=== PATIENT | female | born 1935 | race African-American/Black ===

== ENCOUNTER 2018-03-25 14:07 | Inpatient (IN) | payer MEDICARE, MEDICAID ==
[~2018-03-25] VITALS: Ht 175.3 cm; Wt 94.8 kg
--- NOTE | 2018-03-25 14:28 | Emergency Room Report ---
History of Present Illness General Chief Complaint: General Complaint Source: Patient, Medical Record Present Illness HPI Patient 82-year-old female sent in by nursing facility with EMS after increased facial swelling. Patient reportedly had been sent in for the facial swelling to the left side. This reportedly had began this morning. Patient has no known allergies. Patient was noted to have swelling to the left side of her face. She reported had no recent trauma. She had not been having any fever. History limited by patient being a poor historian. Allergies: Coded Allergies: No Known Allergies (Unverified , 03/25/18) Patient History Past Medical History: see triage record Reviewed Nursing Documentation: PMH: Agreed; PSxH: Agreed Nursing Documentation-PMH Past Medical History: No History, Except For Hx Hypertension: Yes Hx Diabetes: Yes Hx Gastrointestinal Problems: Yes - GERD History Of Psychiatric Problem: Yes - Schizophrenia, bipolar Hx Neurological Problems: Yes - muscle weakness Review of Systems All Other Systems: limited - by poor historian Physical Exam Vital Signs Date Time Temp Pulse Resp B/P (MAP) Pulse Ox O2 Delivery O2 Flow Rate FiO2 03/25/18 14:16 98.0 89 20 116/70 99 Nasal Cannula 3.0 98.1 Sp02 EP Interpretation: reviewed, normal General Appearance: normal inspection, alert, obese, Chronically Ill ENT: other - left preauricular facial swelling and induration Neck: normal inspection, supple, no bony tend, limited range of motion Respiratory: normal inspection, no respiratory distress, no retraction, no wheezing Cardiovascular #1: regular rate, rhythm, no edema Gastrointestinal: normal inspection, normal bowel sounds, non tender, soft, no guarding, no hernia Genitourinary: no CVA tenderness Musculoskeletal: normal inspection, back normal, normal range of motion Neurologic: normal inspection, alert, responsive, speech normal Psychiatric: normal inspection, judgement/insight normal, mood/affect normal Skin: normal inspection, normal color, no rash Medical Decision Making Diagnostic Impression: Primary Impression: Facial cellulitis ER Course Patient presented for facial swelling. Differential diagnosis included was not limited to abscess, contusion, parotitis, among others.Because of complexity of patient's case laboratory testing and imaging studies were ordered.The patient noted to have elevated white blood count consistent with the infection. The patient was given IV fluids as well as IV antibiotics. CT of the face read by radiology with IV contrast showed soft tissue swelling without evident abscess. Patient was discussed with Dr. Antony Connolly for inpatient management due to covering physician Labs Test 03/25/18 14:50 White Blood Count 22.3 K/UL (4.8-10.8) Red Blood Count 4.34 M/UL (4.20-5.40) Hemoglobin 13.3 G/DL (12.0-16.0) Hematocrit 40.8 % (37.0-47.0) Mean Corpuscular Volume 94 FL (80-99) Mean Corpuscular Hemoglobin 30.7 PG (27.0-31.0) Mean Corpuscular Hemoglobin Concent 32.6 G/DL (32.0-36.0) Red Cell Distribution Width 13.4 % (11.6-14.8) Platelet Count 210 K/UL (150-450) Mean Platelet Volume 6.4 FL (6.5-10.1) Neutrophils (%) (Auto) % (45.0-75.0) Lymphocytes (%) (Auto) % (20.0-45.0) Monocytes (%) (Auto) % (1.0-10.0) Eosinophils (%) (Auto) % (0.0-3.0) Basophils (%) (Auto) % (0.0-2.0) Prothrombin Time 11.2 SEC (9.30-11.50) Prothromb Time International Ratio 1.1 (0.9-1.1) Activated Partial Thromboplast Time 33 SEC (23-33) Sodium Level 133 MMOL/L (136-145) Potassium Level 5.1 MMOL/L (3.5-5.1) Chloride Level 100 MMOL/L (98-107) Carbon Dioxide Level 24 MMOL/L (21-32) Anion Gap 9 mmol/L (5-15) Blood Urea Nitrogen 16 mg/dL (7-18) Creatinine 0.9 MG/DL (0.55-1.30) Estimat Glomerular Filtration Rate mL/min (>60) Glucose Level 130 MG/DL (74-106) Lactic Acid Level 2.40 mmol/L (0.4-2.0) Total Bilirubin 0.5 MG/DL (0.2-1.0) Aspartate Amino Transf (AST/SGOT) 37 U/L (15-37) Alanine Aminotransferase (ALT/SGPT) 16 U/L (12-78) Alkaline Phosphatase 92 U/L (46-116) Total Creatine Kinase 152 U/L (26-140) Creatine Kinase MB < 0.5 NG/ML (0.0-3.6) Creatine Kinase MB Relative Index Troponin I 0.000 ng/mL (0.000-0.056) Pro-B-Type Natriuretic Peptide 725 pg/mL (0-125) Total Protein 7.6 G/DL (6.4-8.2) Albumin 2.1 G/DL (3.4-5.0) Globulin 5.5 g/dL Albumin/Globulin Ratio 0.4 (1.0-2.7) EKG Diagnostic Results Rate: normal Rhythm: NSR - 96 ST Segments: other - low voltage Last Vital Signs Date Time Temp Pulse Resp B/P (MAP) Pulse Ox O2 Delivery O2 Flow Rate FiO2 03/25/18 14:16 98.0 89 20 116/70 99 Nasal Cannula 3.0 98.1 Status: unchanged Disposition: ADMITTED INPATIENT Condition: Serious Siddharth Church MD Mar 25, 2018 14:28
[2018-03-25] MEDS ORDERED: Isovue-300 100ml vial INJ PRN (14:45)
[2018-03-25 15:07] VITALS: BP 148/70
[2018-03-25 15:20] LABS: HEMATOCRIT 40.8 % (37.0-47.0); HEMOGLOBIN 13.3 G/DL (12.0-16.0); INR 1.1 (0.9-1.1); MEAN CORPUSCULAR VOLUME 94 FL (80-99); PLATELET COUNT 210 K/UL (150-450); RED BLOOD COUNT 4.34 M/UL (4.20-5.40); RED CELL DISTRIBUTION WIDTH 13.4 % (11.6-14.8)
[2018-03-25 15:25] LABS: WHITE BLOOD COUNT 22.3 K/UL (4.8-10.8)
[2018-03-25 15:29] LABS: ALANINE AMINOTRANSFERASE 16 U/L (12-78); ANION GAP 9 mmol/L (5-15); ASPARTATE AMINO TRANSFERASE 37 U/L (15-37); BILIRUBIN,TOTAL 0.5 MG/DL (0.2-1.0); BLOOD UREA NITROGEN 16 mg/dL (7-18); CARBON DIOXIDE 24 MMOL/L (21-32); CHLORIDE 100 MMOL/L (98-107); CREATINE KINASE 152 U/L (26-140); CREATININE 0.9 MG/DL (0.55-1.30); POTASSIUM 5.1 MMOL/L (3.5-5.1); SODIUM 133 MMOL/L (136-145)
[2018-03-25 15:30] LABS: ALBUMIN 2.1 G/DL (3.4-5.0); ALBUMIN/GLOBULIN RATIO 0.4 (1.0-2.7); ALKALINE PHOSPHATASE 92 U/L (46-116)
[2018-03-25 15:32] LABS: CKMB < 0.5 NG/ML (0.0-3.6)
--- NOTE | 2018-03-25 15:33 | Diagnostic Imaging Report ---
Indication: Shortness of breath Technique: One view of the chest Comparison: none Findings: Calcified granulomata are seen in both lungs. Lungs and pleural spaces otherwise clear. Heart size is normal. Aorta is tortuous and calcified. Upper mediastinum is unremarkable. There are degenerative changes of both shoulders Impression: Evidence old granulomatous disease No acute process Other findings as noted
[2018-03-25] MEDS ORDERED: Ampicillin/Sulbactam Sod 3 GM in NS 110 ML IVPB ONE (15:45)
[2018-03-25 15:55] LABS: CALCIUM 9.1 MG/DL (8.5-10.1)
--- NOTE | 2018-03-25 16:07 | Diagnostic Imaging Report ---
Indication: Pain, swelling Technique: IV administration nonionic contrast. Spiral acquisitions obtained through the face. Multiplanar reconstructions were generated. Total dose length product 591.53 mGycm. CTDIvol(s) 28.19 mGy. Dose reduction achieved using automated exposure control Comparison: 03/24/2018, also bushel girl image from CT scan December 22, 2017 Findings: Interim transit of contrast into the colon. Small amount of residual contrast and small bowel feces are seen in the previously described right lower quadrant small bowel loop, which is less distended and contains less feces and previously. Right upper quadrant small bowel loops are slightly prominent, gas-filled. Nasogastric tube is again demonstrated, coiled in the gastric fundus. Impression: There are mildly dilated right mid abdominal gas-filled small bowel loops. However, since 03/24/2018, interim transit of nearly all of the ingested contrast into the colon. There is also decreased contrast and stool within the previously distended right right pelvic small bowel loop, indicating that the degree of obstruction, if any, is minimal Other findings as noted Dr. Arroyo notified by phone of the findings at the time of interpretation The CT scanner at [facility] [place] is accredited by the [employer] and the scans are performed using protocols designed to limit radiation exposure to as low as reasonably achievable to attain images of sufficient resolution adequate for diagnostic evaluation.
[2018-03-25] MEDS ORDERED: BACTRIM DS TAB1 EAC1 ORAL ×2 (16:31→18:09)
[2018-03-25] MEDS ORDERED: TYLENOL325 MG ORAL (16:31)
[2018-03-25] MEDS ORDERED: MILK OF MA2400 MG/10 ORAL (16:31)
[2018-03-25] MEDS ORDERED: MULTIVITAMINS1 EAC2 ORAL (16:31)
[2018-03-25] MEDS ORDERED: COLACE100 MG ORAL (16:31)
[2018-03-25] MEDS ORDERED: NOVOLIN R100 UNIT/1 SUBQ (16:31)
[2018-03-25] MEDS ORDERED: PHOS-NAK PACKE1 EAC1 PO (16:33)
[2018-03-25] MEDS ORDERED: ZANTAC150 MG ORAL (17:01)
[2018-03-25] MEDS ORDERED: NUTRISOURCE FI1 EACH PO (17:01)
[2018-03-25] MEDS ORDERED: BENZTROPINE ME0.5 MG PO (17:01)
[2018-03-25] MEDS ORDERED: DEPAKOTE250 MG PO (17:01)
[2018-03-25] MEDS ORDERED: DEPAKOTE500 MG PO (18:09)
[2018-03-25] MEDS ORDERED: MILK OF MA400 MG/51 ORAL (18:12)
[2018-03-25 18:15] VITALS: BP 154/73
[2018-03-25] MEDS ORDERED: DULCOLAX10 MG RC (18:18)
[2018-03-25] MEDS ORDERED: NITROFURANTOIN100 M2 ORAL (18:24)
[2018-03-25] MEDS ORDERED: PRO-STAT LIQUID30 ML ORAL (18:24)
[2018-03-25] MEDS ORDERED: CALCIUM CARBON500 M1 PO (18:26)
[2018-03-25 18:30] VITALS: BP 121/88
[2018-03-25] MEDS ORDERED: ACETAMINOPHEN325 M1 ORAL (18:50)
--- NOTE | 2018-03-25 18:51 | Infectious Diseases Prog Note ---
Assessment/Plan Assessment/Plan left facial cellulitis left parotitis sepsis, leukocytosis allergies - negative pmh noted vancomycin, cefepime and flagyl monitor labs check cultures thank you Subjective Allergies: Coded Allergies: No Known Allergies (Unverified , 03/25/18) Objective Vital Signs Last 24 Hour Vital Signs Date Time Temp Pulse Resp B/P (MAP) Pulse Ox O2 Delivery O2 Flow Rate FiO2 03/25/18 18:35 98.1 88 17 154/73 96 Room Air 3.0 03/25/18 18:15 88 17 154/73 96 Room Air 03/25/18 15:07 91 17 148/70 94 Room Air 03/25/18 14:16 98.0 89 20 116/70 99 Nasal Cannula 3.0 98.1 Height (Feet): 5 Height (Inches): 9.00 Weight (Pounds): 190 Laboratory Tests Test 03/25/18 14:50 03/25/18 18:06 White Blood Count 22.3 K/UL (4.8-10.8) *H Red Blood Count 4.34 M/UL (4.20-5.40) Hemoglobin 13.3 G/DL (12.0-16.0) Hematocrit 40.8 % (37.0-47.0) Mean Corpuscular Volume 94 FL (80-99) Mean Corpuscular Hemoglobin 30.7 PG (27.0-31.0) Mean Corpuscular Hemoglobin Concent 32.6 G/DL (32.0-36.0) Red Cell Distribution Width 13.4 % (11.6-14.8) Platelet Count 210 K/UL (150-450) Mean Platelet Volume 6.4 FL (6.5-10.1) L Neutrophils (%) (Auto) % (45.0-75.0) Lymphocytes (%) (Auto) % (20.0-45.0) Monocytes (%) (Auto) % (1.0-10.0) Eosinophils (%) (Auto) % (0.0-3.0) Basophils (%) (Auto) % (0.0-2.0) Differential Total Cells Counted 100 Neutrophils % (Manual) 77 % (45-75) H Lymphocytes % (Manual) 13 % (20-45) L Monocytes % (Manual) 4 % (1-10) Eosinophils % (Manual) 0 % (0-3) Basophils % (Manual) 0 % (0-2) Band Neutrophils 6 % (0-8) Platelet Estimate Adequate Platelet Morphology Normal Red Blood Cell Morphology Normal Prothrombin Time 11.2 SEC (9.30-11.50) Prothromb Time International Ratio 1.1 (0.9-1.1) Activated Partial Thromboplast Time 33 SEC (23-33) Sodium Level 133 MMOL/L (136-145) L Potassium Level 5.1 MMOL/L (3.5-5.1) Chloride Level 100 MMOL/L (98-107) Carbon Dioxide Level 24 MMOL/L (21-32) Anion Gap 9 mmol/L (5-15) Blood Urea Nitrogen 16 mg/dL (7-18) Creatinine 0.9 MG/DL (0.55-1.30) Estimat Glomerular Filtration Rate mL/min (>60) Glucose Level 130 MG/DL (74-106) H Lactic Acid Level 2.40 mmol/L (0.4-2.0) H Pending Calcium Level 9.1 MG/DL (8.5-10.1) Total Bilirubin 0.5 MG/DL (0.2-1.0) Aspartate Amino Transf (AST/SGOT) 37 U/L (15-37) Alanine Aminotransferase (ALT/SGPT) 16 U/L (12-78) Alkaline Phosphatase 92 U/L (46-116) Total Creatine Kinase 152 U/L (26-140) H Creatine Kinase MB < 0.5 NG/ML (0.0-3.6) Creatine Kinase MB Relative Index Troponin I 0.000 ng/mL (0.000-0.056) Pro-B-Type Natriuretic Peptide 725 pg/mL (0-125) H Total Protein 7.6 G/DL (6.4-8.2) Albumin 2.1 G/DL (3.4-5.0) L Globulin 5.5 g/dL Albumin/Globulin Ratio 0.4 (1.0-2.7) L Current Medications Medications (Trade) Dose Ordered Sig/Ariane Route PRN Reason Start Time Stop Time Status Last Admin Dose Admin Iopamidol (Isovue-300 100ml) 100 ml NOW PRN INJ Radiology Procedure 03/25/18 14:45 03/27/18 14:41 Alfie Palacio MD Mar 25, 2018 18:51
[2018-03-25] MEDS ORDERED: LOTENSIN20 MG ORAL (18:54)
[2018-03-25 20:00] VITALS: BP 140/89
[2018-03-25] MEDS ORDERED: Vancomycin 1.5 GM/D5W 250ML IVPB ONE (20:00)
--- NOTE | 2018-03-25 22:45 | Consultation ---
DATE OF CONSULTATION: 03/25/2018 INFECTIOUS DISEASE CONSULTATION CONSULTING PHYSICIAN: Alfie Palacio M.D. REFERRING PHYSICIAN: Antony Connolly M.D. REASON FOR CONSULTATION: Left-sided facial cellulitis and parotitis, sepsis, and elevated white count. CHIEF COMPLAINT: Facial swelling. HISTORY OF PRESENT ILLNESS: This is an 82-year-old female, who is not a very good historian, who presents to [facility] with left facial swelling. A CT scan of the facial bones showed the following. It showed findings consistent with parotid enlargement and in addition edema enhanced with the subcutaneous fat. Findings were consistent with cellulitis and associated parotitis. Infectious Disease consultation is requested for antibiotic management in the patient with left facial cellulitis and parotitis. The patient was placed on vancomycin, cefepime, and Flagyl. The patient is septic with elevated white count. Blood cultures are pending. MAR was noted. Orders were noted. Notes and records were reviewed. The patient is not a very good historian. She is nonverbal. PAST MEDICAL HISTORY: The patient's past medical history includes the following. The patient has a past medical history of hypertension, diabetes, and history of gastroesophageal reflux disease. She has history of schizophrenia and bipolar disease. She has history of muscle weakness. MEDICATIONS: Upon reviewing the MAR, she is on the following medications. She was given ampicillin and sulbactam in the ER. Outside medications were noted and reconciliated. She was on acetaminophen, benazepril, bisacodyl, calcium carbonate, divalproex, docusate, magnesium hydroxide, multivitamins, and ranitidine. ALLERGIES: No known drug allergies. No antibiotic allergies. SOCIAL HISTORY: Negative for smoking, alcohol, or drug abuse. FAMILY HISTORY: Noncontributory. Negative for exposure to tuberculosis or cancer. PHYSICAL EXAMINATION: VITAL SIGNS: Temperature is 98.1, pulse rate 80, respiratory rate 17, blood pressure 154/73, and saturation 96%. Pulse rate was as high as 91. GENERAL: The patient is alert, responsive, and in no acute distress. HEAD AND NECK: Oral exam, no thrush. Eyes exam, no icterus. Neck is supple. No JVD. Normocephalic. She has left facial swelling and parotid enhancement in addition to left facial swelling and warmth. LUNGS: Clear bilaterally. No rhonchi or rales. HEART: Regular. No gallop or murmur. No friction rub. ABDOMEN: Soft. Positive bowel sounds. Nontender. SKIN: No rash. MUSCULOSKELETAL: No effusions. Legs are without cellulitis. PERIPHERAL VASCULAR: No cyanosis or gangrene. GENITOURINARY: She has no Ru[place]. LINES: Line sites without phlebitis. NEUROLOGIC: Generalized weakness and responsive. Opens eyes. Nonverbal. LABORATORY AND DIAGNOSTIC DATA: Laboratory data is as follows. Creatinine is 0.9. White count 22.3 and hemoglobin 13.3. Blood cultures and UA are pending. IMAGING STUDIES: Chest x-ray showed no acute disease. No pneumonia, only old granulomatous disease. A CT scan of the facial bones was consistent with left-sided facial cellulitis and parotitis. ASSESSMENT AND PLAN: 1. The patient has left facial cellulitis and parotitis with sepsis and elevated white count. Because of the sepsis, I believe more aggressive antibiotics. Most common cause of the parotitis should be Staph aureus including methicillin-resistant Staphylococcus aureus. However, anaerobic bacteria are potential pathogens and the patient because of her immunocompromised status with history of diabetes, is at high risk for Gram-negative organisms also. We will place the patient on vancomycin for methicillin-resistant Staphylococcus aureus and Staph aureus coverage and cefepime and Flagyl for gram-negative anaerobic coverage. Continue antibiotics. Check other cultures. Check followup labs. Chest x-ray is negative. UA and blood cultures are pending. Continue vancomycin, cefepime, and Flagyl for left facial cellulitis, parotitis, sepsis, and elevated white count. 2. The patient has sepsis, leukocytosis 3. Diabetes. 4. Hypertension. 5. Blood sugar and blood pressure control per primary. 6. Gastroesophageal reflux disease. 7. Schizophrenia 8. Bipolar disease. 9. Weakness. 10. Past medical history is noted. 11. No known allergies. 12. Social history is negative. 13. Family history is noncontributory. 14. MAR was noted. 15. Case was discussed with RN. 16. Continue treatment per primary consultants. Alfie Palacio M.D. DR: YVES JOB#: [id number] CC: ZECHARIAH
[2018-03-26] VITALS: BP 129/74
[2018-03-26] MEDS: Depakote 500mg tab ORAL SCH ×3 (00:27→08:47)
[2018-03-26 04:00] VITALS: BP 121/68
[2018-03-26 06:48] LABS: HEMATOCRIT 40.8 % (37.0-47.0); HEMOGLOBIN 13.4 G/DL (12.0-16.0); MEAN CORPUSCULAR VOLUME 94 FL (80-99); PLATELET COUNT 207 K/UL (150-450); RED BLOOD COUNT 4.32 M/UL (4.20-5.40); RED CELL DISTRIBUTION WIDTH 13.1 % (11.6-14.8); WHITE BLOOD COUNT 21.8 K/UL (4.8-10.8)
[2018-03-26 07:05] LABS: ALANINE AMINOTRANSFERASE 9 U/L (12-78); ALBUMIN 2.1 G/DL (3.4-5.0); ALBUMIN/GLOBULIN RATIO 0.4 (1.0-2.7); ALKALINE PHOSPHATASE 88 U/L (46-116); ANION GAP 8 mmol/L (5-15); ASPARTATE AMINO TRANSFERASE 29 U/L (15-37); BILIRUBIN,TOTAL 0.5 MG/DL (0.2-1.0); BLOOD UREA NITROGEN 11 mg/dL (7-18); CALCIUM 8.6 MG/DL (8.5-10.1); CARBON DIOXIDE 26 MMOL/L (21-32); CHLORIDE 99 MMOL/L (98-107); CREATININE 0.8 MG/DL (0.55-1.30); POTASSIUM 3.8 MMOL/L (3.5-5.1); SODIUM 133 MMOL/L (136-145)
[2018-03-26 08:00] VITALS: BP 138/77
[2018-03-26] MEDS: Tums 500mg ORAL SCH ×3 (08:19→17:12)
[2018-03-26] MEDS ORDERED: Docusate 100mg cap ORAL SCH (09:00)
[2018-03-26] MEDS: Vancomycin 1250mg/D5W 250ml IVPB SCH (10:03)
[2018-03-26] MEDS ORDERED: NS 275ml ONE (10:52)
[2018-03-26] MEDS ORDERED: Tubing IV Secondary IV ONE (10:52)
[2018-03-26] MEDS: Valproic Acid 500mg/10ml liquid ORAL SCH ×2 (11:14→21:08)
[2018-03-26 12:00] VITALS: BP 116/65
[2018-03-26 15:39] VITALS: BP 101/52
[2018-03-26] MEDS: Docusate 100mg/10ml Liq ORAL SCH (17:12)
[2018-03-26 20:00] VITALS: BP 117/78
--- NOTE | 2018-03-26 23:45 | History and Physical Report ---
DATE OF ADMISSION: 03/25/2018 REASON FOR ADMISSION: Cellulitis, parotitis of left face with leukocytosis and sepsis. HISTORY OF PRESENT ILLNESS: This is an 82-year-old female, who resides at a [facility] facility. She is at baseline a poor historian with dementia, however, has been increasingly withdrawn and lethargic for the past day. She was noted to have progressive swelling of her face today according to senior living staff. She was also noted to have associated warmth, redness, and apparent tenderness to palpation prompting her to be sent to the emergency room for assessment. Based on diagnostic studies, hospitalization was initiated under my care. PAST MEDICAL HISTORY: Cerebrovascular disease with dementia, bipolar disorder, schizophrenia, abnormal gait, degenerative disk disease, osteoarthritis, hypertension with hypertensive heart disease, non-insulin requiring diabetes mellitus, and gastroesophageal reflux disease. ALLERGIES: None. MEDICATIONS: Prior to admission, reviewed and reconciled. SOCIAL HISTORY: Prior history of moderate alcohol use. No record of smoking or substance abuse. FAMILY HISTORY: Noncontributory. REVIEW OF SYSTEMS: Otherwise not obtainable from the patient and pertinent data from review of records is outlined above. PHYSICAL EXAMINATION: VITAL SIGNS: Afebrile, blood pressure 154/73, pulse 80, respirations 17. GENERAL: Alert, awake, but unresponsive, but lethargic. HEENT: Normocephalic, atraumatic. Conjunctivae pink. Oropharynx clear. No thrush. No oral lesion. There is swelling of the left facies and tenderness and warmth over the parotid region. There is no adenopathy. LUNGS: Clear. CARDIAC: Regular rhythm and rate. Normal S1, S2 with a 1/6 systolic murmur at base. ABDOMEN: Soft, nontender. No guarding or rebound. EXTREMITIES: Good pulses. No edema. NEUROLOGIC: Nonfocal, but mild cognitive impairment is seen. There is no skin rash. LABORATORY DATA: Labs notable for white count 22.3, hemoglobin 13.3. Lactic acid 2.4. Troponin negative. Sodium is 133, potassium 5.1, bicarbonate 24, BUN 16, creatinine 0.9, and glucose . Albumin 2.1. Pro-natriuretic peptide 725. IMPRESSION: 1. Left-sided facial cellulitis. 2. Parotitis. 3. Sepsis. 4. Leukocytosis. 5. Type 2 diabetes mellitus with mild hyperglycemia. 6. Hypertensive heart disease with controlled blood pressure. 7. History of gastroesophageal reflux disease. 8. History of bipolar disorder and schizophrenia with stable at this time. 9. Hyponatremia with hypovolemia. 10. Lactic acidosis. 11. Severe protein-calorie malnutrition. 12. Chronic diastolic congestive heart failure. PLAN: 1. Panculture. 2. Broad-spectrum antibiotics. 3. Imaging studies of the left facies. 4. Infectious Disease consultation. 5. Cautious hydration with saline. 6. Insulin titration by sliding scale. 7. DVT and stress ulcer prophylaxes. 8. Further recommendations and care plan will follow based on clinical course. Antony Connolly M.D. DR: KATHY JOB#: [id number] CC: ZECHARIAH
[2018-03-27] VITALS: BP 146/83
--- NOTE | 2018-03-27 00:15 | Progress Note ---
DATE: 03/26/2018 INTERNAL MEDICINE PROGRESS NOTE SUBJECTIVE: The patient is appearing more awake, alert, and interactive today. Her appetite is better, it showed 80% of breakfast, but 20% of lunch. OBJECTIVE: VITAL SIGNS: T-max 99.1, blood pressure 101/52, heart rate 84, respiratory rate 20. HEENT: There is still tenderness over the left face with warmth and redness, no change from admission. There is no adenopathy. Oropharynx clear. No thrush. LUNGS: Clear. CARDIAC: Regular rhythm rate. Normal S1, S2 with a fourth heart sound and a 1/6 systolic murmur at apex. ABDOMEN: Soft, nontender. EXTREMITIES: No edema. NEUROLOGIC: No new neurologic deficits. LABORATORY DATA: Lactic acid is now normal. Albumin 2.1. BUN 11, creatinine 0.8. Potassium 3.8, sodium 133, bicarb 26, magnesium 1.8. White count 21.8, hemoglobin 13.4. IMPRESSION: 1. Left facial cellulitis. 2. Parotiditis. 3. Sepsis. 4. Leukocytosis, slightly better. 5. Severe protein-calorie malnutrition. 6. Chronic diastolic congestive heart failure. 7. Hypertensive heart disease. 8. Lactic acidosis, resolved. 9. Hyponatremia. 10. Hypovolemia, improving. PLAN: 1. Continue saline hydration. 2. Antimicrobials. 3. Consider further imaging of the faces. 4. Infectious Disease followup. 5. Broad-spectrum antibiotics. 6. Protein supplement. 7. DVT and stress ulcer prophylaxis. 8. Aspiration precautions. Antony Connolly M.D. DR: KURT JOB#: [id number] CC:
[2018-03-27 04:00] VITALS: BP 111/60
[2018-03-27 07:11] LABS: BASOPHILS % (AUTO) 0.6 % (0.0-2.0); EOSINOPHILS % (AUTO) 1.1 % (0.0-3.0); HEMATOCRIT 36.9 % (37.0-47.0); HEMOGLOBIN 11.9 G/DL (12.0-16.0); LYMPHOCYTES % (AUTO) 18.3 % (20.0-45.0); MEAN CORPUSCULAR VOLUME 93 FL (80-99); MONOCYTES % (AUTO) 5.1 % (1.0-10.0); NEUTROPHILS % (AUTO) 74.9 % (45.0-75.0); PLATELET COUNT 244 K/UL (150-450); RED BLOOD COUNT 3.99 M/UL (4.20-5.40); RED CELL DISTRIBUTION WIDTH 12.9 % (11.6-14.8); WHITE BLOOD COUNT 17.4 K/UL (4.8-10.8)
[2018-03-27 07:19] LABS: ALANINE AMINOTRANSFERASE 28 U/L (12-78); ALBUMIN 1.8 G/DL (3.4-5.0); ALBUMIN/GLOBULIN RATIO 0.4 (1.0-2.7); ALKALINE PHOSPHATASE 87 U/L (46-116); ANION GAP 7 mmol/L (5-15); ASPARTATE AMINO TRANSFERASE 33 U/L (15-37); BILIRUBIN,TOTAL 0.4 MG/DL (0.2-1.0); BLOOD UREA NITROGEN 12 mg/dL (7-18); CALCIUM 8.5 MG/DL (8.5-10.1); CARBON DIOXIDE 26 MMOL/L (21-32); CHLORIDE 103 MMOL/L (98-107); POTASSIUM 3.5 MMOL/L (3.5-5.1); SODIUM 136 MMOL/L (136-145)
[2018-03-27 08:00] VITALS: BP 158/72
[2018-03-27] MEDS: Docusate 100mg/10ml Liq ORAL SCH ×2 (08:46→17:38)
[2018-03-27] MEDS: Valproic Acid 500mg/10ml liquid ORAL SCH ×2 (08:46→21:03)
[2018-03-27] MEDS: Tums 500mg ORAL SCH ×3 (08:46→17:38)
[2018-03-27] MEDS: Vancomycin 1250mg/D5W 250ml IVPB SCH (10:19)
[2018-03-27 12:00] VITALS: BP 130/60
--- NOTE | 2018-03-27 14:23 | Cardiology Report ---
APPROVED REPORT EKG Measurement Heart [id number] Normal sinus rhythm Possible Left atrial enlargement Low voltage QRS Borderline ECG poor quliaty tracing consider repating the ekg
--- NOTE | 2018-03-27 15:31 | Infectious Diseases Prog Note ---
Assessment/Plan Assessment/Plan ASSESSMENT AND PLAN: 1. left facial cellulitis, left parotitis, facial ct noted, sepsis, leukocytosis - vancomycin, cefepime and flagy - da/y # 3 abx - monitor labs - watch cr/wbc 2. The patient has sepsis, leukocytosis 3. Diabetes. 4. Hypertension. 5. Blood sugar and blood pressure control per primary. 6. Gastroesophageal reflux disease. 7. Schizophrenia 8. Bipolar disease. 9. Weakness. 10. Past medical history is noted. 11. No known allergies. 12. Social history is negative. 13. Family history is noncontributory. 14. MAR was noted. 15. Case was discussed with RN. 16. Continue treatment per primary consultants. Subjective Constitutional: Denies: fever HEENT: Denies: congestion Respiratory: Denies: shortness of breath Cardiovascular: Denies: chest pain Gastrointestinal/Abdominal: Denies: nausea, vomiting, diarrhea, constipation, bloating Genitourinary: Reports: other - no hicks Neurologic: Denies: headache Psychiatric: Denies: depression Skin: Denies: rash Hematologic: Denies: bleeding Musculoskeletal: Denies: pain Allergies: Coded Allergies: No Known Allergies (Unverified , 03/25/18) Objective Vital Signs Last 24 Hour Vital Signs Date Time Temp Pulse Resp B/P (MAP) Pulse Ox O2 Delivery O2 Flow Rate FiO2 03/27/18 12:00 97.5 69 20 130/60 (83) 93 97.5 03/27/18 12:00 48 03/27/18 09:00 Room Air 03/27/18 08:00 59 03/27/18 08:00 98.0 62 18 158/72 (100) 99 98.0 03/27/18 04:00 75 03/27/18 04:00 97.2 69 16 111/60 (77) 97 97.2 03/27/18 00:00 98.1 95 18 146/83 (104) 97 98.1 03/27/18 00:00 73 03/26/18 21:00 Room Air 03/26/18 20:00 70 03/26/18 20:00 97.7 75 16 117/78 (91) 98 97.7 03/26/18 16:00 88 03/26/18 15:39 99.1 84 20 101/52 (68) 99 99.1 Height (Feet): 5 Height (Inches): 9.00 Weight (Pounds): 190 General Appearance: WD/WN HEENT: normocephalic, atraumatic, anicteric, mucous membranes moist, EOMI, no JVD, other - left facial pain and swelling less Respiratory/Chest: lungs clear, normal breath sounds, no respiratory distress, no accessory muscle use Cardiovascular: normal rate, regular rhythm, no gallop/murmur, no JVD Abdomen: normal bowel sounds, soft, non tender, no organomegaly, non distended Genitourinary: other - no hicks Extremities: no cyanosis Skin: no rash 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 Adjacent edema and enhancement of the subcutaneous fat as well as skin thickening. Findings are consistent with cellulitis with associated parotitis. Negative for evidence of abscess or sialolithiasis Prominent surrounding and intraparenchymal nodes, likely reactive Slight asymmetric prominence to the tonsillar pillars on the left, probably just physiologic asymmetry although tonsillar inflammation is not completely excludable. Findings discussed by phone with Dr. Church in the emergency room at the time of interpretation Microbiology Date/Time Source Procedure Growth Status 03/25/18 14:50 Blood Blood Culture - Preliminary NO GROWTH AFTER 24 HOURS Resulted 03/25/18 14:40 Blood Blood Culture - Preliminary NO GROWTH AFTER 24 HOURS Resulted Laboratory Tests Test 03/27/18 05:40 White Blood Count 17.4 K/UL (4.8-10.8) H Red Blood Count 3.99 M/UL (4.20-5.40) L Hemoglobin 11.9 G/DL (12.0-16.0) L Hematocrit 36.9 % (37.0-47.0) L Mean Corpuscular Volume 93 FL (80-99) Mean Corpuscular Hemoglobin 29.9 PG (27.0-31.0) Mean Corpuscular Hemoglobin Concent 32.3 G/DL (32.0-36.0) Red Cell Distribution Width 12.9 % (11.6-14.8) Platelet Count 244 K/UL (150-450) Mean Platelet Volume 5.9 FL (6.5-10.1) L Neutrophils (%) (Auto) 74.9 % (45.0-75.0) Lymphocytes (%) (Auto) 18.3 % (20.0-45.0) L Monocytes (%) (Auto) 5.1 % (1.0-10.0) Eosinophils (%) (Auto) 1.1 % (0.0-3.0) Basophils (%) (Auto) 0.6 % (0.0-2.0) Sodium Level 136 MMOL/L (136-145) Potassium Level 3.5 MMOL/L (3.5-5.1) Chloride Level 103 MMOL/L (98-107) Carbon Dioxide Level 26 MMOL/L (21-32) Anion Gap 7 mmol/L (5-15) Blood Urea Nitrogen 12 mg/dL (7-18) Creatinine 1.0 MG/DL (0.55-1.30) Estimat Glomerular Filtration Rate mL/min (>60) Glucose Level 81 MG/DL (74-106) Calcium Level 8.5 MG/DL (8.5-10.1) Magnesium Level 1.8 MG/DL (1.8-2.4) Total Bilirubin 0.4 MG/DL (0.2-1.0) Aspartate Amino Transf (AST/SGOT) 33 U/L (15-37) Alanine Aminotransferase (ALT/SGPT) 28 U/L (12-78) Alkaline Phosphatase 87 U/L (46-116) Pro-B-Type Natriuretic Peptide 270 pg/mL (0-125) H Total Protein 6.5 G/DL (6.4-8.2) Albumin 1.8 G/DL (3.4-5.0) L Globulin 4.7 g/dL Albumin/Globulin Ratio 0.4 (1.0-2.7) L Current Medications Medications (Trade) Dose Ordered Sig/Ariane Route PRN Reason Start Time Stop Time Status Last Admin Dose Admin Calcium Carbonate (Tums) 750 mg THREE TIMES A DAY ORAL 03/26/18 09:00 04/25/18 08:59 03/27/18 13:19 Cefepime HCl 2 gm/ Dextrose 100 ml @ 200 mls/hr Q12HR IVPB 03/25/18 21:00 04/01/18 20:59 03/27/18 08:45 Docusate Sodium (Colace) 100 mg TWICE A DAY ORAL 03/26/18 18:00 04/25/18 17:59 03/27/18 08:46 Famotidine (Pepcid) 20 mg DAILY ORAL 03/26/18 09:00 04/25/18 08:59 03/27/18 08:46 Metronidazole 100 ml @ 100 mls/hr Q8HR IVPB 03/25/18 22:00 04/01/18 21:59 03/27/18 13:19 Multivitamins (Multivitamins) 1 tab DAILY ORAL 03/26/18 09:00 04/25/18 08:59 03/27/18 08:46 Sodium Chloride 1,000 ml @ 100 mls/hr Q10H IV 03/26/18 02:15 04/25/18 02:14 03/27/18 08:51 Valproic Acid (Depakene) 500 mg EVERY 12 HOURS ORAL 03/26/18 12:00 04/25/18 11:59 03/27/18 08:46 Vancomycin HCl (Vanco rx to dose) 1 ea DAILY PRN MISC Per rx protocol 03/25/18 19:00 04/24/18 18:59 Vancomycin HCl/ Dextrose 250 ml @ 166.667 mls/hr Q24H IVPB 03/26/18 11:00 03/31/18 10:59 03/27/18 10:19 Alfei Palacio MD Mar 27, 2018 15:31
[2018-03-27 16:00] VITALS: BP 105/75
[2018-03-27 20:00] VITALS: BP 135/80
[2018-03-28] VITALS: BP 141/95
--- NOTE | 2018-03-28 00:45 | Progress Note ---
DATE: 03/27/2018 INTERNAL MEDICINE PROGRESS NOTE SUBJECTIVE: The patient has no new complaints. She continues on IV antibiotics. OBJECTIVE: VITAL SIGNS: Blood pressure 130/60, pulse 69, and respiratory rate 20. HEENT: Facial swelling on the left has slightly decreased. There is no tenderness to palpation. NECK: Supple. LUNGS: Clear. CARDIAC: Regular. Normal S1 and S2 with no new murmur. ABDOMEN: Soft. EXTREMITIES: Without edema. LABORATORY AND DIAGNOSTIC DATA: Sodium 136, potassium 3.5, bicarbonate 26, BUN 12, and creatinine 1.0. Magnesium 1.8. Pro-natriuretic peptide 270 and albumin 1.8. White count is down to 17.4 and hemoglobin 11.9. IMPRESSION: 1. Left facial cellulitis. 2. Parotiditis. 3. Sepsis. 4. Leukocytosis. 5. Anemia of chronic disease. 6. Hypertensive heart disease. 7. Severe protein-calorie malnutrition. 8. Chronic diastolic congestive heart failure. 9. Cerebrovascular disease with dementia. 10. History of schizophrenia. PLAN: 1. Continue IV antibiotics. 2. Protein supplement. 3. Potassium replacement as needed. 4. Local measures for pain. 5. DVT prophylaxis. 6. IV antibiotics per Infectious Disease building energy consultant. Antony Connolly M.D. DR: AXEL JOB#: [id number] CC:
[2018-03-28 04:00] VITALS: BP 132/70
[2018-03-28 07:29] LABS: BASOPHILS % (AUTO) 0.7 % (0.0-2.0); HEMATOCRIT 37.3 % (37.0-47.0); HEMOGLOBIN 12.1 G/DL (12.0-16.0); LYMPHOCYTES % (AUTO) 22.9 % (20.0-45.0); MEAN CORPUSCULAR VOLUME 94 FL (80-99); MONOCYTES % (AUTO) 6.6 % (1.0-10.0); NEUTROPHILS % (AUTO) 67.7 % (45.0-75.0); PLATELET COUNT 240 K/UL (150-450); RED BLOOD COUNT 3.96 M/UL (4.20-5.40); RED CELL DISTRIBUTION WIDTH 13.3 % (11.6-14.8); WHITE BLOOD COUNT 13.7 K/UL (4.8-10.8)
[2018-03-28 07:46] LABS: ANION GAP 7 mmol/L (5-15); BLOOD UREA NITROGEN 9 mg/dL (7-18); CARBON DIOXIDE 24 MMOL/L (21-32); CHLORIDE 106 MMOL/L (98-107); CREATININE 0.8 MG/DL (0.55-1.30); POTASSIUM 3.7 MMOL/L (3.5-5.1); SODIUM 137 MMOL/L (136-145)
[2018-03-28 08:21] VITALS: BP 131/92
[2018-03-28] MEDS: Docusate 100mg/10ml Liq ORAL SCH ×3 (08:39→17:36)
[2018-03-28] MEDS: Tums 500mg ORAL SCH ×3 (08:40→17:36)
[2018-03-28] MEDS: Valproic Acid 500mg/10ml liquid ORAL SCH ×3 (08:40→21:23)
--- NOTE | 2018-03-28 11:03 | General Progress Note ---
Assessment/Plan Problem List: (1) Encephalopathy allergic ICD Codes: G93.49 - Other encephalopathy SNOMED: 35828303 (2) Hypertensive heart and chronic kidney disease ICD Codes: I13.10 - Hypertensive heart and chronic kidney disease without heart failure, with stage 1 through stage 4 chronic kidney disease, or unspecified chronic kidney disease SNOMED: 0341166529866 (3) Diastolic CHF, chronic ICD Codes: I50.32 - Chronic diastolic (congestive) heart failure SNOMED: 99316846, 491957794 (4) Schizoaffective disorder ICD Codes: F25.9 - Schizoaffective disorder, unspecified SNOMED: 33709799 (5) Facial abscess ICD Codes: L02.01 - Cutaneous abscess of face SNOMED: 122848002 Status: stable, progressing Assessment/Plan cont iv abx per id cardiac rx pain rx skin care psych rx Subjective ROS Limited/Unobtainable: Yes Constitutional: Reports: weakness HEENT: Reports: no symptoms Cardiovascular: Reports: no symptoms Respiratory: Reports: no symptoms Gastrointestinal/Abdominal: Reports: no symptoms Genitourinary: Reports: no symptoms Neurologic/Psychiatric: Reports: anxiety, pre-existing deficit Endocrine: Reports: no symptoms Hematologic/Lymphatic: Reports: no symptoms Allergies: Coded Allergies: No Known Allergies (Unverified , 03/25/18) All Systems: reviewed and negative except above Subjective no complaints. confused. decreased facial swelling. denies pain. wbc trending down. remains on iv abx rx Objective Last 24 Hour Vital Signs Date Time Temp Pulse Resp B/P (MAP) Pulse Ox O2 Delivery O2 Flow Rate FiO2 03/28/18 09:00 Room Air 03/28/18 08:21 97.3 58 18 131/92 (105) 99 97.3 03/28/18 08:00 59 03/28/18 04:00 97.7 87 20 132/70 (90) 100 97.7 03/28/18 04:00 61 03/28/18 00:00 98.2 92 20 141/95 (110) 98 98.2 03/28/18 00:00 81 03/27/18 21:00 Room Air 03/27/18 20:00 97.7 81 20 135/80 (98) 91 97.7 03/27/18 20:00 61 03/27/18 16:00 72 03/27/18 16:00 97.7 81 19 105/75 (85) 91 97.7 03/27/18 12:00 97.5 69 20 130/60 (83) 93 97.5 03/27/18 12:00 48 Intake and Output 03/27/18 03/28/18 19:00 07:00 Intake Total 1550.000 ml 700 ml Output Total 500 ml 850 ml Balance 1050.000 ml -150 ml Intake Oral 100 ml IV Total 1450.000 ml 700 ml Output Urine Total 500 ml 850 ml Laboratory Tests 03/28/18 07:00: White Blood Count 13.7H, Red Blood Count 3.96L, Hemoglobin 12.1, Hematocrit 37.3 , Mean Corpuscular Volume 94, Mean Corpuscular Hemoglobin 30.6, Mean Corpuscular Hemoglobin Concent 32.5, Red Cell Distribution Width 13.3, Platelet Count 240, Mean Platelet Volume 5.2L, Neutrophils (%) (Auto) 67.7, Lymphocytes ( %) (Auto) 22.9, Monocytes (%) (Auto) 6.6, Eosinophils (%) (Auto) 2.0, Basophils (%) (Auto) 0.7, Sodium Level 137, Potassium Level 3.7, Chloride Level 106, Carbon Dioxide Level 24, Anion Gap 7, Blood Urea Nitrogen 9, Creatinine 0.8, Estimat Glomerular Filtration Rate , Glucose Level 87, Calcium Level 9.0 03/28/18 10:00: Vancomycin Level Trough 11.5 Height (Feet): 5 Height (Inches): 9.00 Weight (Pounds): 190 General Appearance: WD/WN, alert, confused Neck: supple Cardiovascular: regular rhythm Respiratory/Chest: lungs clear, normal breath sounds, no respiratory distress Abdomen: normal bowel sounds, non tender, soft, no organomegaly Edema: no edema noted Arm (L), no edema noted Arm (R), no edema noted Leg (L), no edema noted Leg (R), no edema noted Pedal (L), no edema noted Pedal (R), no edema noted Generalized Neurologic: alert, responsive Tobi Garcia MD Mar 28, 2018 11:03
[2018-03-28] MEDS: Vancomycin 1250mg/D5W 250ml IVPB SCH (11:21)
[2018-03-28 12:00] VITALS: BP 130/60
[2018-03-28 15:18] VITALS: BP 117/93
[2018-03-28 20:00] VITALS: BP 154/90
[2018-03-29] VITALS: BP 117/66
[2018-03-29 04:00] VITALS: BP 124/74
--- NOTE | 2018-03-29 04:15 | Progress Note ---
DATE: 03/28/2018 PROGRESS NOTE SUBJECTIVE: The patient with less facial swelling. No apparent distress. No chest pain or shortness of breath. No nausea or vomiting. Tolerating diet. OBJECTIVE: VITAL SIGNS: Blood pressure 131/92, pulse 58, and respirations 18. HEENT: Facial swelling diminished. LUNGS: Clear. CARDIAC: Regular. Normal S1, S2. ABDOMEN: Soft. EXTREMITIES: No edema. LABORATORY DATA: White count down to 13.7 and hemoglobin 12.1. Potassium 3.7. Pro-natriuretic peptide yesterday was 270. IMPRESSION: 1. Left facial cellulitis. 2. Parotiditis. 3. Severe protein-calorie malnutrition. 4. Chronic diastolic congestive heart failure. 5. Sinus bradycardia. 6. Hypertensive heart disease. PLAN: 1. Antimicrobials. 2. Skin care. 3. Protein supplement. 4. Titrate antihypertensives based on clinical parameters. Antony Connolly M.D. DR: SHYANNE JOB#: [id number] CC:
[2018-03-29 08:00] VITALS: BP 102/80
[2018-03-29] MEDS: Docusate 100mg/10ml Liq ORAL SCH ×2 (09:07→17:14)
[2018-03-29] MEDS: Tums 500mg ORAL SCH ×3 (09:07→17:14)
[2018-03-29] MEDS: Valproic Acid 500mg/10ml liquid ORAL SCH ×2 (09:07→21:06)
[2018-03-29] MEDS: Vancomycin 1250mg/D5W 250ml IVPB SCH (11:06)
[2018-03-29 12:00] VITALS: BP 128/56
--- NOTE | 2018-03-29 15:46 | General Progress Note ---
Assessment/Plan Problem List: (1) Encephalopathy allergic ICD Codes: G93.49 - Other encephalopathy SNOMED: 60347538 (2) Hypertensive heart and chronic kidney disease ICD Codes: I13.10 - Hypertensive heart and chronic kidney disease without heart failure, with stage 1 through stage 4 chronic kidney disease, or unspecified chronic kidney disease SNOMED: 5421131363942 (3) Diastolic CHF, chronic ICD Codes: I50.32 - Chronic diastolic (congestive) heart failure SNOMED: 28096473, 552345380 (4) Schizoaffective disorder ICD Codes: F25.9 - Schizoaffective disorder, unspecified SNOMED: 07920456 (5) Facial abscess ICD Codes: L02.01 - Cutaneous abscess of face SNOMED: 788096016 Status: stable, progressing Assessment/Plan cont iv abx per id cardiac rx pain rx skin care psych rx dc planning tomorrow Subjective ROS Limited/Unobtainable: No Constitutional: Reports: malaise, weakness HEENT: Reports: no symptoms Cardiovascular: Reports: no symptoms Respiratory: Reports: no symptoms Gastrointestinal/Abdominal: Reports: no symptoms Genitourinary: Reports: no symptoms Neurologic/Psychiatric: Reports: no symptoms Endocrine: Reports: no symptoms Hematologic/Lymphatic: Reports: no symptoms Allergies: Coded Allergies: No Known Allergies (Unverified , 03/25/18) All Systems: reviewed and negative except above Subjective no complaints. confused. decreased facial swelling. denies pain. wbc trending down. remains on iv abx rx no fevers noted. labs reviewed Objective Last 24 Hour Vital Signs Date Time Temp Pulse Resp B/P (MAP) Pulse Ox O2 Delivery O2 Flow Rate FiO2 03/29/18 12:00 97.3 64 18 128/56 (80) 96 97.3 03/29/18 12:00 59 03/29/18 09:00 Room Air 03/29/18 08:00 59 03/29/18 08:00 97.2 54 18 102/80 (87) 95 97.2 03/29/18 04:00 57 03/29/18 04:00 98.1 80 19 124/74 (91) 97 98.1 03/29/18 00:00 98.3 83 18 117/66 (83) 97 98.3 03/29/18 00:00 76 03/28/18 21:00 Room Air 03/28/18 20:00 86 03/28/18 20:00 98.4 98 19 154/90 (111) 97 98.4 03/28/18 16:00 64 Intake and Output 03/28/18 03/29/18 19:00 07:00 Intake Total 933.334 ml 730 ml Output Total 900 ml 650 ml Balance 33.334 ml 80 ml Intake Oral 360 ml 150 ml IV Total 573.334 ml 580 ml Output Urine Total 900 ml 650 ml # Bowel Movements 1 Height (Feet): 5 Height (Inches): 9.00 Weight (Pounds): 190 Objective General Appearance: WD/WN, alert, confused Neck: supple Cardiovascular: regular rhythm Respiratory/Chest: lungs clear, normal breath sounds, no respiratory distress Abdomen: normal bowel sounds, non tender, soft, no organomegaly Edema: no edema noted Arm (L), no edema noted Arm (R), no edema noted Leg (L), no edema noted Leg (R), no edema noted Pedal (L), no edema noted Pedal (R), no edema noted Generalized Neurologic: alert, responsive Tobi Garcia MD Mar 29, 2018 15:46
[2018-03-29 16:00] VITALS: BP 131/91
--- NOTE | 2018-03-29 17:03 | Infectious Diseases Prog Note ---
Assessment/Plan Assessment/Plan ASSESSMENT AND PLAN: 1. left facial cellulitis, left parotitis, facial ct noted, sepsis, leukocytosis - vancomycin, cefepime and flagyl - day # 5 abx - leukocytosis improved, clinically less facial swelling - monitor labs - watch cr/wbc - po abx soon if continues to improve 2. The patient has sepsis, leukocytosis 3. Diabetes. 4. Hypertension. 5. Blood sugar and blood pressure control per primary. 6. Gastroesophageal reflux disease. 7. Schizophrenia 8. Bipolar disease. 9. Weakness. 10. Past medical history is noted. 11. No known allergies. 12. Social history is negative. 13. Family history is noncontributory. 14. MAR was noted. 15. Case was discussed with RN. 16. Continue treatment per primary consultants. Subjective Constitutional: Denies: fever HEENT: Denies: congestion Respiratory: Denies: shortness of breath Cardiovascular: Denies: chest pain Gastrointestinal/Abdominal: Denies: nausea, vomiting, diarrhea Genitourinary: Reports: other - no hicks Neurologic: Denies: headache Psychiatric: Denies: depression Skin: Denies: rash Hematologic: Denies: bleeding Musculoskeletal: Denies: pain Allergies: Coded Allergies: No Known Allergies (Unverified , 03/25/18) Objective Vital Signs Last 24 Hour Vital Signs Date Time Temp Pulse Resp B/P (MAP) Pulse Ox O2 Delivery O2 Flow Rate FiO2 03/29/18 16:00 60 03/29/18 16:00 97.3 60 20 131/91 (104) 100 97.3 03/29/18 12:00 97.3 64 18 128/56 (80) 96 97.3 03/29/18 12:00 59 03/29/18 09:00 Room Air 03/29/18 08:00 59 03/29/18 08:00 97.2 54 18 102/80 (87) 95 97.2 03/29/18 04:00 57 03/29/18 04:00 98.1 80 19 124/74 (91) 97 98.1 03/29/18 00:00 98.3 83 18 117/66 (83) 97 98.3 03/29/18 00:00 76 03/28/18 21:00 Room Air 03/28/18 20:00 86 03/28/18 20:00 98.4 98 19 154/90 (111) 97 98.4 Height (Feet): 5 Height (Inches): 9.00 Weight (Pounds): 190 General Appearance: no acute distress HEENT: normocephalic, atraumatic, anicteric, mucous membranes moist Respiratory/Chest: lungs clear, normal breath sounds, no respiratory distress Cardiovascular: normal rate, regular rhythm, no gallop/murmur, no JVD Abdomen: normal bowel sounds, soft, non tender, no organomegaly, non distended Genitourinary: other - no hicks Extremities: no cyanosis Skin: no rash, no ulcers Neurologic/Psychiatric: alert, responsive Lymphatic: no neck adenopathy Musculoskeletal: no effusion Objective Chest - x-ray - nad, report noted Facial CT - Impression: Enlarged edematous hypervascular left parotid gland superficial lobe. Adjacent edema and enhancement of the subcutaneous fat as well as skin thickening. Findings are consistent with cellulitis with associated parotitis. Negative for evidence of abscess or sialolithiasis Prominent surrounding and intraparenchymal nodes, likely reactive Slight asymmetric prominence to the tonsillar pillars on the left, probably just physiologic asymmetry although tonsillar inflammation is not completely excludable. Findings discussed by phone with Dr. Church in the emergency room at the time of interpretation Microbiology Date/Time Source Procedure Growth Status 03/25/18 14:50 Blood Blood Culture - Preliminary NO GROWTH AFTER 72 HOURS Resulted 03/25/18 17:45 Nasal Nares MRSA Culture - Final NO METHICILLIN RESISTANT STAPH AUREUS... Complete 03/25/18 17:45 Rectum VRE Culture - Final Enterococcus Faecalis - Vre Complete 03/25/18 17:45 Rectum - Final NO CARBAPENEM-RESISTANT ENTEROBACTERI... Complete Labs Test 03/27/18 05:40 03/28/18 07:00 03/28/18 10:00 White Blood Count 17.4 K/UL (4.8-10.8) 13.7 K/UL (4.8-10.8) Red Blood Count 3.99 M/UL (4.20-5.40) 3.96 M/UL (4.20-5.40) Hemoglobin 11.9 G/DL (12.0-16.0) 12.1 G/DL (12.0-16.0) Hematocrit 36.9 % (37.0-47.0) 37.3 % (37.0-47.0) Mean Corpuscular Volume 93 FL (80-99) 94 FL (80-99) Mean Corpuscular Hemoglobin 29.9 PG (27.0-31.0) 30.6 PG (27.0-31.0) Mean Corpuscular Hemoglobin Concent 32.3 G/DL (32.0-36.0) 32.5 G/DL (32.0-36.0) Red Cell Distribution Width 12.9 % (11.6-14.8) 13.3 % (11.6-14.8) Platelet Count 244 K/UL (150-450) 240 K/UL (150-450) Mean Platelet Volume 5.9 FL (6.5-10.1) 5.2 FL (6.5-10.1) Neutrophils (%) (Auto) 74.9 % (45.0-75.0) 67.7 % (45.0-75.0) Lymphocytes (%) (Auto) 18.3 % (20.0-45.0) 22.9 % (20.0-45.0) Monocytes (%) (Auto) 5.1 % (1.0-10.0) 6.6 % (1.0-10.0) Eosinophils (%) (Auto) 1.1 % (0.0-3.0) 2.0 % (0.0-3.0) Basophils (%) (Auto) 0.6 % (0.0-2.0) 0.7 % (0.0-2.0) Sodium Level 136 MMOL/L (136-145) 137 MMOL/L (136-145) Potassium Level 3.5 MMOL/L (3.5-5.1) 3.7 MMOL/L (3.5-5.1) Chloride Level 103 MMOL/L (98-107) 106 MMOL/L (98-107) Carbon Dioxide Level 26 MMOL/L (21-32) 24 MMOL/L (21-32) Anion Gap 7 mmol/L (5-15) 7 mmol/L (5-15) Blood Urea Nitrogen 12 mg/dL (7-18) 9 mg/dL (7-18) Creatinine 1.0 MG/DL (0.55-1.30) 0.8 MG/DL (0.55-1.30) Estimat Glomerular Filtration Rate mL/min (>60) mL/min (>60) Glucose Level 81 MG/DL (74-106) 87 MG/DL (74-106) Calcium Level 8.5 MG/DL (8.5-10.1) 9.0 MG/DL (8.5-10.1) Magnesium Level 1.8 MG/DL (1.8-2.4) Total Bilirubin 0.4 MG/DL (0.2-1.0) Aspartate Amino Transf (AST/SGOT) 33 U/L (15-37) Alanine Aminotransferase (ALT/SGPT) 28 U/L (12-78) Alkaline Phosphatase 87 U/L (46-116) Pro-B-Type Natriuretic Peptide 270 pg/mL (0-125) Total Protein 6.5 G/DL (6.4-8.2) Albumin 1.8 G/DL (3.4-5.0) Globulin 4.7 g/dL Albumin/Globulin Ratio 0.4 (1.0-2.7) Vancomycin Level Trough 11.5 ug/mL (5.0-12.0) Current Medications Medications (Trade) Dose Ordered Sig/Ariane Route PRN Reason Start Time Stop Time Status Last Admin Dose Admin Calcium Carbonate (Tums) 750 mg THREE TIMES A DAY ORAL 03/26/18 09:00 04/25/18 08:59 03/29/18 13:18 Cefepime HCl 2 gm/ Dextrose 100 ml @ 200 mls/hr Q12HR IVPB 03/25/18 21:00 04/01/18 20:59 03/29/18 09:06 Docusate Sodium (Colace) 100 mg TWICE A DAY ORAL 03/26/18 18:00 04/25/18 17:59 03/29/18 09:07 Famotidine (Pepcid) 20 mg DAILY ORAL 03/26/18 09:00 04/25/18 08:59 03/29/18 09:07 Metronidazole 100 ml @ 100 mls/hr Q8HR IVPB 03/25/18 22:00 04/01/18 21:59 03/29/18 13:18 Multivitamins (Multivitamins) 1 tab DAILY ORAL 03/26/18 09:00 9/3/18 08:59 03/29/18 09:07 Sodium Chloride 1,000 ml @ 40 mls/hr Q24H IV 03/28/18 02:15 04/27/18 02:14 03/28/18 21:44 Valproic Acid (Depakene) 500 mg EVERY 12 HOURS ORAL 03/26/18 12:00 04/25/18 11:59 03/29/18 09:07 Vancomycin HCl (Vanco rx to dose) 1 ea DAILY PRN MISC Per rx protocol 03/25/18 19:00 04/24/18 18:59 Vancomycin HCl/ Dextrose 250 ml @ 166.667 mls/hr Q24H IVPB 03/26/18 11:00 03/31/18 10:59 03/29/18 11:06 Alfie Palacio MD Mar 29, 2018 17:03
[2018-03-29 20:00] VITALS: BP 93/56
[2018-03-30 00:09] VITALS: BP 102/65
--- NOTE | 2018-03-30 03:00 | Progress Note ---
DATE: 03/29/2018 CARDIOLOGY PROGRESS NOTE SUBJECTIVE: No new distress. Swelling on the face is decreasing. No shortness of breath or chest pain. OBJECTIVE: VITAL SIGNS: Blood pressure 128/56, pulse 64, and respirations 18. HEENT: Minimal facial swelling. No warmth. LUNGS: Clear. CARDIAC: Regular rhythm and rate. Normal S1, S2 with a fourth heart sound. ABDOMEN: Soft. EXTREMITIES: No edema. IMPRESSION: 1. Recovering cellulitis. 2. Compensated chronic diastolic congestive heart failure. 3. Sinus bradycardia, asymptomatic. 4. Hypertensive heart disease, controlled. PLAN: 1. No change in cardiovascular regimen. 2. Hold parameters for antihypertensives should blood pressure parameters decrease. 3. Complete antimicrobials. 4. Maintain adequate hydration. Antony Connolly M.D. DR: SHYANNE JOB#: [id number] CC:
[2018-03-30 04:00] VITALS: BP 148/69
[2018-03-30 06:41] LABS: BASOPHILS % (AUTO) 0.7 % (0.0-2.0); EOSINOPHILS % (AUTO) 3.3 % (0.0-3.0); HEMATOCRIT 38.2 % (37.0-47.0); HEMOGLOBIN 11.9 G/DL (12.0-16.0); LYMPHOCYTES % (AUTO) 31.6 % (20.0-45.0); MEAN CORPUSCULAR VOLUME 94 FL (80-99); MONOCYTES % (AUTO) 6.7 % (1.0-10.0); NEUTROPHILS % (AUTO) 57.7 % (45.0-75.0); PLATELET COUNT 292 K/UL (150-450); RED BLOOD COUNT 4.08 M/UL (4.20-5.40); RED CELL DISTRIBUTION WIDTH 13.4 % (11.6-14.8); WHITE BLOOD COUNT 7.4 K/UL (4.8-10.8)
[2018-03-30 06:57] LABS: ANION GAP 7 mmol/L (5-15); BLOOD UREA NITROGEN 8 mg/dL (7-18); CALCIUM 8.2 MG/DL (8.5-10.1); CARBON DIOXIDE 26 MMOL/L (21-32); CHLORIDE 107 MMOL/L (98-107); CREATININE 0.9 MG/DL (0.55-1.30); POTASSIUM 3.2 MMOL/L (3.5-5.1); SODIUM 140 MMOL/L (136-145)
[2018-03-30 08:00] VITALS: BP 122/60
[2018-03-30] MEDS: Valproic Acid 500mg/10ml liquid ORAL SCH ×2 (08:55→20:16)
[2018-03-30] MEDS: Docusate 100mg/10ml Liq ORAL SCH ×2 (08:55→17:47)
[2018-03-30] MEDS: Tums 500mg ORAL SCH ×3 (08:56→17:46)
[2018-03-30] MEDS ORDERED: Vancomycin 1250mg/D5W 250ml 250 ML IVPB SCH ×2 (11:00)
[2018-03-30 12:00] VITALS: BP 130/60
[2018-03-30 16:00] VITALS: BP 126/60
[2018-03-30] MEDS: Bactrim-DS 1 tab ORAL SCH (17:47)
--- NOTE | 2018-03-30 18:27 | General Progress Note ---
Assessment/Plan Problem List: (1) Encephalopathy allergic ICD Codes: G93.49 - Other encephalopathy SNOMED: 87676053 (2) Hypertensive heart and chronic kidney disease ICD Codes: I13.10 - Hypertensive heart and chronic kidney disease without heart failure, with stage 1 through stage 4 chronic kidney disease, or unspecified chronic kidney disease SNOMED: 8414149753464 (3) Diastolic CHF, chronic ICD Codes: I50.32 - Chronic diastolic (congestive) heart failure SNOMED: 36100128, 762114527 (4) Schizoaffective disorder ICD Codes: F25.9 - Schizoaffective disorder, unspecified SNOMED: 18271261 (5) Facial abscess ICD Codes: L02.01 - Cutaneous abscess of face SNOMED: 638357526 Status: stable Assessment/Plan cont po abx at [facility] cardiac rx pain rx skin care psych rx Subjective ROS Limited/Unobtainable: Yes Constitutional: Reports: malaise, weakness HEENT: Reports: no symptoms Cardiovascular: Reports: no symptoms Respiratory: Reports: no symptoms Gastrointestinal/Abdominal: Reports: no symptoms Genitourinary: Reports: no symptoms Neurologic/Psychiatric: Reports: anxiety Endocrine: Reports: no symptoms Hematologic/Lymphatic: Reports: no symptoms Allergies: Coded Allergies: No Known Allergies (Unverified , 03/25/18) All Systems: reviewed and negative except above Subjective no complaints. confused. decreased facial swelling. denies pain. wbc trending down. on po abx no fevers noted. labs reviewed Objective Last 24 Hour Vital Signs Date Time Temp Pulse Resp B/P (MAP) Pulse Ox O2 Delivery O2 Flow Rate FiO2 03/30/18 16:00 97.3 75 18 126/60 (82) 96 97.3 03/30/18 12:00 98.4 68 18 130/60 (83) 96 98.4 03/30/18 09:00 Room Air 03/30/18 08:00 98.2 65 18 122/60 (80) 96 98.2 03/30/18 04:00 96.6 74 18 148/69 (95) 96 96.6 03/30/18 00:09 97.9 66 16 102/65 (77) 97 97.9 03/29/18 21:00 Room Air 03/29/18 20:00 97.7 119 16 93/56 (68) 96 97.7 Intake and Output 03/29/18 03/30/18 19:00 07:00 Intake Total 360 ml 620 ml Balance 360 ml 620 ml Intake Oral 360 ml IV Total 620 ml # Voids 3 1 # Bowel Movements 1 1 Laboratory Tests 03/30/18 05:40: White Blood Count 7.4, Red Blood Count 4.08L, Hemoglobin 11.9L, Hematocrit 38.2 , Mean Corpuscular Volume 94, Mean Corpuscular Hemoglobin 29.0, Mean Corpuscular Hemoglobin Concent 31.0L, Red Cell Distribution Width 13.4, Platelet Count 292, Mean Platelet Volume 5.2L, Neutrophils (%) (Auto) 57.7, Lymphocytes (%) (Auto) 31.6, Monocytes (%) (Auto) 6.7, Eosinophils (%) (Auto) 3.3H, Basophils (%) (Auto) 0.7, Sodium Level 140, Potassium Level 3.2L, Chloride Level 107, Carbon Dioxide Level 26, Anion Gap 7, Blood Urea Nitrogen 8 , Creatinine 0.9, Estimat Glomerular Filtration Rate , Glucose Level 92, Calcium Level 8.2L Height (Feet): 5 Height (Inches): 9.00 Weight (Pounds): 209 Objective General Appearance: WD/WN, alert, confused Neck: supple Cardiovascular: regular rhythm Respiratory/Chest: lungs clear, normal breath sounds, no respiratory distress Abdomen: normal bowel sounds, non tender, soft, no organomegaly Edema: no edema noted Arm (L), no edema noted Arm (R), no edema noted Leg (L), no edema noted Leg (R), no edema noted Pedal (L), no edema noted Pedal (R), no edema noted Generalized Neurologic: alert, responsive Tobi Garcia MD Mar 30, 2018 18:27
[2018-03-30] MEDS ORDERED: AMOX TR-K CLV1 EAC2 ORAL (18:28)
[2018-03-30] MEDS ORDERED: BACTRIM-DS1 EA ORAL (18:28)
[2018-03-30 20:00] VITALS: BP 141/67
[2018-03-30] MEDS: Augmentin 875mg Tab ORAL SCH (20:15)
[2018-03-31] VITALS: BP 135/62
[2018-03-31 04:00] VITALS: BP 130/65
[2018-03-31 08:00] VITALS: BP 117/60
[2018-03-31] MEDS: Bactrim-DS 1 tab ORAL SCH (09:18)
[2018-03-31] MEDS: Augmentin 875mg Tab ORAL SCH (09:18)
[2018-03-31] MEDS: Valproic Acid 500mg/10ml liquid ORAL SCH (09:18)
[2018-03-31] MEDS: Tums 500mg ORAL SCH (09:18)
[2018-03-31] MEDS: Docusate 100mg/10ml Liq ORAL SCH (09:18)
[2018-03-31 12:00] VITALS: BP 127/72
--- NOTE | 2018-04-01 01:00 | Progress Note ---
DATE: 03/30/2018 CARDIOLOGY PROGRESS NOTE Late entry for March 30, 2018 SUBJECTIVE: The patient was seen and evaluated. She does not seem to have any distress or pain. She is tolerating a diet. PHYSICAL EXAMINATION: VITAL SIGNS: Blood pressure 126/60, pulse 75, respiratory rate 18, afebrile. HEENT: Minimal left facial swelling, oropharynx clear. NECK: Supple. Jugular venous pressure normal. LUNGS: Clear. CARDIAC: Regular rhythm and rate. Normal S1 and S2 with no murmur. There is a fourth heart sound. ABDOMEN: Soft. No edema. IMPRESSION: 1. Hypertensive heart disease with well controlled blood pressure. 2. Chronic kidney disease, stable. 3. Metabolic and toxic encephalopathy, improved. 4. Chronic diastolic congestive heart failure. 5. Facial abscess, parotiditis recovering. PLAN: 1. No change in cardiovascular regimen. 2. Maintain adequate oral intake. 3. Off intravenous fluids at this time. 4. Complete antimicrobials. Antony Connolly M.D. DR: Purnima JOB#: [id number] CC:
--- NOTE | 2018-04-01 03:00 | Progress Note ---
DATE: 03/31/2018 CARDIOLOGY PROGRESS NOTE SUBJECTIVE: The patient without distress. No difficulty swallowing. No pain in facies. OBJECTIVE: VITAL SIGNS: Notable for blood pressure 117/60, pulse 89, respirations 20, and afebrile. LUNGS: Clear. CARDIAC: Regular. ABDOMEN: Soft. EXTREMITIES: Trace facial swelling. No edema. IMPRESSION: 1. Hypertensive heart disease with controlled blood pressure. 2. Chronic diastolic congestive heart failure, no signs of acute volume overload, resolved. 3. Facial cellulitis and parotiditis, stable. 4. Psychiatric parameters with history of schizoaffective disorder. 5. Encephalopathy resolved with baseline mentation at this time. Antony Connolly M.D. DR: KATHY JOB#: [id number] CC:
--- NOTE | 2018-04-01 12:02 | Discharge Summary ---
Discharge Summary Discharge Summary _ DATE OF ADMISSION: 03/25/2018 DATE OF DISCHARGE: 03/31/2018 CONSULTANTS: Dr. Alfie Garcia BRIEF HOSPITAL COURSE: Patient is an 82-year-old -[place] female, who resides at snf facility. She is at baseline poor historian with dementia, however, has been increasingly withdrawn and lethargic for the past day. She was noted to have progressive swelling of her face and according to longterm staff, it was associated with warmth, redness and tenderness to palpation. Patient was then sent to emergency room for assessment. She has past medical history significant for cerebrovascular disease with dementia, bipolar disorder, schizophrenia, abnormal gait, degenerative disc disease, osteoarthritis, hypertension with hypertensive heart disease, not insulin-requiring diabetes mellitus and GERD. On evaluation at ED, blood work showed leukocytosis WBC was elevated to 22. She was given IV fluids and was started on IV antibiotics. CT of the face read by radiology showed soft tissue swelling without any evidence of abscess. Patient was then admitted for evaluation of facial cellulitis. She was seen by infectious disease specialist. Patient was placed on vancomycin , cefepime and Flagyl. She was given IV hydration. She was given potassium supplements. WBC down trended. Blood work did not isolate any growth. Antibiotic was transitioned to po Bactrim and Augmentin. She was eventually discharged back to longterm. FINAL DIAGNOSES: Facial cellulitis and parotiditis Hypertensive heart disease with controlled blood pressure Chronic diastolic congestive heart failure with no signs of acute volume overload Schizoaffective disorder Acute on chronic toxic and metabolic Encephalopathy, improved back to baseline Chronic kidney disease stable Severe protein calorie malnutrition Sinus bradycardia Anemia of chronic disease Hyponatremia Hypoproteinemia DISPOSITION: Patient was discharged to [facility]. DISCHARGE MEDICATIONS: Refer to Discharge Medication List. I have been assigned to dictate discharge summary on this account, and I was not involved in the patient's management. Марина Medrano NP Apr 01, 2018 12:02
--- NOTE | 2018-04-01 15:33 | Cardiology Report ---
APPROVED REPORT EXAM: Two-dimensional and M-mode echocardiogram with Doppler and color Doppler. INDICATION Hypertension/HCVD M-Mode DIMENSIONS IVSd1.2 (0.7-1.1cm)Left Atrium (MM)2.4 (1.6-4.0cm) LVDd3.9 (3.5-5.6cm)Aortic Root3.1 (2.0-3.7cm) PWd1.4 (0.7-1.1cm)Aortic Cusp Exc.1.3 (1.5-2.0cm) IVSs1.5 cm LVDs2.8 (2.5-4.0cm) PWs1.3 cm Technically difficult study due to poor acoustical windows . Normal left ventricular chamber size, systolic function and wall motion to extent visualized. Left ventricular ejection fraction estimated to be 55-60 %. No evidence of left ventricular hypertrophy . No evidence of pericardial effusion. All other cardiac chamber sizes are within normal limits. Focal aortic valve sclerosis with reduced cusp excursion. Thickened mitral valve leaflets with normal excursion. Mitral annulus and aortic root calcification. Pulmonic valve not well visualized. Normal tricuspid valve structure. IVC at size 1.7m size with physiologic collapse. A color flow and spectral Doppler study was performed and revealed: Mild aortic regurgitation. Peak aortic valve gradient of 18 mm Hg and a mean of 9 mmHg. Trace mitral regurgitation. Mitral diastolic velocities suggest reduced left ventricular relaxation c/w mild LV diastolic dysfunction (Grade I ). Mild tricuspid regurgitation. Tricuspid systolic velocities suggests peak right ventricular systolic pressure of 14 mmHg Pulmonic regurgitation present.
== END 2018-03-31 13:45 | DRG 383 ==
LOC: EDBD 14:07 → EMR 14:45 → 2E 16:02 → EDBEDREQ 16:22 → 2E 17:57 → 4E 03-29 18:24
DX: L03.211 Cellulitis of face (principal); E43 Unspecified severe protein-calorie malnutrition; G92 Toxic encephalopathy; I13.0 Hypertensive heart and chronic kidney disease with heart failure and stage 1 through stage 4 chronic kidney disease, or unspecified chronic kidney disease; I50.32 Chronic diastolic (congestive) heart failure; F25.9 Schizoaffective disorder, unspecified; K11.20 Sialoadenitis, unspecified; N18.9 Chronic kidney disease, unspecified; I49.8 Other specified cardiac arrhythmias; E87.1 Hypo-osmolality and hyponatremia; F01.50 Vascular dementia, unspecified severity, without behavioral disturbance, psychotic disturbance, mood disturbance, and anxiety; F31.9 Bipolar disorder, unspecified; F20.9 Schizophrenia, unspecified; E11.22 Type 2 diabetes mellitus with diabetic chronic kidney disease; K21.9 Gastro-esophageal reflux disease without esophagitis; E77.8 Other disorders of glycoprotein metabolism
CPT/HCPCS: 36415; 70488; 71045; 80048; 80053; 80202; 82550; 82553; 83605; 83735; 83880; 84484; 85007; 85025; 85610; 85730; 86850; 86900; 86901; 87040; 87081; 93005; 93306; J8499

== ENCOUNTER 2018-10-17 13:54 | Inpatient (IN) | payer MEDICARE, MEDICAID ==
[~2018-10-17] VITALS: Ht 160 cm; Wt 69.0 kg
[~2018-10-17 13:54] MED LIST: ACETAMINOPHEN325 M1 ORAL; AMOX TR-K CLV1 EAC2 ORAL; BACTRIM DS TAB1 EAC1 ORAL; BACTRIM-DS1 EA ORAL; BENZTROPINE ME0.5 MG PO; CALCIUM CARBON500 M1 PO; COLACE100 MG ORAL; DEPAKOTE250 MG PO; DEPAKOTE500 MG PO; DULCOLAX10 MG RC; LOTENSIN20 MG ORAL; MILK OF MA2400 MG/10 ORAL; MILK OF MA400 MG/51 ORAL; MULTIVITAMINS1 EAC2 ORAL; NITROFURANTOIN100 M2 ORAL; NOVOLIN R100 UNIT/1 SUBQ; NUTRISOURCE FI1 EACH PO; PHOS-NAK PACKE1 EAC1 PO; PRO-STAT LIQUID30 ML ORAL; TYLENOL325 MG ORAL; ZANTAC150 MG ORAL
[2018-10-17 14:15] VITALS: BP 146/91
--- NOTE | 2018-10-17 14:18 | Emergency Room Report ---
History of Present Illness General Chief Complaint: Generalized Weakness Source: Medical Record, EMS Present Illness HPI This is an 83-year-old female with no ability for meaningful history, who [facility] weakness for several months. This is according to paramedics. The patient does have history of Parkinson syndrome. No further history was obtained from the patient. Apparently, the patient has been losing about 20 pounds the last several months. There is no mention of fever or vomiting or pain. The patient denies any pain. According to the [facility] note, the patient has a history of diabetes, hypertension, reflux, schizophrenia, hyperlipidemia, bipolar disorder, Parkinson 's disease, history of falling. Allergies: Coded Allergies: No Known Allergies (Unverified , 03/25/18) Patient History Past Surgical History: unable to obtain Pertinent Family History: unable to obtain Reviewed Nursing Documentation: PMH: Agreed Nursing Documentation-PMH Past Medical History: No History, Except For Hx Cardiac Problems: No Hx Hypertension: Yes Hx Diabetes: Yes Hx Cancer: No Hx Gastrointestinal Problems: Yes - GERD Hx Neurological Problems: Yes - muscle weakness Hx Speech Problem: Yes Hx Aphasia: Yes Review of Systems Constitutional: Reports: weakness All Other Systems: limited Physical Exam Vital Signs Date Time Temp Pulse Resp B/P (MAP) Pulse Ox O2 Delivery O2 Flow Rate FiO2 10/17/18 13:57 98.2 80 18 109/64 96 Room Air Sp02 EP Interpretation: reviewed General Appearance: normal inspection Neck: full range of motion, supple Respiratory: lungs clear, normal breath sounds Cardiovascular #1: normal inspection Gastrointestinal: normal bowel sounds, soft, no mass, no bruit, non-distended Skin: other - Poor skin turgor Medical Decision Making Diagnostic Impression: Primary Impression: Episode of generalized weakness ER Course Patient presents complexes or risk requiring multiple bedside evaluations. The patient was started on IV fluids. I was very concerned about possible infectious etiology. I also considered metabolic abnormalities well. The patient offers no significant history. Discusses with the patient's primary care physician and would like the patient admitted to hospital. The patient will be admitted to MedSurg unit. I discussed this with the admitting and covering doctor. Laboratory Tests Test 10/17/18 15:30 White Blood Count 8.2 K/UL (4.8-10.8) Red Blood Count 4.27 M/UL (4.20-5.40) Hemoglobin 12.6 G/DL (12.0-16.0) Hematocrit 40.6 % (37.0-47.0) Mean Corpuscular Volume 95 FL (80-99) Mean Corpuscular Hemoglobin 29.4 PG (27.0-31.0) Mean Corpuscular Hemoglobin Concent 31.0 G/DL (32.0-36.0) L Red Cell Distribution Width 13.8 % (11.6-14.8) Platelet Count 258 K/UL (150-450) Mean Platelet Volume 5.5 FL (6.5-10.1) L Neutrophils (%) (Auto) 49.8 % (45.0-75.0) Lymphocytes (%) (Auto) 42.0 % (20.0-45.0) Monocytes (%) (Auto) 5.2 % (1.0-10.0) Eosinophils (%) (Auto) 1.7 % (0.0-3.0) Basophils (%) (Auto) 1.2 % (0.0-2.0) Urine Color Pale yellow Urine Appearance Clear Urine pH 7 (4.5-8.0) Urine Specific [place] 1.005 (1.005-1.035) Urine Protein Negative (NEGATIVE) Urine Glucose (UA) Negative (NEGATIVE) Urine Ketones Negative (NEGATIVE) Urine Blood Negative (NEGATIVE) Urine Nitrite Negative (NEGATIVE) Urine Bilirubin Negative (NEGATIVE) Urine Urobilinogen Normal MG/DL (0.0-1.0) Urine Leukocyte Esterase 1+ (NEGATIVE) H Urine RBC 0-2 /HPF (0 - 2) Urine WBC 2-4 /HPF (0 - 2) Urine Squamous Epithelial Cells Few /LPF (NONE/OCC) Urine Bacteria Few /HPF (NONE) Sodium Level 139 MMOL/L (136-145) Potassium Level 4.9 MMOL/L (3.5-5.1) Chloride Level 104 MMOL/L (98-107) Carbon Dioxide Level 29 MMOL/L (21-32) Anion Gap 6 mmol/L (5-15) Blood Urea Nitrogen 21 mg/dL (7-18) H Creatinine 0.9 MG/DL (0.55-1.30) Estimate Glomerular Filtration Rate mL/min (>60) Glucose Level 97 MG/DL (74-106) Calcium Level 9.1 MG/DL (8.5-10.1) Total Bilirubin 0.1 MG/DL (0.2-1.0) L Aspartate Amino Transferase (AST) 14 U/L (15-37) L Alanine Aminotransferase (ALT) 13 U/L (12-78) Alkaline Phosphatase 82 U/L (46-116) Total Protein 7.3 G/DL (6.4-8.2) Albumin 2.8 G/DL (3.4-5.0) L Globulin 4.5 g/dL Albumin/Globulin Ratio 0.6 (1.0-2.7) L EKG Diagnostic Results EKG Time: 14:18 Rate: normal Rhythm: NSR ST Segments: no acute changes Last Vital Signs Date Time Temp Pulse Resp B/P (MAP) Pulse Ox O2 Delivery O2 Flow Rate FiO2 10/17/18 13:57 98.2 80 18 109/64 96 Room Air Disposition: ADMITTED INPATIENT Condition: Serious TIGRE KERR Oct 17, 2018 14:18
--- NOTE | 2018-10-17 14:20 | NUR ---
ED Nurse Note: brought in by KHURRAM from [facility] due to weight loss of 21lb within 6 months. Pt is shaking bilateral arms. A/Ox1.
--- NOTE | 2018-10-17 14:59 | NUR ---
ED Nurse Note: unable to draw blood and insert IV due to shaking. notified Dr. Aquino. Per Dr. Aquino, he will order ativan. Hands off to JORDIN Briggs.
--- NOTE | 2018-10-17 15:00 | NUR ---
HAND-OFF: Report given to JORDIN Briggs.
[2018-10-17] MEDS ORDERED: LORazepam Inj 2mg/ml 1ml IV ONE (15:15)
--- NOTE | 2018-10-17 15:30 | NUR ---
ED Nurse Note: Administered ativan due to patient shaking, uncooperative with blood draws
[2018-10-17 15:56] LABS: APPEARANCE,URINE CLEAR; BILIRUBIN, URINE NEGATIVE (NEGATIVE); COLOR,URINE PALE YELLOW; GLUCOSE, URINE (UA) NEGATIVE (NEGATIVE); KETONES,URINE NEGATIVE (NEGATIVE); LEUKOCYTE ESTERASE ,URINE 1+ (NEGATIVE); NITRITE,URINE NEGATIVE (NEGATIVE); PH,URINE 7 (4.5-8.0); PROTEIN,URINE NEGATIVE (NEGATIVE); UROBILINOGEN,URINE NORMAL MG/DL (0.0-1.0)
[2018-10-17 16:02] LABS: BASOPHILS % (AUTO) 1.2 % (0.0-2.0); EOSINOPHILS % (AUTO) 1.7 % (0.0-3.0); HEMATOCRIT 40.6 % (37.0-47.0); HEMOGLOBIN 12.6 G/DL (12.0-16.0); MEAN CORPUSCULAR VOLUME 95 FL (80-99); MONOCYTES % (AUTO) 5.2 % (1.0-10.0); NEUTROPHILS % (AUTO) 49.8 % (45.0-75.0); PLATELET COUNT 258 K/UL (150-450); RED BLOOD COUNT 4.27 M/UL (4.20-5.40); RED CELL DISTRIBUTION WIDTH 13.8 % (11.6-14.8); WHITE BLOOD COUNT 8.2 K/UL (4.8-10.8)
--- NOTE | 2018-10-17 16:03 | Diagnostic Imaging Report ---
Indication: Dyspnea Comparison: 03/25/2018 A single view chest radiograph was obtained. Findings: Calcific foci demonstrated within the lung consistent with old granulomas disease. Bones are osteopenic. Heart size is normal. Aorta is ectatic. Osteophytes noted throughout the thoracic spine. IMPRESSION: No acute disease. Old granulomatous disease
[2018-10-17 16:07] LABS: ANION GAP 6 mmol/L (5-15); BLOOD UREA NITROGEN 21 mg/dL (7-18); CALCIUM 9.1 MG/DL (8.5-10.1); CARBON DIOXIDE 29 MMOL/L (21-32); CHLORIDE 104 MMOL/L (98-107); CREATININE 0.9 MG/DL (0.55-1.30); POTASSIUM 4.9 MMOL/L (3.5-5.1); SODIUM 139 MMOL/L (136-145)
[2018-10-17 16:15] LABS: ALANINE AMINOTRANSFERASE 13 U/L (12-78); ALBUMIN 2.8 G/DL (3.4-5.0); ALBUMIN/GLOBULIN RATIO 0.6 (1.0-2.7); ALKALINE PHOSPHATASE 82 U/L (46-116); ASPARTATE AMINO TRANSFERASE 14 U/L (15-37); BILIRUBIN,TOTAL 0.1 MG/DL (0.2-1.0)
[2018-10-17 17:52] VITALS: BP 135/87
--- NOTE | 2018-10-17 18:15 | NUR ---
ED Nurse Note: Started a new line on patient on the left forearm 20 gauge, also cleaned patient up, patient had a bowel movement, 1 healing wound noted on the patient sacral area
[2018-10-17 19:22] VITALS: BP_SYST 116; BP_SYST 131; BP_DIAS 62; BP_DIAS 65
[2018-10-17] MEDS ORDERED: LORazepam 1mg tab ORAL PRN (20:00)
--- NOTE | 2018-10-17 20:24 | NUR ---
ED Nurse Note: attempted to give telephone report, per MAYCO Maynard call back in 5 minutes. Unable to give report at this time
--- NOTE | 2018-10-17 20:35 | NUR ---
ED Nurse Note: telephone report given to JORDIN Simmons
--- NOTE | 2018-10-17 20:48 | NUR ---
ED Nurse Note: PT TRANSFERRED WITH FROYLAN GAINES, PT IS AOX1, VITAL SIGNS STABLE AT THE MOMENT, ALL BELONGINGS BROUGHT WITH PT. PT SHOWS NO ACTUE DISTRESS, PT IS ON ROOM AIR.
[2018-10-17 21:00] VITALS: BP 131/63
--- NOTE | 2018-10-17 21:00 | NUR ---
NURSE NOTES: RECEIVED PATIENT FROM ER, GOT REPORT FROM JORDIN DELGADO. RECEIVED PATIENT WET AND WITH BOWEL MOVEMENT, PATIENT CLEANED. PATIENT IN BED, AWAKE, OPENS EYES TO NAME/TOUCH. IV IN PLACE. NO S/S RESPIRATORY DISTRESS OR PAIN NOTED. BED IN LOWEST POSITION, CALL LIGHT WITHIN REACH, BED ALARM ON. SKIN ASSESSMENT DONE - NOTED TO HAVE HEALED SACRAL SCAR AND SCRATCHES ALL OVER BODY, NO OPEN WOUNDS OR PRESSURE ULCERS NOTED. REVIEWED PATIENT BELONGINGS, NOTED TO ONLY HAVE SHIRT, SHOES, AND 1 RING. WILL CONTINUE TO MONITOR.
[2018-10-18 00:25] VITALS: BP 109/60
[2018-10-18 04:56] VITALS: BP 144/64
--- NOTE | 2018-10-18 05:00 | NUR ---
NURSE NOTES: PATIENT ASLEEP, V/S STABLE.
--- NOTE | 2018-10-18 07:29 | NUR ---
HAND-OFF: Report given to TAWANA ALMONTE RN.
[2018-10-18 07:56] VITALS: BP 126/68
[2018-10-18] MEDS: Docusate 100mg cap ORAL SCH ×2 (08:50→17:17)
[2018-10-18] MEDS: Tums 500mg ORAL SCH ×3 (08:50→17:17)
[2018-10-18] MEDS: Benztropine 1mg tab ORAL SCH ×3 (08:50→17:17)
[2018-10-18] MEDS: Milk of Magnesia 30ml Ud ORAL SCH (08:50)
[2018-10-18] MEDS: Depakote 500mg tab ORAL SCH ×2 (08:50→17:17)
[2018-10-18] MEDS: Lisinopril 20mg tab ORAL SCH ×2 (08:50→17:17)
--- NOTE | 2018-10-18 09:08 | Diagnostic Imaging Report ---
CLINICAL INDICATION:Shortness of breath, abdominal pain TECHNIQUE: No oral contrast, per emergency room physician request. Spiral acquisitions obtained through the chest, abdomen, and pelvis. Multiplanar reconstructions were generated. Total dose length product 1190.17 mGycm. CTDIvol(s) 17.89 mGy. Radiation dose was minimized using automated exposure control COMPARISON: none FINDINGS Chest: There is considerable image degradation due to patient motion artifact. Nodular, reticular, and hazy airspace opacities are seen at the left lung base. Atelectatic changes are seen at the right lung base. Multiple subpleural opacities measuring up to 5 mm in diameter are seen in the periphery of the left lower lobe. One of these is calcified. No definite effusions. No other masses or nodules demonstrated. The heart size is normal. No pericardial effusion. No mediastinal or hilar mass or adenopathy. The thyroid is unremarkable. No axillary or chest wall mass or adenopathy. There are degenerative spondylosis changes of the thoracic spine. There are degenerative changes of the right shoulder. There is a small sliding-type hiatal hernia Abdomen pelvis: The rectum is distended by stool. There is colonic diverticulosis. No evidence of diverticulitis. The appendix is normal. No gross free or loculated intraperitoneal gas or fluid is evident. Lack of IV contrast limits assessment of solid organs. The gallbladder contains gallstones. Multiple punctate calcifications are seen scattered throughout the liver. The bile ducts, pancreas, adrenals are unremarkable. The spleen demonstrates punctate calcifications. The the kidneys are unremarkable. No renal or ureteral calculi, hydronephrosis, or hydroureter. No pelvic mass or adenopathy. The bones demonstrate extensive degenerative changes and deformity of the right hip, less extensive degenerative changes of the left hip. There is a mild vertebra plana compression fracture deformity of the L1 vertebral body. Extensive degenerative proliferative changes and disc space narrowing of the lumbar spine are noted. IMPRESSION: Very limited exam due to patient motion Nodular, reticular, and hazy airspace opacities in the left lung base, likely reflect infiltrate Atelectatic changes at the right lung base Left lower lobe subpleural opacities are probably postinflammatory. One of these demonstrates granulomatous calcifications No other acute thoracic pathology Rectal distention by feces No other acute abdominal process Colonic diverticulosis. No evidence of diverticulitis Cholelithiasis Age-indeterminate L1 compression fracture. Consider MRI for further evaluation if this is clinically relevant Splenic and hepatic calcifications, consistent with old granulomatous disease Extensive right hip degenerative changes Degenerative spondylosis This agrees with the preliminary interpretation provided overnight by [facility] teleradiology service. The CT scanner at [facility] is accredited by the [employer] and the scans are performed using protocols designed to limit radiation exposure to as low as reasonably achievable to attain images of sufficient resolution adequate for diagnostic evaluation.
--- NOTE | 2018-10-18 09:39 | NUR ---
NURSE NOTES: pt asleep arousable, no distress. no sob. call light within reach. will monitor. bed in lowest position, locked.
--- NOTE | 2018-10-18 10:29 | NUR ---
*-* INSURANCE *-* ALL CLINICALS HAVE BEEN FAXED TO: [employer] [employer] F:[phone]
[2018-10-18 12:00] VITALS: BP 130/50
--- NOTE | 2018-10-18 12:20 | NUR ---
RD ASSESSMENT & RECOMMENDATIONS SEE CARE ACTIVITY FOR COMPLETE ASSESSMENT DAILY ESTIMATED NEEDS: Needs based on Weight loss, wasting 60kg adj 25-35 kcals/kg 1273-4563 total kcals 1-1.5 g protein/kg 60-90 g total protein 25-30 mL/kg 9882-9146 total fluid mLs NUTRITION DIAGNOSIS: 1) Swallowing and chewing difficulty R/T dysphagia, edentulous status as evidenced by pt on pureed moist texture COAT JOINER, w/ NTL. 2) Increased kcal and protein needs r/t weight loss and wasting as evidenced by pt presents w/ overall 9# wt loss x almost 4 mo, w/ a 5.5% significant wt change, pt shows signs of clavicular, ocular, temporal and BL LE wasting. CURRENT DIET: Regular ground PO DIET RECOMMENDATIONS: Rec: Liberalized REGULAR DIET (texture per GOVERNMENT MINISTER) ADDITIONAL RECOMMENDATIONS: * GOVERNMENT MINISTER evaluation for appropriate texture * Add ENSURE ENLIVE BID + snacks BID in b/w meals * Calibrated bedscale wt for accurate CBW * A1C for eval of glycemic control- h/o DM * Monitor BGs, need for hypoglycemic agent- h/o DM * WEEKLY WEIGHTS: pt adm w/ progressive wt loss
--- NOTE | 2018-10-18 14:45 | History and Physical Report ---
DATE OF ADMISSION: 10/17/2018 CHIEF COMPLAINT: Failure to thrive, toxic metabolic encephalopathy. HISTORY OF PRESENT ILLNESS: This is a pleasant 83-year-old female. She has a history of schizoaffective disorder, hypertension, diabetes. She has a prior history of ankle fracture. She was transferred from a residential facility with quite worsening altered mentation, failure to thrive, and weight loss. The patient is a poor historian. She is unable to provide any history. At the residential facility, the patient had been increasingly confused, weak. She has had more than a 20-pound weight loss. The patient on evaluation in the emergency room was poorly responsive and lethargic. Laboratory tests initially were unremarkable. Chest x-ray was also clear. In light of the patient's progressive altered mentation and failure to thrive and weight loss, she is now admitted for further evaluation and care. PAST MEDICAL HISTORY: As above. PAST SURGICAL HISTORY: Includes ankle surgery. CURRENT MEDICATIONS: Reconciled and reviewed. ALLERGIES: None. FAMILY HISTORY: None. SOCIAL HISTORY: There is no known history of tobacco, ethanol, or drugs. REVIEW OF SYSTEMS: GENERAL: No fevers or chills. HEENT: No headaches or visual changes. CARDIOPULMONARY: No chest pain or shortness of breath. GASTROINTESTINAL: No nausea or vomiting. GENITOURINARY: No urgency or frequency. MUSCULOSKELETAL: No joint pain or swelling. NEUROLOGIC: Positive history of seizures. PHYSICAL EXAMINATION: VITAL SIGNS: Temperature 98, pulse 76, respirations 18, blood pressure 144/64. GENERAL: The patient is a chronically ill-appearing female, in no apparent distress. There is temporal wasting noted. NECK: Supple. There is no adenopathy. HEART: Regular rate and rhythm. LUNGS: Clear. ABDOMEN: Soft, nontender, nondistended. EXTREMITIES: No clubbing, cyanosis, or edema. LABORATORY DATA: UA was clear. White count 8, hemoglobin is 12, platelets are 258. Sodium 139, creatinine was 0.9. LFTs are unremarkable. ASSESSMENT: This is an 83-year-old female with complaints of failure to thrive, weight loss, and encephalopathy unclear etiology. PLAN: IV hydration. CT scan of the chest, abdomen, pelvis. Check tumor markers. Check thyroid function tests. Check hemoglobin A1c. Check a swallow eval. Plan of care will be determined after review of pending tests. Tobi Garcia M.D. DR: DIXIE JOB#: [id number] CC:
[2018-10-18 16:00] VITALS: BP 151/56
--- NOTE | 2018-10-18 17:07 | NUR ---
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 98.3 HR 80 RR 18 B/P 109/64 BUN 21 CXR= NO ACUTE PROCESS CT ABD/PEL/ CHEST=STOOL IN RECTUM IS: IV BOLUS NS X 1 LITER ATIVAN IV ADMITTED TO MED/SURG @ 2047 MED/SURG STATUS DCP RETURN TO [facility]
--- NOTE | 2018-10-18 17:24 | Cardiology Report ---
APPROVED REPORT EKG Measurement Heart [id number] Normal sinus rhythm Normal ECG
--- NOTE | 2018-10-18 19:03 | NUR ---
HAND-OFF: Report given to SARAN BRENNER.
[2018-10-18 21:00] VITALS: BP 90/57
[2018-10-19] VITALS (7 sets, daily range): BP systolic 90–127; BP diastolic 56–88
--- NOTE | 2018-10-19 07:50 | NUR ---
HAND OFF:REPORT GIVEN TO ,RN
--- NOTE | 2018-10-19 07:51 | NUR ---
NURSE NOTES: Pt sleeping. Will require to be repositioned for comfort and preventive measures. Current plan of care will be followed.
[2018-10-19] MEDS: Lisinopril 20mg tab ORAL SCH ×2 (09:00→18:05)
[2018-10-19] MEDS: Docusate 100mg cap ORAL SCH ×3 (09:00→18:04)
--- NOTE | 2018-10-19 09:31 | NUR ---
ST NOTE: BEDSIDE SWALLOW EVAL RECEIVED BEDSIDE SWALLOW EVAL ORDER CHART REVIEWED PRIOR THE EVALUATION PT IS A 83-YEAR-OLD FEMALE WHO WAS ADMITTED DUE TO FAILURE TO THRIVE, GENERALIZED WEAKNESS. DYSPHAGIA RISK FACTORS: TOXIC METABOLIC ENCEPHALOPATHY, PARKINSON'S DZ, H/O DYSPHAGIA, PSYCH(SCHIZOPHRENIA AND BIPOLAR), H/O FALL, GERD, HTN, DMII, MUSCLE WEAKNESS. PER CHEST CT: NODULAR, RETICULAR, AND HAZY AIRSPACE OPACITIES IN THE L LUNG BASE, LIKELY REFLECT INFILTRATE. PT IS CURRENTLY ON DEPAKOTE, COGENTIN AND ATIVAN. PT RESIDES AT [facility]. PER CHART, PT WAS ON FORTIFIED PUREE W/NECTAR THICK LIQUIDS, PER PT'S POLST: FULL CODE, FULL TREATMENT, OKAY TRIAL PERIOD OF ARTIFICIAL NUTRITION, INCLUDING FEEDING TUBES. CURRENT STATUS: PT SEEN AT BEDSIDE IN AM DURING BREAKFAST WITH RN PRESENTED. ALERT, COOPERATIVE, ABLE TO FOLLOW SIMPLE DIRECTIONS INCONSISTENTLY, VERBAL WITH CUES. SOFT VOICE AND REDUCED VOLUME WAS NOTED. CURRENTLY, PT IS ON [facility] SOFT(GROUND) WITH THIN LIQUIDS DIET. PT IS A FEEDER. GIVEN PO TRIALS: THIN(STRAW), NECTAR THICK(TSP), PUREE(TSP), GROUND MASTICATED SOLID(TSP) INITIAL IMPRESSION: MODERATE ORAL PHASE AND MILD TO MODERATE OR WOSENED PHARYNGEAL PHASE DYSPHAGIA PT EDENTULOUS, SLOW MASTICATION TIME, AND MILD ORAL RESIDUE WAS NOTED. INCREASED ORAL TRANSIT TIME AND OROPHARYNGEAL TRANSIT TIME DUE TO REDUCED LINGUAL MOVEMENT AND STRENGTH FAIR LARYNGEAL ELEVATION, NO OVERT S/S OF ASPIRATION DURING THE MEAL. PT COMPLETED 75% OF THE MEAL. HAS RISK FOR (SILENT) ASPIRATION. RECOMMENDATIONS: 1. FOR QUALITY OF LIFE, CONTINUE ORAL DIET CHANGED DIET TO MOIST PUREE WITH NECTAR THICK LIQUIDS 2. STRICT ASPIRATION/REFLUX PRECAUTIONS WITH 1TO1 FEEDING 3. VIDEOSWALLOW STUDY IP OR OP. 4. HIGH CALORIE SUPPLEMENT D/W RN, JULIANA AND RD. POSTED ASPIRATION/REFLUX PRECAUTIONS SIGN.
--- NOTE | 2018-10-19 09:57 | General Progress Note ---
Assessment/Plan Problem List: (1) Aspiration pneumonia ICD Codes: J69.0 - Pneumonitis due to inhalation of food and vomit SNOMED: 536534788 (2) Failure to thrive in adult ICD Codes: R62.7 - Adult failure to thrive SNOMED: 609078687 (3) Schizoaffective disorder ICD Codes: F25.9 - Schizoaffective disorder, unspecified SNOMED: 87341278 (4) Hypertensive heart and chronic kidney disease ICD Codes: I13.10 - Hypertensive heart and chronic kidney disease without heart failure, with stage 1 through stage 4 chronic kidney disease, or unspecified chronic kidney disease SNOMED: 8048521807767 (5) Diastolic CHF, chronic ICD Codes: I50.32 - Chronic diastolic (congestive) heart failure SNOMED: 36561303, 743649609 (6) General weakness ICD Codes: R53.1 - Weakness SNOMED: 98396789 (7) Episode of generalized weakness ICD Codes: R53.1 - Weakness SNOMED: 91334144 Status: stable, progressing Assessment/Plan await tumor markers start iv abx video swallow monitor po intake Subjective ROS Limited/Unobtainable: Yes Constitutional: Reports: no symptoms HEENT: Reports: no symptoms Cardiovascular: Reports: no symptoms Respiratory: Reports: no symptoms Gastrointestinal/Abdominal: Reports: no symptoms Genitourinary: Reports: no symptoms Neurologic/Psychiatric: Reports: emotional problems, pre-existing deficit Endocrine: Reports: no symptoms Hematologic/Lymphatic: Reports: no symptoms Allergies: Coded Allergies: No Known Allergies (Unverified , 03/25/18) Subjective speech noted. CT reviewed. ?infiltrate. Objective Last 24 Hour Vital Signs Date Time Temp Pulse Resp B/P (MAP) Pulse Ox O2 Delivery O2 Flow Rate FiO2 10/19/18 04:00 97.0 66 18 112/88 (96) 92 10/19/18 02:22 97.3 73 17 90/57 (68) 92 10/19/18 00:00 97.5 110/62 (78) 10/18/18 21:00 97.3 19 90/57 (68) 92 10/18/18 21:00 Room Air 10/18/18 17:17 126/68 10/18/18 16:00 97.6 67 18 151/56 (87) 94 10/18/18 12:00 98.0 70 18 130/50 (76) 94 Intake and Output 10/18/18 10/19/18 19:00 07:00 Intake Total 650 ml Output Total 1400 ml 725 ml Balance -750 ml -725 ml Intake Oral 650 ml Output Urine Total 1400 ml 725 ml # Voids 2 # Bowel Movements 1 2 Height (Feet): 5 Height (Inches): 3.00 Weight (Pounds): 152 General Appearance: WD/WN, alert, confused Neck: supple Cardiovascular: normal rate Respiratory/Chest: chest wall non-tender, lungs clear, normal breath sounds Abdomen: normal bowel sounds, non tender, soft, no organomegaly Edema: no edema noted Arm (L), no edema noted Arm (R), no edema noted Leg (L), no edema noted Leg (R), no edema noted Pedal (L), no edema noted Pedal (R), no edema noted Generalized Tobi Garcia MD Oct 19, 2018 09:57
[2018-10-19] MEDS: Depakote 500mg tab ORAL SCH ×2 (10:04→17:31)
[2018-10-19] MEDS: Tums 500mg ORAL SCH ×3 (10:05→18:05)
[2018-10-19] MEDS: Benztropine 1mg tab ORAL SCH ×3 (10:05→18:04)
[2018-10-19] MEDS: Milk of Magnesia 30ml Ud ORAL SCH (10:06)
--- NOTE | 2018-10-19 10:22 | NUR ---
NURSE NOTES: Pt is on pureed like diet spat out medication. Will follow up with pharmacy
--- NOTE | 2018-10-19 11:48 | NUR ---
*-* INSURANCE *-* ALL CLINICALS & rEVIEWS HAVE BEEN FAXED TO: [employer] F:[phone]
[2018-10-19] MEDS: cefTRIAXone 1 GM in D5W 55 ML IVPB SCH (12:52)
--- NOTE | 2018-10-19 17:31 | NUR ---
NURSE NOTES: Unable to offer Depakote pt down graded from puree diet to soup like texture, unable to crush. Pharmacy contacted. Dr Espinal called for change in form
--- NOTE | 2018-10-19 18:40 | NUR ---
CASE MANAGEMENT: REVIEW 10/19/2018 SI: GENERALIZED WEAKNESS T 98.2 HR 70 RR 16 B/P 112/56 SATS 92% ON RA NO LABS TODAY IS: DEPAKOTE PO BID PEPCID PO BID LISINOPRIL PO BID CEFTRIAXONE IV Q24H MED/SURG STATUS DCP RETURN TO [facility]
--- NOTE | 2018-10-19 20:00 | NUR ---
NURSE NOTES: Patient received in bed, awake, disoriented. Bilateral hand tremors noted d/t parkinsons.No acute distress. L hand IV intact, wrapped in kerlix for safety. Safe environment provided. bed locked in low position. Will continue to monitor.
--- NOTE | 2018-10-19 20:10 | NUR ---
NURSE NOTES: Left message to Dr. Garcia regarding patient not having DVT prophylaxis order. Awaiting for response.
--- NOTE | 2018-10-19 20:10 | NUR ---
NURSE NOTES: Dr Espinal phoned to inform him that selling underwriter was not able to give Depakote tablet. Did not return phone call . Endorsed to oncoming nurse
--- NOTE | 2018-10-19 20:11 | NUR ---
HAND-OFF: Report given to kanchan horvath.
[2018-10-20] VITALS: BP 135/95
[2018-10-20 04:00] VITALS: BP 140/98
--- NOTE | 2018-10-20 07:20 | NUR ---
HAND-OFF: Report given to Helen BRENNER.
--- NOTE | 2018-10-20 07:46 | NUR ---
NURSE NOTES: Pt total care. All anticipated needs requires to be met. Pt one to one feeder. Dr. Espinal here, made aware that speech writer was not able to administer Depakote due to inability to crush tablet. informed that pharmacy was called for a replacement, but an order is required. A pillow placed under pt arm to control some of her spontaneous movement 2 to Parkinson. Current plan of care will be followed
[2018-10-20 08:00] VITALS: BP 133/70
[2018-10-20] MEDS: Depakote 500mg tab ORAL SCH ×2 (09:00→18:00)
--- NOTE | 2018-10-20 09:09 | General Progress Note ---
Assessment/Plan Problem List: (1) Aspiration pneumonia ICD Codes: J69.0 - Pneumonitis due to inhalation of food and vomit SNOMED: 118958530 (2) Failure to thrive in adult ICD Codes: R62.7 - Adult failure to thrive SNOMED: 918189438 (3) Schizoaffective disorder ICD Codes: F25.9 - Schizoaffective disorder, unspecified SNOMED: 56415417 (4) Hypertensive heart and chronic kidney disease ICD Codes: I13.10 - Hypertensive heart and chronic kidney disease without heart failure, with stage 1 through stage 4 chronic kidney disease, or unspecified chronic kidney disease SNOMED: 2234989288530 (5) Diastolic CHF, chronic ICD Codes: I50.32 - Chronic diastolic (congestive) heart failure SNOMED: 35588554, 074641276 (6) General weakness ICD Codes: R53.1 - Weakness SNOMED: 83629286 (7) Episode of generalized weakness ICD Codes: R53.1 - Weakness SNOMED: 85938760 Status: stable, progressing Assessment/Plan await tumor markers start iv abx ct head monitor po intake Subjective ROS Limited/Unobtainable: No Constitutional: Reports: malaise, weakness HEENT: Reports: no symptoms Cardiovascular: Reports: no symptoms Respiratory: Reports: no symptoms Gastrointestinal/Abdominal: Reports: no symptoms Genitourinary: Reports: no symptoms Neurologic/Psychiatric: Reports: anxiety, emotional problems, pre-existing deficit Endocrine: Reports: no symptoms Hematologic/Lymphatic: Reports: no symptoms Allergies: Coded Allergies: No Known Allergies (Unverified , 03/25/18) All Systems: reviewed and negative except above Subjective speech noted. CT reviewed. ?infiltrate. diet downgraded. eats well though. on abx Objective Last 24 Hour Vital Signs Date Time Temp Pulse Resp B/P (MAP) Pulse Ox O2 Delivery O2 Flow Rate FiO2 10/20/18 04:00 98.0 93 20 140/98 (112) 93 10/20/18 00:00 98.8 91 18 135/95 (108) 93 10/19/18 21:00 Room Air 10/19/18 20:00 96.9 87 16 127/77 (94) 93 10/19/18 18:05 122/73 10/19/18 16:00 98.2 70 16 112/56 (74) 10/19/18 12:00 97.8 71 19 126/71 (89) Intake and Output 10/19/18 10/20/18 19:00 07:00 Output Total 800 ml Balance -800 ml Output Urine Total 800 ml # Voids 3 Laboratory Tests 10/20/18 06:05: Hemoglobin A1c 5.5, Carcinoembryonic Antigen [Pending], CA 19-9 Antigen [Pending ], CA 125 Antigen [Pending], Thyroid Stimulating Hormone (TSH) 2.753 Height (Feet): 5 Height (Inches): 3.00 Weight (Pounds): 152 General Appearance: WD/WN, alert Neck: supple Cardiovascular: normal peripheral pulses, normal rate, regular rhythm Respiratory/Chest: chest wall non-tender, lungs clear Abdomen: normal bowel sounds, non tender, soft, no organomegaly Edema: no edema noted Arm (L), no edema noted Arm (R), no edema noted Leg (L), no edema noted Leg (R), no edema noted Pedal (L), no edema noted Pedal (R), no edema noted Generalized Tobi Garcia MD Oct 20, 2018 09:08
[2018-10-20] MEDS: Benztropine 1mg tab ORAL SCH ×3 (11:15→19:55)
[2018-10-20] MEDS: Lisinopril 20mg tab ORAL SCH ×2 (11:16→18:06)
[2018-10-20] MEDS: Tums 500mg ORAL SCH ×3 (11:16→19:54)
[2018-10-20] MEDS: Docusate 100mg cap ORAL SCH ×2 (11:17→18:07)
[2018-10-20] MEDS: Milk of Magnesia 30ml Ud ORAL SCH (11:17)
[2018-10-20] MEDS: cefTRIAXone 1 GM in D5W 55 ML IVPB SCH (11:19)
[2018-10-20 12:00] VITALS: BP 128/66
--- NOTE | 2018-10-20 15:06 | NUR ---
PRINTED CIRCUIT BOARD DESIGNERVP PURCHASING SI: GENERALIZED WEAKNESS T. 97.8 HR 70 RR 16 B/P 145/73 RA 98% IS: CEFTRIAXONE IV DEPAKOTE PO MED/SURG STATUS
[2018-10-20 16:00] VITALS: BP 111/60
--- NOTE | 2018-10-20 16:37 | Diagnostic Imaging Report ---
Indications: Generalized weakness, altered mental status, history of schizoaffective disorder Technique: Spiral acquisitions obtained through the brain. Angled axial and coronal 5 x 5 mm slices were reconstructed. Total dose length product 1369.05 mGycm. CTDI vol(s) 70.38 mGy. Dose reduction achieved using automated exposure control Comparison: 05/19/2004 Findings: There is age-related enlargement of the ventricles and extra-axial CSF spaces, progressive since prior exam. There is periventricular deep white matter low-attenuation, consistent with chronic ischemic change, likewise progressive since prior exam. There is focal calcification of the posterolateral left tentorium, increased from previously. No acute intracranial hemorrhage nor edema, mass effect, nor midline shift. Otherwise normal mena-white differentiation. Intact calvarium. The mastoids are clear. Visualized orbits and sinuses are unremarkable. There is calvarial hyperostosis Impression: Chronic and age-related changes as described, progressive since prior study of 2003. Negative for acute intracranial bleed or mass effect The CT scanner at [facility] is accredited by the [employer] and the scans are performed using protocols designed to limit radiation exposure to as low as reasonably achievable to attain images of sufficient resolution adequate for diagnostic evaluation.
--- NOTE | 2018-10-20 19:30 | NUR ---
NURSE NOTES: Pt received sitting upright in bed, head of bed up. Bed locked, in lowest position, siderails up x3, seizure precautions with padded side rails. Pt is alert and responsive. left hand IV 22 g, NS lock in place. No complaints at this time. Will continue to monitor.
[2018-10-20 20:00] VITALS: BP 143/71
--- NOTE | 2018-10-20 20:12 | NUR ---
NURSE NOTES: Pt is fully dependant all anticipated needs require to be met. Follow up call made to Dr. Espinal to inform him that Depakote was not given due to pt inability to swallow tablet. Pt is on Puree diet. Ate 100% for lunch and 100% for dinner. Pt requires an extensive amount of time for feeding . lyric writer feed pt requiring > 30 minutes at lunch. Pt requires to be coached during meal time to remind her to swallow. Pt also needs to be given fluids in small quantities due to episodes of coughing . While providing her fluids with a straw pt needs to be informed to stop and swallow. Follows commands well. Is able to answer simple questions . [employer] Librarian fed pt for dinner at that time she also had a thickened ensure which she drank 100 percent of. Meal time completion exceeded over [address] Espinal informed earlier in shift pace of pt intake. All anticipated needs require to be met. IV remains in place with no presence of infiltration . Repositioned through out shift. Oncoming nurse made aware of follow up call made to Dr. Espinal in regards to Depakote. No episodes of sz , Bed rails padded
--- NOTE | 2018-10-20 20:24 | NUR ---
HAND-OFF: Report given to Roxane BRENNER.
[2018-10-20] MEDS: Valproic Acid 250mg/5ml Liquid NG SCH (20:58)
[2018-10-21] VITALS: BP 132/90
[2018-10-21 04:00] VITALS: BP 115/78
--- NOTE | 2018-10-21 07:30 | NUR ---
HAND-OFF: Report given to Luiza BRENNER.
--- NOTE | 2018-10-21 07:33 | NUR ---
NURSE NOTES: Patient received in stable condition, resting in bed at this time. No s/s of respiratory distress or pain observed at this time. Purewick is draining well. IV site on left hand patent and intact. Head of bed elevated to 90 degrees for aspiration precaution, rails are padded for seizure precautions. Call light placed within reach, will continue to monitor.
[2018-10-21 08:00] VITALS: BP 139/72
[2018-10-21] MEDS: Docusate 100mg cap ORAL SCH (08:52)
[2018-10-21] MEDS: Tums 500mg ORAL SCH ×2 (08:52→12:04)
[2018-10-21 08:53] VITALS: BP 115/78
[2018-10-21] MEDS: Milk of Magnesia 30ml Ud ORAL SCH (08:53)
[2018-10-21] MEDS: Lisinopril 20mg tab ORAL SCH (08:53)
[2018-10-21] MEDS: Benztropine 1mg tab ORAL SCH ×2 (08:53→12:04)
[2018-10-21] MEDS: Valproic Acid 250mg/5ml Liquid NG SCH (08:53)
[2018-10-21] MEDS: cefTRIAXone 1 GM in D5W 55 ML IVPB SCH (11:19)
--- NOTE | 2018-10-21 11:26 | General Progress Note ---
Assessment/Plan Problem List: (1) Aspiration pneumonia ICD Codes: J69.0 - Pneumonitis due to inhalation of food and vomit SNOMED: 401027540 (2) Failure to thrive in adult ICD Codes: R62.7 - Adult failure to thrive SNOMED: 442170270 (3) Schizoaffective disorder ICD Codes: F25.9 - Schizoaffective disorder, unspecified SNOMED: 14998402 (4) Hypertensive heart and chronic kidney disease ICD Codes: I13.10 - Hypertensive heart and chronic kidney disease without heart failure, with stage 1 through stage 4 chronic kidney disease, or unspecified chronic kidney disease SNOMED: 0241358552157 (5) Diastolic CHF, chronic ICD Codes: I50.32 - Chronic diastolic (congestive) heart failure SNOMED: 15993528, 291500273 (6) General weakness ICD Codes: R53.1 - Weakness SNOMED: 41125704 (7) Episode of generalized weakness ICD Codes: R53.1 - Weakness SNOMED: 96223737 Status: stable, progressing Assessment/Plan cont abx for pna puree/liquid diet st at snf Subjective ROS Limited/Unobtainable: No Constitutional: Reports: malaise, weakness HEENT: Reports: no symptoms Cardiovascular: Reports: no symptoms Respiratory: Reports: no symptoms Gastrointestinal/Abdominal: Reports: no symptoms Genitourinary: Reports: no symptoms Neurologic/Psychiatric: Reports: pre-existing deficit Endocrine: Reports: no symptoms Hematologic/Lymphatic: Reports: no symptoms Allergies: Coded Allergies: No Known Allergies (Unverified , 03/25/18) All Systems: reviewed and negative except above Subjective head ct noted. d/w staff and dtr. tumor markers negative. eating 100% Objective Last 24 Hour Vital Signs Date Time Temp Pulse Resp B/P (MAP) Pulse Ox O2 Delivery O2 Flow Rate FiO2 10/21/18 09:00 Room Air 10/21/18 08:53 115/78 10/21/18 08:00 98.8 63 18 139/72 (94) 95 10/21/18 04:00 97.0 65 18 115/78 (90) 97 10/21/18 00:00 98.1 87 18 132/90 (104) 97 10/20/18 21:00 Room Air 10/20/18 20:00 97.2 58 19 143/71 (95) 91 10/20/18 18:06 133/73 10/20/18 16:00 97.3 79 20 111/60 (77) 97 10/20/18 12:00 97.8 70 16 128/66 (86) 97 Intake and Output 10/20/18 10/21/18 19:00 07:00 Intake Total 535 ml Balance 535 ml Intake Oral 480 ml IV Total 55 ml # Voids 4 # Bowel Movements 1 Height (Feet): 5 Height (Inches): 3.00 Weight (Pounds): 152 General Appearance: WD/WN, alert Neck: supple Cardiovascular: normal rate Respiratory/Chest: chest wall non-tender, lungs clear, normal breath sounds Abdomen: normal bowel sounds, non tender, soft, no organomegaly Edema: no edema noted Arm (L), no edema noted Arm (R), no edema noted Leg (L), no edema noted Leg (R), no edema noted Pedal (L), no edema noted Pedal (R), no edema noted Generalized Tobi Garcia MD Oct 21, 2018 11:26
[2018-10-21] MEDS ORDERED: CEFTRIAXON1 GM/50 ML IV (11:28)
--- NOTE | 2018-10-21 11:41 | NUR ---
*-* DISCHARGE PLANNED *-* PATIENT IS DISCHARGED BACK TO: [facility] ROOM# 112-C SKILLED T:[phone] FOR NURSE TO NURSE REPORT [facility] HAS BEEN ARRANGE FOR KENNEL SUPERVISOR AT [id number] *-* FAMILY WAS REACHED NO ANSWER LVM ADVISING OF OT DC *-*
--- NOTE | 2018-10-21 13:54 | NUR ---
ST NOTE: SWALLOW STATUS/D/C SUMMARY: FOLLOWED UP PT'S CONDITIONS. DUE TO SCHEDULING CONFLICT, UNABLE TO COMPLETE VIDEOSWALLOW STUDY AT THIS TIME. PT SEEN AT BEDSIDE IN PM. ALERT, COOPERATIVE. PER RNLETHA, PT ATE WELL FOR LUNCH(90%) GIVEN PO TRIALS: NECTAR THICK(TSP), DISORGANIZED TONGUE MOVEMENT, MILD TO MODERATE INCREASED ORAL TRANSIT TIME AND OROPHARYNGEAL TRANSIT TIME, FAIR LARYNGEAL ELEVATION, NO OVERT S/S OF ASPIRATION. TRAINED PT TO USE DOUBLE SWALLOW(SECOND DRY SWALLOW) TECHNIQUES, PT WAS ABLE TO DEMONSTRATE IT WHEN ALLOW TIME FOR PT. PER RN, PT WILL BE D/C TODAY BACK TO SNF. FOR QUALITY OF LIFE, CONTINUE MOIST PUREE WITH NECTAR THICK LIQUIDS DIET WITH STRICT ASPIRATION PRECAUTIONS WITH 1TO1 FEEDING. RECOMMENDED VIDEOSWALLOW STUDY OP REFER PT TO [facility] TO FOLLOW UP. D/C SUMMARY: PT MET PO INTAKE GOALS. NURSING STAFF MET ASPIRATION PRECAUTIONS GOALS. D/C FROM SKILLED ST SERVICE.
--- NOTE | 2018-10-21 14:26 | NUR ---
NURSE NOTES: Patient discharged to [facility] accompanied by ambulance personnel. Patient observed to be in stable condition, breathing unlabored on room air. IV site inserted on right medial upper arm for continuation of IV abx. Patent and intact. [facility] JORDIN Dong informed. Daughter Susie Yañez informed of patient's discharge. Purewick removed.
--- NOTE | 2018-10-24 13:53 | Discharge Summary ---
Discharge Summary Discharge Summary _ DATE OF ADMISSION: 10/17/2018 DATE OF DISCHARGE: 10/21/2018 DISCHARGED BY: Dr. Garcia REASON FOR ADMISSION: 83 years old female with a past medical history of schizoaffective disorder, hypertension, diabetes mellitus, prior history of ankle fracture, transferred from the halfway facility with worsening altered mentation, failure to thrive and weight loss. Patient by herself was a poor historian and unable to provide detailed history. Per report from the nursing facility, patient was becoming increasingly confused and weak. She had more than 20 pounds of weight loss. Upon evaluation in emergency room she was poorly responsive and lethargic. Laboratory workup was unremarkable. Chest x-ray was negative and showed no evidence of acute cardiopulmonary pathology. In lieu of the patient's progressive altered mentation, failure to thrive and weight loss, she was admitted for further evaluation and care. HOSPITAL COURSE: Patient started on IV hydration. CT of the head revealed no evidence of acute intracranial bleeding or mass- effect, but demonstrated chronic and age-related changes. CT of the chest, abdomen and pelvis demonstrated nodular, reticular, and hazy airspace opacities in the left lung base, likely reflecting infiltrates. Left lower lobe subpleural opacities were probably postinflammatory. One of these demonstrated granulomatous calcification. No other acute thoracic pathology. Rectal distention by feces. No other acute abdominal process. Chronic diverticulosis without evidence of diverticulitis. Cholelithiasis. Patient started on empiric antibiotics for aspiration pneumonia. Supplemental oxygen titrated as needed to keep pulse oximetry above 92%. Pulmonary toilet provided as needed. Tumor markers were all within normal limits, namely CEA, CA-19-9 and CEA 125. TSH was within normal limits. Bedside swallow evaluation revealed risk for silent aspiration and moderate dysphagia. For quality of life recommended oral diet with moist pured texture and nectar thick liquids. Diet was provided as per speech therapist recommendation with strict aspiration /reflux precautions and one-to-one feeding. Oral fluids were pushed and encouraged. Video swallow study was recommended to be done as inpatient or outpatient. Nutritional recommendation regarding protein supplements implemented in plan of care. Blood sugar remained stable. Hemoglobin A1c at goal- 5.5. Renal parameters and electrolytes were closely monitored, electrolytes corrected as needed, and okay to nephrotoxins were avoided. Bowel regimen instituted. Blood pressure was managed with KATHY inhibitor and remained stable. Supportive care provided. Mental status was slowly improving to baseline. Depakote was continued. Patient clinically stabilized and was ready for transfer back to halfway facility for continuation of care . Depakote was continued FINAL DIAGNOSES: Failure to thrive in adult with significant weight loss due to severe protein calorie malnutrition. Dysphagia Hypertensive heart disease Schizoaffective disorder Diastolic CHF chronic ( no evidence of fluid overload) DISCHARGE MEDICATIONS: See Medication Reconciliation list. DISCHARGE INSTRUCTIONS: Patient was discharged to the halfway facility. Follow up with medical doctor at the facility. I have been assigned to dictate discharge summary for this account. I was not involved in the patient's management. Yanet Rizzo NP Oct 24, 2018 13:53
== END 2018-10-21 14:15 | DRG 137 ==
LOC: EDUNIT# 13:54 → EDBD 13:54 → EMR 14:31 → 4E 18:20 → OBSVTOIN 18:22 → EDBEDREQ 20:24
DX: J69.0 Pneumonitis due to inhalation of food and vomit (principal); E43 Unspecified severe protein-calorie malnutrition; I11.0 Hypertensive heart disease with heart failure; I50.32 Chronic diastolic (congestive) heart failure; R62.7 Adult failure to thrive; R13.10 Dysphagia, unspecified; F25.9 Schizoaffective disorder, unspecified; K57.90 Diverticulosis of intestine, part unspecified, without perforation or abscess without bleeding; I13.0 Hypertensive heart and chronic kidney disease with heart failure and stage 1 through stage 4 chronic kidney disease, or unspecified chronic kidney disease; N18.9 Chronic kidney disease, unspecified; R53.1 Weakness
CPT/HCPCS: 36415; 70450; 71045; 71250; 74176; 80053; 81003; 82378; 83036; 84443; 85025; 86304; 87081; 93005; 96361; 96374; 99285

== ENCOUNTER 2018-11-14 23:48 | Inpatient (IN) | payer MEDICARE, MEDICAID ==
[~2018-11-14] VITALS: Ht 165.1 cm; Wt 71.9 kg
[~2018-11-14 23:48] MED LIST changes: +CEFTRIAXON1 GM/50 ML IV
[2018-11-14 23:55] VITALS: BP 178/82
--- NOTE | 2018-11-14 23:55 | NUR ---
ED Nurse Note: Pt was BIBA from [facility], c/o multiple fall today. Pt is awake, confused and is very combative. Vital signs is stable at this time, waiting for orders.
[2018-11-15] MEDS ORDERED: LORazepam Inj 2mg/ml 1ml IM ONE (00:15)
[2018-11-15] MEDS ORDERED: Haloperidol 5mg/ml Inj IM ONE (00:15)
--- NOTE | 2018-11-15 00:22 | NUR ---
ED Nurse Note: Meds given as ordered.
--- NOTE | 2018-11-15 00:50 | NUR ---
ED Nurse Note: Pt was sent down for CT of head.
[2018-11-15 01:01] LABS: BASOPHILS % (AUTO) 1.1 % (0.0-2.0); EOSINOPHILS % (AUTO) 0.6 % (0.0-3.0); HEMATOCRIT 39.8 % (37.0-47.0); HEMOGLOBIN 12.4 G/DL (12.0-16.0); LYMPHOCYTES % (AUTO) 26.8 % (20.0-45.0); MEAN CORPUSCULAR VOLUME 92 FL (80-99); NEUTROPHILS % (AUTO) 64.6 % (45.0-75.0); PLATELET COUNT 343 K/UL (150-450); RED BLOOD COUNT 4.34 M/UL (4.20-5.40); RED CELL DISTRIBUTION WIDTH 14.1 % (11.6-14.8)
[2018-11-15 01:06] LABS: ANION GAP 7 mmol/L (5-15); BLOOD UREA NITROGEN 22 mg/dL (7-18); CARBON DIOXIDE 29 MMOL/L (21-32); CHLORIDE 104 MMOL/L (98-107); CREATININE 0.9 MG/DL (0.55-1.30); POTASSIUM 4.7 MMOL/L (3.5-5.1); SODIUM 139 MMOL/L (136-145)
[2018-11-15 01:19] LABS: ALANINE AMINOTRANSFERASE 10 U/L (12-78); ALBUMIN 2.7 G/DL (3.4-5.0); ALBUMIN/GLOBULIN RATIO 0.6 (1.0-2.7); ALKALINE PHOSPHATASE 79 U/L (46-116); ASPARTATE AMINO TRANSFERASE 14 U/L (15-37); BILIRUBIN,TOTAL 0.3 MG/DL (0.2-1.0); CKMB 3.7 NG/ML (0.0-3.6); CREATINE KINASE 101 U/L (26-308)
--- NOTE | 2018-11-15 01:35 | NUR ---
ED Nurse Note: Pt returned from CT, but it was not done due to Pt was none compline.
--- NOTE | 2018-11-15 02:10 | Emergency Room Report ---
History of Present Illness General Chief Complaint: Multiple Trauma/Fall Source: EMS Present Illness HPI Patient presents from nursing facility with reports of trauma Patient herself has significant Parkinson's and dementia History of present illness is limited nursing facility has very limited information regarding trauma and right-sided facial injury unclear exactly how this injury occurred There was no reports of vomiting no reports of any diarrhea patient has had recent hospitalization Allergies: Coded Allergies: No Known Allergies (Unverified , 03/25/18) Patient History Limited by: medical condition Past Medical History: see triage record Pertinent Family History: none Last Menstrual Period: na Now: No Reviewed Nursing Documentation: PMH: Agreed; PSxH: Agreed Nursing Documentation-PMH Past Medical History: No Stated History Hx Cardiac Problems: Yes Hx Hypertension: Yes Hx Diabetes: Yes Hx Cancer: No Hx Gastrointestinal Problems: Yes Hx Neurological Problems: Yes - Parkinson's, Seizures Hx Speech Problem: Yes Hx Aphasia: Yes Review of Systems All Other Systems: limited - Other than the ones mentioned in the history of present illness all others are reviewed however they do stay limited due to the patient's mental status Physical Exam Vital Signs Date Time Temp Pulse Resp B/P (MAP) Pulse Ox O2 Delivery O2 Flow Rate FiO2 11/14/18 23:51 98.2 100 18 146/85 97 Room Air Sp02 EP Interpretation: reviewed, normal General Appearance: mild distress - Patient appears tremulous oral mucosa is dry Head: normocephalic, other - Ecchymosis involving the right fore head orbital region Eyes: bilateral eye PERRL ENT: dry mucus membranes Neck: supple Respiratory: lungs clear, no respiratory distress, no retraction Cardiovascular #1: tachycardia Gastrointestinal: non tender, soft Musculoskeletal: other - Rolling tremors, patient also has upper body and head tremor significant Neurologic: responsive - To physical stimuli Skin: no rash Lymphatic: no adenopathy Medical Decision Making Diagnostic Impression: Primary Impression: Multiple injuries due to trauma Additional Impression: General weakness ER Course Patient required extensive sedation to obtain imaging There is no obvious acute pathology seen on the CT head Patient's blood work remains baseline 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0) Eosinophils (%) (Auto) 0.6 % (0.0-3.0) Basophils (%) (Auto) 1.1 % (0.0-2.0) Sodium Level 139 MMOL/L (136-145) Potassium Level 4.7 MMOL/L (3.5-5.1) Chloride Level 104 MMOL/L (98-107) Carbon Dioxide Level 29 MMOL/L (21-32) Anion Gap 7 mmol/L (5-15) Blood Urea Nitrogen 22 mg/dL (7-18) Creatinine 0.9 MG/DL (0.55-1.30) Estimat Glomerular Filtration Rate mL/min (>60) Glucose Level 86 MG/DL (74-106) Calcium Level 9.0 MG/DL (8.5-10.1) Total Bilirubin 0.3 MG/DL (0.2-1.0) Aspartate Amino Transf (AST/SGOT) 14 U/L (15-37) Alanine Aminotransferase (ALT/SGPT) 10 U/L (12-78) Alkaline Phosphatase 79 U/L (46-116) Total Creatine Kinase 101 U/L (26-308) Creatine Kinase MB 3.7 NG/ML (0.0-3.6) Creatine Kinase MB Relative Index 3.6 Troponin I 0.002 ng/mL (0.000-0.056) Total Protein 7.3 G/DL (6.4-8.2) Albumin 2.7 G/DL (3.4-5.0) Globulin 4.6 g/dL Albumin/Globulin Ratio 0.6 (1.0-2.7) Lipase 84 U/L (73-393) Rhythm Strip Diag. Results EP Interpretation: yes Rate: 77 Rhythm: NSR, no PVC's, no ectopy Chest X-Ray Diagnostic Results Chest X-Ray Diagnostic Results : Chest X-Ray Ordered: Yes # of Views/Limited/Complete: 1 View Indication: Chest Pain EP Interpretation: Yes Interpretation: no consolidation, no effusion, no pneumothorax Impression: No acute disease Electronically Signed by: Miles Will DO CT/MRI/US Diagnostic Results CT/MRI/US Diagnostic Results : Impression CT head no acute disease Last Vital Signs Date Time Temp Pulse Resp B/P (MAP) Pulse Ox O2 Delivery O2 Flow Rate FiO2 11/14/18 23:51 98.2 100 18 146/85 97 Room Air Status: improved Disposition: PLACE IN OBSERVATION Condition: Serious Referrals: Antony Connolly MD (PCP) Miles Will DO Nov 15, 2018 02:10
[2018-11-15 04:00] VITALS: BP 139/79
--- NOTE | 2018-11-15 04:05 | NUR ---
TRANSFER TO FLOOR: Patient transferred to /S, 401 as ordered. Report given to Paola/JORDIN. Belongings sent with Pt and rechecked with RN. PT has Hx of MRSA and VRE positive, so the Swabe were not requested at this time according to the policy which was informed by Charge Nurse /Marley.
[2018-11-15 04:06] LABS: BILIRUBIN, URINE NEGATIVE (NEGATIVE); COLOR,URINE PALE YELLOW; GLUCOSE, URINE (UA) NEGATIVE (NEGATIVE); KETONES,URINE NEGATIVE (NEGATIVE); LEUKOCYTE ESTERASE ,URINE NEGATIVE (NEGATIVE); NITRITE,URINE POSITIVE (NEGATIVE); PH,URINE 7 (4.5-8.0); PROTEIN,URINE NEGATIVE (NEGATIVE); UROBILINOGEN,URINE NORMAL MG/DL (0.0-1.0)
[2018-11-15 04:13] LABS: APPEARANCE,URINE CLOUDY
[2018-11-15] MEDS ORDERED: FAMOTIDINE20 MG ORAL (05:02)
[2018-11-15] MEDS ORDERED: LOTENSIN20 MG ORAL (05:02)
--- NOTE | 2018-11-15 06:49 | NUR ---
NURSE NOTES: Admitted a 83 year old female, asleep from ER. Skin assessment done, photos taken and uploaded. Charge nurse made aware. Spoke to Dr. Garcia, orders obtained and carried out. Padded side rails. Call light and needs in reach. Bed in lowest position, lock engaged and alarm on.
--- NOTE | 2018-11-15 07:43 | NUR ---
HAND-OFF: Report given to JORDIN Ramirez.
--- NOTE | 2018-11-15 07:49 | NUR ---
NURSE NOTES: Patient asleep; on room air, no sign of shortness of breath, no sign of distress; side rails up x2, bed at lowest position, breaks engaged; bed alarm on; call light within reach; will keep monitoring.
[2018-11-15 08:00] VITALS: BP 131/72
[2018-11-15] MEDS: Depakote 500mg tab ORAL SCH ×2 (10:07→19:05)
[2018-11-15] MEDS: Benztropine 1mg tab ORAL SCH ×3 (10:08→19:05)
[2018-11-15] MEDS: Phospha 250 Neutral tab ORAL SCH (10:08)
[2018-11-15] MEDS: Docusate 100mg cap ORAL SCH ×2 (10:09→19:05)
[2018-11-15] MEDS: Milk of Magnesia 30ml Ud ORAL SCH (10:09)
[2018-11-15] MEDS: Heparin 5000 units/ml inj SUBQ SCH ×2 (10:10→21:43)
--- NOTE | 2018-11-15 10:11 | NUR ---
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 GENERAL WEAKNESS VS: BP 178/82, P 100, T 98.1, RR 18, SpO2 97 WBC 13.0, BUN 22, Urine Nitrate: POSITIVE IS:NS 500 ml IV ATIVAN 2mg IM HALDOL 5mg IM MIDAZOLAM HCI 4mg IVP ADMITTED TO MED/SURG DC PLAN: RETURN TO [facility]
[2018-11-15] MEDS: Metamucil Pkt ORAL SCH (10:27)
--- NOTE | 2018-11-15 11:52 | NUR ---
NURSE NOTES: Patient's Albumin is 2.7, I communicated Dr Garcia, waiting for order.
[2018-11-15 12:00] VITALS: BP 129/63
[2018-11-15 16:00] VITALS: BP 126/83
--- NOTE | 2018-11-15 16:00 | History and Physical Report ---
DATE OF ADMISSION: 11/15/2018 CHIEF COMPLAINT: Altered mental status, possible syncope, and fall. HISTORY OF PRESENT ILLNESS: The patient is an 83-year-old female. She has a history of dementia, psychosis, seizure disorder, chronic kidney disease, and diastolic congestive heart failure, who is admitted with complaints of a possible syncopal episode or fall. I was contacted late in the evening by nursing staff that the patient was found face down on the floor. It was unclear how long the patient had been on the floor. It was unclear whether or not she had fallen. She was noted to have erythema and ecchymosis on the right side of her face and forehead as well as the left eye. According to the patient's roommate, there was no witnessed fall, she did not hear her fall. The patient was sent to the emergency room. On evaluation there, CT scan of the head per report was unremarkable, but the patient remained confused, altered, more lethargic than baseline. She is now admitted for further observation and care. PAST MEDICAL HISTORY: As above. PAST SURGICAL HISTORY: None. CURRENT MEDICATIONS: Reconciled and reviewed. ALLERGIES: None. FAMILY HISTORY: None. SOCIAL HISTORY: There is no known history of tobacco, ethanol, or drugs. REVIEW OF SYSTEMS: GENERAL: No fevers or chills. HEENT: No headaches or visual changes. CARDIOPULMONARY: No chest pain or shortness of breath. GASTROINTESTINAL: No nausea or vomiting. GENITOURINARY: No urgency or frequency. MUSCULOSKELETAL: No joint pain or swelling. NEUROLOGIC: No evidence of seizures. PHYSICAL EXAMINATION: VITAL SIGNS: Temperature 96.1, pulse 64, respirations 20, and blood pressure 132/72. GENERAL: The patient is well developed, in no apparent distress. HEART: Regular rate and rhythm. LUNGS: Clear. ABDOMEN: Soft. EXTREMITIES: Without clubbing or cyanosis. SKIN: There is ecchymosis and erythema over the right side of the face, forehead, and cheek area. There is also ecchymosis noted over the left eye. LABORATORY DATA: UA was clear. White count was 13,000, hemoglobin 12. Sodium 139. Troponin was negative. ASSESSMENT: This is a pleasant elderly female admitted with a fall versus syncopal episode versus seizure. PLAN: Observe. We will follow up head CT results. Cardiology consultation. Tobi Garcia M.D. DR: MANJULA JOB#: [id number] CC:
--- NOTE | 2018-11-15 19:15 | Diagnostic Imaging Report ---
Indication: Headache Technique: Contiguous 5 mm thick transaxial imaging of the head obtained in a Siemens Sensation [address] scanner. Soft tissue and bone windows generated. Automatic Exposure Control was utilized. Total Dose length Product (DLP): [address] Dose Index Volume (CTDIvol): 70.38 mGy Comparison: none Findings: There is moderate prominence of the ventricles, basal cisterns, and cerebral sulci consistent with atrophy. Moderate, nonspecific, white matter hypoattenuation is noted throughout the brain consistent with chronic small vessel disease. There is no midline shift, edema, acute hemorrhage, mass effect, or abnormal extra-axial fluid collections. Bones and extra osseous soft tissues are unremarkable. Impression: No acute intracranial bleed, mass effect or edema. Moderate atrophy of the brain. Evidence of chronic small vessel disease involving white matter tracts. [facility] has communicated the preliminary results to the Emergency Department. Their findings are largely concordant with this report. The CT scanner at [facility] is accredited by the [employer] and the scans are performed using dose optimization techniques as appropriate to a performed exam including Automatic Exposure control.
--- NOTE | 2018-11-15 19:15 | Diagnostic Imaging Report ---
Indication: Chest pain Comparison: 10/17/2018 A single view chest radiograph was obtained. Findings: Bones are osteopenic. Heart size is normal. Aorta is ectatic. Lungs are clear. Calcifications in the left lung may be due to old granulomatous disease. IMPRESSION: No acute disease
--- NOTE | 2018-11-15 19:17 | Cardiology Report ---
APPROVED REPORT EKG Measurement Heart [id number] [place] [id number] [id number] Normal sinus rhythm Normal ECG
--- NOTE | 2018-11-15 19:59 | NUR ---
HAND-OFF: Report given to JORDIN Matute.
[2018-11-15 20:00] VITALS: BP 128/76
--- NOTE | 2018-11-15 20:00 | NUR ---
NURSE NOTES: Pt is in bed, awake. No acute distress noted. Pt is on seizure precautions and fall precautions. Bed low in position,side rails up and call light within reach. Pt will be monitored.
[2018-11-16] VITALS: BP 133/68
[2018-11-16 04:00] VITALS: BP 101/78
--- NOTE | 2018-11-16 06:00 | Consultation ---
DATE OF CONSULTATION: 11/15/2018 CARDIOLOGY CONSULTATION CONSULTING PHYSICIAN: Antony Connolly M.D. REQUESTING PHYSICIAN: Tobi Garcia M.D. REASON FOR CONSULTATION: Evaluation for syncope. HISTORY OF PRESENT ILLNESS: This is an 83-year-old female with dementia and associated psychosis as well as seizure disorder, who resides at a [facility] facility. She was found down having slid off her bed and transiently unresponsive. She did not suffer any apparent injury and did not complain of any specific pain. It is unclear how long the patient had been on the floor before she was found by nursing staff. The patient may have fallen or slid down, the latter less likely since injuries were subsequently noted, specifically the patient had erythema and ecchymosis on the right side of her face and forehead as well as her left eye. The patient was seen in the emergency room where a CAT scan of the brain was obtained revealing no acute process. The patient remains confused and withdrawn, less interactive than baseline, and is being evaluated for cardiogenic syncope. This is a primary cerebrovascular event. PAST MEDICAL HISTORY: Hypertension, diastolic dysfunction with congestive heart failure, cerebrovascular disease with dementia, psychosis, seizure disorder, chronic kidney disease, glucose intolerance, and degenerative disk disease. ALLERGIES: None. MEDICATIONS: Reviewed and reconciled. FAMILY HISTORY: Not known. SOCIAL HISTORY: Prior history of alcohol use. Nonsmoker and no substance abuse. REVIEW OF SYSTEMS: Not obtainable from the patient. prison chart is reviewed and pertinent data as outlined above. Fifteen minutes' time is spent on review of records. PHYSICAL EXAMINATION: VITAL SIGNS: Afebrile, blood pressure 132/72, pulse 64, and respirations 20. HEENT: Ecchymosis and erythema of right-sided face, forehead, cheek, left eyelid and brow. The patient is able to open and close eyelids. Oropharynx clear. NECK: Supple. LUNGS: With diminished breath sounds. No wheezing. CARDIAC: Regular rhythm and rate. Normal S1, S2 with a fourth heart sound. No appreciable murmur. ABDOMEN: Obese and soft. EXTREMITIES: With no edema, clubbing, or cyanosis. LABORATORY AND DIAGNOSTIC DATA: White count 13, hemoglobin 12. Troponin negative. EKG, sinus rhythm at 93 beats per minute and no abnormalities. Chemistry panel notable for BUN 22, creatinine 0.9. Albumin 2.7. Chest x-ray, no acute process. IMPRESSION: This is an elderly female, who was found down in a [facility] facility. She has underlying cerebrovascular disease and possibility of a seizure event must be considered as well as a primary neurologic insult. Further, a mechanical fall is possible and less likely cardiogenic syncope based on the available data . PLAN: 1. Consider EEG. 2. Neuro-checks. 3. Hydration. 4. Monitor electrolytes and cardiorenal function. 5. Further recommendations will follow. Antony Connolly M.D. DR: KATHY JOB#: [id number] CC:
--- NOTE | 2018-11-16 07:05 | NUR ---
HAND-OFF: Report given to Alexa Braswell RN.
--- NOTE | 2018-11-16 07:30 | NUR ---
NURSE NOTES: RECEIVED PATIENT IN BED, RESTING AND ALERT TO NAME. FLACC SCORE 0. PATIENT NONVERBAL. NO SIGNS OF RESPIRATORY DISTRESS. IV INTACT. BED IN LOWEST POSITION, CALL LIGHT WITHIN REACH. BED ALARM ON AND FALL PRECAUTIONS IN PLACE. WILL CONTINUE TO MONITOR.
[2018-11-16 08:00] VITALS: BP 118/70
[2018-11-16] MEDS: Benztropine 1mg tab ORAL SCH ×3 (08:48→17:09)
[2018-11-16] MEDS: Phospha 250 Neutral tab ORAL SCH (08:48)
[2018-11-16] MEDS: Depakote 500mg tab ORAL SCH ×2 (08:49→17:09)
[2018-11-16] MEDS: Metamucil Pkt ORAL SCH (08:50)
[2018-11-16] MEDS: Docusate 100mg cap ORAL SCH ×2 (08:50→17:09)
[2018-11-16] MEDS: Milk of Magnesia 30ml Ud ORAL SCH (08:50)
[2018-11-16] MEDS: Heparin 5000 units/ml inj SUBQ SCH ×2 (08:54→20:05)
--- NOTE | 2018-11-16 10:29 | NUR ---
*-* INSURANCE *-* ALL CLINICALS AND REVIEWS HAVE BEEN FAXED TO: [facility] F:[phone] F#[phone] REF# [id number]
[2018-11-16 12:00] VITALS: BP 104/60
--- NOTE | 2018-11-16 15:03 | NUR ---
P.T Note: Attempted to see pt for P.T session however pt unable to participate due to c/o nausea. Pt requested to be seen tomorrow. P.T will follow up. Addendum: 11/16/18 at 1505 by ES AUGUSTIN PT P.T Note: PLEASE DISREGARD ABOVE P.T NOTE. WRONG ENTRY!
--- NOTE | 2018-11-16 15:42 | NUR ---
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 GENERAL WEAKNESS VS: BP 104/60. P 86, T 97.5, RR 20, SpO2 [address] Impression: No acute intracranial bleed, mass effect or edema. CXR Findings: Bones are osteopenic. Heart size is normal. Aorta is ectatic. Lungs are clear. Calcifications in the left lung may be due to old granulomatous disease. IS:HEPARIN SUBQ OS-ANABELLA 500mg DEPAKOTE 500mg PEPCID 20mg MOM 30ml COGENTIN 0.5mg PHOSPHORUS 250mg LOTENSIN 20mg MED/SURG STATUS
[2018-11-16 16:00] VITALS: BP 110/78
--- NOTE | 2018-11-16 19:25 | NUR ---
HAND-OFF: Report given to JORDIN Robins.
[2018-11-16 20:00] VITALS: BP 154/90
--- NOTE | 2018-11-16 20:00 | NUR ---
NURSE NOTES: Patient received in bed, awake, nonverbal. NAD at this time. Bed locked in low position. Siderails padded. Call light in reach, will monitor.
[2018-11-17] VITALS: BP 102/66
--- NOTE | 2018-11-17 01:30 | Progress Note ---
DATE: 11/16/2018 CARDIOLOGY PROGRESS NOTE SUBJECTIVE: The patient has not had any witnessed episodes of loss of consciousness. At times, she is non-interactive. This is her baseline. OBJECTIVE: VITAL SIGNS: Blood pressure 110/78, pulse 91, and respirations 20. Afebrile. LUNGS: Clear. CARDIAC: Regular. Normal S1, S2. There is a 1/6 systolic murmur at the base. ABDOMEN: Soft. EXTREMITIES: No edema. LABORATORY DATA: Urinalysis with greater than 100,000 gram-negative rods. Echocardiogram pending. IMPRESSION: 1. Low clinical suspicion for cardiogenic syncope. 2. Probable mechanical fall. 3. Urinary tract infection. 4. Cerebrovascular disease with dementia. 5. Prerenal azotemia. 6. Moderate protein-calorie malnutrition. PLAN: 1. Protein supplement. 2. Cautious hydration. 3. Empiric antimicrobials. 4. Avoid tight blood pressure control. 5. Recheck laboratory studies. 6. Discharge planning. Antony Connolly M.D. DR: SHYANNE JOB#: [id number] CC:
[2018-11-17] MEDS: Piperacillin/Tazobactam 2.25 GM in D5W 55 ML IVPB SCH ×2 (02:25→08:34)
[2018-11-17 04:00] VITALS: BP 133/76
[2018-11-17 06:31] LABS: BASOPHILS % (AUTO) 1.1 % (0.0-2.0); EOSINOPHILS % (AUTO) 2.3 % (0.0-3.0); HEMATOCRIT 39.2 % (37.0-47.0); HEMOGLOBIN 12.4 G/DL (12.0-16.0); LYMPHOCYTES % (AUTO) 47.9 % (20.0-45.0); MEAN CORPUSCULAR VOLUME 93 FL (80-99); MONOCYTES % (AUTO) 5.6 % (1.0-10.0); NEUTROPHILS % (AUTO) 43.1 % (45.0-75.0); PLATELET COUNT 284 K/UL (150-450); RED BLOOD COUNT 4.24 M/UL (4.20-5.40); RED CELL DISTRIBUTION WIDTH 14.1 % (11.6-14.8); WHITE BLOOD COUNT 8.4 K/UL (4.8-10.8)
[2018-11-17 06:55] LABS: ALANINE AMINOTRANSFERASE 8 U/L (12-78); ALBUMIN 2.3 G/DL (3.4-5.0); ALBUMIN/GLOBULIN RATIO 0.5 (1.0-2.7); ALKALINE PHOSPHATASE 73 U/L (46-116); ANION GAP 8 mmol/L (5-15); ASPARTATE AMINO TRANSFERASE 12 U/L (15-37); BILIRUBIN,TOTAL 0.2 MG/DL (0.2-1.0); BLOOD UREA NITROGEN 21 mg/dL (7-18); CALCIUM 8.8 MG/DL (8.5-10.1); CARBON DIOXIDE 28 MMOL/L (21-32); CHLORIDE 105 MMOL/L (98-107); CREATININE 0.9 MG/DL (0.55-1.30); PHOSPHORUS 3.6 MG/DL (2.5-4.9); POTASSIUM 4.1 MMOL/L (3.5-5.1); SODIUM 141 MMOL/L (136-145)
--- NOTE | 2018-11-17 07:18 | NUR ---
HAND-OFF: Report given to Victorina BRENNER.
--- NOTE | 2018-11-17 07:35 | NUR ---
NURSE NOTES: Received report from JORDIN Robins. Pt in bed, asleep, arousable to voice, no apparent distress noted, respirations unlabored, bed in lowest position, call light within reach.
[2018-11-17 08:00] VITALS: BP 147/77
[2018-11-17] MEDS: Milk of Magnesia 30ml Ud ORAL SCH (08:24)
[2018-11-17] MEDS: Benztropine 1mg tab ORAL SCH ×3 (08:25→17:28)
[2018-11-17] MEDS: Metamucil Pkt ORAL SCH (08:25)
[2018-11-17] MEDS: Docusate 100mg cap ORAL SCH (08:26)
[2018-11-17] MEDS: Depakote 500mg tab ORAL SCH (08:26)
[2018-11-17] MEDS: Heparin 5000 units/ml inj SUBQ SCH ×2 (08:28→20:20)
[2018-11-17] MEDS: Phospha 250 Neutral tab ORAL SCH (09:24)
[2018-11-17] MEDS ORDERED: Levofloxacin 750mg tab ORAL SCH (11:00)
[2018-11-17 12:00] VITALS: BP 107/65
--- NOTE | 2018-11-17 13:03 | NUR ---
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 97.2 HR 74 RR 18 B/P 107/65 BUN 21 IS: LEVAQUIN PO DEPAKOTE PO HEPARIN SUBC MED/SURG STATUS
--- NOTE | 2018-11-17 14:17 | NUR ---
*-* INSURANCE *-* ALL CLINICALS AND REVIEWS HAVE BEEN FAXED TO: [facility] F:[phone] F#[phone] REF# [id number]
[2018-11-17 16:00] VITALS: BP 113/76
--- NOTE | 2018-11-17 17:59 | NUR ---
NURSE NOTES: Received call from Dr. Connolly, stated to send pt back to [facility] and that pt has bed hold. 1754: Called [facility] to give report, they stated they have not received any inquire and need to contact their Admissions department and will call back to 4E
[2018-11-17] MEDS ORDERED: Docusate 100mg/10ml Liq ORAL SCH (18:00)
--- NOTE | 2018-11-17 18:43 | NUR ---
NURSE NOTES: Called [facility] to check in about accepting pt back and to give report. Line busy, tired 4 times, busy every time
--- NOTE | 2018-11-17 18:45 | NUR ---
NURSE NOTES: Called [facility], spoke with Marge. She stated [facility] and that they are dealing with a "911 situation, waiting for paramedics to come." Marge took my name and number and stated she will let the RN Tube Builder know and have RN Tube Builder call 4E back. I notified her I will be here until 1930 and if she calls after to ask for the tilt wall supervisor.
--- NOTE | 2018-11-17 19:17 | NUR ---
NURSE NOTES: Notified Dr. Connolly regarding Discharge status of pt.
--- NOTE | 2018-11-17 19:30 | NUR ---
NURSE NOTES: Patient received in bed, awake, nonverbal. Appears in no acute distress at this time. siderails padded. Bed locked in low position. Will continue to monitor.
--- NOTE | 2018-11-17 19:45 | NUR ---
NURSE NOTES: Spoke with Chantell [phone] regarding faxing clinicals/inquiry to admissions. Faxed clinicals to [phone]. Awaiting for bed/response from [facility].
[2018-11-17 20:00] VITALS: BP 146/92
[2018-11-17] MEDS ORDERED: Depakote 125mg Sprinkles ORAL SCH (21:00)
--- NOTE | 2018-11-17 22:00 | NUR ---
NURSE NOTES: 2099 Spoke with MADELAINE Abdul admissions, confirmed receipt of inquiry. Per Chantell, will review. RN to call back in 15 minutes. 2124 Called back Chantell KNOWLES, no answer. No VM set up. Will reattempt 2134 Called back Chantell KNOWLES, rings 1x then sent to VM, reattempted x4. Still no VM set up. 2149 Chantell called back with acceptance. Instructed to call for report. Called [facility], report given to Chidi. Patient will go to [facility] called ETA 30 minutes. Chidi of [facility] made aware. Called [facility] (dtr) made aware of discharge. Patient stable, awaiting for transportation.
--- NOTE | 2018-11-17 23:25 | NUR ---
NURSE NOTES: Patient discharged to [facility] via ambulance accompanied by 2 shop mechanic. Patient in stable condition, no belongings. IV on RH 24 for IV abx in SNF. Remained free from injury.
--- NOTE | 2018-11-17 23:30 | Progress Note ---
DATE: 11/17/2018 CARDIOLOGY PROGRESS NOTE SUBJECTIVE: No loss of consciousness. Mentation at baseline. Oral intake is fair. OBJECTIVE: VITAL SIGNS: Blood pressure 107/65, pulse 74, and respirations 18. Afebrile. LUNGS: Clear. CARDIAC: Regular. Normal S1, S2. ABDOMEN: Soft. EXTREMITIES: No edema. LABORATORY DATA: Urine culture positive for E. coli. IMPRESSION: 1. Mechanical fall. 2. Cerebrovascular disease with dementia. 3. Urinary tract infection with E. coli. 4. No clinical signs to suggest cardiogenic syncope. PLAN: 1. The patient is stable for [facility]entiary facility and long-term care. 2. Discharge medication regimen reviewed. 3. Avoiding tight blood pressure control. 4. Echocardiogram reviewed as well. Antony Connolly M.D. DR: SHYANNE JOB#: [id number] CC:
--- NOTE | 2018-11-18 17:45 | Discharge Summary ---
DATE OF ADMISSION: 11/15/2018 DATE OF DISCHARGE: 11/17/2018 ADMITTING DIAGNOSES: Mechanical fall versus syncopal episode, right forehead contusion and abrasion, history of seizure disorder, encephalopathy, history of bipolar disorder, and schizoaffective disorder. DISCHARGE DIAGNOSES: Mechanical fall versus syncopal episode, right forehead contusion and abrasion, history of seizure disorder, encephalopathy, history of bipolar disorder, and schizoaffective disorder. HOSPITAL COURSE: The patient was admitted after sustaining a fall. She had a CAT scan of the head that showed no evidence of any fracture or bleed. She was observed. She had no evidence of any seizures. Laboratory tests were unremarkable. She was otherwise awake and alert. Eating well. She will be discharged back to the [facility] facility. She follow up in one to two days. Please see discharge list for discharge medications. DIET: Puree diet. Tobi Garcia M.D. DR: BESSIE JOB#: [id number] CC:
--- NOTE | 2018-11-20 11:40 | Cardiology Report ---
APPROVED REPORT EXAM: Two-dimensional and M-mode echocardiogram with Doppler and color Doppler. INDICATION Altered LOC M-Mode DIMENSIONS IVSd0.9 (0.7-1.1cm)Left Atrium (MM)1.7 (1.6-4.0cm) LVDd4.3 (3.5-5.6cm)Aortic Root3.1 (2.0-3.7cm) PWd0.9 (0.7-1.1cm)Aortic Cusp Exc.0.9 (1.5-2.0cm) IVSs1.3 cm LVDs2.9 (2.5-4.0cm) PWs1.2 cm Other Information Technically limited study due to poor acoustical windows . Normal left ventricular chamber size, systolic function and wall motion. Left ventricular ejection fraction estimated to be 55%. No evidence of left ventricular hypertrophy. No evidence of pericardial effusion. All other cardiac chamber sizes are within normal limits. Aortic valve calcification with decreased cusp excursion c/w aortic stenosis. Mildly thickened mitral valve leaflets with normal excursion. Mild mitral annulus and aortic root calcification. Pulmonic valve not well visualized. IVC at normal size with physiologic collapse . A color flow and spectral Doppler study was performed and revealed: Mild aortic insufficiency . Peak aortic valve gradient of 24 mm Hg and a mean of 13 mmHg. Aortic valve area 1.0 cm2 calculated by continuity equation. Mitral diastolic velocities suggest reduced left ventricular relaxation c/w mild LV diastolic dysfunction (Grade I ) Trace mitral regurgitation. Mild tricuspid regurgitation. Tricuspid systolic velocities suggests peak right ventricular systolic pressure of 37 mmHg,consistent with mild pulmonary hypertension .
== END 2018-11-17 23:25 | DRG 384 ==
LOC: EDBD 23:48 → EDUNIT# 23:48 → EMR 23:59 → EDBEDREQ 11-15 00:18 → 4E 11-15 01:38 → OBSVTOIN 11-15 01:38 → EDBEDREQ 11-15 02:46
DX: S00.83XA Contusion of other part of head, initial encounter (principal); G93.40 Encephalopathy, unspecified; E44.0 Moderate protein-calorie malnutrition; I13.0 Hypertensive heart and chronic kidney disease with heart failure and stage 1 through stage 4 chronic kidney disease, or unspecified chronic kidney disease; I50.32 Chronic diastolic (congestive) heart failure; F25.9 Schizoaffective disorder, unspecified; F01.50 Vascular dementia, unspecified severity, without behavioral disturbance, psychotic disturbance, mood disturbance, and anxiety; G40.909 Epilepsy, unspecified, not intractable, without status epilepticus; S00.81XA Abrasion of other part of head, initial encounter; W19.XXXA Unspecified fall, initial encounter; Y92.129 Unspecified place in nursing home as the place of occurrence of the external cause; R55 Syncope and collapse; F31.9 Bipolar disorder, unspecified; N18.9 Chronic kidney disease, unspecified; N39.0 Urinary tract infection, site not specified; B96.20 Unspecified Escherichia coli [E. coli] as the cause of diseases classified elsewhere
CPT/HCPCS: 36415; 70450; 71045; 80053; 81003; 82550; 82553; 83690; 83735; 84100; 84484; 85025; 87086; 87181; 93005; 93306; 96372; 96374; 99284; C9399

== ENCOUNTER 2019-02-13 14:55 | Inpatient (IN) | payer MEDICARE, MEDICAID ==
[~2019-02-13] VITALS: Ht 162.6 cm; Wt 60.8 kg
[~2019-02-13 14:55] MED LIST changes: +FAMOTIDINE20 MG ORAL
--- NOTE | 2019-02-13 15:20 | NUR ---
ED Nurse Note: pt presents with upper arms twitching and pt unable to control movements for interventions of lab andiv start. ecg attempted but pt unable to hold still for test. pt striking out at staff when attempting. md aware and to order meds to calm pt. pt indicates she has no c/o. unable to determine orientation. pt non verbal but does make sounds and hand gestures to staff. occ non productive cough noted. abd soft nontender. lungs dim bibasilar. no edema
[2019-02-13] MEDS ORDERED: LORazepam Inj 2mg/ml 1ml IM ONE (15:30)
--- NOTE | 2019-02-13 15:57 | Diagnostic Imaging Report ---
Indication: Dyspnea Comparison: 11/15/2018 A single view chest radiograph was obtained. Findings: No definite infiltrate or pulmonary vascular congestion identified. Calcifications in the lung consistent with old granulomatous disease. The heart is normal in size. The aorta is mildly enlarged consistent with atherosclerotic vascular disease. The bones are osteopenic. Osteophytes throughout the thoracic spine and marginal spurs involving both glenohumeral joints noted. Impression: No acute disease without change.
--- NOTE | 2019-02-13 16:02 | Emergency Room Report ---
History of Present Illness General Chief Complaint: General Complaint Source: EMS Present Illness HPI 83-year-old female presents ED for evaluation. Brought in by EMS from halfway facility. Noted to have trouble swallowing today with vomiting. Patient has history of dementia and Parkinson's. Upon arrival patient showing no signs of distress. Does have significant akasthesia. Denies any abdominal pain. No fevers or chills. No other aggravating or relieving factors. Denies any other associated symptoms Allergies: Coded Allergies: No Known Allergies (Unverified , 03/25/18) Patient History Past Medical History: HTN, CHF, dementia, seizures, psych hx Past Surgical History: none Pertinent Family History: none Social History: Denies: smoking, alcohol use, drug use Now: No Immunizations: UTD Reviewed Nursing Documentation: PMH: Agreed; PSxH: Agreed Nursing Documentation-PMH Hx Cardiac Problems: Yes - CHF Hx Hypertension: Yes Hx Diabetes: Yes Hx Cancer: No Hx Gastrointestinal Problems: No History Of Psychiatric Problem: Yes - PSYCHOSIS Hx Neurological Problems: Yes - DEMENTIA Hx Parkinson's Disease: Yes Hx Seizures: Yes Hx Speech Problem: Yes Hx Aphasia: Yes Hx Weakness: Yes Review of Systems All Other Systems: negative except mentioned in HPI Physical Exam Vital Signs Date Time Temp Pulse Resp B/P (MAP) Pulse Ox O2 Delivery O2 Flow Rate FiO2 02/13/19 14:52 98.6 64 20 154/76 (102) 95 Room Air Sp02 EP Interpretation: reviewed, normal General Appearance: no apparent distress, alert, GCS 15, non-toxic Head: normocephalic, atraumatic Eyes: bilateral eye normal inspection, bilateral eye PERRL ENT: hearing grossly normal, normal pharynx, no angioedema, normal voice Neck: full range of motion, supple/symm/no masses Respiratory: chest non-tender, lungs clear, normal breath sounds, speaking full sentences Cardiovascular #1: regular rate, rhythm, no edema Cardiovascular #2: 2+ carotid (R), 2+ carotid (L), 2+ radial (R), 2+ radial (L) , 2+ dorsalis pedis (R), 2+ dorsalis pedis (L) Gastrointestinal: normal bowel sounds, non tender, soft, non-distended, no guarding, no rebound Rectal: deferred Genitourinary: normal inspection, no CVA tenderness Musculoskeletal: back normal, gait/station normal, normal range of motion, non- tender Neurologic: alert, oriented x3, responsive, other - akasthesia Psychiatric: judgement/insight normal, memory normal, no suicidal/homicidal ideation Reflexes: 3+ bicep (R), 3+ bicep (L), 3+ tricep (R), 3+ tricep (L), 3+ knee (R) , 3+ knee (L) Skin: normal color, no rash, warm/dry, well hydrated Lymphatic: no adenopathy Medical Decision Making Diagnostic Impression: Primary Impression: Failure to thrive in adult Additional Impressions: Dysphagia Qualified Codes: R13.10 - Dysphagia, unspecified Schizoaffective disorder Qualified Codes: F25.9 - Schizoaffective disorder, unspecified ER Course Hospital Course 83-year-old female presenting to ED with dysphagia, generalized weakness, not tolerating PO intake Differential diagnoses include: Pneumonia, UTI, dehydration, failure to thrive Clinical course Patient placed on stretcher. On compliance monitor. After initial history and physical, I ordered labs, IV fluids, EKG, chest x-ray, UA Chest x-rayno acute process EKG - NSR, no acute ischemic changes interpreted by me Labs - no leukocytosis, hb/hct stable, electrolytes ok Case discussed with Dr Garcia and they agreed to admit patient to their service for further care and support I feel this is a highly complex case requiring extensive working including EKG/ Rhythm strip, Xray/CT/US, Blood/urine lab work, repeat exams while in ED, and administration of strong opiates/narcotics for pain control, admission to hospital or close patient follow up. Diagnosis - failure to thrive, dysphagia, schizoaffective disorder Patient admitted to floor in serious condition Labs Test 02/13/19 16:15 White Blood Count 7.8 K/UL (4.8-10.8) Red Blood Count 4.28 M/UL (4.20-5.40) Hemoglobin 12.2 G/DL (12.0-16.0) Hematocrit 37.9 % (37.0-47.0) Mean Corpuscular Volume 89 FL (80-99) Mean Corpuscular Hemoglobin 28.5 PG (27.0-31.0) Mean Corpuscular Hemoglobin Concent 32.2 G/DL (32.0-36.0) Red Cell Distribution Width 13.9 % (11.6-14.8) Platelet Count 240 K/UL (150-450) Mean Platelet Volume 5.4 FL (6.5-10.1) Neutrophils (%) (Auto) 61.2 % (45.0-75.0) Lymphocytes (%) (Auto) 29.2 % (20.0-45.0) Monocytes (%) (Auto) 7.5 % (1.0-10.0) Eosinophils (%) (Auto) 1.1 % (0.0-3.0) Basophils (%) (Auto) 1.1 % (0.0-2.0) Urine Color Yellow Urine Appearance Clear Urine pH 6 (4.5-8.0) Urine Specific [place] 1.010 (1.005-1.035) Urine Protein Negative (NEGATIVE) Urine Glucose (UA) Negative (NEGATIVE) Urine Ketones Negative (NEGATIVE) Urine Blood Negative (NEGATIVE) Urine Nitrite Negative (NEGATIVE) Urine Bilirubin Negative (NEGATIVE) Urine Urobilinogen Normal MG/DL (0.0-1.0) Urine Leukocyte Esterase Negative (NEGATIVE) Sodium Level 145 MMOL/L (136-145) Potassium Level 4.4 MMOL/L (3.5-5.1) Chloride Level 109 MMOL/L (98-107) Carbon Dioxide Level 26 MMOL/L (21-32) Anion Gap 10 mmol/L (5-15) Blood Urea Nitrogen 26 mg/dL (7-18) Creatinine 1.2 MG/DL (0.55-1.30) Estimat Glomerular Filtration Rate mL/min (>60) Glucose Level 89 MG/DL (74-106) Calcium Level 9.2 MG/DL (8.5-10.1) Total Bilirubin 0.3 MG/DL (0.2-1.0) Aspartate Amino Transf (AST/SGOT) 14 U/L (15-37) Alanine Aminotransferase (ALT/SGPT) 13 U/L (12-78) Alkaline Phosphatase 74 U/L (46-116) Total Protein 6.7 G/DL (6.4-8.2) Albumin 2.4 G/DL (3.4-5.0) Globulin 4.3 g/dL Albumin/Globulin Ratio 0.6 (1.0-2.7) Lipase 61 U/L (73-393) EKG Diagnostic Results Rate: normal Rhythm: NSR ST Segments: no acute changes ASA given to the pt in ED: No Rhythm Strip Diag. Results EP Interpretation: yes Rhythm: NSR, no PVC's, no ectopy Chest X-Ray Diagnostic Results Chest X-Ray Diagnostic Results : Chest X-Ray Ordered: Yes # of Views/Limited/Complete: 1 View Indication: Other EP Interpretation: Yes Interpretation: no consolidation, no effusion, no pneumothorax, no acute cardiopulmonary disease Impression: No acute disease Electronically Signed by: Electronically signed by Obed Beasley MD Last Vital Signs Date Time Temp Pulse Resp B/P (MAP) Pulse Ox O2 Delivery O2 Flow Rate FiO2 02/13/19 15:15 64 20 Room Air 02/13/19 14:52 98.6 154/76 (102) 95 Status: improved Disposition: ADMITTED INPATIENT Condition: Serious Obed Beasley MD Feb 13, 2019 16:02
--- NOTE | 2019-02-13 16:41 | NUR ---
ED Nurse Note: pt tolerates lab and iv site well. straight cath urine done pt with urine sample sent . mrsa/vre/cre swabs sent. ivf infusing well. pt much more calm after meds effective. pt remains arouseable to light tactile stimuli.
--- NOTE | 2019-02-13 16:44 | NUR ---
ED Nurse Note: wound pics taken and uploaded
[2019-02-13 16:52] LABS: BASOPHILS % (AUTO) 1.1 % (0.0-2.0); EOSINOPHILS % (AUTO) 1.1 % (0.0-3.0); HEMATOCRIT 37.9 % (37.0-47.0); HEMOGLOBIN 12.2 G/DL (12.0-16.0); LYMPHOCYTES % (AUTO) 29.2 % (20.0-45.0); MEAN CORPUSCULAR VOLUME 89 FL (80-99); MONOCYTES % (AUTO) 7.5 % (1.0-10.0); NEUTROPHILS % (AUTO) 61.2 % (45.0-75.0); PLATELET COUNT 240 K/UL (150-450); RED BLOOD COUNT 4.28 M/UL (4.20-5.40); RED CELL DISTRIBUTION WIDTH 13.9 % (11.6-14.8); WHITE BLOOD COUNT 7.8 K/UL (4.8-10.8)
[2019-02-13 17:00] LABS: APPEARANCE,URINE CLEAR; BILIRUBIN, URINE NEGATIVE (NEGATIVE); GLUCOSE, URINE (UA) NEGATIVE (NEGATIVE); KETONES,URINE NEGATIVE (NEGATIVE); LEUKOCYTE ESTERASE ,URINE NEGATIVE (NEGATIVE); NITRITE,URINE NEGATIVE (NEGATIVE); PH,URINE 6 (4.5-8.0); PROTEIN,URINE NEGATIVE (NEGATIVE); UROBILINOGEN,URINE NORMAL MG/DL (0.0-1.0)
[2019-02-13 17:02] VITALS: BP 98/62
[2019-02-13 17:05] LABS: COLOR,URINE YELLOW
[2019-02-13 17:07] LABS: ANION GAP 10 mmol/L (5-15); BLOOD UREA NITROGEN 26 mg/dL (7-18); CALCIUM 9.2 MG/DL (8.5-10.1); CARBON DIOXIDE 26 MMOL/L (21-32); CHLORIDE 109 MMOL/L (98-107); CREATININE 1.2 MG/DL (0.55-1.30); POTASSIUM 4.4 MMOL/L (3.5-5.1); SODIUM 145 MMOL/L (136-145)
[2019-02-13 17:12] LABS: ALANINE AMINOTRANSFERASE 13 U/L (12-78); ALBUMIN 2.4 G/DL (3.4-5.0); ALBUMIN/GLOBULIN RATIO 0.6 (1.0-2.7); ALKALINE PHOSPHATASE 74 U/L (46-116); ASPARTATE AMINO TRANSFERASE 14 U/L (15-37); BILIRUBIN,TOTAL 0.3 MG/DL (0.2-1.0)
--- NOTE | 2019-02-13 17:53 | NUR ---
ED Nurse Note: pt with positional iv site ivf bolus infusing slowly no infiltrate. pt bend arm and slowing ivf. prepared to be admit to med surg floor. bleongings list done
[2019-02-13 17:56] VITALS: BP 116/54
--- NOTE | 2019-02-13 17:59 | NUR ---
ED Nurse Note: attempted to give report rn not available and to call back. broomcorn grader jyotsna gonsalves
--- NOTE | 2019-02-13 18:10 | NUR ---
ED Nurse Note: report given to rn awaiting pt tech aware to transport pt after report
[2019-02-13 18:17] VITALS: BP 117/52
--- NOTE | 2019-02-13 18:25 | NUR ---
NURSE NOTES: Received patient into room 403 bed 1,patient alert to name,patient say name,but does not answer questions.Respirations are unlabored.500cc Normal saline noted , IV Ns started in ER,per ER Nurse,patient to receive 500cc Normal Saline x1. Bed alarm on,Will notify DR Connolly of patient room number and for admission orders.
[2019-02-13 20:00] VITALS: BP 115/62
--- NOTE | 2019-02-13 20:12 | NUR ---
NURSE NOTES: Received report from JORDIN Nicole. Patient is in bed resting with the HOB elevated and 2 bed rails up. No respiratory distress noted. Call light is within reach and bed alarm is on. IV is intact. Will continue to monitor.
--- NOTE | 2019-02-13 21:00 | NUR ---
NURSE NOTES: Spoke with Dr. Connolly around 2049 regarding admission orders for 403-1; he said he would look at the chart and put in some more orders for the patient.
[2019-02-13] MEDS ORDERED: LORazepam Inj 2mg/ml 1ml IV PRN (22:30)
[2019-02-13] MEDS: Depakote 500mg tab ORAL SCH (23:00)
[2019-02-14] MEDS ORDERED: D5 1/2NS w/KCL 10meq 1,000 ML IV ONE (00:49)
[2019-02-14] MEDS: Potassium Chloride 10 MEQ in D5 1/2NS 1,000 ML IV SCH ×3 (00:57→18:36)
--- NOTE | 2019-02-14 02:30 | NUR ---
NURSE NOTES: Padded both side rails as a seizure precaution.
[2019-02-14 04:00] VITALS: BP 118/55
--- NOTE | 2019-02-14 07:12 | NUR ---
NURSE NOTES: Patient has not urinated until this time. Performed bladder scan showed 295. Spoke with Dr. Garcia who is covering for Dr. Connolly, who gave instructions to monitor it for now. Notified the oncoming nurse know.
--- NOTE | 2019-02-14 07:20 | NUR ---
HAND-OFF: Report given to JORDIN Mariee.
[2019-02-14 08:09] VITALS: BP 111/68
--- NOTE | 2019-02-14 08:30 | History and Physical Report ---
DATE OF ADMISSION: 02/13/2019 CHIEF COMPLAINT: Dysphagia and encephalopathy. HISTORY OF PRESENT ILLNESS: The patient is an 83-year-old female. She has a history of diabetes, hypertension, diastolic congestive heart failure. She has a history of psychosis and presented with complaints of inability to swallow. The patient has had several episodes in the past. At that time, the patient improved with speech therapy, was eating but recently she has been having increasing difficulty with swallowing and on the day of admission was choking on food when eating. On evaluation in the emergency room, laboratory tests were significant only for some dehydration but in light of the patient's inability to swallow she is now admitted for further evaluation and care. PAST MEDICAL HISTORY: As above. PAST SURGICAL HISTORY: Includes ankle ORIF surgery. CURRENT MEDICATIONS: Reconciled and reviewed. ALLERGIES: None. FAMILY HISTORY: None. SOCIAL HISTORY: Negative for tobacco, ethanol, or drugs. REVIEW OF SYSTEMS: Unobtainable as the patient is confused. PHYSICAL EXAMINATION: VITAL SIGNS: Temperature 97.3, pulse 79, respirations 16, blood pressure 116/54. GENERAL: The patient is well developed, no apparent distress. HEART: Regular rate and rhythm. LUNGS: Clear. ABDOMEN: Soft, nontender, nondistended. EXTREMITIES: Without clubbing, cyanosis, or edema. PERTINENT DATA: BUN is 26, creatinine was 1.2. The white count was normal. ASSESSMENT: This is an elderly female admitted with complaints of dysphagia: 1. Dysphagia. 2. History of diastolic congestive heart failure. 3. History of diabetes. 4. History of psychosis. 5. History of EPS and tardive dyskinesia. PLAN: 1. IV hydration. 2. Swallow evaluation. 3. Cardiology consult for clearance for possible G-tube placement. 4. Gastrointestinal evaluation will also be obtained. Await swallow evaluation and recommendations. 5. Plan of care was discussed with the patient's family. Tobi Garcia M.D. DR: Juan Daniel JOB#: [id number] CC:
[2019-02-14] MEDS: Depakote 500mg tab ORAL SCH (09:00)
[2019-02-14] MEDS: Heparin 5000 units/ml inj SUBQ SCH ×2 (09:28→22:47)
--- NOTE | 2019-02-14 09:33 | NUR ---
NURSE NOTES: Report was given ,patient coughing after getting po,will wait for Swallow Evaluation before giving po medication .Patient has medication that can not be crushed.
--- NOTE | 2019-02-14 11:47 | NUR ---
*-* NO INSURANCE INFORMATION IN THE BAR UNABLE TO SEND CLINICALS *-*
[2019-02-14 12:00] VITALS: BP 115/66
--- NOTE | 2019-02-14 13:20 | NUR ---
SWALLOW/SPEECH THERAPY NOTE: REFERRED BY DR WILHELM (ALSO PRIMARY) FOR A SWALLOW EVALUATION, SEE ST CARE ACTIVITY SECTION FOR FULL REPORT. DYSPHAGIA RISK FACTORS FOR THIS 83 Y.O.F.: ACUTE ISSUES: ADULT FTT, DYSPHAGIA (RECENTLY CHOKING ON FOOD AT SNF), LUNGS ARE CLEAR. LOW ALBUMIN H/O DYPSPHAGIA,PD, CVA DZ, FTT, 10/19/18 PNA, ADVANCED AGE, T-M ENCEPHALOPATHY, SCHIZO AND BIPOLAR, HYPERLIPIDEMIA,GERD, HTN, DM2 MUSCLE WEAKNESS. PER POLST OK FOR TRIAL TF. AT SNF ON A FORT PUREED AND NECTAR THICK LIQUID DIET AND HPN 4 OZ. SEEN AT [facility] 10/19/18 FOR SWALLOW EVALUATION (SEE REPORT) DX WITH MODERATE OROPHARYNGEAL DYSPHAGIA AND ASPIRATION RISK BUT CLEARED FOR PUREED AND NECTAR THICK LIQUIDS (FOR QUALITY OF LIFE PURPOSES) UNTIL MOD BARIUM SWALLOW STUDY COULD BE COMPLETED (STUDY NOT COMPLETED DUE TO SCHEDULE CONFLICTS). CURRENTLY NPO FOR SWALLOW EVAL. ALERT AND NONVERBAL. INITIAL IMPRESSIONS: S/S OF AT LEAST A PERSISTENT MILD-MODERATE OROPHARYNGEAL DYSPHAGIA WITH INCREASED ORAL PREP AND OROPHARYNGEAL TRANSIT TIMES. GOOD LIP CLOSURE WITH TSP BUT HAS SPONTANEOUS EXTRANEOUS AND REPETITIVE LIP AND TONGUE MOVEMENTS (APPEAR TO BE TARDIVE DYSKINESIA) AND DOES NOT FOLLOW ORAL COMMANDS WELL. TONGUE IS VERY DRY AND CRUSTED YELLOW. TSP THIN LIQUIDS REQUIRED 5 SECONDS TO SWALLOW WITH FAIR HYOLARYNGEAL EXCURSION BUT NEEDED SECOND SWALLOW TO CLEAR (ORAL VS PHARYNGEAL OR BOTH RESIDUE). NO OVERT S/S OF ASPIRATION BUT HAS SILENT ASPIRATION RISK. HOLD MORE PO TRIALS FOR VIDEO. RECOMMENDATIONS: GIVEN HIGH SILENT ASPIRATION RISK, CONSIDER HOLDING PO FOR MOD BARIUM SWALLOW STUDY (MBSS). IF PO GIVEN FOR QUALITY OF LIFE (AND SINCE MBSS NOT ABLE TO COMPLETE TODAY), CONSIDER INITIATING A LIQUIFIED PUREED LIKE NECTAR THICK SOUP DIET NO THIN LIQUIDS UNTIL MBSS USING POSTED ASPIRATION PRECAUTIONS AND 1 TO 1 FEEDING. SKILLED DYSPHAGIA MANAGEMENT AND TX AND COG-COM EVAL/TX FOR COM TIPS. D/W RN AND MD PATIENT IS CONFUSED AND NONVERBAL.
--- NOTE | 2019-02-14 13:32 | NUR ---
RD ASSESSMENT & RECOMMENDATIONS SEE CARE ACTIVITY FOR COMPLETE ASSESSMENT DAILY ESTIMATED NEEDS: Needs based on Weight loss, wound/ 64.2kg 25-30 kcals/kg 2893-5052 total kcals 1.25-1.5 g protein/kg 80-96 g total protein 25-30 mL/kg 3979-8637 total fluid mLs NUTRITION DIAGNOSIS: 1) Swallowing difficulty R/T dysphagia as evidenced by pt on pureed w/ NTL diet TEST PREPARATION TUTOR, admitted w/ c/o difficulty swallowing, currently NPO, pending SILO ERECTOR evaluation. 2) Increased kcal and protein needs r/t weight loss and wound healing as evidenced by pt presents w/ progressive, significant wt loss of 19lbs/12% wt loss in 6 mo, admitted w/ wounds @ lt thigh and rt heel per photos, pending eval. CURRENT DIET:NPO PO DIET RECOMMENDATIONS: IF SAFE FOR PO -> liberalized REGULAR/ texture per SILO ERECTOR + Ensure Enlive TID ENTERAL NUTRITION RECOMMENDATIONS: Jevity 1.2 @ 65ml/hr x 24 hrs to provide 1560ml, 1872kcal, 86g prot, 1256ml free water * IF pt not safe for oral intake and TF is medically indicated and part of POC, rec to obtain GI access * Initiate Jevity 1.2 @ 15ml/hr x 6 hrs, advance 10ml q 4-6 hrs as tolerated to goal rate. * HOB over 30 degrees/ water flush per MD ADDITIONAL RECOMMENDATIONS: * Calibrated bedscale wt for accurate CBW * WEEKLY WEIGHTS: pt w/ significant + progressive wt loss * F/up w/ SILO ERECTOR eval: PO vs nonoral feedings * Wound healing: add MVI x 1, Vit C 250mg QD, Justen 1pkt BID . .
--- NOTE | 2019-02-14 15:05 | NUR ---
CASE MANAGEMENT:REVIEW 83 YR OLD FEMALE BIB[facility] FROM [facility] CC: UNABLE TO SWALLOW SI: DYSPHAGIA. FTT 98.6 64 20 154/76 95% ON RA BUN+26 ALB-2.4 IS: 500CC NS BOLUS ATIVAN IM CHEST XRAY URINE REFLEX : TO MED/SURG 4 EAST PLAN: IV HYDRATION SWALLOW EVAL
[2019-02-14 16:00] VITALS: BP 109/84
--- NOTE | 2019-02-14 17:43 | NUR ---
NURSE NOTES: DR Connolly called to give update on patient,patient urine has a strong odor,slightly concentrated,bladder scans done and does not show that patient is retaining urine,abdomen is soft.Patient has been afebrile.skin care given.waiting for call back.
--- NOTE | 2019-02-14 17:47 | NUR ---
NURSE NOTES: DR Pichardo Called back for DR Connolly order to straight cath patient and obtain U/A.
--- NOTE | 2019-02-14 18:14 | NUR ---
NURSE NOTES: Urine for urinalysis obtained,patient was straight cath,patient tolerated,skin care give.Urine slightly concentrated and noted a light cranberry color.Urine sent to lab.
[2019-02-14 18:29] LABS: APPEARANCE,URINE VERY CLOUDY; BILIRUBIN, URINE NEGATIVE (NEGATIVE); COLOR,URINE ORANGE; GLUCOSE, URINE (UA) NEGATIVE (NEGATIVE); KETONES,URINE 1+ (NEGATIVE); LEUKOCYTE ESTERASE ,URINE 3+ (NEGATIVE); NITRITE,URINE POSITIVE (NEGATIVE); PH,URINE 7 (4.5-8.0); PROTEIN,URINE 4+ (NEGATIVE); UROBILINOGEN,URINE 4 MG/DL (0.0-1.0)
[2019-02-14] MEDS ORDERED: MULTIVITAMINS1 EAC8 ORAL (18:50)
[2019-02-14] MEDS ORDERED: NUTREN 2.0250 ML PO (18:56)
[2019-02-14] MEDS ORDERED: ZINC OXIDE56.7 GM TOPIC (18:56)
--- NOTE | 2019-02-14 19:14 | NUR ---
HAND-OFF: Report given to Peggy BRENNER.
--- NOTE | 2019-02-14 19:30 | NUR ---
NURSE NOTES: Received report from JORDIN Mariee. Patient alert to name. On room air, no signs of distress or labored breathing. IV intact, patent, and infusing IV fluids. Patient has repetitive involuntary movements of extremities face, and jaw. Side rails padded, side rails up x3. Bed in lowest position. Will continue with plan of care.
[2019-02-14 20:00] VITALS: BP 116/81
[2019-02-14] MEDS: Depakote 125mg Sprinkles ORAL SCH (22:45)
[2019-02-14] MEDS: OLANZapine 2.5mg tab ORAL SCH (22:46)
--- NOTE | 2019-02-14 23:15 | Consultation ---
DATE OF CONSULTATION: 02/14/2019 HISTORY OF PRESENT ILLNESS: The patient is an 83-year-old female with history of multiple medical comorbidities including facial abscess, aspiration pneumonia, hypertensive heart and chronic kidney disease, congestive heart failure, schizoaffective disorder, dysphagia, failure to thrive admitted to the hospital for medical stabilization. The patient is residing at [facility]. The patient has been confused, disoriented, and has not been able to eat her food, choking on her food. The patient was agitated yesterday afternoon, combative, hitting the staff, not being . The patient is confused, has waxing and waning consciousness, not engaged during the evaluation, however, was able to state her name. PAST PSYCHIATRIC HISTORY: Schizoaffective disorder, dementia. PAST MEDICAL HISTORY: Significant for CHF, urinary tract infection, aspiration pneumonia. ALLERGIES: No known drug allergies. SUBSTANCE ABUSE HISTORY: No known history of illicit drug use or alcohol. MENTAL STATUS EXAMINATION: The patient is alert only to name. Mood is agitated. Affect is constricted. Congruent with mood. Thought process is disorganized. Thought content, no suicidal or homicidal ideation. ASSESSMENT: [place] I Schizoaffective disorder . [place] II Deferred. [place] III As above. [place] IV Low. [place] V 20 PLAN: 1. The patient will be started on Depakote 500 twice a day. 2. Continue Ativan as needed. 3. Start the patient on Zyprexa 5 mg p.o. at bedtime. Rocio Kearns M.D. DR: Evangelist JOB#: [id number] CC:
[2019-02-15] VITALS: BP 147/75
--- NOTE | 2019-02-15 03:00 | Consultation ---
DATE OF CONSULTATION: 02/13/2019 CARDIOLOGY CONSULTATION CONSULTING PHYSICIAN: Antony Connolly M.D. REQUESTING PHYSICIAN: Tobi Garcia M.D. REASON FOR CONSULTATION: Cardiovascular evaluation prior to G-tube placement. HISTORY OF PRESENT ILLNESS: This 83-year-old female with multiple medical problems including hypertensive cardiomyopathy and diastolic congestive heart failure. She was admitted to the hospital with dysphagia. intermediate staff noted she has not been able to eat or swallow for several days. She had a similar episode months ago and improves with speech therapy, but has again. She apparently has been choking with food. She has episodes of shortness of breath and chest discomfort, but these are related to eating, however. The patient has also required IV fluid hydration due to dehydration. PAST MEDICAL HISTORY: Hypertension, type 2 diabetes mellitus, diastolic dysfunction with congestive heart failure, schizoaffective disorder, degenerative disk disease, osteoarthritis, prior ankle fracture and ORIF, and history of tardive dyskinesias. ALLERGIES: None. FAMILY HISTORY: Noncontributory. SOCIAL HISTORY: No record of smoking, alcohol, or substance abuse. MEDICATIONS: Prior to admission, reviewed and reconciled. REVIEW OF SYSTEMS: Not obtainable from the patient at this time. PHYSICAL EXAMINATION: VITAL SIGNS: Blood pressure 98/62, heart rate 81, respiratory rate 20, afebrile, and oxygen saturation 98% on room air. HEENT: Temporal wasting. Pale conjunctivae. Dry mucous membranes. Lip smacking. NECK: Supple. No jugular venous distention. LUNGS: Clear. CARDIAC: Regular rhythm and rate. Normal S1 and S2 with a fourth heart sound. ABDOMEN: Soft and nontender. No guarding or rebound. EXTREMITIES: Good pulses. No edema. NEUROLOGIC: Moderate cognitive impairment. Extrapyramidal symptoms as described above. SKIN: Without breakdown. LABORATORY AND DIAGNOSTIC DATA: Chest x-ray, no acute process. EKG, sinus rhythm with no acute ST abnormalities. Borderline criteria for left ventricular hypertrophy. White count 7.8 and hemoglobin 12.2. Urinalysis with no active sediment. Sodium 145, potassium 4.4, bicarbonate 26, BUN 26, and creatinine 1.2. Albumin 2.4. IMPRESSION: 1. Hypovolemia. 2. Early shock. 3. Dehydration. 4. Dysphagia. 5. Hypertensive cardiomyopathy. 6. History of chronic diastolic congestive heart failure. 7. Schizoaffective disorder with extrapyramidal symptoms. 8. Severe protein-calorie malnutrition. PLAN: 1. IV fluid hydration. 2. Aspiration precautions. 3. Swallow evaluation. 4. Consider GI assessment. 5. Hold antihypertensives. 6. Tapered neuroleptics. 7. Consider addition of Cogentin. 8. DVT prophylaxis. Antony Connolly M.D. DR: LINDA JOB#: [id number] CC:
--- NOTE | 2019-02-15 03:00 | Progress Note ---
DATE: 02/14/2019 CARDIOLOGY PROGRESS NOTE SUBJECTIVE: The patient has been hydrated. Blood pressure parameters have improved. She is in no respiratory distress. A repeat urinalysis reveals significant signs of acute urinary infection. OBJECTIVE: VITAL SIGNS: Blood pressure 111/68, pulse 71, respiratory rate 18, and afebrile. HEENT: Lip-smacking. LUNGS: Diminished breath sounds. HEART: Regular rhythm and rate. Normal S1 and S2. ABDOMEN: Soft. EXTREMITIES: No edema. LABORATORY DATA: Urinalysis with too numerous to count white cells. IMPRESSION: 1. Urinary tract infection. 2. Dysphagia. 3. Toxic and metabolic encephalopathies. 4. Severe protein-calorie malnutrition. 5. Hypovolemia and dehydration. 6. History of hypertension and hypertensive heart disease. 7. Chronic diastolic congestive heart failure. PLAN: 1. Antimicrobials added. 2. Await urine culture results. 3. Continue IV fluids. 4. Adjust rate. 5. DVT and stress ulcer prophylaxis. 6. Titration of psychiatric regimen and consideration of additional anticholinergic therapies. 7. Swallow eval pending. Antony Connolly M.D. DR: RADHA JOB#: [id number] CC:
[2019-02-15 04:00] VITALS: BP 134/73
[2019-02-15] MEDS: cefTRIAXone 1 GM in D5W 55 ML IVPB SCH (04:01)
[2019-02-15] MEDS: Potassium Chloride 10 MEQ in D5 1/2NS 1,000 ML IV SCH ×2 (06:33→15:09)
--- NOTE | 2019-02-15 07:43 | NUR ---
HAND-OFF: Report given to JRODIN Pelayo.
--- NOTE | 2019-02-15 07:52 | General Progress Note ---
Assessment/Plan Problem List: (1) Hypertensive heart and chronic kidney disease ICD Codes: I13.10 - Hypertensive heart and chronic kidney disease without heart failure, with stage 1 through stage 4 chronic kidney disease, or unspecified chronic kidney disease SNOMED: 5518532253478 (2) Diastolic CHF, chronic ICD Codes: I50.32 - Chronic diastolic (congestive) heart failure SNOMED: 58038698, 761074185 (3) General weakness ICD Codes: R53.1 - Weakness SNOMED: 93342900 (4) Schizoaffective disorder ICD Codes: F25.9 - Schizoaffective disorder, unspecified SNOMED: 74125986 Qualifiers: Qualified Codes: F25.9 - Schizoaffective disorder, unspecified (5) Dysphagia ICD Codes: R13.10 - Dysphagia, unspecified SNOMED: 82593433, 710554920 Qualifiers: Qualified Codes: R13.10 - Dysphagia, unspecified (6) Failure to thrive in adult ICD Codes: R62.7 - Adult failure to thrive SNOMED: 034619038 Status: stable, not improved Assessment/Plan: ivf iv abx follow up cultures await video swallow d/w nimartin mccray- she will make final decision about feeding tube once video swallow completed Subjective ROS Limited/Unobtainable: No Constitutional: Reports: malaise, weakness HEENT: Reports: no symptoms Cardiovascular: Reports: no symptoms Respiratory: Reports: no symptoms Gastrointestinal/Abdominal: Reports: no symptoms Genitourinary: Reports: no symptoms Neurologic/Psychiatric: Reports: pre-existing deficit Endocrine: Reports: no symptoms Hematologic/Lymphatic: Reports: no symptoms Allergies: Coded Allergies: No Known Allergies (Unverified , 03/25/18) All Systems: reviewed and negative except above Subjective no events. speech noted. video swallow ordered. pt able to take meds with applesauce. on abx for uti Objective Last 24 Hour Vital Signs Date Time Temp Pulse Resp B/P (MAP) Pulse Ox O2 Delivery O2 Flow Rate FiO2 02/15/19 04:00 98.6 75 18 134/73 (93) 98 02/15/19 00:00 97.5 100 20 147/75 (99) 99 02/14/19 21:00 Room Air Room Air 02/14/19 20:00 97.6 69 20 116/81 (93) 98 02/14/19 16:00 98.2 66 18 109/84 (92) 98 02/14/19 12:00 97.8 75 18 115/66 (82) 98 02/14/19 09:00 Room Air Room Air 02/14/19 08:09 98.7 71 18 111/68 (82) 98 Intake and Output 02/14/19 02/15/19 18:59 06:59 Intake Total 1000 ml 600 ml Balance 1000 ml 600 ml IV Total 1000 ml 600 ml # Voids 4 2 # Bowel Movements 2 1 Laboratory Tests 02/14/19 18:10: Urine Color [place], Urine Appearance Very cloudy, Urine pH 7, Urine Specific [place] 1.010, Urine Protein 4+H, Urine Glucose (UA) Negative, Urine Ketones 1+H , Urine Blood 5+H, Urine Nitrite PositiveH, Urine Bilirubin Negative, Urine Urobilinogen 4H, Urine Leukocyte Esterase 3+H, Urine RBC TntcH, Urine WBC TntcH , Urine Squamous Epithelial Cells Few, Urine Bacteria Few Height (Feet): 5 Height (Inches): 4.00 Weight (Pounds): 134 General Appearance: confused, cachetic, thin Neck: supple Cardiovascular: normal rate, regular rhythm Respiratory/Chest: chest wall non-tender, lungs clear, normal breath sounds Abdomen: normal bowel sounds, non tender, soft, no organomegaly Edema: no edema noted Arm (L), no edema noted Arm (R), no edema noted Leg (L), no edema noted Leg (R), no edema noted Pedal (L), no edema noted Pedal (R), no edema noted Generalized Neurologic: disoriented, aphasia Tobi Garcia MD Feb 15, 2019 07:52
--- NOTE | 2019-02-15 07:57 | NUR ---
NURSE NOTES: received report from JORDIN Cruz. patient in bed. sleeping. no respiratory distress noted on room air. IV on LAC intact. Right wrist running fluid. Contact isolation hx of esbl, vre. bed in the lowest position. call light within reach. alarm on. will provide plan of care.
[2019-02-15 08:00] VITALS: BP 112/73
--- NOTE | 2019-02-15 08:35 | NUR ---
CASE MANAGEMENT:REVIEW 02/15/19 SI: DYSPHAGIA. FAILURE TO THRIVE 98.1 68 17 112/73 96% ON RA IS: IV ROCEPHIN Q24 IVF+KCL@100/HR ZYPREXA PO QHS DEPAKOTE PO Q12 HEPARIN SQ Q12 : MED/SURG STATUS 4 EAST PLAN: VIDEO SWALLOW PENDING ~ THEN POSSIBLE PEG
--- NOTE | 2019-02-15 09:00 | NUR ---
NURSE NOTES: received call from [facility]. patient has active MRSA nares. notified Jose Johnson, no new order at this time.
[2019-02-15] MEDS: Depakote 125mg Sprinkles ORAL SCH ×2 (09:05→23:04)
[2019-02-15] MEDS: Heparin 5000 units/ml inj SUBQ SCH ×2 (09:13→23:06)
[2019-02-15 12:00] VITALS: BP 110/70
--- NOTE | 2019-02-15 12:45 | NUR ---
*-* INSURANCE *-* ALL CLINICALS AND REVIEWS HAVE BEEN FAXED TO: [facility]:[place] F:[phone]
--- NOTE | 2019-02-15 13:40 | NUR ---
SWALLOW/SPEECH THERAPY NOTE: SWALLOW STATUS: PATIENT ALERT AND TAKING MEAL WITH RNGAIL. SOME COUGHING ON LIQUIFIED PUREED LIKE NECTAR THICK SOUP TSP AND THEN SHE STOPPED FEEDING. EDUCATED/TRAINED HER IN POSTED ASPIRATION PRECAUTIONS. PATIENT TO HAVE MOD BARIUM SWALLOW STUDY TOMORROW IF POSSIBLE OR CAN DO OP IF D/C.GOALS NOT MET FOR INTAKE STILL NOT 75% (CLOSER TO 40%). PLAN: CONTINUE WITH PLAN OF CARE IN SWALLOW EVAL REPORT
[2019-02-15 16:00] VITALS: BP 115/80
--- NOTE | 2019-02-15 19:22 | NUR ---
HAND-OFF: Report given to JORDIN Cruz.
--- NOTE | 2019-02-15 19:55 | NUR ---
NURSE NOTES: RECEIVED REPORT FROM JORDIN REYNOLDS. PATIENT ALERT TO NAME. ON ROOM AIR. NO SIGNS OF DISTRESS OR LABORED BREATHING. IV INTACT AND INFUSING IV FLUIDS. BED IN LOWEST POSITION WITH CALL LIGHT IN REACH. WILL CONTINUE TO MONITOR.
[2019-02-15 20:00] VITALS: BP 140/87
[2019-02-15] MEDS: OLANZapine 2.5mg tab ORAL SCH (23:04)
[2019-02-16] VITALS: BP 139/67
[2019-02-16] MEDS: Potassium Chloride 10 MEQ in D5 1/2NS 1,000 ML IV SCH ×2 (01:47→18:01)
[2019-02-16 04:00] VITALS: BP 135/57
[2019-02-16] MEDS: cefTRIAXone 1 GM in D5W 55 ML IVPB SCH (04:01)
--- NOTE | 2019-02-16 05:45 | Progress Note ---
DATE: 02/15/2019 CARDIOLOGY PROGRESS NOTE SUBJECTIVE: The patient is alert. Tolerating meals with RN with neck thick purees. However, some coughing noted. Barium swallow study is pending. The patient took in 40% of meals, however, more could have been given according to speech therapist. OBJECTIVE: LUNGS: Few rhonchi. Some lip-smacking. HEART: Regular rhythm and rate. Normal S1, S2. ABDOMEN: Soft. EXTREMITIES: No edema. IMPRESSION: 1. Dysphagia. 2. Schizoaffective disorder. 3. Hypertensive heart disease. 4. Chronic diastolic congestive heart failure. 5. Possible urinary tract infection. PLAN: 1. Empiric antimicrobials. 2. Complete swallow evaluation and video swallow study. 3. One-to-one feeding was described by speech therapist. 4. Psych therapy. 5. No additional cardiovascular treatment presently indicated. Antony Connolly M.D. DR: SHYANNE JOB#: [id number] CC:
--- NOTE | 2019-02-16 07:11 | NUR ---
HAND-OFF: Report given to JORDIN REYNOLDS.
--- NOTE | 2019-02-16 07:13 | NUR ---
NURSE NOTES: received report from JORDIN Cruz. patient in bed. sleeping. no respiratory distress noted on room air. IV on LFA fluid 60/hr running. side rail padded for seizure precaution. bed in the lowest position. call light within reach. alarm on. will provide plan of care.
[2019-02-16 08:00] VITALS: BP 95/45
[2019-02-16] MEDS: Depakote 125mg Sprinkles ORAL SCH ×2 (08:05→20:52)
[2019-02-16] MEDS: Heparin 5000 units/ml inj SUBQ SCH ×2 (08:07→20:59)
--- NOTE | 2019-02-16 08:25 | General Progress Note ---
Assessment/Plan Problem List: (1) Hypertensive heart and chronic kidney disease ICD Codes: I13.10 - Hypertensive heart and chronic kidney disease without heart failure, with stage 1 through stage 4 chronic kidney disease, or unspecified chronic kidney disease SNOMED: 4806425558079 (2) Diastolic CHF, chronic ICD Codes: I50.32 - Chronic diastolic (congestive) heart failure SNOMED: 01956860, 899207883 (3) General weakness ICD Codes: R53.1 - Weakness SNOMED: 00376634 (4) Schizoaffective disorder ICD Codes: F25.9 - Schizoaffective disorder, unspecified SNOMED: 91832950 Qualifiers: Qualified Codes: F25.9 - Schizoaffective disorder, unspecified (5) Dysphagia ICD Codes: R13.10 - Dysphagia, unspecified SNOMED: 70941769, 064750136 Qualifiers: Qualified Codes: R13.10 - Dysphagia, unspecified (6) Failure to thrive in adult ICD Codes: R62.7 - Adult failure to thrive SNOMED: 522325536 Status: stable, not improved Assessment/Plan: ivf iv abx follow up cultures await video swallow monitor for aspitation psych rx d/w kathi mccray- she will make final decision about feeding tube once video swallow completed Subjective ROS Limited/Unobtainable: No Constitutional: Reports: malaise, weakness HEENT: Reports: no symptoms Cardiovascular: Reports: no symptoms Respiratory: Reports: no symptoms Allergies: Coded Allergies: No Known Allergies (Unverified , 03/25/18) Subjective no events. speech noted. video swallow still pending. pt able to take meds with applesauce. on abx for uti very confused at baseline Objective Last 24 Hour Vital Signs Date Time Temp Pulse Resp B/P (MAP) Pulse Ox O2 Delivery O2 Flow Rate FiO2 02/16/19 04:00 97.8 72 20 135/57 (83) 95 02/16/19 00:00 98.6 90 20 139/67 (91) 98 02/15/19 21:00 Room Air Room Air 02/15/19 20:00 97.0 93 20 140/87 (104) 96 02/15/19 16:00 98.2 80 16 115/80 (92) 96 02/15/19 12:00 98.2 70 16 110/70 (83) 96 02/15/19 09:00 Room Air Room Air Intake and Output 02/15/19 02/16/19 19:00 07:00 Intake Total 1100 ml Balance 1100 ml IV Total 1100 ml # Voids 3 # Bowel Movements 2 1 Height (Feet): 5 Height (Inches): 4.00 Weight (Pounds): 134 Objective General Appearance: confused, cachetic, thin Neck: supple Cardiovascular: normal rate, regular rhythm Respiratory/Chest: chest wall non-tender, lungs clear, normal breath sounds Abdomen: normal bowel sounds, non tender, soft, no organomegaly Edema: no edema noted Arm (L), no edema noted Arm (R), no edema noted Leg (L), no edema noted Leg (R), no edema noted Pedal (L), no edema noted Pedal (R), no edema noted Generalized Neurologic: disoriented, aphasia Tobi Garcia MD Feb 16, 2019 08:25
[2019-02-16 09:16] LABS: BASOPHILS % (AUTO) 0.8 % (0.0-2.0); LYMPHOCYTES % (AUTO) 33.8 % (20.0-45.0); MEAN CORPUSCULAR VOLUME 91 FL (80-99); MONOCYTES % (AUTO) 8.3 % (1.0-10.0); NEUTROPHILS % (AUTO) 55.2 % (45.0-75.0); PLATELET COUNT 201 K/UL (150-450); RED BLOOD COUNT 4.61 M/UL (4.20-5.40); RED CELL DISTRIBUTION WIDTH 14.6 % (11.6-14.8); WHITE BLOOD COUNT 6.8 K/UL (4.8-10.8)
[2019-02-16 09:38] LABS: ALANINE AMINOTRANSFERASE 9 U/L (12-78); ALBUMIN 2.3 G/DL (3.4-5.0); ALBUMIN/GLOBULIN RATIO 0.5 (1.0-2.7); ALKALINE PHOSPHATASE 81 U/L (46-116); ANION GAP 5 mmol/L (5-15); ASPARTATE AMINO TRANSFERASE 15 U/L (15-37); BILIRUBIN,TOTAL 0.2 MG/DL (0.2-1.0); BLOOD UREA NITROGEN 8 mg/dL (7-18); CALCIUM 8.6 MG/DL (8.5-10.1); CARBON DIOXIDE 29 MMOL/L (21-32); CHLORIDE 106 MMOL/L (98-107); CREATININE 0.8 MG/DL (0.55-1.30); POTASSIUM 4.5 MMOL/L (3.5-5.1); SODIUM 140 MMOL/L (136-145)
[2019-02-16 12:00] VITALS: BP 129/77
--- NOTE | 2019-02-16 12:26 | NUR ---
CASE MANAGEMENT:REVIEW 02/16/19 SI: DYSPHAGIA. FAILURE TO THRIVE 97.2 82 20 129/77 94% ON RA GLUCOSE+123 ALB-2.3 IS: IV ROCEPHIN Q24 IVF+KCL@60/HR ZYPREXA PO QHS DEPAKOTE PO Q12 HEPARIN SQ Q12 : MED/SURG STATUS 4 EAST DCP: FROM [facility] PLAN: BEDSIDE SWALLOW EVAL COMPLETED ~ COUGHING WITH LIQUIDS VIDEO SWALLOW PENDING ~ THEN POSSIBLE PEG?
--- NOTE | 2019-02-16 13:30 | NUR ---
*-* INSURANCE *-* ALL CLINICALS AND REVIEWS HAVE BEEN FAXED TO: [facility]:[place] F:[phone]
--- NOTE | 2019-02-16 14:39 | NUR ---
NURSE NOTES:WOUND CARE NOTES:Pt presented on admission with resolving pressure injury sacrum .Centrally.base of wound is moist and viable with surrounding pink,dry epithelial (L)4cm x (W)5.5cm. Periwound without erythema or induration. Resolving pressure injury R heel. Base of wound moist and viable with surrounding pink epithelial. Periwound heel is boggy with non-blanchable erythema. L heel boggy with non-blanchable erythema. No other skin concerns noted. Tx.Plan:Apply Moisture Barrier Paste to Sacrum. Cover with Optifoam drsg. Change every 3 days and prn. Apply Cavilon Skin Barrier to both heels. Cover each heel with Optifoam drsg. Change every 7 days and prn. Reposition at least every 2hours or as tolerated . Off-load heels with pillow.
[2019-02-16 16:00] VITALS: BP 144/80
--- NOTE | 2019-02-16 19:15 | Progress Note ---
DATE: 02/16/2019 SUBJECTIVE: The patient is calmer, more manageable, more redirectable. The patient can easily get agitated. MENTAL STATUS EXAMINATION: Alert, oriented times self. Mood is anxious. Affect is constricted, congruent with mood. Thought process concrete. Thought content, no suicidal or homicidal ideations. ASSESSMENT: Stable. PLAN: 1. We will continue the Zyprexa. 2. Continue Depakote. Rocio Kearns M.D. DR: CHONG JOB#: [id number] CC:
--- NOTE | 2019-02-16 19:23 | NUR ---
HAND-OFF: Report given to JORDIN Abad.
--- NOTE | 2019-02-16 19:34 | NUR ---
NURSE NOTES: Received report from JORDIN Pelayo. Patient on the bed with elevated HOB. Patient is awake. Patient is non-verbal. Patient is breathing unlabored and evenly without signs of distress, discomfort, or SOB. No signs of pain noted at this time. Patient has LFA IV running D51/2NS with 10 mEq KCL. Side rails are up and padded for seizure precaution and safety of the patient. Bed is placed at the lowest level with alarm and brakes on. Call light is placed within reach. Will continue to monitor and provide care as ordered.
[2019-02-16 20:00] VITALS: BP 113/78
[2019-02-16] MEDS: OLANZapine 2.5mg tab ORAL SCH (20:52)
--- NOTE | 2019-02-16 21:15 | Progress Note ---
DATE: 02/15/2019 This is a late entry. SUBJECTIVE: The patient continues to be agitated and responded to Zyprexa and more manageable. Compliant with medications. MENTAL STATUS EXAMINATION: The patient is alert and oriented times self. Mood is anxious. Affect is constricted. Congruent with mood. Thought process is concrete. Thought content, no suicidal or homicidal ideations. ASSESSMENT: Stable. PLAN: 1. We will continue the Depakote. 2. Continue the Zyprexa. Rocio Kearns M.D. DR: JACQUELINE JOB#: [id number] CC:
--- NOTE | 2019-02-16 23:46 | NUR ---
NURSE NOTES: Patient in stable condition. Increase in involuntary movement of the arms. Protected IV site with kerlix. Reinforced patient about the importance of not pulling the IV. Was unable to confirm comprehension. Will monitor more frequently.
[2019-02-17] VITALS: BP 147/84
[2019-02-17] MEDS ORDERED: Potassium Chloride 10 MEQ in D5 1/2NS 1,000 ML IV SCH (01:45)
--- NOTE | 2019-02-17 01:49 | NUR ---
NURSE NOTES: Patient's order for IV fluid D5 1/2 NS with KCL 10 mEq, rate has been changed from 60 cc/hr to 40 cc/hr by Dr. Connolly. Bag was not changed yet because the previous bag was not finished. Only rate has been adjusted to 40cc/hr. Will continue to chart under the previously hanged bag information.
--- NOTE | 2019-02-17 02:00 | Progress Note ---
DATE: 02/16/2019 NOTE: INCOMPLETE DICTATION CARDIOLOGY PROGRESS NOTE SUBJECTIVE: The patient without new distress. Antony Connolly M.D. DR: GASTON JOB#: [id number] CC:
--- NOTE | 2019-02-17 02:00 | Progress Note ---
DATE: 02/16/2019 CARDIOLOGY PROGRESS NOTE SUBJECTIVE: Video swallow eval is pending still. The patient without new distress. OBJECTIVE: VITAL SIGNS: Blood pressure 113/78, pulse 81, respirations 20. LUNGS: Clear. CARDIAC: Regular. Normal S1, S2. ABDOMEN: Soft. EXTREMITIES: No edema. LABORATORY DATA: White count 6.8, hemoglobin 13. Potassium 4.5, BUN 8, creatinine 0.8. Pro-natriuretic peptide 311. Urine culture gram-positive cocci. IMPRESSION: 1. UTI. 2. Aspiration risk. 3. Dementia. 4. Hypertensive heart disease. 5. Acute on chronic diastolic congestive heart failure. PLAN: 1. Await completion of dysphagia evaluation. 2. Maintenance IV fluids only. 3. IV fluid rate decreased. 4. Psych follow up. 5. DVT prophylaxis. Antony Connolly M.D. DR: GASTON JOB#: [id number] CC:
[2019-02-17] MEDS: cefTRIAXone 1 GM in D5W 55 ML IVPB SCH (02:55)
[2019-02-17 04:00] VITALS: BP 117/65
--- NOTE | 2019-02-17 07:22 | NUR ---
NURSE NOTES: Patient received sleeping in bed, breathing on room air. No signs of respiratory distress or pain observed. Purewick is in place, suctioning well. IV site on left arm patent and intact, running fluids at 40cc/hr.Bed is locked in lowest position, bed alarm is on. Call light placed within reach, will continue to monitor.
--- NOTE | 2019-02-17 07:26 | NUR ---
HAND-OFF: Report given to JORDIN Hoffman. Patient in stable condition.
[2019-02-17 08:00] VITALS: BP 152/89
[2019-02-17] MEDS: Depakote 125mg Sprinkles ORAL SCH (08:35)
[2019-02-17] MEDS: Heparin 5000 units/ml inj SUBQ SCH (08:44)
[2019-02-17 12:00] VITALS: BP 138/77
--- NOTE | 2019-02-17 12:27 | NUR ---
MODIFIED BARIUM SWALLOW STUDY COMPLETED, SEE FULL REPORT TO FOLLOW OR CALL [phone]. HAS PD BUT NOT ON MEDS. TARDIVE DYSKINESIA NOTED ? DUE TO PSYCH MEDS ZYPREXA. INITIAL IMPRESSIONS: MODERATELY SEVERE DYSPHAGIA DUE TO SENSORIMOTOR DEFICITS OROPHARYNGEAL DYSMOTILITY, DELAYED/ABSENT SWALLOW AND LATE CLOSURE OF LARYNGEAL VESTIBULE (LEVEL 2 ON DYSPHAGIA OUTCOME SEVERITY SCALE) MAX ASSIST OR USE OF STRATEGIES WITH PARTIAL PO (LIMITED) AND TOLERATES AT LEAST ONE (NECTAR THICK LIQUID TSP) CONSISTENCY SAFELY SOME OF THE TIME WITH TOTAL USE OF STRATEGIES. THIN LIQUIDS WARM UP TSP - NO ASP PENETRATION 2ND TSP ASP WITH POOR COUTH NOT EFFECTIVE CUP SILENT TRACE ASPIRATION DUE TO REDUCED HYOLARYNGEAL EXCURSION NECTAR THICK LIQUID (SOME RESIDUAL TRACE THIN LIQ IN AIRWAY AFTER SWALLOW COULD NOT COUGH UP) TSP NO ASPIRATION JUST TRACE PENETRATION ABOVE VOCAL FOLDS EJECTED AFTER SWALLOW (X2-2) DUE TO REDUCED HYOLARYNGEAL EXCURSION. CUP TRACE SILENT ASPIRATION AFTER SWALLOW DUE TO ABSENT SWALLOW NEED 1/8 TSP WATER (X2) TO CLEAR PHARYNX AND INITIATE SWALLOW. SENSORIMOTOR DEFICITS: Oral Impairment Lip Closure (MOUTH OPEN) Tongue Control Bolus flowers/lingual motion Oral residue Initiation pharyngeal swallow Pharyngeal Impairment Laryngeal elevation (LE) Ant. hyoid excursion Epiglottic movement Late laryngealvestibule closure Pharyngeal stripping wave Pharyngoesophageal segment Opening Tongue base retraction Pharyngeal residue Decreased pharyngeal sensation Esophageal Impairment trace backflow through the pe segment during possible cough only DID NOT OR COULD NOT COMPLY WITH CHIN TUCK, EFFORTFUL BREATH HOLD ? EFFORTFUL SWALLOW EXTRA SWALLOWS NOT ALWAYS COMPLETED WITH MAX CUES AND MORE TIME RECOMMENDATIONS: FOR QUALITY OF LIFE SINCE PT AND FAMILY WANT HER TO EAT BY MOUTH AND SHE HAS ADVANCED DEMENTIA PD, CONSIDER CONTINUING WITH LIQUIFIED PUREED LIKE NECTAR THICK SOUP DIET WITH ENSURE ENLIVE TID USING UPDATED AND POSTED ASPIRATION AND REFLUX PRECAUTIONS. SKILLED DYSPHAGIA TX/MANAGEMENT LEFT MESSAGE WITH FAMILY AND MD AND D/W WITH RN (ALSO TRAINED/EDUCATED RN (LETHA) IN POSTED ASPIRATION PRECAUTIONS) Addendum: 02/17/19 at 1229 by YEMI CONNOLLY EXCAVATOR OPERATOR RISK FOR CHRONIC TRACE ASPIRATION WITH ALL CONSISTENCIES PARTICULARLY IF PRECAUTIONS AND STRATEGIES NOT USED BUT LUNGS ARE CLEAR.
--- NOTE | 2019-02-17 12:37 | Cardiology Report ---
APPROVED REPORT EKG Measurement Heart [id number] Normal sinus rhythm Possible Left atrial enlargement Low voltage QRS Borderline ECG
--- NOTE | 2019-02-17 13:15 | NUR ---
CASE MANAGEMENT:REVIEW 02/17/19 SI: DYSPHAGIA. FAILURE TO THRIVE 97.4 70 20 152/89 97% ON RA IS: IV ROCEPHIN Q24 IVF+KCL@40/HR ZYPREXA PO QHS DEPAKOTE PO Q12 HEPARIN SQ Q12 : MED/SURG STATUS 4 EAST DCP: FROM [facility] PLAN: VIDEO SWALLOW COMPLETED~ THERAPIST LEFT MESSAGE FOR MD AND FAMILY
--- NOTE | 2019-02-17 14:47 | NUR ---
*-* INSURANCE *-* ALL CLINICALS AND REVIEWS HAVE BEEN FAXED TO: [facility]:[place] F:[phone]
--- NOTE | 2019-02-17 15:14 | Diagnostic Imaging Report ---
Indication: Dysphasia Procedure and findings: Total fluoroscopy time 180 seconds Total fluoroscopy dose 3.4 mGy Total image count: 2 fluoroscopic cine loops obtained and stored to PACS Real-time fluoroscopic imaging performed in a lateral projection in conjunction with the speech pathologist evaluation. Variable consistencies of barium given per mouth. Swallow was abnormal. Please see speech radiology report for more information. IMPRESSION: Abnormal video swallow. Please refer to speech pathology report/evaluation for more information.
[2019-02-17 16:00] VITALS: BP 137/87
--- NOTE | 2019-02-17 16:33 | NUR ---
DISCHARGE PLAN PATIENT WILL DISCHARGE TO [facility] ROOM 112 T; [phone] FOR NURSE TO NURSE REPORT [facility] HAS BEEN ARRANGED FOR 1800 ORGANIC CHEMIST
--- NOTE | 2019-02-17 19:15 | Progress Note ---
DATE: 02/17/2019 SUBJECTIVE: The patient is calmer, more redirectable. The patient continues to be confused, disoriented, and not able to be engaged, has episodes of agitation. MENTAL STATUS EXAMINATION: The patient is alert, confused, disoriented. Mood is neutral to dysphoric. Affect is constricted. Congruent with mood. Thought process is concrete. Thought content, no suicidal or homicidal ideation. Memory is impaired. Insight and judgment non-existent. ASSESSMENT: 1. Dementia. 2. Encephalopathy. PLAN: 1. We will continue the lorazepam, continue the Depakote, continue olanzapine. 2. We will provide the patient with reality orientation and supportive therapy. Rocio Kearns M.D. DR: BIPIN JOB#: [id number] CC:
--- NOTE | 2019-02-17 19:19 | NUR ---
HAND-OFF: Report given to Emily BRENNER.
--- NOTE | 2019-02-17 19:30 | NUR ---
NURSE NOTES: Pt received awake, in bed, nonverbal, and awaiting ambulance to pick her up to take to [facility].
--- NOTE | 2019-02-17 20:01 | NUR ---
NURSE NOTES: Pt picked up by ambulance, vital signs stable, pt left with ring on left hand.
--- NOTE | 2019-02-18 00:30 | Progress Note ---
DATE: 02/17/2019 CARDIOLOGY PROGRESS NOTE SUBJECTIVE: The patient was seen and evaluated. Discussed with nurse. She is taking nutrition by mouth at this time with a pureed diet. The swallow evaluation and dysphagia therapist assessments were reviewed in detail and presently I concur that G-tube is not indicated. OBJECTIVE: VITAL SIGNS: Blood pressure 117/65 to 152/89, heart rate 62 to 70, respiratory rate 20, and afebrile. LUNGS: Clear. CARDIAC: Regular. Normal S1, S2. There is a fourth heart sound. ABDOMEN: Soft. Slightly obese. EXTREMITIES: No edema. IMPRESSION: 1. Dysphagia. 2. Schizoaffective disorder. 3. Hypertension with hypertensive heart disease. 4. Hypovolemia and early shock with dehydration completely recovered and the patient is now fully rehydrated. 5. Severe protein-calorie malnutrition. PLAN: 1. Nutritional support with recommendations as discussed by dysphagia therapist in detail. 2. Discontinue IV fluids. 3. Maintain benazepril for blood pressure control. 4. Psychiatric regimen noted. 5. [facility]. Antony Connolly M.D. DR: SHYANNE JOB#: [id number] CC:
--- NOTE | 2019-02-18 20:40 | Discharge Summary ---
Discharge Summary Discharge Summary _ DATE OF ADMISSION: 02/13/2019 DATE OF DISCHARGE: 02/17/2019 DISCHARGED BY: REASON FOR ADMISSION: 83 years old male with past medical history of hypertension, diabetes mellitus type 2, congestive heart failure with diastolic dysfunction, degenerative disc disease, osteoarthritis, history of ankle fracture and ORIF, schizoaffective disorder, history of tardive dyskinesia, was admitted to the hospital with dysphagia. Nursing staff noted that the patient was not able to eat or swallow for several days. Patient had similar episode months ago, which improved with speech therapy sessions, but then it recurred. Patient apparently was choking with food. Patient had shortness of breath and chest discomfort related to eating. Patient also exhibited signs of dehydration. BUN was elevated. Patient initially was hypotensive. Patient subsequently was admitted for further evaluation and management. CONSULTANTS: vessel operator Internal medicine Dr. Garcia psychiatrist [facility] COURSE: Patient admitted started on IV hydration. Aspiration precaution maintained. Blood pressure initially was low and all antihypertensive medications were on hold. Bedside swallow evaluation revealed persistent mild to moderate oropharyngeal dysphagia with high silent aspiration risk. Speech therapist recommended video swallow evaluation, which revealed high risk for silent aspiration. Diet started for quality of life as per speech therapist recommendations with strict aspiration and reflux precautions. Family wanted the patient to eat by mouth. Protein supplement implemented in plan of care as per telemetry registered nurse recommendation. Chest x-ray revealed no acute cardiopulmonary pathology. Pulse oximetry was stable on room air. Renal parameters and electrolytes were closely monitored. Nephrotoxins were avoided. BUN from initial 26 down to 8 and creatinine from 1.2 down to 0.8. Urinalysis revealed evidence of probable UTI. Patient started on empiric antibiotic. Urine culture revealed gram-positive cocci. DVT and GI prophylaxis provided. Blood pressure was closely monitored. With IV hydration blood pressure stabilized. IV fluid rate decreased to maintenance rate and then discontinued. Patient started on KATHY inhibitor/benazepril for blood pressure control. Psychiatrist seen and evaluated patient. Psychiatric medication regimen was optimized as per psychiatrist. Patient was provided with reality orientation and supportive therapy. Patient clinically stabilized and was ready for transfer back to [facility] facility for continuation of care. Follow-up metabolic parameters in the snf facility. FINAL DIAGNOSIS Dysphagia UTI Toxic and metabolic encephalopathy Hypovolemia and dehydration Hypotension Early shock History of hypertension and hypertensive heart disease Chronic diastolic congestive heart failure Schizoaffective disorder Severe protein calorie malnutrition Dementia DISCHARGE MEDICATIONS: See Medication Reconciliation list. DISCHARGE INSTRUCTIONS: Patient was discharged to the sn[facility] facility. Follow up with medical doctor at the facility. I have been assigned to dictate discharge summary for this account. I was not involved in the patient's management. Yanet Rizzo NP Feb 18, 2019 20:40
== END 2019-02-17 19:50 | DRG 254 ==
LOC: EDBD 14:55 → EDBEDREQ 15:26 → EMR 16:10 → 4E 16:39 → EDBEDREQ 16:50 → OBSVTOIN 20:53 → 4E 02-16 09:45
DX: R13.10 Dysphagia, unspecified (principal); R57.1 Hypovolemic shock; E43 Unspecified severe protein-calorie malnutrition; G92 Toxic encephalopathy; E86.0 Dehydration; I50.32 Chronic diastolic (congestive) heart failure; F03.90 Unspecified dementia, unspecified severity, without behavioral disturbance, psychotic disturbance, mood disturbance, and anxiety; I13.0 Hypertensive heart and chronic kidney disease with heart failure and stage 1 through stage 4 chronic kidney disease, or unspecified chronic kidney disease; N39.0 Urinary tract infection, site not specified; F25.9 Schizoaffective disorder, unspecified; N18.9 Chronic kidney disease, unspecified; M19.90 Unspecified osteoarthritis, unspecified site; G25.9 Extrapyramidal and movement disorder, unspecified
CPT/HCPCS: 36415; 71045; 74230; 80053; 81001; 81003; 83690; 83880; 84443; 85025; 87081; 87086; 93005; 96372; 99285

== ENCOUNTER 2019-02-21 11:36 | Inpatient (IN) | payer MEDICARE, MEDICAID ==
[~2019-02-21] VITALS: Ht 165.1 cm; Wt 66.7 kg
[~2019-02-21 11:36] MED LIST changes: +MULTIVITAMINS1 EAC8 ORAL; +NUTREN 2.0250 ML PO; +ZINC OXIDE56.7 GM TOPIC
--- NOTE | 2019-02-21 11:46 | NUR ---
ED Nurse Note: PT WAS BROUGHT IN BY EMS FROM [facility] DUE TO POOR ORAL INTAKE X 1 WEEK. PT'S FAMILY IS REQUESTING A G-TUBE PLACEMENT. NOTED PT TO BE RESTLESS AND KEEPS MOVING UPPER EXTREMITIES. HX OF PARKINSONS. PT IS AWAKE BUT NON VERBAL, NOT FOLLOWING COMMANDS. NO RESPIRATORY DISTRESS. NOTED REDNESS ON SACRUM.
--- NOTE | 2019-02-21 11:48 | Emergency Room Report ---
History of Present Illness General Chief Complaint: General Complaint Source: Medical Record, EMS Present Illness HPI This patient presents from a [place] [facility] facility. She has been at [facility] multiple times recently. She has had significant decline in her functioning. She refuses to eat and has failure to thrive. She has been very combative with a history consistent with worsening dementia and Parkinson's disease. She is sent in from the [facility] at the request of the primary care physician for G-tube placement as the patient has a poor appetite and poor oral intake. Patient herself is unable to give any type of history. Allergies: Coded Allergies: No Known Allergies (Unverified , 03/25/18) Patient History Past Medical History: see triage record, [place], CAD, CHF, GERD, dementia, psych hx - schizophrenia, renal disease, other - dysphagia, Parkinson's Social History: Denies: smoking, alcohol use, drug use Now: No Reviewed Nursing Documentation: PMH: Agreed; PSxH: Agreed Nursing Documentation-PMH Past Medical History: No History, Except For Hx Cardiac Problems: No - dysphagia, AMS, Parkinson's dx, HF, GERD Hx Hypertension: Yes Hx Diabetes: Yes Hx Cancer: No Hx Gastrointestinal Problems: No Hx Neurological Problems: Yes - DEMENTIA Hx Parkinson's Disease: Yes Hx Seizures: Yes Hx Speech Problem: Yes Hx Aphasia: Yes Hx Weakness: Yes Review of Systems All Other Systems: limited Physical Exam Vital Signs Date Time Temp Pulse Resp B/P (MAP) Pulse Ox O2 Delivery O2 Flow Rate FiO2 02/21/19 11:36 97.9 81 17 112/94 (100) Room Air Sp02 EP Interpretation: reviewed, normal General Appearance: no apparent distress, alert, GCS 15, non-toxic, Chronically Ill Head: normocephalic, atraumatic ENT: hearing grossly normal, normal pharynx, no angioedema, normal voice Neck: full range of motion, supple/symm/no masses Respiratory: chest non-tender, lungs clear, normal breath sounds, no respiratory distress, no retraction, no accessory muscle use Cardiovascular #1: no edema, bradycardia Gastrointestinal: normal bowel sounds, non tender, soft, non-distended, no guarding, no rebound Rectal: deferred Musculoskeletal: back normal, normal range of motion Neurologic: alert, responsive, grossly normal Psychiatric: mood/affect normal, no suicidal/homicidal ideation Skin: other - See RN skin exam Medical Decision Making Diagnostic Impression: Primary Impression: Failure to thrive in adult Additional Impression: Encounter for gastrojejunal tube placement ER Course This patient presents with failure to thrive and placement of a G-tube. Patient 's labs are unremarkable. The patient is admitted for further evaluation and treatment by gastroenterology. Laboratory Tests Test 02/21/19 12:25 White Blood Count 9.6 K/UL (4.8-10.8) Red Blood Count 4.22 M/UL (4.20-5.40) Hemoglobin 12.2 G/DL (12.0-16.0) Hematocrit 40.1 % (37.0-47.0) Mean Corpuscular Volume 95 FL (80-99) Mean Corpuscular Hemoglobin 29.0 PG (27.0-31.0) Mean Corpuscular Hemoglobin Concent 30.5 G/DL (32.0-36.0) L Red Cell Distribution Width 14.9 % (11.6-14.8) H Platelet Count 173 K/UL (150-450) Mean Platelet Volume 5.0 FL (6.5-10.1) L Neutrophils (%) (Auto) 57.6 % (45.0-75.0) Lymphocytes (%) (Auto) 31.5 % (20.0-45.0) Monocytes (%) (Auto) 7.7 % (1.0-10.0) Eosinophils (%) (Auto) 2.3 % (0.0-3.0) Basophils (%) (Auto) 0.9 % (0.0-2.0) Prothrombin Time 10.6 SEC (9.30-11.50) Prothrombin Time INR 1.0 (0.9-1.1) PTT 38 SEC (23-33) H Sodium Level 142 MMOL/L (136-145) Potassium Level 4.7 MMOL/L (3.5-5.1) Chloride Level 107 MMOL/L (98-107) Carbon Dioxide Level 29 MMOL/L (21-32) Anion Gap 6 mmol/L (5-15) Blood Urea Nitrogen 19 mg/dL (7-18) H Creatinine 0.8 MG/DL (0.55-1.30) Estimate Glomerular Filtration Rate mL/min (>60) Glucose Level 74 MG/DL (74-106) Calcium Level 9.1 MG/DL (8.5-10.1) Total Bilirubin 0.3 MG/DL (0.2-1.0) Aspartate Amino Transferase (AST) 16 U/L (15-37) Alanine Aminotransferase (ALT) 10 U/L (12-78) L Alkaline Phosphatase 78 U/L (46-116) Total Protein 6.8 G/DL (6.4-8.2) Albumin 2.5 G/DL (3.4-5.0) L Globulin 4.3 g/dL Albumin/Globulin Ratio 0.6 (1.0-2.7) L Last Vital Signs Date Time Temp Pulse Resp B/P (MAP) Pulse Ox O2 Delivery O2 Flow Rate FiO2 02/21/19 11:36 97.9 81 17 112/94 (100) Room Air Disposition: ADMITTED INPATIENT Condition: Stable Dorothy Segura DO Feb 21, 2019 11:47
[2019-02-21 11:52] VITALS: BP 152/87
--- NOTE | 2019-02-21 12:36 | NUR ---
ED Nurse Note: COLLECTED BLOOD THEN SENT.
[2019-02-21 12:49] LABS: BASOPHILS % (AUTO) 0.9 % (0.0-2.0); EOSINOPHILS % (AUTO) 2.3 % (0.0-3.0); HEMATOCRIT 40.1 % (37.0-47.0); HEMOGLOBIN 12.2 G/DL (12.0-16.0); LYMPHOCYTES % (AUTO) 31.5 % (20.0-45.0); MEAN CORPUSCULAR VOLUME 95 FL (80-99); MONOCYTES % (AUTO) 7.7 % (1.0-10.0); NEUTROPHILS % (AUTO) 57.6 % (45.0-75.0); PLATELET COUNT 173 K/UL (150-450); RED BLOOD COUNT 4.22 M/UL (4.20-5.40); RED CELL DISTRIBUTION WIDTH 14.9 % (11.6-14.8); WHITE BLOOD COUNT 9.6 K/UL (4.8-10.8)
[2019-02-21 12:55] LABS: ANION GAP 6 mmol/L (5-15); BLOOD UREA NITROGEN 19 mg/dL (7-18); CALCIUM 9.1 MG/DL (8.5-10.1); CARBON DIOXIDE 29 MMOL/L (21-32); CHLORIDE 107 MMOL/L (98-107); CREATININE 0.8 MG/DL (0.55-1.30); POTASSIUM 4.7 MMOL/L (3.5-5.1); SODIUM 142 MMOL/L (136-145)
[2019-02-21 13:00] LABS: ALANINE AMINOTRANSFERASE 10 U/L (12-78); ALBUMIN 2.5 G/DL (3.4-5.0); ALBUMIN/GLOBULIN RATIO 0.6 (1.0-2.7); ALKALINE PHOSPHATASE 78 U/L (46-116); ASPARTATE AMINO TRANSFERASE 16 U/L (15-37); BILIRUBIN,TOTAL 0.3 MG/DL (0.2-1.0)
[2019-02-21 14:02] VITALS: BP 112/77
--- NOTE | 2019-02-21 14:05 | NUR ---
ED Nurse Note: REPORT GIVEN TO MATEUS BRENNER OF MED SURG UNIT.
--- NOTE | 2019-02-21 14:11 | NUR ---
ED Nurse Note: PT TRANSFERRED TO MED SURG UNIT VIA [facility] SENT.
--- NOTE | 2019-02-21 14:25 | NUR ---
NURSE NOTES: Patient was admitted from ED via gurney for failure to thrive and possible G-tube placement due to poor oral intake. AO x 1. Pt able to state her name, but Pt's speech is slurred and unclear. Unable to get past medical hx from the pt due to impaired cognitive status. Medical hx obtained from sn[facility] paper and from previous medical hx. Orientation given about the unit, but unable to comprehend. All belongings were checked. IV on L AC 20g. Skin assessment done. noted with pinkish colored, intact skin on the sacrum and left gluteal fold. Skin break on R heel. Protocol wound initiated and proper incontinent care done. Pt noted with involuntary movement with dx of Parkinson's disease. Bed is in the lowest position and locked. Call light within reach. Bed alarm is on. Dr. Connolly was paged for admission orders. Will continue to plan of care
--- NOTE | 2019-02-21 15:30 | NUR ---
NURSE NOTES: Received partial admission orders from Dr. Connolly. said he would put complete orders later. Pt is on NPO with IVF. Vital sign stable.
[2019-02-21 16:00] VITALS: BP 135/88
[2019-02-21] MEDS: D5NS 1,000 ML IV SCH (17:00)
--- NOTE | 2019-02-21 19:08 | NUR ---
HAND-OFF: Report given to Rody and endorsed to follow up with Dr. Connolly of DVT prophylaxis and meds..
--- NOTE | 2019-02-21 19:27 | NUR ---
NURSE NOTES: Received patient in bed, alert, oriented x 1, with slurred speech, bed bound, on room air, patient is NPO except medications and ice chips. Call light is within reach, bed is in low position, locked and alarm is on. Will continue to monitor for safety and comfort.
[2019-02-21 20:00] VITALS: BP 147/90
[2019-02-22 00:35] VITALS: BP 127/86
--- NOTE | 2019-02-22 01:00 | NUR ---
NURSE NOTES: Called MD to follow up on the entering the rest of admit orders, left voice message for Dr. Connolly.
--- NOTE | 2019-02-22 02:00 | Consultation ---
DATE OF CONSULTATION: 02/21/2019 CARDIOLOGY CONSULTATION HISTORY OF PRESENT ILLNESS: This is an 83-year-old female, who was hospitalized here a week ago because of failure to thrive and dysphagia. She was evaluated and it was felt that she could safely tolerate a pureed diet with one-to-one assistance. However at the [facility] facility, she has failed to take in adequate amounts of nutrition and based on discussions with family members, she is readmitted for an enteral G-tube to ensure adequate nutrition. Please refer to my dictation from 02/13/2019 with respect to her prior history, allergies, medications, and family and social history as there have been no interval changes. PHYSICAL EXAMINATION: VITAL SIGNS: Blood pressure 135/88, pulse 75, respirations 18, and afebrile. HEENT: Dry mucous membranes. Lip smacking. LUNGS: Clear. Jugular venous pressure normal. No thyromegaly. CARDIAC: Regular. Normal S1, S2 with a fourth heart sound. ABDOMEN: Soft. EXTREMITIES: There is no edema. LABORATORY DATA: White count 9.6 and hemoglobin 12.2. Coagulation parameters within normal limits. BUN 19 and creatinine 0.8. Sodium 142, potassium 4.7, bicarbonate 29, and albumin 2.5. IMPRESSION: 1. Dysphagia. 2. Failure to thrive. 3. Mkuodoxs-te-aqhsts protein-calorie malnutrition. 4. Hypovolemia and dehydration. 5. Prerenal azotemia. 6. History of hypertension. 7. History of type 2 diabetes mellitus. 8. Bipolar disorder with history of psychosis. 9. Extrapyramidal lip-smacking. PLAN: 1. Pureed diet as tolerated. 2. IV fluid hydration. 3. Continue usual medication regimen. 4. GI evaluation for G-tube placement. Antony Connolly M.D. DR: SHYANNE JOB#: [id number] CC:
[2019-02-22] MEDS: D5NS 1,000 ML IV SCH ×3 (02:51→22:43)
[2019-02-22 04:00] VITALS: BP 128/95
--- NOTE | 2019-02-22 07:10 | NUR ---
HAND-OFF: Report given to Natanael BRENNER/Scottie BRENNER.
--- NOTE | 2019-02-22 07:33 | NUR ---
NURSE NOTES: Received patient in bed AO x 1. Awake and still with involuntary movement on upper extremities. On room air. IV on R AC 22g. D5NS going in @ 100 cc/hr. No s/s of pain/distress. No blood was drawn due to patient's involuntary movement and she said "no, no, no". Bed in the lowest, locked, and with alarm on. Call light within reach. Will continue to monitor.
[2019-02-22 08:00] VITALS: BP 140/76
[2019-02-22] MEDS: Depakote 500mg tab ORAL SCH ×2 (08:26→21:19)
[2019-02-22] MEDS: Benztropine 1mg tab ORAL SCH ×3 (08:26→18:35)
--- NOTE | 2019-02-22 08:42 | NUR ---
CASE MANAGEMENT:REVIEW 83 YR OLD FEMALE BIBA FROM [facility] CC: GENERALIZED WEAKNESS SI: FTT. G-TUBE PLACEMENT DYSPHAGIA. DEHYDRATION. HYPOVOLEMIA 97.8 81 17 112/94 100% ON RA BUN+19 IS: IVF@100/HR COGENTIN PO TID DEPAKOTE PO Q12 HEPARIN SQ Q12 : TO MED/SURG [facility] DCP: RETURN TO [facility] PLAN: PEG PLACEMENT
--- NOTE | 2019-02-22 09:00 | NUR ---
NURSE NOTES: patient refused to eat breakfast but took po medications without difficulties. Patient's new IV is leaking due to jerky movement. Unable to do the new IV insertion since patient keep on moving stating "No" and unable to do blood draw. Will follow up.
[2019-02-22 09:20] LABS: BASOPHILS % (AUTO) 0.9 % (0.0-2.0); EOSINOPHILS % (AUTO) 2.3 % (0.0-3.0); HEMATOCRIT 41.4 % (37.0-47.0); HEMOGLOBIN 12.6 G/DL (12.0-16.0); LYMPHOCYTES % (AUTO) 30.2 % (20.0-45.0); MEAN CORPUSCULAR VOLUME 95 FL (80-99); MONOCYTES % (AUTO) 8.6 % (1.0-10.0); NEUTROPHILS % (AUTO) 58.1 % (45.0-75.0); PLATELET COUNT 187 K/UL (150-450); RED BLOOD COUNT 4.36 M/UL (4.20-5.40); WHITE BLOOD COUNT 9.3 K/UL (4.8-10.8)
[2019-02-22 09:39] LABS: ALANINE AMINOTRANSFERASE 13 U/L (12-78); ALBUMIN 2.6 G/DL (3.4-5.0); ALBUMIN/GLOBULIN RATIO 0.7 (1.0-2.7); ALKALINE PHOSPHATASE 80 U/L (46-116); ANION GAP 6 mmol/L (5-15); ASPARTATE AMINO TRANSFERASE 18 U/L (15-37); BILIRUBIN,TOTAL 0.4 MG/DL (0.2-1.0); BLOOD UREA NITROGEN 14 mg/dL (7-18); CARBON DIOXIDE 30 MMOL/L (21-32); CHLORIDE 107 MMOL/L (98-107); CREATININE 0.7 MG/DL (0.55-1.30); POTASSIUM 4.8 MMOL/L (3.5-5.1); SODIUM 143 MMOL/L (136-145)
--- NOTE | 2019-02-22 10:00 | History and Physical Report ---
DATE OF ADMISSION: 02/21/2019 CHIEF COMPLAINT: Dysphagia, failure to thrive, malnutrition HISTORY OF PRESENT ILLNESS: The patient is an 83-year-old female, well known to me. She has a history of hypertension, diabetes, hypertensive heart disease, and diastolic congestive heart failure. She was transferred from a intermediate facility with complaints of inability to swallow. The patient has had a persistent progressive dysphagia and now is unable to safely eat. This was discussed with the patient's niece, who is her power of workers compensation attorney, who wants to have a G-tube placed for nutritional purposes. The patient is otherwise without complaints. PAST MEDICAL HISTORY: As above, has a history of schizophrenia. PAST SURGICAL HISTORY: None. CURRENT MEDICATIONS: Reconciled and reviewed. ALLERGIES: None. FAMILY HISTORY: None. SOCIAL HISTORY: Negative for tobacco, ethanol, or drugs. REVIEW OF SYSTEMS: From the patient is unobtainable, as she is confused. PHYSICAL EXAMINATION: VITAL SIGNS: Temperature 98.2, pulse 90, respirations 24, and blood pressure 128/85. GENERAL: The patient is chronically appearing female. She is cachectic. NECK: Supple. HEART: Regular rate and rhythm. LUNGS: Clear. ABDOMEN: Soft. EXTREMITIES: Without clubbing or cyanosis. LABORATORY DATA: White count 9, hemoglobin 12, and platelets 173. Sodium 142, potassium 4.7, BUN 19, and creatinine 0.8. INR is 1. ASSESSMENT: This is an unfortunate female with a history of progressive dysphagia, schizophrenia, hypertension, diastolic congestive heart failure, and dysphagia, admitted with inability to swallow. PLAN: 1. IV hydration. 2. GI consultation for G-tube placement. 3. Cardiology clearance also will be obtained. 4. We will continue the patient's current psych medications. Tobi Garcia M.D. DR: MANJULA JOB#: [id number] CC:
[2019-02-22 12:00] VITALS: BP 110/70
--- NOTE | 2019-02-22 12:08 | NUR ---
NURSE NOTES: Patient is still refusing IV insertion, she moves more when RN grabs her arms. RN spoke to Dr. Connolly and let him know that unable to do the IV and blood draw with new order to get physician consult with Dr. Kearns. RN paged Dr. Kearns. Awaiting for return call.
--- NOTE | 2019-02-22 12:16 | NUR ---
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 CURRENT DIET:LENNIE, pureed moist PO DIET RECOMMENDATIONS: IF INDICATED -> oral grat per [employer] ENTERAL NUTRITION RECOMMENDATIONS: Jevity 1.2 @ 60ml/hr x 24 hrs to provide 1440ml, 1728kcal, 80g prot, 1162ml free water * W/ GI access, initiate Jevity 1.2 @ 20ml/hr x 6 hrs * Advance 10ml q 4-6 hrs as tolerated to goal rate. * HOB over 30 degrees/ water flush per MD ADDITIONAL RECOMMENDATIONS: * Calibrated bedscale wt for accurate CBW * WEEKLY WEIGHTS: pt w/ significant + progressive wt loss * Monitor lytes daily w/ TF, replete as needed -> high risk for refeeding syndrome * Wound healing: add MVI x 1, Vit C 250mg QD, Justen 1pkt BID * [employer] eval for oral grat if indicated .
--- NOTE | 2019-02-22 13:16 | Consultation ---
History of Present Illness General Date patient seen: Feb 22, 2019 Chief Complaint: Generalized Weakness Present Illness HPI 83 year old female with multiple medical comorbidities who is a care home resident presented with dysphagia. on admission noted to have failure to thrive and wounds requiring care. surgery called to evaluate and assist with care. patient seen, chart reviewed, patient examined. unable to provide history given medical condition Allergies: Coded Allergies: No Known Allergies (Unverified , 03/25/18) Medication History Scheduled Amino Acids/Protein Hydrolys (Pro-Stat Liquid), 30 ML ORAL DAILY, (Reported) Benazepril Hcl* (Lotensin*), 20 MG ORAL DAILY, (Reported) Benztropine Mesylate* (Cogentin*), 1 MG PO TID, (Reported) Calcium Carbonate (Calcium Carbonate), 500 MG PO TID, (Reported) Divalproex Sodium (Depakote), 500 MG PO BID, (Reported) Docusate Sodium (Docusate Sodium), 100 ML PO BID, (Reported) Guar Gum (Nutrisource Fiber), 1 EACH PO DAILY, (Reported) Magnesium Hydroxide* (Milk Of Magnesia*), 30 ML ORAL DAILY, (Reported) Multivitamin With Minerals (Multivitamins With Minerals*), 1 TAB ORAL DAILY, ( Reported) Naph,Mb-Db/K Ph,Mbdb (Phos-Nak Packet), 1 EACH PO DAILY, (Reported) Nutritional Supplement (Nutren 2.0), 4 OZ PO TID, (Reported) Ranitidine Hcl* (Zantac*), 150 MG ORAL DAILY, (Reported) Scheduled PRN Acetaminophen* (Acetaminophen 325MG Tablet*), 650 MG ORAL Q6H PRN for For Pain, (Reported) Bisacodyl (Dulcolax), 10 MG RC DAILY PRN for Constipation, (Reported) Discontinued Medications Docusate Sodium* (Colace*), 100 MG ORAL TWICE A DAY, (Reported) Discontinued Reason: Prescription changed Zinc Oxide (Zinc Oxide), 1 APPLIC TOPIC DAILY, (Reported) Discontinued Reason: Pt stopped taking med Patient History Limited by: medical condition History Provided By: Medical Record, PMD Healthcare decision maker Gila Yañez Resuscitation status Full Code Advanced Directive on File unknown if pt has advance directive Past Medical/Surgical History Past Medical/Surgical History: (1) Encephalopathy allergic (2) Facial abscess (3) Aspiration pneumonia (4) Schizoaffective disorder (5) General weakness (6) Hypertensive heart and chronic kidney disease (7) Diastolic CHF, chronic (8) Encounter for gastrojejunal tube placement (9) Failure to thrive in adult Review of Systems ROS Narrative unable to obtain given medical condition Physical Exam General Appearance: no apparent distress Lines, tubes and drains: peripheral HEENT: atraumatic, anicteric Neck: normal inspection Respiratory/Chest: no respiratory distress, decreased breath sounds Cardiovascular/Chest: normal rate Abdomen: soft, no organomegaly, no mass Extremities: other Skin Exam: warm/dry Neurologic: unresponsiveness Last 24 Hour Vital Signs Date Time Temp Pulse Resp B/P (MAP) Pulse Ox O2 Delivery O2 Flow Rate FiO2 02/22/19 12:00 97.8 101 110/70 (83) 95 02/22/19 09:00 Room Air 02/22/19 08:00 97.6 82 140/76 (97) 95 02/22/19 04:00 98.2 90 24 128/95 (106) 02/22/19 00:35 97.8 100 20 127/86 (100) 02/21/19 21:00 Room Air 02/21/19 20:00 97.8 91 24 147/90 (109) 02/21/19 16:00 97.5 75 18 135/88 (104) 100 02/21/19 15:11 Room Air 02/21/19 14:11 98.5 1 15 125/80 98 Room Air 02/21/19 14:02 98.3 78 18 112/77 100 Room Air Intake and Output 02/21/19 02/22/19 19:00 07:00 Intake Total 100 ml 700 ml Balance 100 ml 700 ml Intake Oral 0 ml IV Total 100 ml 700 ml # Voids 2 # Bowel Movements 3 1 Laboratory Tests Test 02/22/19 08:50 White Blood Count 9.3 K/UL (4.8-10.8) Red Blood Count 4.36 M/UL (4.20-5.40) Hemoglobin 12.6 G/DL (12.0-16.0) Hematocrit 41.4 % (37.0-47.0) Mean Corpuscular Volume 95 FL (80-99) Mean Corpuscular Hemoglobin 28.9 PG (27.0-31.0) Mean Corpuscular Hemoglobin Concent 30.5 G/DL (32.0-36.0) L Red Cell Distribution Width 15.0 % (11.6-14.8) H Platelet Count 187 K/UL (150-450) Mean Platelet Volume 5.9 FL (6.5-10.1) L Neutrophils (%) (Auto) 58.1 % (45.0-75.0) Lymphocytes (%) (Auto) 30.2 % (20.0-45.0) Monocytes (%) (Auto) 8.6 % (1.0-10.0) Eosinophils (%) (Auto) 2.3 % (0.0-3.0) Basophils (%) (Auto) 0.9 % (0.0-2.0) Prothrombin Time 10.7 SEC (9.30-11.50) Prothromb Time International Ratio 1.0 (0.9-1.1) Activated Partial Thromboplast Time 37 SEC (23-33) H Sodium Level 143 MMOL/L (136-145) Potassium Level 4.8 MMOL/L (3.5-5.1) Chloride Level 107 MMOL/L (98-107) Carbon Dioxide Level 30 MMOL/L (21-32) Anion Gap 6 mmol/L (5-15) Blood Urea Nitrogen 14 mg/dL (7-18) Creatinine 0.7 MG/DL (0.55-1.30) Estimat Glomerular Filtration Rate mL/min (>60) Glucose Level 91 MG/DL (74-106) Calcium Level 9.0 MG/DL (8.5-10.1) Total Bilirubin 0.4 MG/DL (0.2-1.0) Aspartate Amino Transf (AST/SGOT) 18 U/L (15-37) Alanine Aminotransferase (ALT/SGPT) 13 U/L (12-78) Alkaline Phosphatase 80 U/L (46-116) Pro-B-Type Natriuretic Peptide 594 pg/mL (0-125) H Total Protein 6.5 G/DL (6.4-8.2) Albumin 2.6 G/DL (3.4-5.0) L Globulin 3.9 g/dL Albumin/Globulin Ratio 0.7 (1.0-2.7) L Height (Feet): 5 Height (Inches): 9.00 Weight (Pounds): 147 Medications Current Medications Medications (Trade) Dose Ordered Sig/Ariane Route PRN Reason Start Time Stop Time Status Last Admin Dose Admin Benztropine Mesylate (Cogentin) 0.5 mg THREE TIMES A DAY ORAL 02/22/19 09:00 03/24/19 08:59 02/22/19 08:26 Dextrose/Sodium Chloride 1,000 ml @ 100 mls/hr Q10H IV 02/21/19 16:43 03/23/19 16:42 02/22/19 02:51 Divalproex Sodium (Depakote) 500 mg EVERY 12 HOURS ORAL 02/22/19 09:00 03/24/19 08:59 02/22/19 08:26 Heparin Sodium (Porcine) (Heparin 5000 units/ml) 5,000 units EVERY 12 HOURS SUBQ 02/22/19 21:00 03/24/19 20:59 Assessment/Plan Problem List: (1) Encounter for gastrojejunal tube placement ICD Codes: Z78.9 - Other specified health status SNOMED: 397256841 (2) Aspiration pneumonia ICD Codes: J69.0 - Pneumonitis due to inhalation of food and vomit SNOMED: 169275834 (3) Schizoaffective disorder ICD Codes: F25.9 - Schizoaffective disorder, unspecified SNOMED: 19051694 (4) General weakness ICD Codes: R53.1 - Weakness SNOMED: 64099020 (5) Encephalopathy allergic ICD Codes: G93.49 - Other encephalopathy SNOMED: 73973661 (6) Facial abscess ICD Codes: L02.01 - Cutaneous abscess of face SNOMED: 114495846 (7) Hypertensive heart and chronic kidney disease ICD Codes: I13.10 - Hypertensive heart and chronic kidney disease without heart failure, with stage 1 through stage 4 chronic kidney disease, or unspecified chronic kidney disease SNOMED: 3964491221494 (8) Failure to thrive in adult Assessment & Plan: DAILY ESTIMATED NEEDS: Needs based on Weight loss, wound/ 63kg 25-30 kcals/kg 6063-6689 total kcals 1.25-1.5 g protein/kg 78-94 g total protein 25-30 mL/kg 5073-9595 total fluid mLs NUTRITION DIAGNOSIS: 1) Swallowing difficulty R/T dysphagia as evidenced by 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 CURRENT DIET:LENNIE, pureed moist PO DIET RECOMMENDATIONS: IF INDICATED -> oral grat per FITNESS DIRECTOR ENTERAL NUTRITION RECOMMENDATIONS: Jevity 1.2 @ 60ml/hr x 24 hrs to provide 1440ml, 1728kcal, 80g prot, 1162ml free water * W/ GI access, initiate Jevity 1.2 @ 20ml/hr x 6 hrs * Advance 10ml q 4-6 hrs as tolerated to goal rate. * HOB over 30 degrees/ water flush per MD ADDITIONAL RECOMMENDATIONS: * Calibrated bedscale wt for accurate CBW * WEEKLY WEIGHTS: pt w/ significant + progressive wt loss * Monitor lytes daily w/ TF, replete as needed -> high risk for refeeding syndrome * Wound healing: add MVI x 1, Vit C 250mg QD, Justen 1pkt BID * FITNESS DIRECTOR eval for oral grat if indicated . ICD Codes: R62.7 - Adult failure to thrive SNOMED: 023612244 (9) Diastolic CHF, chronic ICD Codes: I50.32 - Chronic diastolic (congestive) heart failure SNOMED: 54559773, 432657802 (10) Decubitus skin ulcer Assessment & Plan: Pt presented on admission with resolving pressure injury sacrum .Base of wound pink and dry with dark borders. (L)3.5cm x (W)1.5cm. Periwound without induration or erythema. Elongated and indurated area that is maroon in colour noted to R lower buttocks/R ischial area. (L)9cm x (W)1.5cm. Resolving pressure injury noted to L ischium .Base of wound is moist and pink. Dark brown borders without induration.(L)3cm x (W)1.5cm. Hyperpigmentation periwound. Partially opened blood blister R heel. Base of Wound is fluctuant and maroon with open area centrally that is viable .Small amt brown exudate noted.(L)1cm x (W) 1.5cm.Non-blanchable erythema noted periwound. L heel soft but blanchable. Tx.Plan: Swab R heel with Betadine Swab. Cover with Optifoam drsg Daily and PRN. Apply Triad Paste to Sacrum ,R and L ischial areas. Cover each area with Optifoam drsg.Change every 3 days and PRN. Reposition at least every 2hours or as tolerated. Off-load heels with Pillow. ICD Codes: L89.90 - Pressure ulcer of unspecified site, unspecified stage SNOMED: 097007294 Yogi Vela Feb 22, 2019 13:16
--- NOTE | 2019-02-22 13:30 | NUR ---
NURSE NOTES: chargeback specialist attempted to insert an IV but unsuccessful due to jerky movement. Dr. Kearns is aware of consult.
--- NOTE | 2019-02-22 15:26 | NUR ---
NURSE NOTES: Rn received order from Dr. Kearns in person to give seroquel 25mg Q6hr PRN for anxiety. Order read back and carried out.
--- NOTE | 2019-02-22 15:37 | NUR ---
INSURANCE UPDATED CLINICALS and REVIEW HAVE BEEN FAXED TO: [facility] PLEASE FAX THE REVIEW AND CLINICAL TO FX: [phone] PH: [phone] REPORTED TO LETHA
--- NOTE | 2019-02-22 15:42 | NUR ---
NURSE NOTES:Pt presented on admission with resolving pressure injury sacrum .Base of wound pink and dry with dark borders. (L)3.5cm x (W)1.5cm. Periwound without induration or erythema. Elongated and indurated area that is maroon in colour noted to R lower buttocks/R ischial area. (L)9cm x (W)1.5cm. Resolving pressure injury noted to L ischium .Base of wound is moist and pink. Dark brown borders without induration.(L)3cm x (W)1.5cm. Hyperpigmentation periwound. Partially opened blood blister R heel. Base of Wound is fluctuant and maroon with open area centrally that is viable .Small amt brown exudate noted.(L)1cm x (W) 1.5cm.Non-blanchable erythema noted periwound. L heel soft but blanchable. Tx.Plan:Swab R heel with Betadine Swab. Cover with Optifoam drsg Daily and PRN. Apply Triad Paste to Sacrum ,R and L ischial areas. Cover each area with Optifoam drsg.Change every 3 days and PRN. REposition at least every 2hours or as tolerated. Off-load heels with Pillow.
[2019-02-22 16:00] VITALS: BP 125/91
--- NOTE | 2019-02-22 18:00 | NUR ---
NURSE NOTES: patient ate 25% of lunch but no breakfast or dinner. oral care done before and after.
--- NOTE | 2019-02-22 18:40 | NUR ---
NURSE NOTES: Unable to do IV insertion due to patient's jerky movement and patient was moving a lot stating "No, stop." several times. Will endorse to the next shift.
--- NOTE | 2019-02-22 19:30 | Consultation ---
DATE OF CONSULTATION: 02/22/2019 HISTORY OF PRESENT ILLNESS: The patient is an 83-year-old female with a history of schizophrenia, cognitive impairment, failure to thrive who has been admitted to the hospital due to malnutrition, failure to thrive, and dysphagia. The patient was agitated earlier this morning. I was asked by Dr. Connolly to see the patient. The patient is unable to understand process, communicate, nor appreciate information given to her appropriately. The patient lacks capacity to make decision. The niece is involved in the patient's care and she is the power of managing attorney. PAST PSYCHIATRIC HISTORY: Schizophrenia, cognitive impairment. PAST MEDICAL HISTORY: 1. Failure to thrive. 2. Diabetes. 3. Hypertension. 4. Chronic heart disease. 5. Congestive heart failure. ALLERGIES: No known drug allergies. SUBSTANCE ABUSE HISTORY: No known history of illicit drug use or alcohol. MENTAL STATUS EXAMINATION: The patient is alert, confused, disoriented. Mood is neutral to agitation. Affect is constricted. Congruent with mood. Thought process, there is a paucity of thought content. Thought content, no suicidal, homicidal ideation. ASSESSMENT: Butterfield I Schizophrenia Butterfield II Deferred. Butterfield III As above Butterfield IV Low Butterfield V 20 PLAN: 1. The patient will be started on Remeron 7.5 at bedtime. 2. Continue Depakote. 3. We will continue to follow and readjust the medications. Rocio Kearns M.D. DR: Evangelist JOB#: [id number] CC:
--- NOTE | 2019-02-22 19:38 | NUR ---
HAND-OFF: Report given to JORDIN Song.
--- NOTE | 2019-02-22 19:39 | NUR ---
NURSE NOTES: Received patient in bed. A&OX1. No IV noted, Patient keep moving both arm, patient has Parkinson disease, unable to insert IV, will try again. Dressing on sacral, right heel noted, dry and intact. Bed in lowest position. Call light within reach. Will continue to monitor.
[2019-02-22] MEDS ORDERED: DOCUSATE S50 MG/5 ML PO (19:43)
[2019-02-22 20:00] VITALS: BP 92/68
[2019-02-22] MEDS: Heparin 5000 units/ml inj SUBQ SCH (21:20)
--- NOTE | 2019-02-22 21:30 | Consultation ---
DATE OF CONSULTATION: 02/22/2019 GASTROENTEROLOGY CONSULTATION CONSULTING PHYSICIAN: Lisa Gaviria M.D. REFERRING PHYSICIAN: Tobi Garcia M.D. CHIEF COMPLAINT: I was asked to see this patient by Dr. Tobi Garcia for evaluation for feeding tube placement. HISTORY OF PRESENT ILLNESS: The patient is an unfortunate 83-year-old woman from a half-way who has multiple medical problems. These are outlined below. She was brought back to the hospital however because of poor oral intake and inability to eat. The patient has decubitus ulcers formed and was felt to be at significant nutritional risk. She is unable to provide any information as she is kind of confused. Most of information is only available from the chart. PAST MEDICAL HISTORY: History of hypertension, diabetes, hypertensive heart disease, diastolic congestive heart failure, movement disorder, schizophrenia. FAMILY HISTORY: Not available. SOCIAL HISTORY: The patient is from a half-way. She has not had any history of smoking or drinking. ALLERGIES: None. MEDICATIONS: See the chart list for details. REVIEW OF SYSTEMS: Otherwise negative. PHYSICAL EXAMINATION: GENERAL: Debilitated, woman, seen in her room who was constantly moving her upper extremities involuntarily. HEENT: Normocephalic, atraumatic. Dentition is poor. NECK: Supple. CHEST: Clear to auscultation. CARDIOVASCULAR: Revealed a regular rate. ABDOMEN: Soft. EXTREMITIES: Revealed decubitus ulcers. LABORATORY DATA: Noted. ASSESSMENT: This patient has poor oral intake, has decubitus ulcers, and is at nutritional risk. She will require gastrostomy tube placement for long-term enteral access and nutrition. I will discuss this matter with the family and will place the gastrostomy tube once the consent was obtained. In the meantime, decubitus ulcers should be managed per protocol with local medications as well as multivitamins, and vitamin C. RECOMMENDATIONS: Per above discussion and per orders written in the chart. Thank you for asking me to participate in the care of this patient. Lisa Gaviria M.D. DR: EASTON JOB#: [id number] CC:
[2019-02-23] VITALS: BP 140/70
--- NOTE | 2019-02-23 | Progress Note ---
DATE: 02/22/2019 CARDIOLOGY PROGRESS NOTE SUBJECTIVE: The patient has involuntary movements of the upper extremities. IV access could not be obtained. She is in no respiratory distress. Oral intake is minimal. PHYSICAL EXAMINATION: VITAL SIGNS: Blood pressure 110/70, pulse 101, respiratory rate 18. LUNGS: Bilateral breath sounds. HEART: Regular rhythm and rate. Normal S1 and S2. ABDOMEN: Soft. EXTREMITIES: No edema. LABORATORY DATA: White count 9.3, hemoglobin 12.6. Pro natriuretic peptide 594. Albumin 2.6. IMPRESSION: 1. Dysphagia. 2. Moderate to severe protein-calorie malnutrition. 3. Chronic diastolic congestive heart failure. 4. Hypertensive heart disease. 5. Schizophrenia. 6. Tardive dyskinesias. PLAN: 1. Await GI for G-tube placement for supplemental nutrition. 2. Further attempts at intravenous access will be made and IV hydration will be given. 3. DVT prophylaxis. 4. Psychiatric followup. 5. prn antiHTN meds on board for BP spikes 6. We will consider additional antihypertensive and anti-failure drugs once G-tube is placed. Antony Connolly M.D. DR: Purnima JOB#: [id number] CC: ZECHARIAH
[2019-02-23 04:00] VITALS: BP 136/73
--- NOTE | 2019-02-23 07:40 | NUR ---
HAND-OFF: Report given to Gita BRENNER.
[2019-02-23 08:00] VITALS: BP 144/71
--- NOTE | 2019-02-23 08:10 | NUR ---
NURSE NOTES: received report from JORDIN Song. patient in bed sleeping. no respiratory distress noted on room air. no IV at this time. MD aware. bed in the lowest position. call light within reach. alarm on. will provide plan of care
[2019-02-23] MEDS: Benztropine 1mg tab ORAL SCH ×3 (08:38→17:44)
[2019-02-23] MEDS: Depakote 500mg tab ORAL SCH ×2 (08:38→20:33)
[2019-02-23] MEDS: Heparin 5000 units/ml inj SUBQ SCH ×2 (08:40→20:33)
[2019-02-23] MEDS: D5NS 1,000 ML IV SCH ×2 (08:43→17:44)
--- NOTE | 2019-02-23 08:51 | General Progress Note ---
Assessment/Plan Problem List: (1) Encounter for gastrojejunal tube placement ICD Codes: Z78.9 - Other specified health status SNOMED: 574898842 (2) Aspiration pneumonia ICD Codes: J69.0 - Pneumonitis due to inhalation of food and vomit SNOMED: 539704586 (3) Schizoaffective disorder ICD Codes: F25.9 - Schizoaffective disorder, unspecified SNOMED: 15810626 (4) Encephalopathy allergic ICD Codes: G93.49 - Other encephalopathy SNOMED: 63121794 (5) Hypertensive heart and chronic kidney disease ICD Codes: I13.10 - Hypertensive heart and chronic kidney disease without heart failure, with stage 1 through stage 4 chronic kidney disease, or unspecified chronic kidney disease SNOMED: 4796551984676 (6) Failure to thrive in adult ICD Codes: R62.7 - Adult failure to thrive SNOMED: 088824546 (7) Diastolic CHF, chronic ICD Codes: I50.32 - Chronic diastolic (congestive) heart failure SNOMED: 58472943, 043427460 Status: stable, not improved Assessment/Plan: ivf monitor bs npo gt placement by gi Subjective ROS Limited/Unobtainable: No Constitutional: Reports: weakness HEENT: Reports: no symptoms Cardiovascular: Reports: no symptoms Respiratory: Reports: no symptoms Gastrointestinal/Abdominal: Reports: difficulty swallowing, poor appetite Genitourinary: Reports: no symptoms Neurologic/Psychiatric: Reports: no symptoms Endocrine: Reports: no symptoms Hematologic/Lymphatic: Reports: no symptoms Allergies: Coded Allergies: No Known Allergies (Unverified , 03/25/18) All Systems: reviewed and negative except above Subjective no events. w/o complaints. confused at baseline. family wants to proceed w/ GT placement Objective Last 24 Hour Vital Signs Date Time Temp Pulse Resp B/P (MAP) Pulse Ox O2 Delivery O2 Flow Rate FiO2 02/23/19 04:00 98.1 74 18 136/73 (94) 96 02/23/19 00:00 98.3 78 17 140/70 (93) 96 02/22/19 21:00 Room Air 02/22/19 20:00 98.3 111 19 92/68 (76) 94 02/22/19 16:00 97.5 98 20 125/91 (102) 94 02/22/19 12:00 97.8 101 18 110/70 (83) 95 02/22/19 09:00 Room Air Intake and Output 02/22/19 02/23/19 18:59 06:59 Intake Total 100 ml Balance 100 ml Intake Oral 100 ml # Voids 3 Laboratory Tests 02/22/19 08:50: White Blood Count 9.3, Red Blood Count 4.36, Hemoglobin 12.6, Hematocrit 41.4, Mean Corpuscular Volume 95, Mean Corpuscular Hemoglobin 28.9, Mean Corpuscular Hemoglobin Concent 30.5L, Red Cell Distribution Width 15.0H, Platelet Count 187 , Mean Platelet Volume 5.9L, Neutrophils (%) (Auto) 58.1, Lymphocytes (%) (Auto ) 30.2, Monocytes (%) (Auto) 8.6, Eosinophils (%) (Auto) 2.3, Basophils (%) ( Auto) 0.9, Prothrombin Time 10.7, Prothromb Time International Ratio 1.0, Activated Partial Thromboplast Time 37H, Sodium Level 143, Potassium Level 4.8, Chloride Level 107, Carbon Dioxide Level 30, Anion Gap 6, Blood Urea Nitrogen 14 , Creatinine 0.7, Estimat Glomerular Filtration Rate , Glucose Level 91, Calcium Level 9.0, Total Bilirubin 0.4, Aspartate Amino Transf (AST/SGOT) 18, Alanine Aminotransferase (ALT/SGPT) 13, Alkaline Phosphatase 80, Pro-B-Type Natriuretic Peptide 594H, Total Protein 6.5, Albumin 2.6L, Globulin 3.9, Albumin /Globulin Ratio 0.7L Height (Feet): 5 Height (Inches): 9.00 Weight (Pounds): 147 Objective GENERAL: The patient is chronically appearing female. She is cachectic. NECK: Supple. HEART: Regular rate and rhythm. LUNGS: Clear. ABDOMEN: Soft. EXTREMITIES: Without clubbing or cyanosis. Tobi Garcia MD Feb 23, 2019 08:51
[2019-02-23 12:00] VITALS: BP 149/95
--- NOTE | 2019-02-23 15:30 | NUR ---
NURSE NOTES: inserted IV on LFA 22G. intact. no infiltration. restarted D5NS 100/hr as ordered.
[2019-02-23 16:00] VITALS: BP 122/69
--- NOTE | 2019-02-23 16:07 | NUR ---
CASE MANAGEMENT: REVIEW 02/23/2019 SI: FTT. G-TUBE PLACEMENT DYSPHAGIA. DEHYDRATION. HYPOVOLEMIA T 97.2 HR 95 RR 18 B/P 149/95 SATS 92% ON RA NO LABS TODAY IS: IVF@100/HR COGENTIN PO TID DEPAKOTE PO Q12 HEPARIN SQ Q12 : TO MED/SURG [facility] DCP: RETURN TO [facility] PLAN: PEG PLACEMENT
--- NOTE | 2019-02-23 16:10 | NUR ---
INSURANCE REVIEW HAS BEEN FAXED TO: [facility] PLEASE FAX THE REVIEW AND CLINICAL TO FX: [phone] PH: [phone]
--- NOTE | 2019-02-23 16:15 | Progress Note ---
DATE: 02/23/2019 CARDIOLOGY PROGRESS NOTE SUBJECTIVE: The patient is confused at baseline. Has no new distress. Oral intake is minimal. Family members want to proceed with G-tube for adequate nutrition. OBJECTIVE: VITAL SIGNS: Blood pressure parameters remain labile at times. Last night 92/68 with a heart rate of 111; however, presently more stable at 136/73 with heart rate 74, respiratory rate 18, room air oxygenation is 96%. LUNGS: Diminished breath sounds. No rales. HEART: Regular rhythm, rate. Normal S1, S2 with a fourth heart sound. ABDOMEN: Soft. No focal tenderness. Moderately obese. EXTREMITIES: Without edema. NEUROLOGIC: There are still some dystonic movements of the mouth. LABORATORY DATA: Pro-natriuretic peptide yesterday 594. IMPRESSION: Chronic diastolic congestive heart failure due to hypertensive heart disease, clinically compensated, stable from a cardiovascular standpoint to proceed with EGD and PEG under usual anesthesia. We will reassess cardiovascular regimen following G-tube placement. Presently, no role for diuretics. Antony Connolly M.D. DR: GASTON JOB#: [id number] CC:
--- NOTE | 2019-02-23 17:31 | General Progress Note ---
Assessment/Plan Status: stable, not improved Assessment/Plan: Assessment - anorexia - pressure ulcers - Movement d/o - HTN Recommendations - IVF - wound care - PEG in am - MVI / Zn (10 days) / vitamin C Subjective Allergies: Coded Allergies: No Known Allergies (Unverified , 03/25/18) Subjective non verbal moving UE without control PEG scheduled for am Objective Last 24 Hour Vital Signs Date Time Temp Pulse Resp B/P (MAP) Pulse Ox O2 Delivery O2 Flow Rate FiO2 02/23/19 12:00 97.2 95 18 149/95 (113) 92 02/23/19 09:00 Room Air 02/23/19 08:00 96.3 80 19 144/71 (95) 92 02/23/19 04:00 98.1 74 18 136/73 (94) 96 02/23/19 00:00 98.3 78 17 140/70 (93) 96 02/22/19 21:00 Room Air 02/22/19 20:00 98.3 111 19 92/68 (76) 94 Intake and Output 02/22/19 02/23/19 19:00 07:00 Intake Total 100 ml Balance 100 ml Intake Oral 100 ml # Voids 3 Height (Feet): 5 Height (Inches): 9.00 Weight (Pounds): 147 Objective Thin AA woman NCAT supple CTA RRR Abd Soft NT ND no edema neuro - movement d/o Lisa Gaviria MD Feb 23, 2019 17:31
--- NOTE | 2019-02-23 19:13 | NUR ---
HAND-OFF: Report given to JORDIN Song.
--- NOTE | 2019-02-23 19:30 | NUR ---
NURSE NOTES: Received patient in bed. A&OX1. Dressing on sacral, right heel noted, dry and intact. Bed in lowest position. Call light within reach. Will continue to monitor.
[2019-02-23 20:00] VITALS: BP 93/59
--- NOTE | 2019-02-23 21:00 | Progress Note ---
DATE: 02/23/2019 SUBJECTIVE: The patient is having episodes of anxiety, confused, and waxing and waning consciousness. Poor insight. Not able to be engaged during evaluation. MENTAL STATUS EXAMINATION: The patient is alert and oriented times to self. Mood is anxious. Affect is constricted, congruent with mood. Thought process is concrete. Thought content, no suicidal or homicidal ideation. Memory is impaired. ASSESSMENT: 1. Encephalopathy. 2. Dementia. PLAN: The patient will be continued on current medication. Provide the patient with reality orientation and supportive therapy. Rocio Kearns M.D. DR: BIPIN JOB#: [id number] CC:
[2019-02-24] VITALS (12 sets, daily range): BP systolic 86–154; BP diastolic 53–94
[2019-02-24] MEDS ORDERED: ceFAZolin sod 1 GM in D5W 55 ML IVPB ONE (06:00)
[2019-02-24] MEDS: D5NS 1,000 ML IV SCH ×2 (06:27→14:15)
--- NOTE | 2019-02-24 07:02 | NUR ---
HAND-OFF: Report given to Gita BRENNER.
--- NOTE | 2019-02-24 07:03 | NUR ---
NURSE NOTES: received patient from JORDIN Song. patient in bed. alert. disoriented. non verbal. no respiratory distress on room air. Gtube placement today. IV on LFA 24 ATB tx running consent in chart. NPO. 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 bed in the lowest position . call light within reach. alarm on. will continue to provide plan of care
[2019-02-24 07:39] LABS: BASOPHILS % (AUTO) 0.8 % (0.0-2.0); EOSINOPHILS % (AUTO) 2.5 % (0.0-3.0); HEMATOCRIT 42.3 % (37.0-47.0); HEMOGLOBIN 13.1 G/DL (12.0-16.0); LYMPHOCYTES % (AUTO) 53.1 % (20.0-45.0); MEAN CORPUSCULAR VOLUME 93 FL (80-99); MONOCYTES % (AUTO) 5.5 % (1.0-10.0); NEUTROPHILS % (AUTO) 38.1 % (45.0-75.0); PLATELET COUNT 207 K/UL (150-450); RED BLOOD COUNT 4.56 M/UL (4.20-5.40); RED CELL DISTRIBUTION WIDTH 14.5 % (11.6-14.8); WHITE BLOOD COUNT 8.7 K/UL (4.8-10.8)
[2019-02-24 07:48] LABS: ANION GAP 8 mmol/L (5-15); BLOOD UREA NITROGEN 11 mg/dL (7-18); CARBON DIOXIDE 27 MMOL/L (21-32); CHLORIDE 108 MMOL/L (98-107); CREATININE 0.9 MG/DL (0.55-1.30); POTASSIUM 4.8 MMOL/L (3.5-5.1); SODIUM 143 MMOL/L (136-145)
--- NOTE | 2019-02-24 07:50 | NUR ---
NURSE NOTES: patient left unit for gt placement with fair condition. IV on LFA intact. alert. disoriented. non verbal. no respiratory distress noted. no facial grimacing during care. midnight NPO.
[2019-02-24] MEDS ORDERED: LR 1000ml ONE (08:30)
[2019-02-24] MEDS ORDERED: Propofol 200mg/20ml IV ONE (08:30)
[2019-02-24] MEDS ORDERED: Lidocaine 1% MPF 10mg/ml 5ml ONE (08:30)
--- NOTE | 2019-02-24 08:38 | Pre-Procedure Note/Attestation ---
Pre-Procedure Note/Attestation Complete Prior to Procedure Planned Procedure: not applicable Procedure Narrative: PEG Indications for Procedure Pre-Operative Diagnosis: malnutrition, dysphagia Attestation I attest that I discussed the nature of the procedure; its benefits; risks and complications; and alternatives (and the risks and benefits of such alternatives ), prior to the procedure, with the patient (or the patient's legal passenger representative). I attest that, if there was a reasonable possibility of needing a blood transfusion, the patient (or the patient's legal passenger representative) was given the [facility] standardized written summary, pursuant to the Edmar Gwen Blood Safety Act ([place] Health and Safety Code # 1645, as amended). I attest that I re-evaluated the patient just prior to the surgery and that there has been no change in the patient's H&P, except as documented below: Lisa Gaviria MD Feb 24, 2019 08:38
[2019-02-24] MEDS ORDERED: NS 500ML IVPB ONE (08:40)
--- NOTE | 2019-02-24 08:40 | General Progress Note ---
Assessment/Plan Status: stable, not improved Assessment/Plan: Assessment - anorexia - pressure ulcers - Movement d/o - HTN Recommendations - IVF - wound care - PEG today - MVI / Zn (10 days) / vitamin C - roll side-side Subjective Allergies: Coded Allergies: No Known Allergies (Unverified , 03/25/18) Subjective moving UE without control PEG scheduled for today Objective Last 24 Hour Vital Signs Date Time Temp Pulse Resp B/P (MAP) Pulse Ox O2 Delivery O2 Flow Rate FiO2 02/24/19 04:00 97.3 91 18 120/75 (90) 94 02/24/19 00:00 97.7 90 19 116/74 (88) 95 02/23/19 21:00 Room Air 02/23/19 20:00 97.8 97 19 93/59 (70) 96 02/23/19 16:00 97.6 81 19 122/69 (86) 93 02/23/19 12:00 97.2 95 18 149/95 (113) 92 02/23/19 09:00 Room Air Intake and Output 02/23/19 02/24/19 18:59 06:59 Intake Total 480 ml Balance 480 ml Intake Oral 480 ml # Voids 2 Laboratory Tests 02/24/19 06:09: White Blood Count 8.7, Red Blood Count 4.56, Hemoglobin 13.1, Hematocrit 42.3, Mean Corpuscular Volume 93, Mean Corpuscular Hemoglobin 28.8, Mean Corpuscular Hemoglobin Concent 31.0L, Red Cell Distribution Width 14.5, Platelet Count 207, Mean Platelet Volume 4.8L, Neutrophils (%) (Auto) 38.1L, Lymphocytes (%) (Auto) 53.1H, Monocytes (%) (Auto) 5.5, Eosinophils (%) (Auto) 2.5, Basophils (%) (Auto ) 0.8, Sodium Level 143, Potassium Level 4.8, Chloride Level 108H, Carbon Dioxide Level 27, Anion Gap 8, Blood Urea Nitrogen 11, Creatinine 0.9, Estimat Glomerular Filtration Rate , Glucose Level 89, Calcium Level 9.0 Height (Feet): 5 Height (Inches): 5.00 Weight (Pounds): 147 Objective Thin AA woman NCAT supple CTA RRR Abd Soft NT ND no edema neuro - movement d/o Lisa Gaviria MD Feb 24, 2019 08:40
--- NOTE | 2019-02-24 08:41 | General Progress Note ---
Assessment/Plan Problem List: (1) Encounter for gastrojejunal tube placement ICD Codes: Z78.9 - Other specified health status SNOMED: 413110234 (2) Aspiration pneumonia ICD Codes: J69.0 - Pneumonitis due to inhalation of food and vomit SNOMED: 924110320 (3) Schizoaffective disorder ICD Codes: F25.9 - Schizoaffective disorder, unspecified SNOMED: 91426855 (4) Encephalopathy allergic ICD Codes: G93.49 - Other encephalopathy SNOMED: 36299506 (5) Hypertensive heart and chronic kidney disease ICD Codes: I13.10 - Hypertensive heart and chronic kidney disease without heart failure, with stage 1 through stage 4 chronic kidney disease, or unspecified chronic kidney disease SNOMED: 8502106145851 (6) Failure to thrive in adult ICD Codes: R62.7 - Adult failure to thrive SNOMED: 758842959 (7) Diastolic CHF, chronic ICD Codes: I50.32 - Chronic diastolic (congestive) heart failure SNOMED: 58979628, 993980846 Status: stable, not improved Assessment/Plan: ivf monitor bs npo gt placement by gi this am Subjective ROS Limited/Unobtainable: Yes Constitutional: Reports: malaise, weakness HEENT: Reports: no symptoms Respiratory: Reports: no symptoms Gastrointestinal/Abdominal: Reports: difficulty swallowing, poor appetite Neurologic/Psychiatric: Reports: pre-existing deficit Endocrine: Reports: no symptoms Hematologic/Lymphatic: Reports: anemia Allergies: Coded Allergies: No Known Allergies (Unverified , 03/25/18) All Systems: reviewed and negative except above Subjective no events. w/o complaints. confused at baseline. family wants to proceed w/ GT placement going down for gt currently Objective Last 24 Hour Vital Signs Date Time Temp Pulse Resp B/P (MAP) Pulse Ox O2 Delivery O2 Flow Rate FiO2 02/24/19 04:00 97.3 91 18 120/75 (90) 94 02/24/19 00:00 97.7 90 19 116/74 (88) 95 02/23/19 21:00 Room Air 02/23/19 20:00 97.8 97 19 93/59 (70) 96 02/23/19 16:00 97.6 81 19 122/69 (86) 93 02/23/19 12:00 97.2 95 18 149/95 (113) 92 02/23/19 09:00 Room Air Intake and Output 02/23/19 02/24/19 18:59 06:59 Intake Total 480 ml Balance 480 ml Intake Oral 480 ml # Voids 2 Laboratory Tests 02/24/19 06:09: White Blood Count 8.7, Red Blood Count 4.56, Hemoglobin 13.1, Hematocrit 42.3, Mean Corpuscular Volume 93, Mean Corpuscular Hemoglobin 28.8, Mean Corpuscular Hemoglobin Concent 31.0L, Red Cell Distribution Width 14.5, Platelet Count 207, Mean Platelet Volume 4.8L, Neutrophils (%) (Auto) 38.1L, Lymphocytes (%) (Auto) 53.1H, Monocytes (%) (Auto) 5.5, Eosinophils (%) (Auto) 2.5, Basophils (%) (Auto ) 0.8, Sodium Level 143, Potassium Level 4.8, Chloride Level 108H, Carbon Dioxide Level 27, Anion Gap 8, Blood Urea Nitrogen 11, Creatinine 0.9, Estimat Glomerular Filtration Rate , Glucose Level 89, Calcium Level 9.0 Height (Feet): 5 Height (Inches): 5.00 Weight (Pounds): 147 Objective GENERAL: The patient is chronically appearing female. She is cachectic. NECK: Supple. HEART: Regular rate and rhythm. LUNGS: Clear. ABDOMEN: Soft. EXTREMITIES: Without clubbing or cyanosis. Tobi Garcia MD Feb 24, 2019 08:41
[2019-02-24] MEDS ORDERED: DiphenhydrAMINE 50mg/ml Inj IVP PRN (08:45)
[2019-02-24] MEDS ORDERED: Midazolam 2mg/2ml Inj IVP PRN (08:45)
[2019-02-24] MEDS ORDERED: oxyCODONE HCL/Acetaminophen 5/325mg ORAL PRN (08:45)
[2019-02-24] MEDS ORDERED: HYDROcodone/Acetamin 7.5/325 tab ORAL PRN (08:45)
[2019-02-24] MEDS ORDERED: Labetalol 5mg/ml 20ml vial IV PRN (08:45)
[2019-02-24] MEDS ORDERED: LORazepam Inj 2mg/ml 1ml IV PRN (08:45)
[2019-02-24] MEDS ORDERED: fentaNYL 100 mcg/2 mL IV PRN (08:45)
[2019-02-24] MEDS ORDERED: Meperidine 50mg/ml Inj(FOR RIGORS ONLY) IVP PRN (08:45)
[2019-02-24] MEDS ORDERED: HYDROcodone/Acetamin 5/325 tab ORAL PRN (08:45)
[2019-02-24] MEDS ORDERED: Atropine Sulfate 0.4mg/ml inj IVP PRN (08:45)
[2019-02-24] MEDS ORDERED: LR 1000ml 1,000 ML IVLG SCH (08:45)
[2019-02-24] MEDS ORDERED: Hydromorphone 0.5mg/0.5ml inj IVP PRN (08:45)
--- NOTE | 2019-02-24 08:57 | Anethesia Preoperative Eval ---
Anesthesia Pre-op PMH/ROS General Date of Evaluation: Feb 24, 2019 Time of Evaluation: 08:39 Anesthesiologist: Antoine ASA Score: ASA 4 Mallampati Score Class I : Soft palate, uvula, fauces, pillars visible Class II: Soft palate, uvula, fauces visible Class III: Soft palate, base of uvula visible Class IV: Only hard plate visible Mallampati Classification: Class III Surgeon: Everette Diagnosis: Malnutrition Surgical Procedure: PEG Anesthesia History: none Family History: no anesthesia problems Allergies: Coded Allergies: No Known Allergies (Unverified , 03/25/18) Medications: see eMAR Patient NPO?: Yes Past Medical History Cardiovascular: Reports: HTN Gastrointestinal/Genitourinary: Reports: GERD, CRI Neurologic/Psychiatric: Reports: dementia, other - Seizures, Schizophrenia Endocrine: Reports: DM Anesthesia Pre-op Phys. Exam Physician Exam Last Vital Signs Date Time Temp Pulse Resp B/P (MAP) Pulse Ox O2 Delivery O2 Flow Rate FiO2 02/24/19 04:00 97.3 91 18 120/75 (90) 94 02/23/19 21:00 Room Air Constitutional: NAD Neurologic: CN 2-12 intact Cardiovascular: RRR Respiratory: CTA Gastrointestinal: S/NT/ND Airway Exam Mallampati Score: Class III MO: limited ROM: limited Teeth: missing Anesthesia Pre-op A/P Labs Hematology Test 02/24/19 06:09 White Blood Count 8.7 K/UL (4.8-10.8) Red Blood Count 4.56 M/UL (4.20-5.40) Hemoglobin 13.1 G/DL (12.0-16.0) Hematocrit 42.3 % (37.0-47.0) Mean Corpuscular Volume 93 FL (80-99) Mean Corpuscular Hemoglobin 28.8 PG (27.0-31.0) Mean Corpuscular Hemoglobin Concent 31.0 G/DL (32.0-36.0) L Red Cell Distribution Width 14.5 % (11.6-14.8) Platelet Count 207 K/UL (150-450) Mean Platelet Volume 4.8 FL (6.5-10.1) L Neutrophils (%) (Auto) 38.1 % (45.0-75.0) L Lymphocytes (%) (Auto) 53.1 % (20.0-45.0) H Monocytes (%) (Auto) 5.5 % (1.0-10.0) Eosinophils (%) (Auto) 2.5 % (0.0-3.0) Basophils (%) (Auto) 0.8 % (0.0-2.0) Chemistry Test 02/24/19 06:09 Sodium Level 143 MMOL/L (136-145) Potassium Level 4.8 MMOL/L (3.5-5.1) Chloride Level 108 MMOL/L (98-107) H Carbon Dioxide Level 27 MMOL/L (21-32) Anion Gap 8 mmol/L (5-15) Blood Urea Nitrogen 11 mg/dL (7-18) Creatinine 0.9 MG/DL (0.55-1.30) Estimat Glomerular Filtration Rate mL/min (>60) Glucose Level 89 MG/DL (74-106) Calcium Level 9.0 MG/DL (8.5-10.1) Risk Assessment & Plan Assessment: ASA 4 Plan: GA Status Change Before Surgery: No Catracho Schultz MD Feb 24, 2019 08:57
--- NOTE | 2019-02-24 08:58 | Immediate Post-Op Evaluation ---
Immediate Post-Op Evalulation Immediate Post-Op Evalulation Procedure: PEG Date of Evaluation: Feb 24, 2019 Time of Evaluation: 09:27 IV Fluids: 50 LR Blood Products: 0 Estimated Blood Loss: 4 Urinary Output: 0 Blood Pressure Systolic: 86 Blood Pressure Diastolic: 57 Pulse Rate: 72 Respiratory Rate: 16 O2 Sat by Pulse Oximetry: 100 Temperature (Fahrenheit): 98.1 Pain Score (1-10): 1 Nausea: No Vomiting: No Complications 0 Patient Status: awake, reacts, patent, none Hydration Status: adequate Catracho Schultz MD Feb 24, 2019 08:58
--- NOTE | 2019-02-24 08:58 | 48 Hour Post Anesthesia Eval ---
Post Anesthesia Evaluation Procedure: PEG Date of Evaluation: Feb 24, 2019 Time of Evaluation: 11:34 Blood Pressure Systolic: 127 0: 56 Pulse Rate: 69 Respiratory Rate: 18 Temperature (Fahrenheit): 98.2 O2 Sat by Pulse Oximetry: 100 Airway: patent Nausea: No Vomiting: No Pain Intensity: 1 Hydration Status: adequate Cardiopulmonary Status: Stable Mental Status/LOC: patient returned to baseline Follow-up Care/Observations: 0 Post-Anesthesia Complications: 0 Follow-up care needed: N/A Catracho Schultz MD Feb 24, 2019 08:58
[2019-02-24] MEDS: Depakote 500mg tab ORAL SCH ×3 (09:00→21:25)
[2019-02-24] MEDS: Heparin 5000 units/ml inj SUBQ SCH ×2 (09:00→21:28)
[2019-02-24] MEDS ORDERED: Ketamine 500mg Inj ONE (09:19)
[2019-02-24] MEDS: Ascorbic Acid 500mg tab ORAL SCH (10:36)
[2019-02-24] MEDS: Benztropine 1mg tab ORAL SCH ×3 (10:37→18:19)
[2019-02-24] MEDS: Zinc Sulfate 220mg cap ORAL SCH (10:37)
--- NOTE | 2019-02-24 11:33 | Endoscopy Procedure Note ---
Endoscopy Procedure Note General Indication for Procedure: dysphagia Procedures Performed: PEG Operative Findings/Diagnosis: PEG placed Specimen: none Pt Tolerated Procedure Well: Yes Estimated Blood Loss: none Anesthesia Anesthesiologist: Jose J Anesthesia: MAC Medications Medication Given: see anesthesia record Inserted Devices Implant(s) used?: No GI Core Measures 50 yrs or older w/o bx or poly: Not Applicable 10yrs. F/U recommended: Not Applicable Lisa Gaviria MD Feb 24, 2019 11:33
--- NOTE | 2019-02-24 11:34 | Brief Operative Note ---
Immediate Post Operative Note Operative Note Chief Complaint: dysphagia Pre-op Diagnosis: malnutrition, dysphagia Post-op Diagnosis: PEG Surgeon: bettie Anesthesiologist: Antoine Anesthesia: MAC Specimen: none Complications: none Condition: stable Fluids: recorded Estimated Blood Loss: none Drains: none Implant(s) used?: No Lisa Gaviria MD Feb 24, 2019 11:34
--- NOTE | 2019-02-24 13:32 | NUR ---
CASE MANAGEMENT:REVIEW 02/24/19 SI: FTT. G-TUBE PLACEMENT DYSPHAGIA. DEHYDRATION. HYPOVOLEMIA PEG PLACED TODAY 97.8 81 17 112/94 100% ON RA BUN+19 IS: IVF@100/HR COGENTIN PO TID DEPAKOTE PO Q12 HEPARIN SQ Q12 : TO MED/SURG 4EAST DCP: RETURN TO [facility] PLAN: PEG PLACED TODAY ~ START FEEDINGS TOMORROW
--- NOTE | 2019-02-24 13:43 | Surgery Progress Note ---
Surgery Progress Note Subjective Additional Comments no acute events resting comfortable exam unchanged. Objective Last 24 Hour Vital Signs Date Time Temp Pulse Resp B/P (MAP) Pulse Ox O2 Delivery O2 Flow Rate FiO2 02/24/19 12:00 97.7 60 18 152/70 (97) 96 02/24/19 10:10 98.3 53 15 141/67 100 Nasal Cannula 3 02/24/19 10:00 57 18 154/69 100 Nasal Cannula 3 02/24/19 09:45 62 15 138/68 100 Nasal Cannula 3 02/24/19 09:35 66 20 117/65 100 Nasal Cannula 3 02/24/19 09:26 65 15 94/61 100 Nasal Cannula 3 02/24/19 09:21 68 16 99/62 100 Simple Mask 6 02/24/19 09:17 69 18 100 02/24/19 09:16 98.1 72 16 86/53 100 Simple Mask 6 02/24/19 09:16 72 16 100 02/24/19 09:00 Room Air 02/24/19 04:00 97.3 91 18 120/75 (90) 94 02/24/19 00:00 97.7 90 19 116/74 (88) 95 02/23/19 21:00 Room Air 02/23/19 20:00 97.8 97 19 93/59 (70) 96 02/23/19 16:00 97.6 81 19 122/69 (86) 93 I&O Intake and Output 02/23/19 02/24/19 19:00 07:00 Intake Total 480 ml Balance 480 ml Intake Oral 480 ml # Voids 2 Dressing: other Wound: other Cardiovascular: RSR Respiratory: clear Abdomen: soft, flat, non-tender, present bowel sounds Extremities: no cyanosis, other Laboratory Tests Test 02/24/19 06:09 White Blood Count 8.7 K/UL (4.8-10.8) Red Blood Count 4.56 M/UL (4.20-5.40) Hemoglobin 13.1 G/DL (12.0-16.0) Hematocrit 42.3 % (37.0-47.0) Mean Corpuscular Volume 93 FL (80-99) Mean Corpuscular Hemoglobin 28.8 PG (27.0-31.0) Mean Corpuscular Hemoglobin Concent 31.0 G/DL (32.0-36.0) L Red Cell Distribution Width 14.5 % (11.6-14.8) Platelet Count 207 K/UL (150-450) Mean Platelet Volume 4.8 FL (6.5-10.1) L Neutrophils (%) (Auto) 38.1 % (45.0-75.0) L Lymphocytes (%) (Auto) 53.1 % (20.0-45.0) H Monocytes (%) (Auto) 5.5 % (1.0-10.0) Eosinophils (%) (Auto) 2.5 % (0.0-3.0) Basophils (%) (Auto) 0.8 % (0.0-2.0) Sodium Level 143 MMOL/L (136-145) Potassium Level 4.8 MMOL/L (3.5-5.1) Chloride Level 108 MMOL/L (98-107) H Carbon Dioxide Level 27 MMOL/L (21-32) Anion Gap 8 mmol/L (5-15) Blood Urea Nitrogen 11 mg/dL (7-18) Creatinine 0.9 MG/DL (0.55-1.30) Estimat Glomerular Filtration Rate mL/min (>60) Glucose Level 89 MG/DL (74-106) Calcium Level 9.0 MG/DL (8.5-10.1) Plan Problems: (1) Encounter for gastrojejunal tube placement (2) Aspiration pneumonia (3) Schizoaffective disorder (4) General weakness (5) Encephalopathy allergic (6) Facial abscess (7) Hypertensive heart and chronic kidney disease (8) Failure to thrive in adult Assessment & Plan: DAILY ESTIMATED NEEDS: Needs based on Weight loss, wound/ 63kg 25-30 kcals/kg 3335-9791 total kcals 1.25-1.5 g protein/kg 78-94 g total protein 25-30 mL/kg 3863-2687 total fluid mLs NUTRITION DIAGNOSIS: 1) Swallowing difficulty R/T dysphagia as evidenced by pt on pureed w/ NTL diet 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 CURRENT DIET:LENNIE, pureed moist PO DIET RECOMMENDATIONS: IF INDICATED -> oral grat per FARM MANAGEMENT SUPERVISOR ENTERAL NUTRITION RECOMMENDATIONS: Jevity 1.2 @ 60ml/hr x 24 hrs to provide 1440ml, 1728kcal, 80g prot, 1162ml free water * W/ GI access, initiate Jevity 1.2 @ 20ml/hr x 6 hrs * Advance 10ml q 4-6 hrs as tolerated to goal rate. * HOB over 30 degrees/ water flush per MD ADDITIONAL RECOMMENDATIONS: * Calibrated bedscale wt for accurate CBW * WEEKLY WEIGHTS: pt w/ significant + progressive wt loss * Monitor lytes daily w/ TF, replete as needed -> high risk for refeeding syndrome * Wound healing: add MVI x 1, Vit C 250mg QD, Justen 1pkt BID * FARM MANAGEMENT SUPERVISOR eval for oral grat if indicated . (9) Diastolic CHF, chronic (10) Decubitus skin ulcer Assessment & Plan: Pt presented on admission with resolving pressure injury sacrum .Base of wound pink and dry with dark borders. (L)3.5cm x (W)1.5cm. Periwound without induration or erythema. Elongated and indurated area that is maroon in colour noted to R lower buttocks/R ischial area. (L)9cm x (W)1.5cm. Resolving pressure injury noted to L ischium .Base of wound is moist and pink. Dark brown borders without induration.(L)3cm x (W)1.5cm. Hyperpigmentation periwound. Partially opened blood blister R heel. Base of Wound is fluctuant and maroon with open area centrally that is viable .Small amt brown exudate noted.(L)1cm x (W) 1.5cm.Non-blanchable erythema noted periwound. L heel soft but blanchable. Tx.Plan: Swab R heel with Betadine Swab. Cover with Optifoam drsg Daily and PRN. Apply Triad Paste to Sacrum ,R and L ischial areas. Cover each area with Optifoam drsg.Change every 3 days and PRN. Reposition at least every 2hours or as tolerated. Off-load heels with Pillow. Yogi Vela Feb 24, 2019 13:43
--- NOTE | 2019-02-24 15:43 | NUR ---
INSURANCE REVIEW HAS BEEN FAXED TO: [facility] PLEASE FAX THE REVIEW AND CLINICAL TO [facility]: [phone] PH: [phone]
--- NOTE | 2019-02-24 19:08 | NUR ---
NURSE NOTES: Pt received awake, verbal but hard to understand, IV still in place, no signs of distress, with involuntary tremors, bed in lowest position, head of bed elevated, informed that Gtube was placed today and only used for medication administration and no tube feeding today, will continue to monitor.
--- NOTE | 2019-02-24 19:40 | NUR ---
HAND-OFF: Report given to JORDIN jay.
--- NOTE | 2019-02-24 23:00 | Progress Note ---
DATE: 02/24/2019 CARDIOLOGY PROGRESS NOTE SUBJECTIVE: The patient is status post uncomplicated endoscopy and PEG placement today. No complications noted during the procedure. OBJECTIVE: VITAL SIGNS: Blood pressure 108/73 to 152/70, heart rate 60 to 70, respiratory rate 18, afebrile. LUNGS: Clear. CARDIAC: Regular. Normal S1, S2. ABDOMEN: Slightly distended, but soft. G-tube intact. EXTREMITIES: No edema. LABORATORY DATA: Potassium 4.8, BUN 11, creatinine 0.9. Hemoglobin 13.1. IMPRESSION: Hemodynamically stable following G-tube placement. PLAN: 1. Continue hydration by IV route with taper once G-tube feedings are initiated. 2. Monitor blood pressure parameters and adjust therapy accordingly. Antony Connolly M.D. DR: GASTON JOB#: [id number] CC:
[2019-02-25] VITALS: BP 128/85
[2019-02-25] MEDS: D5NS 1,000 ML IV SCH ×2 (00:45→10:48)
--- NOTE | 2019-02-25 03:30 | Progress Note ---
DATE: 02/24/2019 SUBJECTIVE: The patient is the same. anxiety and agitation. Confused. Waxing and waning consciousness. Not able to be engaged during evaluation. MENTAL STATUS EXAMINATION: The patient is asleep, arousable. Mood is anxious. Affect is constricted, congruent with mood. Thought process is concrete. Thought content, no suicidal or homicidal ideations. ASSESSMENT: 1. Depression. 2. Encephalopathy. 3. Dementia. PLAN: We will continue current medications. Provide the patient with reality orientation and supportive therapy. Rocio Kearns M.D. DR: LIA JOB#: [id number] CC:
[2019-02-25 04:00] VITALS: BP 116/54
--- NOTE | 2019-02-25 06:16 | General Progress Note ---
Assessment/Plan Status: stable, not improved Assessment/Plan: Assessment - anorexia - pressure ulcers - Movement d/o - HTN Recommendations - IVF - wound care - will start GTF - MVI / Zn (10 days) / vitamin C - roll side-side Subjective ROS Limited/Unobtainable: No Allergies: Coded Allergies: No Known Allergies (Unverified , 03/25/18) Objective Last 24 Hour Vital Signs Date Time Temp Pulse Resp B/P (MAP) Pulse Ox O2 Delivery O2 Flow Rate FiO2 02/25/19 00:00 96.4 80 19 128/85 (99) 95 02/24/19 21:00 Room Air 02/24/19 20:00 98.5 84 19 133/94 (107) 95 02/24/19 16:00 97.7 71 18 108/73 (85) 98 02/24/19 12:00 97.7 60 18 152/70 (97) 96 02/24/19 10:10 98.3 53 15 141/67 100 Nasal Cannula 3 02/24/19 10:00 57 18 154/69 100 Nasal Cannula 3 02/24/19 09:45 62 15 138/68 100 Nasal Cannula 3 02/24/19 09:35 66 20 117/65 100 Nasal Cannula 3 02/24/19 09:26 65 15 94/61 100 Nasal Cannula 3 02/24/19 09:21 68 16 99/62 100 Simple Mask 6 02/24/19 09:17 69 18 100 02/24/19 09:16 98.1 72 16 86/53 100 Simple Mask 6 02/24/19 09:16 72 16 100 02/24/19 09:00 Room Air Intake and Output 02/24/19 02/25/19 19:00 07:00 Intake Total 950 ml 800 ml Balance 950 ml 800 ml IV Total 950 ml 800 ml # Voids 3 Height (Feet): 5 Height (Inches): 5.00 Weight (Pounds): 147 General Appearance: no apparent distress EENT: normal ENT inspection Neck: supple Cardiovascular: normal rate Respiratory/Chest: decreased breath sounds Abdomen: normal bowel sounds, non tender, soft Extremities: non-tender Semaj Emery MD Feb 25, 2019 06:16
--- NOTE | 2019-02-25 07:14 | NUR ---
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 2) Increased kcal and protein needs r/t weight loss and wound healing as evidenced by pt presents w/ progressive, significant wt loss of 22 pounds wt loss/13.8% in 7 mo, admitted w/ multiple wounds including resolving pressure injury @ sacrum and lt ischium, partially opened blood blister R heel. CURRENT DIET:NPO CURRENT TF:Just ordered -> Vital AF 1.2 @ 55ml/hr x 24hrs PO DIET RECOMMENDATIONS: IF INDICATED -> oral grat per SVP ENTERAL NUTRITION RECOMMENDATIONS: Jevity 1.2 @ 60ml/hr x 24 hrs to provide 1440ml, 1728kcal, 80g prot, 1162ml free water * Rec Jevity 1.2 -> elemental formula of Vital AF is not indicated * Initiate Jevity 1.2 @ 20ml/hr x 6 hrs * Advance 10ml q 4-6 hrs as tolerated to goal rate. * HOB over 30 degrees/ water flush per MD ADDITIONAL RECOMMENDATIONS: * Calibrated bedscale wt for accurate CBW * WEEKLY WEIGHTS: pt w/ significant + progressive wt loss * Monitor lytes daily, replete as needed -> high risk for refeeding syndrome * Wound healing: add Justen 1pkt BID, continue Vit C + ZnSO4 * SVP eval for oral grat if indicated .
--- NOTE | 2019-02-25 07:19 | NUR ---
HAND-OFF: Report given to JORDIN Rice. LOAG Vital AF 1.2 started 0715am
[2019-02-25 07:52] VITALS: BP 113/57
--- NOTE | 2019-02-25 08:14 | NUR ---
NURSE NOTES: Pt awake alert, no distress. no sob. bed in lowest position, locked. call light within reach. will monitor. hob elevated, gt patent and intact.
[2019-02-25] MEDS: Ascorbic Acid 500mg tab ORAL SCH (08:47)
[2019-02-25] MEDS: Benztropine 1mg tab ORAL SCH ×3 (08:47→17:39)
[2019-02-25] MEDS: Depakote 500mg tab ORAL SCH ×2 (08:47→20:38)
[2019-02-25] MEDS: Zinc Sulfate 220mg cap ORAL SCH (08:47)
[2019-02-25] MEDS: Heparin 5000 units/ml inj SUBQ SCH ×2 (08:48→20:42)
--- NOTE | 2019-02-25 11:05 | General Progress Note ---
Assessment/Plan Problem List: (1) Encounter for gastrojejunal tube placement ICD Codes: Z78.9 - Other specified health status SNOMED: 296299980 (2) Aspiration pneumonia ICD Codes: J69.0 - Pneumonitis due to inhalation of food and vomit SNOMED: 112215125 (3) Schizoaffective disorder ICD Codes: F25.9 - Schizoaffective disorder, unspecified SNOMED: 40322343 (4) Encephalopathy allergic ICD Codes: G93.49 - Other encephalopathy SNOMED: 08604920 (5) Hypertensive heart and chronic kidney disease ICD Codes: I13.10 - Hypertensive heart and chronic kidney disease without heart failure, with stage 1 through stage 4 chronic kidney disease, or unspecified chronic kidney disease SNOMED: 6310852730448 (6) Failure to thrive in adult ICD Codes: R62.7 - Adult failure to thrive SNOMED: 507730105 (7) Diastolic CHF, chronic ICD Codes: I50.32 - Chronic diastolic (congestive) heart failure SNOMED: 75641429, 244672965 Status: stable, not improved Assessment/Plan: ivf monitor bs npo gt placement by gi this am Subjective ROS Limited/Unobtainable: Yes Constitutional: Reports: malaise, weakness HEENT: Reports: no symptoms Cardiovascular: Reports: no symptoms Respiratory: Reports: no symptoms Gastrointestinal/Abdominal: Reports: difficulty swallowing Genitourinary: Reports: no symptoms Neurologic/Psychiatric: Reports: pre-existing deficit Endocrine: Reports: no symptoms Hematologic/Lymphatic: Reports: no symptoms Allergies: Coded Allergies: No Known Allergies (Unverified , 03/25/18) All Systems: reviewed and negative except above Subjective no events. w/o complaints. confused at baseline.s/p gt placement Objective Last 24 Hour Vital Signs Date Time Temp Pulse Resp B/P (MAP) Pulse Ox O2 Delivery O2 Flow Rate FiO2 02/25/19 07:52 98.2 86 18 113/57 (75) 95 02/25/19 04:00 98.2 86 21 116/54 (74) 95 02/25/19 00:00 96.4 80 19 128/85 (99) 95 02/24/19 21:00 Room Air 02/24/19 20:00 98.5 84 19 133/94 (107) 95 02/24/19 16:00 97.7 71 18 108/73 (85) 98 02/24/19 12:00 97.7 60 18 152/70 (97) 96 Intake and Output 02/24/19 02/25/19 18:59 06:59 Intake Total 950 ml 800 ml Balance 950 ml 800 ml IV Total 950 ml 800 ml # Voids 3 Height (Feet): 5 Height (Inches): 5.00 Weight (Pounds): 147 Objective GENERAL: The patient is chronically appearing female. She is cachectic. NECK: Supple. HEART: Regular rate and rhythm. LUNGS: Clear. ABDOMEN: Soft. EXTREMITIES: Without clubbing or cyanosis. Tobi Garcia MD Feb 25, 2019 11:05
[2019-02-25 12:00] VITALS: BP 120/57
[2019-02-25 16:00] VITALS: BP 130/60
--- NOTE | 2019-02-25 16:15 | Surgery Progress Note ---
Surgery Progress Note Subjective Additional Comments no acute events resting comfortable exam unchanged and stable. Objective Last 24 Hour Vital Signs Date Time Temp Pulse Resp B/P (MAP) Pulse Ox O2 Delivery O2 Flow Rate FiO2 02/25/19 12:00 98.2 84 18 120/57 (78) 95 02/25/19 09:00 Room Air 02/25/19 07:52 98.2 86 18 113/57 (75) 95 02/25/19 04:00 98.2 86 21 116/54 (74) 95 02/25/19 00:00 96.4 80 19 128/85 (99) 95 02/24/19 21:00 Room Air 02/24/19 20:00 98.5 84 19 133/94 (107) 95 I&O Intake and Output 02/24/19 02/25/19 18:59 06:59 Intake Total 950 ml 800 ml Balance 950 ml 800 ml IV Total 950 ml 800 ml # Voids 3 Dressing: other Wound: clean Cardiovascular: RSR Respiratory: clear Abdomen: soft, non-tender, present bowel sounds Extremities: no cyanosis Plan Problems: (1) Encounter for gastrojejunal tube placement (2) Aspiration pneumonia (3) Schizoaffective disorder (4) General weakness (5) Encephalopathy allergic (6) Facial abscess (7) Hypertensive heart and chronic kidney disease (8) Failure to thrive in adult Assessment & Plan: DAILY ESTIMATED NEEDS: Needs based on Weight loss, wound/ 63kg 25-30 kcals/kg 2236-1912 total kcals 1.25-1.5 g protein/kg 78-94 g total protein 25-30 mL/kg 8494-6831 total fluid mLs NUTRITION DIAGNOSIS: 1) Swallowing difficulty R/T dysphagia as evidenced by pt on pureed w/ NTL diet 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 CURRENT DIET:LENNIE, pureed moist PO DIET RECOMMENDATIONS: IF INDICATED -> oral grat per MAP CLERK ENTERAL NUTRITION RECOMMENDATIONS: Jevity 1.2 @ 60ml/hr x 24 hrs to provide 1440ml, 1728kcal, 80g prot, 1162ml free water * W/ GI access, initiate Jevity 1.2 @ 20ml/hr x 6 hrs * Advance 10ml q 4-6 hrs as tolerated to goal rate. * HOB over 30 degrees/ water flush per MD ADDITIONAL RECOMMENDATIONS: * Calibrated bedscale wt for accurate CBW * WEEKLY WEIGHTS: pt w/ significant + progressive wt loss * Monitor lytes daily w/ TF, replete as needed -> high risk for refeeding syndrome * Wound healing: add MVI x 1, Vit C 250mg QD, Justen 1pkt BID * MAP CLERK eval for oral grat if indicated . (9) Diastolic CHF, chronic (10) Decubitus skin ulcer Assessment & Plan: Pt presented on admission with resolving pressure injury sacrum .Base of wound pink and dry with dark borders. (L)3.5cm x (W)1.5cm. Periwound without induration or erythema. Elongated and indurated area that is maroon in colour noted to R lower buttocks/R ischial area. (L)9cm x (W)1.5cm. Resolving pressure injury noted to L ischium .Base of wound is moist and pink. Dark brown borders without induration.(L)3cm x (W)1.5cm. Hyperpigmentation periwound. Partially opened blood blister R heel. Base of Wound is fluctuant and maroon with open area centrally that is viable .Small amt brown exudate noted.(L)1cm x (W) 1.5cm.Non-blanchable erythema noted periwound. L heel soft but blanchable. Tx.Plan: Swab R heel with Betadine Swab. Cover with Optifoam drsg Daily and PRN. Apply Triad Paste to Sacrum ,R and L ischial areas. Cover each area with Optifoam drsg.Change every 3 days and PRN. Reposition at least every 2hours or as tolerated. Off-load heels with Pillow. Yogi Vela Feb 25, 2019 16:15
--- NOTE | 2019-02-25 16:33 | NUR ---
CASE MANAGEMENT: REVIEW SI: FAILURE TO THRIVE . ASPIRATION PNA . MALNUTRITION PEG 02/24 T 96.4 HR 80 RR 19 BP 116/54 SAT 95% ROOM AIR IS: D5 NS IVF @ 100ML/HR G-TUBE FEEDING VITAL 1.2 @ 55ML/HR MED/SURG STATUS DCP: PATIENT IS FROM [facility]
[2019-02-25] MEDS ORDERED: D5NS 1,000 ML IV SCH (16:43)
--- NOTE | 2019-02-25 19:00 | NUR ---
HAND-OFF: Report given to JORDIN HEATON.
--- NOTE | 2019-02-25 19:28 | NUR ---
NURSE NOTES: Pt received in bed asleep, rcvd report that IV isnt functioning and pt is combative when trying to reinsert, AM nurse left message for Dr. Connolly, waiting call back, feeding running, no signs of distress at the moment, will continue to monitor.
[2019-02-25 20:00] VITALS: BP 147/97
--- NOTE | 2019-02-25 20:30 | Progress Note ---
DATE: 02/25/2019 CARDIOLOGY PROGRESS NOTE SUBJECTIVE: Status post G-tube. No nausea, vomiting, or pain noted. Feeding will be initiated. OBJECTIVE: VITAL SIGNS: Stable. Blood pressure 128/85, pulse 80, respirations 19, afebrile. LUNGS: Clear. CARDIAC: Regular. ABDOMEN: Soft. IMPRESSION: Stable cardiovascular parameters following G-tube placement. PLAN: 1. Continue current medications. 2. Discontinue IV fluids once tube feedings are fully tolerated. Antony Connolly M.D. DR: KURT JOB#: [id number] CC:
[2019-02-26] VITALS: BP 129/77
[2019-02-26 04:00] VITALS: BP 132/69
--- NOTE | 2019-02-26 06:45 | Progress Note ---
DATE: 02/25/2019 SUBJECTIVE: The patient is same, doing better. Continues to be confused. Waxing and waning consciousness, not engaged during evaluation. MENTAL STATUS EXAMINATION: The patient is alert, disoriented. Mood is anxious. Affect is constricted, congruent with mood. Thought process is concrete. Thought content, no suicidal or homicidal ideation. ASSESSMENT: Encephalopathy and dementia. PLAN: We will continue current medication. Provide the patient with reality orientation and supportive therapy. Rocio Kearns M.D. DR: Susu JOB#: [id number] CC:
--- NOTE | 2019-02-26 07:36 | NUR ---
HAND-OFF: Report given to JORDIN Gentile.
--- NOTE | 2019-02-26 07:41 | NUR ---
NURSE NOTES: Pt A/o x 1, calm. no distress noted, no SOB. pts on cont GT feeding, no residual, tolerating well. Dressing on sacral, right heel/hip CDI. fall, aspiration and seizure precaution mainlined. bed alarm on , will continue to monitor. Addendum: 02/26/19 at 1121 by Krupa Morales RN pt has no IV site, aware. will continue to monitor.
[2019-02-26 08:00] VITALS: BP 97/64
[2019-02-26] MEDS: Zinc Sulfate 220mg cap ORAL SCH (09:16)
[2019-02-26] MEDS: Depakote 500mg tab ORAL SCH ×2 (09:17→20:57)
[2019-02-26] MEDS: Ascorbic Acid 500mg tab ORAL SCH (09:17)
[2019-02-26] MEDS: Benztropine 1mg tab ORAL SCH ×3 (09:17→17:16)
[2019-02-26] MEDS: Heparin 5000 units/ml inj SUBQ SCH ×2 (09:23→20:58)
--- NOTE | 2019-02-26 10:03 | General Progress Note ---
Assessment/Plan Status: stable, not improved Assessment/Plan: Assessment - anorexia - pressure ulcers - Movement d/o - HTN Recommendations - IVF - wound care - GTF - MVI / Zn (10 days) / vitamin C - roll side-side Subjective ROS Limited/Unobtainable: No Allergies: Coded Allergies: No Known Allergies (Unverified , 03/25/18) Objective Last 24 Hour Vital Signs Date Time Temp Pulse Resp B/P (MAP) Pulse Ox O2 Delivery O2 Flow Rate FiO2 02/26/19 08:00 97.8 53 20 97/64 (75) 94 02/26/19 04:00 97.8 90 20 132/69 (90) 98 02/26/19 00:00 96.8 97 20 129/77 (94) 97 02/25/19 21:00 Room Air 02/25/19 20:00 98.2 111 20 147/97 (114) 99 02/25/19 16:00 98.2 80 18 130/60 (83) 95 02/25/19 12:00 98.2 84 18 120/57 (78) 95 Intake and Output 02/25/19 02/26/19 19:00 07:00 Intake Total 760 ml 905 ml Balance 760 ml 905 ml Free Water 200 ml 300 ml Tube Feeding 560 ml 605 ml Height (Feet): 5 Height (Inches): 5.00 Weight (Pounds): 147 General Appearance: no apparent distress EENT: normal ENT inspection Neck: supple Cardiovascular: normal rate Respiratory/Chest: decreased breath sounds Abdomen: normal bowel sounds, non tender, soft Extremities: non-tender Semaj Emery MD Feb 26, 2019 10:03
[2019-02-26 12:00] VITALS: BP 99/62
--- NOTE | 2019-02-26 13:40 | General Progress Note ---
Assessment/Plan Problem List: (1) Encounter for gastrojejunal tube placement ICD Codes: Z78.9 - Other specified health status SNOMED: 012050683 (2) Aspiration pneumonia ICD Codes: J69.0 - Pneumonitis due to inhalation of food and vomit SNOMED: 605084609 (3) Schizoaffective disorder ICD Codes: F25.9 - Schizoaffective disorder, unspecified SNOMED: 25369811 (4) Encephalopathy allergic ICD Codes: G93.49 - Other encephalopathy SNOMED: 03918314 (5) Hypertensive heart and chronic kidney disease ICD Codes: I13.10 - Hypertensive heart and chronic kidney disease without heart failure, with stage 1 through stage 4 chronic kidney disease, or unspecified chronic kidney disease SNOMED: 6851028236355 (6) Failure to thrive in adult ICD Codes: R62.7 - Adult failure to thrive SNOMED: 467433759 (7) Diastolic CHF, chronic ICD Codes: I50.32 - Chronic diastolic (congestive) heart failure SNOMED: 07740700, 692279853 Status: stable, not improved Assessment/Plan: dc ivf monitor bs npo gt placement by gi this am Subjective ROS Limited/Unobtainable: No Constitutional: Reports: malaise, weakness HEENT: Reports: no symptoms Cardiovascular: Reports: no symptoms Respiratory: Reports: no symptoms Gastrointestinal/Abdominal: Reports: difficulty swallowing Genitourinary: Reports: no symptoms Neurologic/Psychiatric: Reports: no symptoms Endocrine: Reports: no symptoms Hematologic/Lymphatic: Reports: no symptoms Allergies: Coded Allergies: No Known Allergies (Unverified , 03/25/18) All Systems: reviewed and negative except above Subjective no events. w/o complaints. confused at baseline.s/p gt placement. tolerating feeds Objective Last 24 Hour Vital Signs Date Time Temp Pulse Resp B/P (MAP) Pulse Ox O2 Delivery O2 Flow Rate FiO2 02/26/19 12:00 98.9 61 20 99/62 (74) 94 02/26/19 09:00 Room Air 02/26/19 08:00 97.8 53 20 97/64 (75) 94 02/26/19 04:00 97.8 90 20 132/69 (90) 98 02/26/19 00:00 96.8 97 20 129/77 (94) 97 02/25/19 21:00 Room Air 02/25/19 20:00 98.2 111 20 147/97 (114) 99 02/25/19 16:00 98.2 80 18 130/60 (83) 95 Intake and Output 02/25/19 02/26/19 18:59 06:59 Intake Total 835 ml 960 ml Balance 835 ml 960 ml Free Water 300 ml 300 ml Tube Feeding 535 ml 660 ml Height (Feet): 5 Height (Inches): 5.00 Weight (Pounds): 147 Objective GENERAL: The patient is chronically appearing female. She is cachectic. NECK: Supple. HEART: Regular rate and rhythm. LUNGS: Clear. ABDOMEN: Soft. EXTREMITIES: Without clubbing or cyanosis. Tobi Garcia MD Feb 26, 2019 13:39
--- NOTE | 2019-02-26 14:27 | Surgery Progress Note ---
Surgery Progress Note Subjective Additional Comments no acute events. comfortable. stable. exam unchanged doing well with feeds. Objective Last 24 Hour Vital Signs Date Time Temp Pulse Resp B/P (MAP) Pulse Ox O2 Delivery O2 Flow Rate FiO2 02/26/19 12:00 98.9 61 20 99/62 (74) 94 02/26/19 09:00 Room Air 02/26/19 08:00 97.8 53 20 97/64 (75) 94 02/26/19 04:00 97.8 90 20 132/69 (90) 98 02/26/19 00:00 96.8 97 20 129/77 (94) 97 02/25/19 21:00 Room Air 02/25/19 20:00 98.2 111 20 147/97 (114) 99 02/25/19 16:00 98.2 80 18 130/60 (83) 95 I&O Intake and Output 02/25/19 02/26/19 18:59 06:59 Intake Total 835 ml 960 ml Balance 835 ml 960 ml Free Water 300 ml 300 ml Tube Feeding 535 ml 660 ml Dressing: other Wound: other Drains: other Cardiovascular: RSR Respiratory: decreased breath sounds Abdomen: soft, present bowel sounds, other, non-distended Extremities: no cyanosis Plan Problems: (1) Encounter for gastrojejunal tube placement (2) Aspiration pneumonia (3) Schizoaffective disorder (4) General weakness (5) Encephalopathy allergic (6) Facial abscess (7) Hypertensive heart and chronic kidney disease (8) Failure to thrive in adult Assessment & Plan: DAILY ESTIMATED NEEDS: Needs based on Weight loss, wound/ 63kg 25-30 kcals/kg 8856-6657 total kcals 1.25-1.5 g protein/kg 78-94 g total protein 25-30 mL/kg 0255-0422 total fluid mLs NUTRITION DIAGNOSIS: 1) Swallowing difficulty R/T dysphagia as evidenced by pt on pureed w/ 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 CURRENT DIET:LENNIE, pureed moist PO DIET RECOMMENDATIONS: IF INDICATED -> oral grat per RESEARCH RECRUITER ENTERAL NUTRITION RECOMMENDATIONS: Jevity 1.2 @ 60ml/hr x 24 hrs to provide 1440ml, 1728kcal, 80g prot, 1162ml free water * W/ GI access, initiate Jevity 1.2 @ 20ml/hr x 6 hrs * Advance 10ml q 4-6 hrs as tolerated to goal rate. * HOB over 30 degrees/ water flush per MD ADDITIONAL RECOMMENDATIONS: * Calibrated bedscale wt for accurate CBW * WEEKLY WEIGHTS: pt w/ significant + progressive wt loss * Monitor lytes daily w/ TF, replete as needed -> high risk for refeeding syndrome * Wound healing: add MVI x 1, Vit C 250mg QD, Justen 1pkt BID * RESEARCH RECRUITER eval for oral grat if indicated . (9) Diastolic CHF, chronic (10) Decubitus skin ulcer Assessment & Plan: Pt presented on admission with resolving pressure injury sacrum .Base of wound pink and dry with dark borders. (L)3.5cm x (W)1.5cm. Periwound without induration or erythema. Elongated and indurated area that is maroon in colour noted to R lower buttocks/R ischial area. (L)9cm x (W)1.5cm. Resolving pressure injury noted to L ischium .Base of wound is moist and pink. Dark brown borders without induration.(L)3cm x (W)1.5cm. Hyperpigmentation periwound. Partially opened blood blister R heel. Base of Wound is fluctuant and maroon with open area centrally that is viable .Small amt brown exudate noted.(L)1cm x (W) 1.5cm.Non-blanchable erythema noted periwound. L heel soft but blanchable. Tx.Plan: Swab R heel with Betadine Swab. Cover with Optifoam drsg Daily and PRN. Apply Triad Paste to Sacrum ,R and L ischial areas. Cover each area with Optifoam drsg.Change every 3 days and PRN. Reposition at least every 2hours or as tolerated. Off-load heels with Pillow. Yogi Vela Feb 26, 2019 14:27
[2019-02-26 16:00] VITALS: BP 101/67
--- NOTE | 2019-02-26 19:53 | NUR ---
NURSE NOTES: Received patient awake,confused,tolerating her g-tube feeding well.
[2019-02-26 20:00] VITALS: BP 148/94
[2019-02-27 00:25] VITALS: BP 150/98
[2019-02-27 04:00] VITALS: BP 141/80
--- NOTE | 2019-02-27 07:18 | NUR ---
HAND-OFF: Report given to Jaylene Vega RN.
[2019-02-27 08:00] VITALS: BP 129/76
--- NOTE | 2019-02-27 08:00 | NUR ---
NURSE NOTES: Patient opens eyes when name called respirations unlabored.G-tube feedings ongoing as ordered.Abdomen is soft..Patient tolerating G-tube feedings.HOB is elevated.Bed alarm is on,call light within reach.
--- NOTE | 2019-02-27 08:17 | NUR ---
CASE MANAGEMENT:REVIEW 02/26/19 SI:ASPIRATION PN. FTT POD #2...S/P PEG PLACEMENT 97.8 53 20 97/64 94% ON RA IS: VIT C GT QD ZINC SULFATE GT QD MVI GT QD HEPARIN SQ Q12 REMERON GT QHS DEPAKOTE GT Q12 COGENTIN GT TID : MED/SURG STATUS DCP:FROM [facility] 02/27/19 SI:ASPIRATION PN. FTT POD #3...S/P PEG PLACEMENT 96.9 92 20 141/80 95% ON RA IS: VIT C GT QD ZINC SULFATE GT QD MVI GT QD HEPARIN SQ Q12 REMERON GT QHS DEPAKOTE GT Q12 COGENTIN GT TID : MED/SURG STATUS DCP:FROM [facility]
--- NOTE | 2019-02-27 08:27 | NUR ---
DISCHARGE PLANNING CLINICALS FAXED TO [facility]ILL[facility] JANSEN T: [phone] F: [phone] AWAIT ACCEPTANCE AND OFFICIAL DISCHARGE ORDER
[2019-02-27] MEDS: Depakote 500mg tab ORAL SCH (09:00)
[2019-02-27] MEDS: Zinc Sulfate 220mg cap ORAL SCH (09:21)
[2019-02-27] MEDS: Ascorbic Acid 500mg tab ORAL SCH (09:21)
[2019-02-27] MEDS: Benztropine 1mg tab ORAL SCH (09:24)
[2019-02-27] MEDS: Heparin 5000 units/ml inj SUBQ SCH (09:30)
--- NOTE | 2019-02-27 10:53 | NUR ---
DISCHARGE PLAN PATIENT WILL DISCHARGE TO [facility] [address] [facility] T: [phone] FOR NURSE TO NURSE REPORT [facility] HAS BEEN ARRANGED FOR 1230 MAGISTRATE ASSISTANT SPOKE WITH DAUGHTER, JODY, WHO IS IN AGREEMENT WITH DISCHARGE PLAN
--- NOTE | 2019-02-27 11:21 | NUR ---
INSURANCE DENIAL FAX RECEIVED, RESENT ADDITIONAL INFORMATION REQUESTED [facility] [employer] FX: [phone] PH: [phone] PLEASE FAX THE REVIEW AND CLINICAL
--- NOTE | 2019-02-27 11:26 | NUR ---
NURSE NOTES: Notifying Dr regarding medication Depakote ,unable to crush medication per instructions,patient has G-tube .
[2019-02-27 12:00] VITALS: BP 109/88
--- NOTE | 2019-02-27 12:42 | NUR ---
NURSE NOTES: Report given to Michael BRENNER at [facility] Patient Daughter is aware of patient returning today
--- NOTE | 2019-02-27 13:20 | NUR ---
NURSE NOTES: Discharge to [facility] ,[facility] personnel will transport patient.G-tube flushed for patency.Pictures taken of sacral area.Patient has no iv.ID hospital band removed. Patient was incontinent of urine,skin care was given.
--- NOTE | 2019-02-27 14:26 | Surgery Progress Note ---
Surgery Progress Note Subjective Additional Comments no acute events. resting comfortable exam unchanged overall stable. Objective Last 24 Hour Vital Signs Date Time Temp Pulse Resp B/P (MAP) Pulse Ox O2 Delivery O2 Flow Rate FiO2 02/27/19 12:00 98.8 93 19 109/88 (95) 96 02/27/19 09:00 Room Air 02/27/19 08:00 97.4 102 21 129/76 (93) 96 02/27/19 04:00 96.9 92 20 141/80 (100) 95 02/27/19 00:25 96.9 119 19 150/98 (115) 99 02/26/19 20:11 Room Air 02/26/19 20:00 98.5 115 18 148/94 (112) 98 02/26/19 16:00 97.5 56 20 101/67 (78) 96 I&O Intake and Output 02/26/19 02/27/19 19:00 07:00 Intake Total 770 ml 960 ml Balance 770 ml 960 ml Free Water 300 ml Tube Feeding 110 ml 660 ml Other 660 ml Cardiovascular: RSR Respiratory: clear, decreased breath sounds Abdomen: soft, present bowel sounds, other, non-distended Extremities: no tenderness, no cyanosis Plan Problems: (1) Encounter for gastrojejunal tube placement (2) Aspiration pneumonia (3) Schizoaffective disorder (4) General weakness (5) Encephalopathy allergic (6) Facial abscess (7) Hypertensive heart and chronic kidney disease (8) Failure to thrive in adult Assessment & Plan: DAILY ESTIMATED NEEDS: Needs based on Weight loss, wound/ 63kg 25-30 kcals/kg 7767-8529 total kcals 1.25-1.5 g protein/kg 78-94 g total protein 25-30 mL/kg 5697-9248 total fluid mLs NUTRITION DIAGNOSIS: 1) Swallowing difficulty R/T dysphagia as evidenced by pt on 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 CURRENT DIET:LENNIE, pureed moist PO DIET RECOMMENDATIONS: IF INDICATED -> oral grat per COMMUNICATION INSTRUCTOR ENTERAL NUTRITION RECOMMENDATIONS: Jevity 1.2 @ 60ml/hr x 24 hrs to provide 1440ml, 1728kcal, 80g prot, 1162ml free water * W/ GI access, initiate Jevity 1.2 @ 20ml/hr x 6 hrs * Advance 10ml q 4-6 hrs as tolerated to goal rate. * HOB over 30 degrees/ water flush per MD ADDITIONAL RECOMMENDATIONS: * Calibrated bedscale wt for accurate CBW * WEEKLY WEIGHTS: pt w/ significant + progressive wt loss * Monitor lytes daily w/ TF, replete as needed -> high risk for refeeding syndrome * Wound healing: add MVI x 1, Vit C 250mg QD, Justen 1pkt BID * COMMUNICATION INSTRUCTOR eval for oral grat if indicated . (9) Diastolic CHF, chronic (10) Decubitus skin ulcer Assessment & Plan: Pt presented on admission with resolving pressure injury sacrum .Base of wound pink and dry with dark borders. (L)3.5cm x (W)1.5cm. Periwound without induration or erythema. Elongated and indurated area that is maroon in colour noted to R lower buttocks/R ischial area. (L)9cm x (W)1.5cm. Resolving pressure injury noted to L ischium .Base of wound is moist and pink. Dark brown borders without induration.(L)3cm x (W)1.5cm. Hyperpigmentation periwound. Partially opened blood blister R heel. Base of Wound is fluctuant and maroon with open area centrally that is viable .Small amt brown exudate noted.(L)1cm x (W) 1.5cm.Non-blanchable erythema noted periwound. L heel soft but blanchable. Tx.Plan: Swab R heel with Betadine Swab. Cover with Optifoam drsg Daily and PRN. Apply Triad Paste to Sacrum ,R and L ischial areas. Cover each area with Optifoam drsg.Change every 3 days and PRN. Reposition at least every 2hours or as tolerated. Off-load heels with Pillow. Yogi Vela Feb 27, 2019 14:26
--- NOTE | 2019-02-27 21:56 | General Progress Note ---
Assessment/Plan Status: stable, not improved Assessment/Plan: Assessment - anorexia, s/p PEG - pressure ulcers - Movement d/o - HTN Recommendations - IVF - wound care - TF - MVI / Zn (10 days) / vitamin C - roll side-side Subjective Allergies: Coded Allergies: No Known Allergies (Unverified , 03/25/18) Subjective moving UE without control tolerating TF Objective Last 24 Hour Vital Signs Date Time Temp Pulse Resp B/P (MAP) Pulse Ox O2 Delivery O2 Flow Rate FiO2 02/27/19 12:00 98.8 93 19 109/88 (95) 96 02/27/19 09:00 Room Air 02/27/19 08:00 97.4 102 21 129/76 (93) 96 02/27/19 04:00 96.9 92 20 141/80 (100) 95 02/27/19 00:25 96.9 119 19 150/98 (115) 99 Intake and Output 02/26/19 02/27/19 18:59 06:59 Intake Total 715 ml 960 ml Balance 715 ml 960 ml Free Water 300 ml Tube Feeding 55 ml 660 ml Other 660 ml Height (Feet): 5 Height (Inches): 5.00 Weight (Pounds): 147 Objective Thin AA woman NCAT supple CTA RRR Abd Soft NT ND, (+) PEG no edema neuro - movement d/o Lisa Gaviria MD Feb 27, 2019 21:56
--- NOTE | 2019-02-28 | Progress Note ---
DATE: 02/27/2019 SUBJECTIVE: The patient's mental condition is unchanged since previous encounter, confused and has episodes of anxiety, disoriented. MENTAL STATUS EXAMINATION: The patient is asleep, arousable, easily agitated. Affect is blunted. Congruent with mood. Thought process is concrete. Thought content, no suicidal or homicidal ideation. ASSESSMENT: Stable. PLAN: 1. The patient will be continued on current medication. 2. The patient lacks capacity to make decision. Rocio Kearns M.D. DR: BIPIN JOB#: [id number] CC:
--- NOTE | 2019-02-28 01:30 | Discharge Summary ---
DATE OF ADMISSION: 02/21/2019 DATE OF DISCHARGE: 02/26/2019 ADMITTING DIAGNOSES: 1. Dysphagia. 2. Failure to thrive. 3. Dehydration. 4. Severe protein malnutrition. 5. Toxic metabolic encephalopathy. 6. Diastolic congestive heart failure. DISCHARGE DIAGNOSES: 1. Dysphagia. 2. Failure to thrive. 3. Dehydration. 4. Severe protein malnutrition. 5. Toxic metabolic encephalopathy. 6. Diastolic congestive heart failure. HOSPITAL COURSE: The patient was admitted with complaints of difficulty swallowing and continued weight loss. She failed a swallow evaluation. After discussion with family members, they wanted to proceed with G-tube placement. She underwent G-tube placement without complication and was tolerating feeds. She will be discharged back to longterm facility. DISCHARGE MEDICATIONS: Please see discharge medication list for discharge medications. DIET: G-tube feedings. ACTIVITIES: Ad-bridgette. FOLLOWUP: The patient will follow up in 1 to 2 days at the longterm facility. Tobi Garcai M.D. DR: TIFFANY JOB#: [id number] CC:
== END 2019-02-27 13:20 | DRG 254 ==
LOC: EDUNIT# 11:36 → EDBD 11:36 → EMR 12:30 → 4E 12:58 → EDBEDREQ 13:56 → 4E 21:43
PROC: 0DH68UZ Insertion of Feeding Device into Stomach, Via Natural or Artificial Opening Endoscopic (ICD-10-PCS; principal; 2019-02-21)
DX: R13.10 Dysphagia, unspecified (principal); E43 Unspecified severe protein-calorie malnutrition; G92 Toxic encephalopathy; L89.159 Pressure ulcer of sacral region, unspecified stage; L89.329 Pressure ulcer of left buttock, unspecified stage; L89.319 Pressure ulcer of right buttock, unspecified stage; E86.0 Dehydration; I11.0 Hypertensive heart disease with heart failure; I50.32 Chronic diastolic (congestive) heart failure; F25.9 Schizoaffective disorder, unspecified; F03.90 Unspecified dementia, unspecified severity, without behavioral disturbance, psychotic disturbance, mood disturbance, and anxiety; R62.7 Adult failure to thrive; Z68.21 Body mass index [BMI] 21.0-21.9, adult; G25.89 Other specified extrapyramidal and movement disorders; F31.9 Bipolar disorder, unspecified; G24.01 Drug induced subacute dyskinesia
CPT/HCPCS: 36415; 80048; 80053; 83880; 85025; 85610; 85730; 87081; 94003; 94150; 99285

== ENCOUNTER 2019-10-16 16:58 | Inpatient (IN) | payer MEDICAID, MEDICARE ==
[~2019-10-16] VITALS: Ht 167.6 cm; Wt 73.5 kg
[~2019-10-16 16:58] MED LIST changes: +ACETAMINOPHEN325 M1 GT; -ACETAMINOPHEN325 M1 ORAL; +BENZTROPINE ME0.5 MG GT; -BENZTROPINE ME0.5 MG PO; +CALCIUM CARBON500 M1 GT; -CALCIUM CARBON500 M1 PO; +DEPAKOTE500 MG GT; -DEPAKOTE500 MG PO; +DOCUSATE S50 MG/5 ML GT; +LOTENSIN20 MG GT; +MILK OF MA400 MG/51 GT; -MILK OF MA400 MG/51 ORAL; +MULTIVITAMINS1 EAC8 GT; -MULTIVITAMINS1 EAC8 ORAL; +NUTRISOURCE FI1 EACH GT; -NUTRISOURCE FI1 EACH PO; +PHOS-NAK PACKE1 EAC1 GT; -PHOS-NAK PACKE1 EAC1 PO; +PRO-STAT LIQUID30 ML GT; -PRO-STAT LIQUID30 ML ORAL
[2019-10-16 17:32] VITALS: BP 91/76
--- NOTE | 2019-10-16 17:34 | NUR ---
ED Nurse Note: Patient was BIB [facility] from [facility] due to cough, congestion since this afternoon. Patient in hospital gown, placed on continuous ekg monitor tech showing ST with HR of 124, patient is saturating 100% on room air, crackles noted.
--- NOTE | 2019-10-16 17:55 | NUR ---
ED Nurse Note: RT paged for deep suction
--- NOTE | 2019-10-16 18:15 | NUR ---
ED Nurse Note: Urine collected via straight catheter per ERMD order. Sent down to lab.
--- NOTE | 2019-10-16 18:28 | NUR ---
ED Nurse Note: IV access established. Blood collected and sent down to lab.
--- NOTE | 2019-10-16 18:30 | NUR ---
ED Nurse Note: GT noted and wound on sacral. Pictures taken per protocol.
--- NOTE | 2019-10-16 18:30 | NUR ---
ED Nurse Note: xray at bedside
--- NOTE | 2019-10-16 18:35 | NUR ---
ED Nurse Note: MRSA/VRE/CRE screen collected, sent down to lab.
[2019-10-16 18:40] LABS: BASOPHILS % (AUTO) 2.8 % (0.0-2.0); EOSINOPHILS % (AUTO) 0.6 % (0.0-3.0); HEMATOCRIT 45.2 % (37.0-47.0); HEMOGLOBIN 14.3 G/DL (12.0-16.0); LYMPHOCYTES % (AUTO) 23.3 % (20.0-45.0); MEAN CORPUSCULAR VOLUME 95 FL (80-99); MONOCYTES % (AUTO) 8.2 % (1.0-10.0); NEUTROPHILS % (AUTO) 65.2 % (45.0-75.0); PLATELET COUNT 368 K/UL (150-450); RED BLOOD COUNT 4.75 M/UL (4.20-5.40); RED CELL DISTRIBUTION WIDTH 14.1 % (11.6-14.8)
[2019-10-16 18:42] LABS: APPEARANCE,URINE CLEAR; BILIRUBIN, URINE NEGATIVE (NEGATIVE); GLUCOSE, URINE (UA) NEGATIVE (NEGATIVE); KETONES,URINE NEGATIVE (NEGATIVE); LEUKOCYTE ESTERASE ,URINE 1+ (NEGATIVE); NITRITE,URINE NEGATIVE (NEGATIVE); PH,URINE 8 (4.5-8.0); PROTEIN,URINE 1+ (NEGATIVE); UROBILINOGEN,URINE 1 MG/DL (0.0-1.0)
[2019-10-16 18:50] LABS: ANION GAP 11 mmol/L (5-15); BLOOD UREA NITROGEN 30 mg/dL (7-18); CALCIUM 9.6 MG/DL (8.5-10.1); CARBON DIOXIDE 25 MMOL/L (21-32); CHLORIDE 99 MMOL/L (98-107); CREATININE 0.8 MG/DL (0.55-1.30); POTASSIUM 5.5 MMOL/L (3.5-5.1); SODIUM 135 MMOL/L (136-145)
--- NOTE | 2019-10-16 18:52 | NUR ---
ED Nurse Note: RT paged for deep suction.
[2019-10-16 18:56] LABS: COLOR,URINE YELLOW
--- NOTE | 2019-10-16 18:56 | NUR ---
ED Nurse Note: Influenza swab collected, sent down to lab.
[2019-10-16 19:01] LABS: ALANINE AMINOTRANSFERASE 26 U/L (12-78); ALBUMIN 2.1 G/DL (3.4-5.0); ALBUMIN/GLOBULIN RATIO 0.4 (1.0-2.7); ALKALINE PHOSPHATASE 77 U/L (46-116); ASPARTATE AMINO TRANSFERASE 25 U/L (15-37); BILIRUBIN,TOTAL 0.3 MG/DL (0.2-1.0)
--- NOTE | 2019-10-16 19:05 | NUR ---
ED Nurse Note: Pt resting in bed, RT and RN at bedside for deep suctioning. Pt tolerated well, spo2 97% on RA.
--- NOTE | 2019-10-16 19:05 | NUR ---
HAND-OFF: Report given to JORDIN Peña.
[2019-10-16] MEDS ORDERED: PROTONIX40 M2 GT (19:18)
[2019-10-16 19:20] VITALS: BP 117/59
[2019-10-16] MEDS ORDERED: Sodium Chloride 2,200 ML IVLG ONE (19:30)
--- NOTE | 2019-10-16 20:00 | Emergency Room Report ---
History of Present Illness General Chief Complaint: Upper Respiratory Illness Source: Medical Record, EMS Present Illness HPI 84-year-old female presents ED with congestion and tachycardia. X1 day. From nursing home facility. Patient has Parkinson's. Nonverbal at baseline. No signs of distress on arrival. Appears congested. No fevers or chills. No reported distress on arrival. Unable to provide any additional history at this time. No other aggravating relieving factors. Denies any other associated symptoms Allergies: Coded Allergies: No Known Allergies (Unverified , 03/25/18) Patient History Past Medical History: DM, HTN, seizures, other - parkinsons Pertinent Family History: none Social History: Denies: smoking, alcohol use, drug use Now: No Immunizations: UTD Reviewed Nursing Documentation: PMH: Agreed; PSxH: Agreed Nursing Documentation-PMH Hx Cardiac Problems: Yes - heart failure Hx Hypertension: Yes Hx Diabetes: Yes Hx Cancer: No Hx Gastrointestinal Problems: Yes Hx Neurological Problems: Yes - parkinsons Hx Cerebrovascular Accident: Yes Hx Parkinson's Disease: Yes Hx Seizures: Yes Hx Speech Problem: Yes Hx Aphasia: Yes Hx Weakness: Yes Review of Systems All Other Systems: limited Physical Exam Vital Signs Date Time Temp Pulse Resp B/P (MAP) Pulse Ox O2 Delivery O2 Flow Rate FiO2 10/16/19 17:08 98.8 108 20 159/68 (98) 95 Room Air Sp02 EP Interpretation: reviewed, normal General Appearance: no apparent distress, GCS 15, non-toxic, other - nonverbal Head: normocephalic ENT: normal ENT inspection Neck: normal inspection Respiratory: crackles, rales, rhonchi Cardiovascular #1: no edema, tachycardia Gastrointestinal: normal bowel sounds, non tender, soft, non-distended, no guarding, no rebound Rectal: deferred Genitourinary: no CVA tenderness Musculoskeletal: back normal, non-tender Neurologic: other - parkinsons, nonverbal Psychiatric: other - parkinsons, nonverbal Skin: other - See nursing skin notes Lymphatic: normal inspection Medical Decision Making Diagnostic Impression: Primary Impression: Flu-like symptoms Additional Impression: Schizoaffective disorder Qualified Codes: F25.9 - Schizoaffective disorder, unspecified ER Course Hospital Course 84-year-old F presenting to ED with congestion, crackles, tachycardia Differential diagnoses include: Pneumonia, CHF exacerbation, pneumothorax, fluid overload Clinical course Patient placed on stretcher. On digital media director tachycardia. After initial history and physical, I ordered labs, IV fluids, EKG, chest x-ray, blood cultures, UA. Labs - minimal leukocytosis, hb/hct stable, lactic 3.4, trop 0.022 EKG - sinus tachycardia no acute ischemic changes inteprreted by pa CXR - no focal consolidation Patient provided deep suctioning by respiratory. IV fluids given. Given 30 cc/ kg fluid bolus. Given antibiotics. Tachycardia resolving. Case discussed with Dr. Connolly/Jose and he agreed to the patient to his service for further care and support I feel this is a highly complex case requiring extensive working including EKG/ Rhythm strip, Xray/CT/US, Blood/urine lab work, repeat exams while in ED, and administration of strong opiates/narcotics for pain control, admission to hospital or close patient follow up. Diagnosis - flu like symptoms, schizoaffective disorder Patient admitted to telemetry in serious condition Labs Test 10/16/19 18:15 White Blood Count 12.0 K/UL (4.8-10.8) Red Blood Count 4.75 M/UL (4.20-5.40) Hemoglobin 14.3 G/DL (12.0-16.0) Hematocrit 45.2 % (37.0-47.0) Mean Corpuscular Volume 95 FL (80-99) Mean Corpuscular Hemoglobin 30.0 PG (27.0-31.0) Mean Corpuscular Hemoglobin Concent 31.5 G/DL (32.0-36.0) Red Cell Distribution Width 14.1 % (11.6-14.8) Platelet Count 368 K/UL (150-450) Mean Platelet Volume 6.1 FL (6.5-10.1) Neutrophils (%) (Auto) 65.2 % (45.0-75.0) Lymphocytes (%) (Auto) 23.3 % (20.0-45.0) Monocytes (%) (Auto) 8.2 % (1.0-10.0) Eosinophils (%) (Auto) 0.6 % (0.0-3.0) Basophils (%) (Auto) 2.8 % (0.0-2.0) Urine Color Yellow Urine Appearance Clear Urine pH 8 (4.5-8.0) Urine Specific [place] 1.010 (1.005-1.035) Urine Protein 1+ (NEGATIVE) Urine Glucose (UA) Negative (NEGATIVE) Urine Ketones Negative (NEGATIVE) Urine Blood Negative (NEGATIVE) Urine Nitrite Negative (NEGATIVE) Urine Bilirubin Negative (NEGATIVE) Urine Urobilinogen 1 MG/DL (0.0-1.0) Urine Leukocyte Esterase 1+ (NEGATIVE) Urine RBC 0-2 /HPF (0 - 2) Urine WBC 2-4 /HPF (0 - 2) Urine Squamous Epithelial Cells Few /LPF (NONE/OCC) Urine Bacteria Few /HPF (NONE) Sodium Level 135 MMOL/L (136-145) Potassium Level 5.5 MMOL/L (3.5-5.1) Chloride Level 99 MMOL/L (98-107) Carbon Dioxide Level 25 MMOL/L (21-32) Anion Gap 11 mmol/L (5-15) Blood Urea Nitrogen 30 mg/dL (7-18) Creatinine 0.8 MG/DL (0.55-1.30) Estimat Glomerular Filtration Rate > 60 mL/min (>60) Glucose Level 125 MG/DL (74-106) Lactic Acid Level 3.40 mmol/L (0.4-2.0) Calcium Level 9.6 MG/DL (8.5-10.1) Total Bilirubin 0.3 MG/DL (0.2-1.0) Aspartate Amino Transf (AST/SGOT) 25 U/L (15-37) Alanine Aminotransferase (ALT/SGPT) 26 U/L (12-78) Alkaline Phosphatase 77 U/L (46-116) Troponin I 0.022 ng/mL (0.000-0.056) Pro-B-Type Natriuretic Peptide 245 pg/mL (0-125) Total Protein 7.3 G/DL (6.4-8.2) Albumin 2.1 G/DL (3.4-5.0) Globulin 5.2 g/dL Albumin/Globulin Ratio 0.4 (1.0-2.7) EKG Diagnostic Results Rate: tachycardiac ST Segments: no acute changes ASA given to the pt in ED: No Rhythm Strip Diag. Results EP Interpretation: yes Rhythm: NSR, no PVC's, no ectopy Chest X-Ray Diagnostic Results Chest X-Ray Diagnostic Results : Chest X-Ray Ordered: Yes # of Views/Limited/Complete: 1 View Indication: Shortness of Breath EP Interpretation: Yes Interpretation: no consolidation, no effusion, no pneumothorax, no acute cardiopulmonary disease Impression: No acute disease Electronically Signed by: Electronically signed by Obed Beasley MD Last Vital Signs Date Time Temp Pulse Resp B/P (MAP) Pulse Ox O2 Delivery O2 Flow Rate FiO2 10/16/19 17:34 124 20 Room Air 10/16/19 17:32 98.8 91/76 100 Status: improved Disposition: ADMITTED INPATIENT Condition: Serious Referrals: Antony Connolly MD (PCP) Obed Beasley MD Oct 16, 2019 20:00
[2019-10-16 21:30] VITALS: BP 118/59
--- NOTE | 2019-10-16 22:30 | NUR ---
ED Nurse Note: RT called for deep suctioning
--- NOTE | 2019-10-16 22:30 | Consultation ---
DATE OF CONSULTATION: 10/16/2019 CARDIOLOGY CONSULTATION CONSULTING PHYSICIAN: Antony Connolly M.D. REQUESTING PHYSICIAN: Tobi Garcia M.D. REASON FOR CONSULTATION: Tachycardia and lactic acidosis. HISTORY OF PRESENT ILLNESS: This is a 84-year-old female with dementia who has been increasingly congested and tachycardic today. Her heart rate was noted to be above 130 at the senior care facility. The patient is not able to give any significant medical history or raise complaints. Based on clinical findings, she was referred to the emergency room. There she was noted to have a rapid heart rate and abnormal respiratory findings as well as an elevated lactic acid level and abnormal electrocardiogram prompting this consultation. PAST MEDICAL HISTORY: Includes cerebrovascular disease, dementia, parkinsonism, schizoaffective disorder, type 2 diabetes mellitus, hypertensive heart disease, diastolic dysfunction, dysphagia, seizure disorder. FAMILY HISTORY: Noncontributory. SOCIAL HISTORY: Possible history of prior alcohol abuse. No history of smoking or substance abuse. MEDICATIONS: Prior to admission, reviewed and reconciled. ALLERGIES: None known. REVIEW OF SYSTEMS: Not obtainable. Pertinent data from record reviewed x20 minutes as outlined above. PHYSICAL EXAMINATION: GENERAL: She is alert but confused, no acute distress. VITAL SIGNS: Blood pressure 159/68, pulse 108, respiratory rate 20, afebrile, oxygen saturation 95%. HEENT: Normocephalic atraumatic. Conjunctivae pink. Oropharynx clear. Mucous membranes moist. No thrush. NECK: Supple with slightly elevated jugular venous pressure and some accessory muscle use. LUNGS: Bilateral rales and rhonchi. No wheezing. CARDIAC: Regular rhythm. Rapid rate. Normal S1 and S2 with no murmur. ABDOMEN: Soft, nontender, mildly obese. EXTREMITIES: No clubbing, no cyanosis. No calf tenderness. Trace dependent edema. LABORATORY AND DIAGNOSTIC DATA: EKG sinus tachycardia with no acute abnormalities. Chest x-ray with no acute process. Urinalysis with no active sediment. Lactic acid 3.4. Glucose 125, BUN 30, creatinine 0.8, bicarb 25, sodium 135, potassium 5.5. Troponin 0.022. Natriuretic peptide 245. Albumin 2.1. White count 12, hemoglobin 14.3. IMPRESSION: 1. Possible aspiration with early pneumonia. 2. Acute respiratory insufficiency. 3. Secondary sinus tachycardia. 4. Chronic diastolic congestive heart failure. 5. Hypertensive heart disease. 6. Type 2 diabetes mellitus with hyperglycemia. 7. Lactic acidosis. 8. Severe protein-calorie malnutrition. 9. Dysphagia . 10. Schizoaffective disorder with parkinsonism. 11. Hyperkalemia. 12. Dehydration with hypovolemia. PLAN: 1. Cardiac monitoring. 2. Saline hydration. 3. No need for Kayexalate. 4. Panculture. 5. Bronchodilators . 6. Respiratory hygiene. 7. Aspiration precautions. 8. Swallow evaluation. 9. No antiarrhythmics. 10. Maintenance dose beta-robert. 11. DVT prophylaxis. Antony Connolly M.D. DR: Purnima JOB#: [id number] CC: ZECHARIAH
[2019-10-16] MEDS ORDERED: Piperacillin/Tazobactam 3.375 GM in NS 110 ML IVPB SCH (23:00)
--- NOTE | 2019-10-16 23:05 | NUR ---
ED Nurse Note: RT at bedside for deep suction Addendum: 10/17/19 at 0126 by CARLOS ALBERTO ED Nurse Note: RT at bedside for deep suction; during suctioning, blood was found d/t pt thrashing during suctioning
[2019-10-16 23:15] VITALS: BP 112/78
[2019-10-16] MEDS: D5NS 1,000 ML IV SCH (23:27)
--- NOTE | 2019-10-17 | NUR ---
ED Nurse Note: all medications administered; pt tolerated well. no s/s of distress noted.
[2019-10-17 00:52] VITALS: BP 113/81
--- NOTE | 2019-10-17 01:01 | NUR ---
ED Nurse Note: Report given to JORDIN Pacheco
[2019-10-17 01:55] VITALS: BP 112/79
--- NOTE | 2019-10-17 02:00 | NUR ---
ER DISCHARGE NOTE: Patient is cleared to be discharged to Telemetry unit per ERMD, pt is aox0, on room air, with stable vital signs. Report was given to JORDIN doyle. pt was given dc and prescription instructions. pt took all belongings. Pt taken upstairs by two RNs.
--- NOTE | 2019-10-17 02:20 | NUR ---
NURSE NOTES: Pt arrived from ER and was admitted by MD Cathleen. Pt in stable condition, SR, VS WNL. Pt is alert and oriented to name only. Will start plan of care and close monitoring.
[2019-10-17] MEDS ORDERED: Vancomycin 1.25gm/NS Premix IVPB ONE ×3 (03:00→08:00)
[2019-10-17] MEDS: D5NS 1,000 ML IV SCH (03:34)
[2019-10-17] MEDS ORDERED: Vancomycin 1.25gm vial IVPB ONE (03:41)
[2019-10-17] MEDS ORDERED: Acetaminophen 650mg/20.3ml GT PRN (06:15)
--- NOTE | 2019-10-17 06:30 | History and Physical Report ---
DATE OF ADMISSION: 10/16/2019 CHIEF COMPLAINT: SVT, congestion, lactic acidosis. HISTORY OF PRESENT ILLNESS: The patient is an 84-year-old female well known to me. She has a history of dementia, schizophrenia and schizoaffective disorder, hypertension. She has a prior history of an ankle fracture status post ORIF. She was transferred from a long-term shortness of breath, congestion, and low-grade fever. I saw the patient actually the day prior to admission at the long-term facility. At that time, she was stable. On evaluation in the emergency room, the patient was noted to be in SVT at a rate of 130. She is nonverbal at baseline and is unable provide any additional history. Laboratories were significant for white count of 12,000, sodium 135, potassium 5.5, and lactic acid level of 3.4. Per report chest x-ray was clear. In light of the SVT and congestion, she is now admitted for further evaluation and care. PAST MEDICAL HISTORY: As above. She does have a history of Parkinson disease, seizure disorder, history of dysphagia, failure to thrive, status post G-tube. CURRENT MEDICATIONS: Reconciled and reviewed. ALLERGIES: None. FAMILY HISTORY: None. SOCIAL HISTORY: Negative for tobacco, ethanol, or drugs. REVIEW OF SYSTEMS: From the patient is unobtainable as she is nonverbal at baseline. PHYSICAL EXAMINATION: VITAL SIGNS: Temperature 98, pulse 124, respirations 20, and blood pressure 91/76. GENERAL: The patient is a chronically ill-appearing female, in no apparent distress. She is arousable but confused at baseline. NECK: Supple. HEART: Regular rate, tachycardic. LUNGS: Significant for scattered rhonchi. ABDOMEN: Soft, nontender, and nondistended. EXTREMITIES: Without clubbing, cyanosis, or edema. LABORATORY DATA: Labs showed a sodium 135, potassium 5.5, bicarb 25, BUN 30, and creatinine 0.8. White count was 12, hemoglobin 14, and platelet count 368,000. Urine was clear. EKG showed sinus tachycardia. Troponin was 0.022. ASSESSMENT: This is an 84-year-old female admitted with complaints of tachycardia, congestion suspect secondary to aspiration pneumonia. Her SVT is likely related to her underlying infection. She has a history of Parkinson disease, seizure disorder, schizophrenia and schizoaffective disorder. PLAN: 1. Aggressive fluid resuscitation. 2. Broad spectrum IV antibiotic therapy. 3. Repeat chest x-ray after hydration. 4. Cardiology consultation. 5. Check a venous duplex of the legs. 6. Continue G-tube feeds, monitor residuals. Tobi Garcia M.D. DR: MANJULA JOB#: [id number] CC:
--- NOTE | 2019-10-17 07:40 | NUR ---
NURSE NOTES: Received report from Silvia Isidro RN. Patient awake in bed, alert and oriented x 1, unable to make needs known. On room air, respirations even and unlabored. GT in place. Tube feeding of Glucerna 1.5 started at 10 cc/hr. HoB elevated. Patient is incontinent and noted with large amount of urine in absorbent pad. Patient's underpads changed, female external catheter placed and jazmin-care done, wound dressings intact. Left wrist 20g IV site infusing D5NS @ 100 cc/hr, changed to NS @ 75 cc/hr per order. Bed locked in lowest position with side rails up x 3. Seizure precautions placed. All needs attended to. Call light within reach. Will continue to monitor and follow plan of care.
[2019-10-17 08:00] VITALS: BP 106/56
[2019-10-17] MEDS: Docusate 100mg/10ml Liq GT SCH ×2 (08:42→18:00)
[2019-10-17] MEDS: Depakote 125mg Sprinkles GT SCH ×2 (08:44→18:11)
[2019-10-17] MEDS: Tums 500mg GT SCH ×3 (08:44→18:10)
[2019-10-17] MEDS ORDERED: Multivitamins W/Minerals 15 ML UDC GT SCH (09:00)
[2019-10-17] MEDS ORDERED: Depakote 500mg tab ORAL SCH (09:00)
[2019-10-17] MEDS ORDERED: Milk of Magnesia 30ml Ud GT SCH (09:00)
[2019-10-17 09:51] LABS: BASOPHILS % (AUTO) 3.4 % (0.0-2.0); EOSINOPHILS % (AUTO) 0.8 % (0.0-3.0); HEMATOCRIT 36.1 % (37.0-47.0); HEMOGLOBIN 12.2 G/DL (12.0-16.0); LYMPHOCYTES % (AUTO) 26.4 % (20.0-45.0); MEAN CORPUSCULAR VOLUME 92 FL (80-99); MONOCYTES % (AUTO) 9.5 % (1.0-10.0); NEUTROPHILS % (AUTO) 59.9 % (45.0-75.0); PLATELET COUNT 258 K/UL (150-450); RED BLOOD COUNT 3.92 M/UL (4.20-5.40); RED CELL DISTRIBUTION WIDTH 14.4 % (11.6-14.8); WHITE BLOOD COUNT 8.8 K/UL (4.8-10.8)
[2019-10-17 09:55] LABS: ALANINE AMINOTRANSFERASE 24 U/L (12-78); ALBUMIN 1.7 G/DL (3.4-5.0); ALBUMIN/GLOBULIN RATIO 0.4 (1.0-2.7); ALKALINE PHOSPHATASE 59 U/L (46-116); ANION GAP 8 mmol/L (5-15); ASPARTATE AMINO TRANSFERASE 27 U/L (15-37); BILIRUBIN,TOTAL 0.3 MG/DL (0.2-1.0); BLOOD UREA NITROGEN 22 mg/dL (7-18); CALCIUM 8.5 MG/DL (8.5-10.1); CARBON DIOXIDE 26 MMOL/L (21-32); CHLORIDE 105 MMOL/L (98-107); CREATININE 0.6 MG/DL (0.55-1.30); POTASSIUM 5.2 MMOL/L (3.5-5.1); SODIUM 139 MMOL/L (136-145)
--- NOTE | 2019-10-17 09:56 | NUR ---
RD ASSESSMENT & RECOMMENDATIONS SEE CARE ACTIVITY FOR COMPLETE ASSESSMENT DAILY ESTIMATED NEEDS: Needs based on Wound, pulmonary, bedbound/ 67kg 25-30 kcals/kg total kcals 1.25-1.5 g protein/kg 84-101 g total protein 25-30 mL/kg total fluid mLs NUTRITION DIAGNOSIS: * Swallowing difficulty R/T dysphagia as evidenced by pt is PEG dep. CURRENT TF: Glucerna 1.5 @ 20ml/hr x 24hrs ENTERAL NUTRITION RECOMMENDATIONS: Glucerna 1.5 @50ml/hr x 24 hrs to provide 1200ml, 1800kcal, 99g prot, 911ml free water * As able, increase TF by 10ml/hr q4-6 hrs to goal of 50ml/hr * HOB over 30 degrees/ water flush per MD ----- ADDITIONAL RECOMMENDATIONS: * WC eval * WEEKLY WEIGHTS on calibrated bed scale * Monitor lytes daily, replete as needed K elev on adm/ will monitor trend and need for renal formula * Wound healing: add Justen 1pkt BID, Vit C 250mg qd * Rec A1C for eval of glycemic control, pt on carb control formula .
--- NOTE | 2019-10-17 10:20 | Consultation ---
History of Present Illness General Date patient seen: Oct 17, 2019 Chief Complaint: Upper Respiratory Illness Present Illness HPI This is a pleasant 84-year-old female long term resident with history of Parkinson's who presented to [facility] for respiratory insufficiency and cough. Admitted after being identified to have a leukocytosis and lactic acidosis for further work-up and management. Abnormal labs, decubitus ulcer, malnutrition. Surgery called to evaluate and assist with care. Patient seen, patient evaluated, chart reviewed. Allergies: Coded Allergies: No Known Allergies (Unverified , 03/25/18) Medication History Scheduled Amino Acids/Protein Hydrolys (Pro-Stat Liquid), 30 ML GT DAILY, (Reported) Benazepril Hcl* (Lotensin*), 20 MG GT DAILY, (Reported) Benztropine Mesylate* (Cogentin*), 1 MG GT TID, (Reported) Calcium Carbonate (Calcium Carbonate), 500 MG GT TID, (Reported) Divalproex Sodium (Depakote), 500 MG GT BID, (Reported) Docusate Sodium (Docusate Sodium), 100 ML GT BID, (Reported) Guar Gum (Nutrisource Fiber), 1 EACH GT DAILY, (Reported) Magnesium Hydroxide* (Milk Of Magnesia*), 30 ML GT DAILY, (Reported) Multivitamin With Minerals (Multivitamins With Minerals*), 1 TAB GT DAILY, ( Reported) Naph,Mb-Db/K Ph,Mbdb (Phos-Nak Packet), 1 EACH GT DAILY, (Reported) Nutritional Supplement (Nutren 2.0), 4 OZ PO TID, (Reported) Pantoprazole Sodium (Protonix), 40 MG GT DAILY, (Reported) Ranitidine Hcl* (Zantac*), 150 MG ORAL DAILY, (Reported) Scheduled PRN Acetaminophen* (Acetaminophen 325MG Tablet*), 650 MG GT Q6H PRN for For Pain, ( Reported) Bisacodyl (Dulcolax), 10 MG RC DAILY PRN for Constipation, (Reported) Patient History Limited by: medical condition History Provided By: Medical Record, PMD Healthcare decision maker Resuscitation status Full Code Advanced Directive on File No Past Medical/Surgical History Past Medical/Surgical History: (1) Aspiration pneumonia (2) General weakness (3) Encephalopathy allergic (4) Facial abscess (5) Hypertensive heart and chronic kidney disease (6) Failure to thrive in adult (7) Diastolic CHF, chronic (8) Decubitus skin ulcer (9) Schizoaffective disorder (10) Flu-like symptoms (11) Congestion of upper respiratory tract Review of Systems ROS Narrative Difficult to obtain given patient's baseline medical condition Physical Exam General Appearance: no apparent distress, alert Lines, tubes and drains: peripheral HEENT: mucous membranes moist Neck: supple, normal inspection Respiratory/Chest: no respiratory distress, no accessory muscle use, decreased breath sounds Cardiovascular/Chest: normal rate, tachycardia Abdomen: soft, no organomegaly, no mass, other Extremities: normal inspection, no calf tenderness, normal capillary refill, non-pitting Skin Exam: warm/dry Neurologic: alert Last 24 Hour Vital Signs Date Time Temp Pulse Resp B/P (MAP) Pulse Ox O2 Delivery O2 Flow Rate FiO2 10/17/19 08:43 101 106/56 10/17/19 08:00 98.0 101 22 106/56 (73) 96 10/17/19 05:53 Nasal Cannula 3.0 10/17/19 04:00 95 10/17/19 02:11 110 10/17/19 02:00 98.8 96 20 113/81 100 Room Air 10/17/19 01:55 98.8 96 20 112/79 100 Room Air 10/17/19 00:52 98.8 96 20 113/81 100 Room Air 10/17/19 00:18 108 112/80 10/16/19 23:15 98.8 95 20 112/78 100 Room Air 10/16/19 21:30 98.8 102 20 118/59 100 Room Air 10/16/19 19:20 98.8 112 20 117/59 100 Room Air 10/16/19 17:34 124 20 Room Air 10/16/19 17:32 98.8 124 20 91/76 100 Room Air 10/16/19 17:32 124 22 Room Air 10/16/19 17:08 98.8 108 20 159/68 (98) 95 Room Air Laboratory Tests Test 10/16/19 18:15 10/16/19 19:57 10/17/19 09:10 White Blood Count 12.0 K/UL (4.8-10.8) H 8.8 K/UL (4.8-10.8) Red Blood Count 4.75 M/UL (4.20-5.40) 3.92 M/UL (4.20-5.40) L Hemoglobin 14.3 G/DL (12.0-16.0) 12.2 G/DL (12.0-16.0) Hematocrit 45.2 % (37.0-47.0) 36.1 % (37.0-47.0) L Mean Corpuscular Volume 95 FL (80-99) 92 FL (80-99) Mean Corpuscular Hemoglobin 30.0 PG (27.0-31.0) 31.0 PG (27.0-31.0) Mean Corpuscular Hemoglobin Concent 31.5 G/DL (32.0-36.0) L 33.7 G/DL (32.0-36.0) Red Cell Distribution Width 14.1 % (11.6-14.8) 14.4 % (11.6-14.8) Platelet Count 368 K/UL (150-450) 258 K/UL (150-450) Mean Platelet Volume 6.1 FL (6.5-10.1) L 5.0 FL (6.5-10.1) L Neutrophils (%) (Auto) 65.2 % (45.0-75.0) 59.9 % (45.0-75.0) Lymphocytes (%) (Auto) 23.3 % (20.0-45.0) 26.4 % (20.0-45.0) Monocytes (%) (Auto) 8.2 % (1.0-10.0) 9.5 % (1.0-10.0) Eosinophils (%) (Auto) 0.6 % (0.0-3.0) 0.8 % (0.0-3.0) Basophils (%) (Auto) 2.8 % (0.0-2.0) H 3.4 % (0.0-2.0) H Urine Color Yellow Urine Appearance Clear Urine pH 8 (4.5-8.0) Urine Specific [place] 1.010 (1.005-1.035) Urine Protein 1+ (NEGATIVE) H Urine Glucose (UA) Negative (NEGATIVE) Urine Ketones Negative (NEGATIVE) Urine Blood Negative (NEGATIVE) Urine Nitrite Negative (NEGATIVE) Urine Bilirubin Negative (NEGATIVE) Urine Urobilinogen 1 MG/DL (0.0-1.0) H Urine Leukocyte Esterase 1+ (NEGATIVE) H Urine RBC 0-2 /HPF (0 - 2) Urine WBC 2-4 /HPF (0 - 2) Urine Squamous Epithelial Cells Few /LPF (NONE/OCC) Urine Bacteria Few /HPF (NONE) Sodium Level 135 MMOL/L (136-145) L 139 MMOL/L (136-145) Potassium Level 5.5 MMOL/L (3.5-5.1) H 5.2 MMOL/L (3.5-5.1) H Chloride Level 99 MMOL/L (98-107) 105 MMOL/L (98-107) Carbon Dioxide Level 25 MMOL/L (21-32) 26 MMOL/L (21-32) Anion Gap 11 mmol/L (5-15) 8 mmol/L (5-15) Blood Urea Nitrogen 30 mg/dL (7-18) H 22 mg/dL (7-18) H Creatinine 0.8 MG/DL (0.55-1.30) 0.6 MG/DL (0.55-1.30) Estimat Glomerular Filtration Rate > 60 mL/min (>60) > 60 mL/min (>60) Glucose Level 125 MG/DL (74-106) H 70 MG/DL (74-106) L Lactic Acid Level 3.40 mmol/L (0.4-2.0) H 1.60 mmol/L (0.66-2.22) 1.10 mmol/L (0.4-2.0) Calcium Level 9.6 MG/DL (8.5-10.1) 8.5 MG/DL (8.5-10.1) Total Bilirubin 0.3 MG/DL (0.2-1.0) 0.3 MG/DL (0.2-1.0) Aspartate Amino Transf (AST/SGOT) 25 U/L (15-37) 27 U/L (15-37) Alanine Aminotransferase (ALT/SGPT) 26 U/L (12-78) 24 U/L (12-78) Alkaline Phosphatase 77 U/L (46-116) 59 U/L (46-116) Troponin I 0.022 ng/mL (0.000-0.056) Pro-B-Type Natriuretic Peptide 245 pg/mL (0-125) H Pending Total Protein 7.3 G/DL (6.4-8.2) 5.8 G/DL (6.4-8.2) L Albumin 2.1 G/DL (3.4-5.0) L 1.7 G/DL (3.4-5.0) L Globulin 5.2 g/dL 4.1 g/dL Albumin/Globulin Ratio 0.4 (1.0-2.7) L 0.4 (1.0-2.7) L Valproic Acid (Depakene) Level 39 MCG/ML (50-100) L Magnesium Level Pending Thyroid Stimulating Hormone (TSH) Pending Microbiology Date/Time Source Procedure Growth Status 10/16/19 19:00 Nasal Nares - Final Complete 10/16/19 19:00 Nasal Nares - Final Complete 10/16/19 18:15 Rectum Received Height (Feet): 5 Height (Inches): 6.00 Weight (Pounds): 151 Medications Current Medications Medications (Trade) Dose Ordered Sig/Ariane Route PRN Reason Start Time Stop Time Status Last Admin Dose Admin Acetaminophen (Tylenol) 650 mg Q6H PRN GT For Pain 10/17/19 06:15 11/15/19 20:59 Bisacodyl (Dulcolax) 10 mg DAILY PRN RECTAL Constipation 10/16/19 21:00 11/15/19 20:59 Calcium Carbonate (Tums) 500 mg TID GT 10/17/19 09:00 11/16/19 08:59 10/17/19 08:44 Divalproex Sodium (Depakote Sprinkles) 500 mg BID GT 10/17/19 09:00 11/16/19 08:59 10/17/19 08:44 Docusate Sodium (Colace) 100 mg BID GT 10/17/19 09:00 11/16/19 08:59 10/17/19 08:42 Lansoprazole (Prevacid) 30 mg DAILY GT 10/17/19 09:00 11/16/19 08:59 10/17/19 08:44 Magnesium Hydroxide (Mom) 30 ml DAILY GT 10/17/19 09:00 11/16/19 08:59 10/17/19 08:42 Metoprolol Tartrate (Lopressor) 25 mg Q12HR PEG 10/16/19 23:00 11/15/19 22:59 10/17/19 08:43 Multivitamins (Multivitamins W/ Minerals 15ml Liquid) 15 ml DAILY GT 10/17/19 09:00 11/16/19 08:59 10/17/19 08:44 Piperacillin Sod/ Tazobactam Sod 3.375 gm/Sodium Chloride 110 ml @ 27.5 mls/hr Q8H IVPB 10/17/19 09:00 10/24/19 08:59 Sodium Chloride 1,000 ml @ 75 mls/hr [id number] IV 10/17/19 06:00 11/16/19 05:59 10/17/19 07:32 Vancomycin HCl (Vanco rx to dose) 1 ea DAILY PRN MISC Per rx protocol 10/16/19 21:00 11/15/19 20:59 Vancomycin HCl 750 mg/Sodium Chloride 275 ml @ 183.333 mls/hr Q12H IVPB 10/17/19 16:00 10/22/19 15:59 Assessment/Plan Problem List: (1) Leukocytosis Assessment & Plan: On IV antibiotics resolved ICD Codes: D72.829 - Elevated white blood cell count, unspecified SNOMED: 642608373, 787492062 (2) Lactic acidosis Assessment & Plan: Resolving with hydration likely from dehydration improving ICD Codes: E87.2 - Acidosis SNOMED: 25714130 (3) Decubitus skin ulcer Assessment & Plan: Patient presented on admission with multiple decubitus ulcers and skin concerns. Patient identified to have a full-thickness stage III sacral decubitus ulcer that seems to have been recently forming with multiple areas of dermal breakdown and some granulation tissue noted. Skin edges macerated. Erythema around a larger portion of the sacrum surrounding the area of full-thickness injury. Resolving decubitus to the left buttock. Bilateral heels blanchable with potential deep tissue injury being identified as they are soft and somewhat tender. Patient needs nutritional optimization, aggressive local care and decubitus prevention implementation. Turn every 2 hours wash sacrum daily apply Thera honey impregnated gauze followed by OPTi foam dressing. Air soft mattress. Heel protectors. Offload pressure from heels with pillows. Thank you will follow with recommendations ICD Codes: L89.90 - Pressure ulcer of unspecified site, unspecified stage SNOMED: 034881531 (4) Failure to thrive in adult Assessment & Plan: DAILY ESTIMATED NEEDS: Needs based on Wound, pulmonary, bedbound/ 67kg 25-30 kcals/kg total kcals 1.25-1.5 g protein/kg 84-101 g total protein 25-30 mL/kg total fluid mLs NUTRITION DIAGNOSIS: * Swallowing difficulty R/T dysphagia as evidenced by pt is PEG dep. CURRENT TF: Glucerna 1.5 @ 20ml/hr x 24hrs ENTERAL NUTRITION RECOMMENDATIONS: Glucerna 1.5 @50ml/hr x 24 hrs to provide 1200ml, 1800kcal, 99g prot, 911ml free water * As able, increase TF by 10ml/hr q4-6 hrs to goal of 50ml/hr * HOB over 30 degrees/ water flush per MD ----- ADDITIONAL RECOMMENDATIONS: * WC eval * WEEKLY WEIGHTS on calibrated bed scale * Monitor lytes daily, replete as needed K elev on adm/ will monitor trend and need for renal formula * Wound healing: add Justen 1pkt BID, Vit C 250mg qd * Rec A1C for eval of glycemic control, pt on carb control formula . ICD Codes: R62.7 - Adult failure to thrive SNOMED: 102086476 Yogi Vela Oct 17, 2019 10:20
[2019-10-17] MEDS: Piperacillin/Tazobactam 3.375 GM in NS 110 ML IVPB SCH ×2 (10:22→17:19)
[2019-10-17 12:00] VITALS: BP 141/72
--- NOTE | 2019-10-17 12:31 | Diagnostic Imaging Report ---
Indication: Dyspnea Comparison: 02/13/2019 A single view chest radiograph was obtained. Findings: No definite infiltrate or pulmonary vascular congestion identified. Calcific foci demonstrated within the lungs. The heart is enlarged. The aorta is mildly enlarged consistent with atherosclerotic vascular disease. The bones are osteopenic. There are thoracic vertebral enthesophytes at multiple levels. Impression: No acute disease Old granulomatous disease
--- NOTE | 2019-10-17 13:43 | NUR ---
NURSE NOTES:WOUND CARE NOTES:Pt presented on admission with Full thickness sacral pressure injury (L)1cm x (W)2.3cm x (D)0.7cm. 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 Borders of wound are macerated.Non-blanching erythema without induration periwound extending into R and L gluteal cheeks. An area of hyperpigmentation from previous wound noted to L ischium. L heel is boggy with non-blanching erythema. Pt became agitated when L heel minimally palpated. Non-blanching erythema R heel. Tx.Plan: Cleanse Sacral wound with Saline. Apply TheraHoney. Apply Moisture Barrier Paste periwound. Cover with Optifoam drsg every 3 days and prn. Apply Moisture Barrier Paste to R and L Ischium. Cover with Optifoam drsg. Change every 3 days and prn. Apply Cavilon Skin Barrier to both heels. Cover each heel with Optifoam drsg. Change every 7 days and prn. APM/WINIFRED Mattress overlay. Reposition at least every 2hours or as tolerated. Off-load heels with pillow.
[2019-10-17] MEDS: Vancomycin 750mg/NS 275ml IVPB SCH ×2 (15:33)
[2019-10-17 16:00] VITALS: BP 119/59
[2019-10-17] MEDS ORDERED: Benztropine 1mg tab ORAL SCH (18:15)
--- NOTE | 2019-10-17 19:30 | NUR ---
HAND-OFF: Report given to Reed Blas RN. Patient placed on P200 mattress
--- NOTE | 2019-10-17 19:35 | NUR ---
NURSE NOTES: Received report from Judit BRENNER. Patient awake in bed, alert and oriented x 1, unable to make needs known at times. Bedbound. On room air, respirations even and unlabored. GT in place. Tube feeding of Glucerna 1.5 running at goal of 20 ml/hr. HoB elevated to 30 degrees. Patient is incontinent and just cleaned. Dressings applied and changed. Patient's female external catheter placed and jazmin-care done, wound dressings intact, reapplied. Left wrist 20g IV intact running fluids as per order. Bed locked in lowest position with side rails up x 3. Seizure precautions padded in place. will reposition q 1-2 hours. All needs attended to. Call light within reach. Will continue to monitor and follow plan of care.
[2019-10-17 20:00] VITALS: BP 100/50
[2019-10-17] MEDS ORDERED: Heparin 5000 units/ml inj SUBQ SCH (21:00)
[2019-10-18] VITALS: BP 110/61
[2019-10-18] MEDS: Piperacillin/Tazobactam 3.375 GM in NS 110 ML IVPB SCH ×3 (00:01→18:09)
[2019-10-18 04:00] VITALS: BP 116/64
[2019-10-18] MEDS: Vancomycin 750mg/NS 275ml IVPB SCH ×2 (04:04)
--- NOTE | 2019-10-18 04:45 | Progress Note ---
DATE: 10/17/2019 CARDIOLOGY PROGRESS NOTE SUBJECTIVE: The patient has no complaints, but is an unreliable historian. She has episodic congestion. OBJECTIVE: VITAL SIGNS: Blood pressure 119/59, pulse 90, respirations 22, afebrile, oxygen saturation on room air is 94% to 96%. Monitored rhythm sinus and sinus tachycardia. Diffuse severe tardive dyskinesias. LUNGS: Diminished breath sounds. Few rhonchi. CARDIAC: Regular rhythm and rate. Normal S1, S2. ABDOMEN: Soft. EXTREMITIES: No edema. LABORATORY DATA: White count 8.8, hemoglobin 12.2. Sodium 139, potassium 5.2, bicarb 26, BUN 22, creatinine 0.6, glucose 70. Lactic acid 1.1 now. Pro-natriuretic peptide 963. Albumin 1.7. Magnesium 1.8. Cultures negative. IMPRESSION: 1. Lactic acidosis, resolved. 2. Severe protein-calorie malnutrition. 3. 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 4. Paroxysmal sinus tachycardia and supraventricular tachyarrhythmias, resolved. 5. Hypertensive heart disease. 6. Type 2 diabetes mellitus. 7. Hypovolemia and dehydration, corrected. 8. Hyperkalemia, improved. PLAN: 1. Continue hydration. 2. Empiric antimicrobials. 3. Respiratory hygiene. 4. Maintenance dose beta-robert. 5. DVT prophylaxis. 6. Add Cogentin for movement disorder and observe clinical response. Antony Connolly M.D. DR: TIFFANY JOB#: [id number] CC: ZECHARIAH
--- NOTE | 2019-10-18 07:18 | General Progress Note ---
Assessment/Plan Problem List: (1) Schizoaffective disorder ICD Codes: F25.9 - Schizoaffective disorder, unspecified SNOMED: 09897049 Qualifiers: Qualified Codes: F25.9 - Schizoaffective disorder, unspecified (2) Flu-like symptoms ICD Codes: R68.89 - Other general symptoms and signs SNOMED: 841464374 (3) Aspiration pneumonia ICD Codes: J69.0 - Pneumonitis due to inhalation of food and vomit SNOMED: 787541910 (4) General weakness ICD Codes: R53.1 - Weakness SNOMED: 05068575 (5) Hypertensive heart and chronic kidney disease ICD Codes: I13.10 - Hypertensive heart and chronic kidney disease without heart failure, with stage 1 through stage 4 chronic kidney disease, or unspecified chronic kidney disease SNOMED: 5816327607136 (6) Failure to thrive in adult ICD Codes: R62.7 - Adult failure to thrive SNOMED: 818758888 (7) Diastolic CHF, chronic ICD Codes: I50.32 - Chronic diastolic (congestive) heart failure SNOMED: 35843787, 141218043 (8) Congestion of upper respiratory tract ICD Codes: J98.8 - Other specified respiratory disorders SNOMED: 521345836 (9) Lactic acidosis ICD Codes: E87.2 - Acidosis SNOMED: 78421163 (10) Leukocytosis ICD Codes: D72.829 - Elevated white blood cell count, unspecified SNOMED: 389755100, 142170622 Status: stable, progressing Assessment/Plan: increase feeds decrease ivf cont iv abx. resp rx/o2 monitor for aspiration sz rx skin care turn q2 psych rx monitor for eps/td monitor labs dc planning soon if continued improvement Subjective ROS Limited/Unobtainable: No Constitutional: Reports: malaise, weakness HEENT: Reports: no symptoms Cardiovascular: Reports: no symptoms Respiratory: Reports: cough Gastrointestinal/Abdominal: Reports: difficulty swallowing, poor appetite Genitourinary: Reports: no symptoms Neurologic/Psychiatric: Reports: pre-existing deficit Endocrine: Reports: no symptoms Hematologic/Lymphatic: Reports: anemia Allergies: Coded Allergies: No Known Allergies (Unverified , 03/25/18) All Systems: reviewed and negative except above Subjective no events. intermittently agitated and confused. +cough and congestion but less.on tube feeds. no vomiting. Objective Last 24 Hour Vital Signs Date Time Temp Pulse Resp B/P (MAP) Pulse Ox O2 Delivery O2 Flow Rate FiO2 10/18/19 04:00 71 10/18/19 04:00 97.5 91 16 116/64 (81) 98 10/18/19 00:00 84 10/18/19 00:00 97.9 80 18 110/61 (77) 96 10/17/19 21:00 69 100/50 10/17/19 21:00 Room Air 10/17/19 20:00 97.0 79 20 100/50 (67) 96 10/17/19 20:00 82 10/17/19 16:00 98.1 90 22 119/59 (79) 94 10/17/19 15:44 74 10/17/19 12:00 97.9 100 24 141/72 (95) 96 10/17/19 11:50 83 10/17/19 09:00 Room Air 10/17/19 08:43 101 106/56 10/17/19 08:00 98.0 101 22 106/56 (73) 96 10/17/19 07:53 98 Intake and Output 10/17/19 10/18/19 19:00 07:00 Intake Total 1850.875 ml Output Total 0 ml Balance 1850.875 ml 0 ml Intake IV Total 1445.875 ml Tube Feeding 185 ml Other 220 ml Output Stool Total 0 ml # Voids 5 3 # Bowel Movements 5 Laboratory Tests 10/17/19 09:10: White Blood Count 8.8, Red Blood Count 3.92L, Hemoglobin 12.2, Hematocrit 36.1L , Mean Corpuscular Volume 92, Mean Corpuscular Hemoglobin 31.0, Mean Corpuscular Hemoglobin Concent 33.7, Red Cell Distribution Width 14.4, Platelet Count 258, Mean Platelet Volume 5.0L, Neutrophils (%) (Auto) 59.9, Lymphocytes ( %) (Auto) 26.4, Monocytes (%) (Auto) 9.5, Eosinophils (%) (Auto) 0.8, Basophils (%) (Auto) 3.4H, Sodium Level 139, Potassium Level 5.2H, Chloride Level 105, Carbon Dioxide Level 26, Anion Gap 8, Blood Urea Nitrogen 22H, Creatinine 0.6, Estimat Glomerular Filtration Rate > 60, Glucose Level 70L, Lactic Acid Level 1.10, Calcium Level 8.5, Magnesium Level 1.8, Total Bilirubin 0.3, Aspartate Amino Transf (AST/SGOT) 27, Alanine Aminotransferase (ALT/SGPT) 24, Alkaline Phosphatase 59, Pro-B-Type Natriuretic Peptide 963H, Total Protein 5.8L, Albumin 1.7L, Globulin 4.1, Albumin/Globulin Ratio 0.4L, Thyroid Stimulating Hormone (TSH) 0.909 Height (Feet): 5 Height (Inches): 6.00 Weight (Pounds): 162 General Appearance: WD/WN, alert, confused, agitated, combative Neck: supple Cardiovascular: normal rate, regular rhythm Respiratory/Chest: chest wall non-tender, lungs clear, normal breath sounds, no respiratory distress, no accessory muscle use Abdomen: normal bowel sounds, non tender, soft, no organomegaly, no mass Extremities: normal range of motion, non-tender Edema: no edema noted Arm (L), no edema noted Arm (R), no edema noted Leg (L), no edema noted Leg (R), no edema noted Pedal (L), no edema noted Pedal (R), no edema noted Generalized Neurologic: alert, responsive, disoriented, aphasia Skin: warm/dry, no diaphoresis Tobi Garcia MD Oct 18, 2019 07:18
--- NOTE | 2019-10-18 07:46 | NUR ---
HAND-OFF: Report given to .JORDIN Powell
[2019-10-18 07:50] VITALS: BP 139/61
--- NOTE | 2019-10-18 08:30 | NUR ---
NURSE NOTES: Received patient from Bryanna BRENNER. Patient transferred from telemetry. Patient is oriented to self only, sitting high fowlers, no acute distress noted. Left forearm IV intact, patient. G-tube intact, patent, no aspirated residual (2mL). Pressure wounds noted, dressings over wounds, will take WCP per policy. Seizure and fall precautions maintained. Side rails upx3, bed low and locked, bed alarm armed.
[2019-10-18] MEDS ORDERED: Ascorbic Acid 500mg tab GT SCH (09:00)
[2019-10-18] MEDS ORDERED: Depakote 125mg Sprinkles GT SCH (10:00)
[2019-10-18] MEDS ORDERED: Acetaminophen 650mg/20.3ml GT PRN (10:00)
[2019-10-18] MEDS: Docusate 100mg/10ml Liq GT SCH ×2 (10:25→18:00)
[2019-10-18] MEDS: Milk of Magnesia 30ml Ud GT SCH (10:25)
[2019-10-18] MEDS: Ascorbic Acid 500mg tab GT SCH (10:26)
[2019-10-18] MEDS: Tums 500mg GT SCH ×3 (10:26→18:10)
[2019-10-18] MEDS: Multivitamins W/Minerals 15 ML UDC GT SCH (10:26)
[2019-10-18] MEDS: Benztropine 1mg tab ORAL SCH ×3 (10:26→18:09)
[2019-10-18] MEDS: Heparin 5000 units/ml inj SUBQ SCH ×2 (10:27→20:18)
[2019-10-18 12:00] VITALS: BP 126/60
--- NOTE | 2019-10-18 12:44 | NUR ---
*-* INSURANCE *-* ALL CLINICALS HAVE BEEN FAXED TO: [facility] [employer]# YET #[phone] FAX# [phone] REVIEWS/CLINICALS
--- NOTE | 2019-10-18 15:57 | NUR ---
CASE MANAGEMENT:INITIAL REVIEW 84 YR OLD FEMALE BIBA FROM [facility] CC;UPPER RESPIRATORY ILLNESS SI;FLU LIKE SYMPTOMS. SCHIZOAFFECTIVE DISORDER 98.8 124 22 159/68 95% ON RA WBC 12.0 NA+ 135 K+ 5.5 BUN 30 UA+ PROTEIN, UROBILI, LEUKOCYTE TOX-VALPORIC ACID 39 IS;IVF NS BOLUS CXR- NO ACUTE DISEASE. OLD GRANULOMATOUS DISEASE ADMITTED TO MED SURG DCP;FROM [facility] CASE MANAGEMENT:REVIEW 10/18/2019 SI;ASPIRATION PNA. FTT. GENERALIZED WEAKNESS. LACTIC ACIDOSIS. FLU LIKE SYMPTOMS. 96.8 90 20 139/61 96% ON RA NO LABS AVAILABLE IS;IVF NS @ 50 ML/HR DEPAKOTE GT Q12 HRS VANCOMYCIN IV Q12 HRS ZOSYN IV Q8 HRS PREVACID GT QD HEPARIN SUBQ Q12 HRS MED SURG STATUS DCP;FROM [facility]
[2019-10-18 16:00] VITALS: BP 130/67
[2019-10-18] MEDS: Vancomycin 750 MG in NS 275 ML IVPB SCH (16:00)
--- NOTE | 2019-10-18 19:18 | NUR ---
HAND-OFF: Report given to Alem BRENNER .
--- NOTE | 2019-10-18 19:39 | NUR ---
NURSE NOTES: Received patient in bed, asleep, alert, oriented x1, unable to verbalize her needs, on p 200 mattress, tube feeding is tolerated well with no residual, IV site is clean dry and intact. Patient is aspiration, fall and seizure precautions, frequent rounds are being made, staff are aware that patient is a fall risk. Call light is within reach, bed is lowered, locked and alarm is on, will continue to monitor for comfort and safety.
--- NOTE | 2019-10-18 19:53 | Surgery Progress Note ---
Surgery Progress Note Subjective Symptoms: improved Objective Last 24 Hour Vital Signs Date Time Temp Pulse Resp B/P (MAP) Pulse Ox O2 Delivery O2 Flow Rate FiO2 10/18/19 16:00 97.2 83 20 130/67 (88) 96 10/18/19 12:00 97.3 72 20 126/60 (82) 96 10/18/19 10:35 90 139/61 10/18/19 09:00 Room Air 10/18/19 08:00 67 10/18/19 07:50 96.8 90 19 139/61 (87) 100 10/18/19 04:00 71 10/18/19 04:00 97.5 91 16 116/64 (81) 98 10/18/19 00:00 84 10/18/19 00:00 97.9 80 18 110/61 (77) 96 10/17/19 21:00 69 100/50 10/17/19 21:00 Room Air 10/17/19 20:00 97.0 79 20 100/50 (67) 96 10/17/19 20:00 82 I&O Intake and Output 10/17/19 10/18/19 19:00 07:00 Intake Total 1850.875 ml Output Total 0 ml Balance 1850.875 ml 0 ml Intake IV Total 1445.875 ml Tube Feeding 185 ml Other 220 ml Stool Total 0 ml # Voids 5 3 # Bowel Movements 5 Dressing: saturated Wound: other Drains: other Cardiovascular: RSR Respiratory: clear, decreased breath sounds Abdomen: soft, present bowel sounds Extremities: no tenderness, no cyanosis Laboratory Tests Test 10/18/19 18:50 Vancomycin Level Trough 13.9 ug/mL (5.0-12.0) H Plan Problems: (1) Leukocytosis Assessment & Plan: On IV antibiotics resolved (2) Lactic acidosis Assessment & Plan: Resolving with hydration likely from dehydration improving (3) Decubitus skin ulcer Assessment & Plan: Patient presented on admission with multiple decubitus ulcers and skin concerns. Patient identified to have a full-thickness stage III sacral decubitus ulcer that seems to have been recently forming with multiple areas of dermal breakdown and some granulation tissue noted. Skin edges macerated. Erythema around a larger portion of the sacrum surrounding the area of full-thickness injury. Resolving decubitus to the left buttock. Bilateral heels blanchable with potential deep tissue injury being identified as they are soft and somewhat tender. Patient needs nutritional optimization, aggressive local care and decubitus prevention implementation. Turn every 2 hours wash sacrum daily apply Thera honey impregnated gauze followed by OPTi foam dressing. Air soft mattress. Heel protectors. Offload pressure from heels with pillows. Thank you will follow with recommendations (4) Failure to thrive in adult Assessment & Plan: DAILY ESTIMATED NEEDS: Needs based on Wound, pulmonary, bedbound/ 67kg 25-30 kcals/kg total kcals 1.25-1.5 g protein/kg 84-101 g total protein 25-30 mL/kg total fluid mLs NUTRITION DIAGNOSIS: * Swallowing difficulty R/T dysphagia as evidenced by pt is PEG dep. CURRENT TF: Glucerna 1.5 @ 20ml/hr x 24hrs ENTERAL NUTRITION RECOMMENDATIONS: Glucerna 1.5 @50ml/hr x 24 hrs to provide 1200ml, 1800kcal, 99g prot, 911ml free water * As able, increase TF by 10ml/hr q4-6 hrs to goal of 50ml/hr * HOB over 30 degrees/ water flush per MD ----- ADDITIONAL RECOMMENDATIONS: * WC eval * WEEKLY WEIGHTS on calibrated bed scale * Monitor lytes daily, replete as needed K elev on adm/ will monitor trend and need for renal formula * Wound healing: add Justen 1pkt BID, Vit C 250mg qd * Rec A1C for eval of glycemic control, pt on carb control formula . Yogi Vela Oct 18, 2019 19:53
[2019-10-18 20:00] VITALS: BP 114/73
[2019-10-18] MEDS: Depakote 125mg Sprinkles GT SCH (20:16)
--- NOTE | 2019-10-18 22:30 | Progress Note ---
DATE: 10/18/2019 CARDIOLOGY PROGRESS NOTE SUBJECTIVE: The patient is less congested, less shortness of breath. She is on tube feedings. PHYSICAL EXAMINATION: VITAL SIGNS: Blood pressure 116/64, pulse 91, respiratory rate 16, afebrile. LUNGS: Bilateral breath sounds. Rhonchi. HEART: Regular rhythm and rate. Normal S1, S2. ABDOMEN: Soft. EXTREMITIES: No edema. Significant tardive dyskinesias. LABORATORY DATA: No new laboratory studies today. IMPRESSIONS: 1. Lactic acidosis, resolved. 2. Severe protein-calorie malnutrition. 3. Dysphagia. 4. Aspiration. 5. Acute on chronic diastolic congestive heart failure. 6. Paroxysmal atrial tachyarrhythmias. PLAN: 1. Recheck laboratory studies. 2. Maintenance hydration. 3. Nutrition by feeding tube. 4. Swallow evaluation. 5. Continue maintenance dose beta-robert. 6. Observe response to Cogentin. 7. DVT prophylaxis. Antony Connolly M.D. DR: Purnima JOB#: [id number] CC:
[2019-10-19] VITALS: BP 148/65
[2019-10-19] MEDS: Piperacillin/Tazobactam 3.375 GM in NS 110 ML IVPB SCH ×3 (01:18→18:34)
[2019-10-19 04:00] VITALS: BP 149/66
[2019-10-19] MEDS: Vancomycin 750 MG in NS 275 ML IVPB SCH ×2 (04:38→16:27)
[2019-10-19 05:43] LABS: BASOPHILS % (AUTO) 4.3 % (0.0-2.0); EOSINOPHILS % (AUTO) 0.9 % (0.0-3.0); HEMATOCRIT 36.1 % (37.0-47.0); HEMOGLOBIN 11.9 G/DL (12.0-16.0); LYMPHOCYTES % (AUTO) 23.1 % (20.0-45.0); MEAN CORPUSCULAR VOLUME 94 FL (80-99); MONOCYTES % (AUTO) 9.6 % (1.0-10.0); NEUTROPHILS % (AUTO) 62.1 % (45.0-75.0); PLATELET COUNT 256 K/UL (150-450); RED BLOOD COUNT 3.82 M/UL (4.20-5.40); RED CELL DISTRIBUTION WIDTH 12.4 % (11.6-14.8); WHITE BLOOD COUNT 8.8 K/UL (4.8-10.8)
[2019-10-19 06:06] LABS: ALANINE AMINOTRANSFERASE 15 U/L (12-78); ALBUMIN 1.6 G/DL (3.4-5.0); ALBUMIN/GLOBULIN RATIO 0.4 (1.0-2.7); ALKALINE PHOSPHATASE 65 U/L (46-116); ANION GAP 7 mmol/L (5-15); ASPARTATE AMINO TRANSFERASE 29 U/L (15-37); BILIRUBIN,TOTAL 0.3 MG/DL (0.2-1.0); BLOOD UREA NITROGEN 19 mg/dL (7-18); CALCIUM 8.6 MG/DL (8.5-10.1); CARBON DIOXIDE 25 MMOL/L (21-32); CHLORIDE 103 MMOL/L (98-107); CREATININE 0.6 MG/DL (0.55-1.30); POTASSIUM 4.9 MMOL/L (3.5-5.1); SODIUM 135 MMOL/L (136-145)
--- NOTE | 2019-10-19 07:15 | NUR ---
HAND-OFF: Report given to Gita BRENNER.
--- NOTE | 2019-10-19 07:55 | NUR ---
NURSE NOTES: patient in bed, and asleep. respiration is even and unlabored. no facial grimacing for pain and discomfort noted. HOB is elevated, GTF is infusing properly. LFA 24 g IV site is in-place; no swelling, redness and tenderness noted. side-rails padded for seizure precaution. call light is within reach. will continue to follow plan of care.
[2019-10-19 08:00] VITALS: BP 123/63
[2019-10-19] MEDS ORDERED: LEVOFLOXACIN500 MG ORAL (08:29)
[2019-10-19] MEDS: Multivitamins W/Minerals 15 ML UDC GT SCH (09:25)
[2019-10-19] MEDS: Milk of Magnesia 30ml Ud GT SCH (09:25)
[2019-10-19] MEDS: Ascorbic Acid 500mg tab GT SCH (09:25)
[2019-10-19] MEDS: Depakote 125mg Sprinkles GT SCH ×2 (09:26→20:20)
[2019-10-19] MEDS: Tums 500mg GT SCH ×3 (09:26→18:34)
[2019-10-19] MEDS: Benztropine 1mg tab ORAL SCH ×3 (09:26→18:34)
[2019-10-19] MEDS: Docusate 100mg/10ml Liq GT SCH ×2 (09:27→18:34)
[2019-10-19] MEDS: Heparin 5000 units/ml inj SUBQ SCH ×2 (09:29→20:27)
--- NOTE | 2019-10-19 10:39 | NUR ---
*-* DISCHARGE PLANNING*-* PATIENT HAS BEEN REFERRED TO: [facility] P: [phone] F: [phone] *-* CLINICALS FAXED*-*
--- NOTE | 2019-10-19 11:49 | Surgery Progress Note ---
Surgery Progress Note Subjective Additional Comments comfortable labs improved exam stable no acute events Objective Last 24 Hour Vital Signs Date Time Temp Pulse Resp B/P (MAP) Pulse Ox O2 Delivery O2 Flow Rate FiO2 10/19/19 09:26 93 123/63 10/19/19 09:00 Room Air 10/19/19 08:00 98.6 93 22 123/63 (83) 95 10/19/19 04:00 99.0 90 20 149/66 (93) 94 10/19/19 00:00 98.8 94 20 148/65 (92) 98 94 10/18/19 21:00 Room Air 10/18/19 20:16 78 114/87 10/18/19 20:00 97.9 97 22 114/73 (87) 97 97 10/18/19 16:00 97.2 83 20 130/67 (88) 96 10/18/19 12:00 97.3 72 20 126/60 (82) 96 I&O Intake and Output 10/18/19 10/19/19 19:00 07:00 Intake Total 620 ml 580 ml Output Total 450 ml Balance 170 ml 580 ml Tube Feeding 400 ml 480 ml Other 220 ml 100 ml Output Urine Total 450 ml # Voids 1 # Bowel Movements 2 Dressing: other Wound: other Drains: other Cardiovascular: RSR Respiratory: decreased breath sounds Abdomen: soft, non-tender, present bowel sounds Extremities: no tenderness, no cyanosis Laboratory Tests Test 10/18/19 18:50 10/19/19 04:40 Vancomycin Level Trough 13.9 ug/mL (5.0-12.0) H White Blood Count 8.8 K/UL (4.8-10.8) Red Blood Count 3.82 M/UL (4.20-5.40) L Hemoglobin 11.9 G/DL (12.0-16.0) L Hematocrit 36.1 % (37.0-47.0) L Mean Corpuscular Volume 94 FL (80-99) Mean Corpuscular Hemoglobin 31.1 PG (27.0-31.0) H Mean Corpuscular Hemoglobin Concent 32.9 G/DL (32.0-36.0) Red Cell Distribution Width 12.4 % (11.6-14.8) Platelet Count 256 K/UL (150-450) Mean Platelet Volume 4.9 FL (6.5-10.1) L Neutrophils (%) (Auto) 62.1 % (45.0-75.0) Lymphocytes (%) (Auto) 23.1 % (20.0-45.0) Monocytes (%) (Auto) 9.6 % (1.0-10.0) Eosinophils (%) (Auto) 0.9 % (0.0-3.0) Basophils (%) (Auto) 4.3 % (0.0-2.0) H Sodium Level 135 MMOL/L (136-145) L Potassium Level 4.9 MMOL/L (3.5-5.1) Chloride Level 103 MMOL/L (98-107) Carbon Dioxide Level 25 MMOL/L (21-32) Anion Gap 7 mmol/L (5-15) Blood Urea Nitrogen 19 mg/dL (7-18) H Creatinine 0.6 MG/DL (0.55-1.30) Estimat Glomerular Filtration Rate > 60 mL/min (>60) Glucose Level 68 MG/DL (74-106) L Calcium Level 8.6 MG/DL (8.5-10.1) Magnesium Level 1.7 MG/DL (1.8-2.4) L Total Bilirubin 0.3 MG/DL (0.2-1.0) Aspartate Amino Transf (AST/SGOT) 29 U/L (15-37) Alanine Aminotransferase (ALT/SGPT) 15 U/L (12-78) Alkaline Phosphatase 65 U/L (46-116) Pro-B-Type Natriuretic Peptide 2170 pg/mL (0-125) H Total Protein 5.8 G/DL (6.4-8.2) L Albumin 1.6 G/DL (3.4-5.0) L Globulin 4.2 g/dL Albumin/Globulin Ratio 0.4 (1.0-2.7) L Plan Problems: (1) Leukocytosis Assessment & Plan: On IV antibiotics resolved improving (2) Lactic acidosis Assessment & Plan: Resolving with hydration likely from dehydration improving (3) Decubitus skin ulcer Assessment & Plan: Patient presented on admission with multiple decubitus ulcers and skin concerns. Patient identified to have a full-thickness stage III sacral decubitus ulcer that seems to have been recently forming with multiple areas of dermal breakdown and some granulation tissue noted. Skin edges macerated. Erythema around a larger portion of the sacrum surrounding the area of full-thickness injury. Resolving decubitus to the left buttock. Bilateral heels blanchable with potential deep tissue injury being identified as they are soft and somewhat tender. Patient needs nutritional optimization, aggressive local care and decubitus prevention implementation. Turn every 2 hours wash sacrum daily apply Thera honey impregnated gauze followed by OPTi foam dressing. Air soft mattress. Heel protectors. Offload pressure from heels with pillows. Thank you will follow with recommendations (4) Failure to thrive in adult Assessment & Plan: DAILY ESTIMATED NEEDS: Needs based on Wound, pulmonary, bedbound/ 67kg 25-30 kcals/kg total kcals 1.25-1.5 g protein/kg 84-101 g total protein 25-30 mL/kg total fluid mLs NUTRITION DIAGNOSIS: * Swallowing difficulty R/T dysphagia as evidenced by pt is PEG dep. CURRENT TF: Glucerna 1.5 @ 20ml/hr x 24hrs ENTERAL NUTRITION RECOMMENDATIONS: Glucerna 1.5 @50ml/hr x 24 hrs to provide 1200ml, 1800kcal, 99g prot, 911ml free water * As able, increase TF by 10ml/hr q4-6 hrs to goal of 50ml/hr * HOB over 30 degrees/ water flush per MD ----- ADDITIONAL RECOMMENDATIONS: * WC eval * WEEKLY WEIGHTS on calibrated bed scale * Monitor lytes daily, replete as needed K elev on adm/ will monitor trend and need for renal formula * Wound healing: add Justen 1pkt BID, Vit C 250mg qd * Rec A1C for eval of glycemic control, pt on carb control formula . Yogi Vela Oct 19, 2019 11:49
[2019-10-19 12:00] VITALS: BP 115/68
--- NOTE | 2019-10-19 12:12 | NUR ---
RD ASSESSMENT & RECOMMENDATIONS SEE CARE ACTIVITY FOR COMPLETE ASSESSMENT DAILY ESTIMATED NEEDS: Needs based on Wound, pulmonary, bedbound/ 67kg 25-30 kcals/kg total kcals 1.25-1.5 g protein/kg 84-101 g total protein 25-30 mL/kg total fluid mLs NUTRITION DIAGNOSIS: 1) Swallowing difficulty R/T dysphagia as evidenced by pt is PEG dep. 2) Increased kcal/prot needs R/T wound healing as evidenced by admitted w/ full thickness sacral pressure injury and non-blanching erythema @ BL heels. CURRENT TF:Glucerna 1.5 @ 20ml/hr x 24hrs -> 40ml/hr x 24 hrs ENTERAL NUTRITION RECOMMENDATIONS: Glucerna 1.5 @50ml/hr x 24 hrs to provide 1200ml, 1800kcal, 99g prot, 911ml free water * Increase TF by 10ml/hr q4-6 hrs to goal of 50ml/hr * HOB over 30 degrees/ water flush per MD W/ consistently low BGs, rec TF change to Osmolite 1.5 @ 50ml/hr x 24 hrs + Prosource 1pkt QD to provide 1200ml, 1800kcal, 75g +11g prot ADDITIONAL RECOMMENDATIONS: * Wound healing: continue Vit C 250mg QD, add Justen BID * Monitor lytes daily, replete as needed K elev on adm/ will monitor trend and need for renal formula * Rec A1C for eval of glycemic control, pt on carb control formula * Monitor BGs closely, need TF change to non-carb controlled formula (mildly low BGs 68, 70) rec adding accucheck for closely BG monitoring * WEEKLY WEIGHTS on calibrated bed scale
[2019-10-19 16:00] VITALS: BP 130/63
--- NOTE | 2019-10-19 19:20 | NUR ---
NURSE NOTES: Sacrum dressing changed after BM per previous RN endorsement.
--- NOTE | 2019-10-19 19:20 | NUR ---
NURSE NOTES: Received patient in bed. Alert x1. On room air, respirations unlabored. Sitting at semi-fowlers. GT patent and running feeding at 40 mL/hr. IV in the Left forearm infusing IVF as ordered, no redness or swelling at the site, covered with kerlix. Side-rails padded for seizure precautions. Bed at the lowest position, call light within reach.
--- NOTE | 2019-10-19 19:37 | NUR ---
HAND-OFF: Report given to JORDIN Connor.
[2019-10-19 20:00] VITALS: BP 120/62
--- NOTE | 2019-10-19 21:45 | Discharge Summary ---
DATE OF ADMISSION: 10/16/2019 DATE OF DISCHARGE: 10/19/2019 ADMISSION DIAGNOSES: 1. Fevers. 2. Congestion. 3. Possible pneumonia, rule out aspiration pneumonia. 4. Toxic metabolic encephalopathy. 5. Dehydration. 6. SVT. 7. Hyperkalemia. 8. Lactic acidosis. DISCHARGE DIAGNOSES: 1. Fevers. 2. Congestion. 3. Possible pneumonia, rule out aspiration pneumonia. 4. Toxic metabolic encephalopathy. 5. Dehydration. 6. SVT. 7. Hyperkalemia. 8. Lactic acidosis. HOSPITAL COURSE: The patient is an elderly 84-year-old female with a history of schizoaffective disorder, dementia, stroke, and hypertension. She was admitted with complaints of congestion, fevers, and shortness of breath. She had evidence of lactic acidosis on labs. She was treated with intravenous antibiotics to cover for possible sepsis and nosocomial pneumonia. Her x-ray returned back negative. Urine was clear. She clinically improved with antibiotic therapy. Her SVT improved with hydration. Her lactic acidosis has also improved with hydration. On discharge, she was stable. She will be discharged to complete oral antibiotic therapy to cover for bronchitis. DISCHARGE MEDICATIONS: Please see discharge medication list for discharge medications. DIET: G-tube feedings. ACTIVITIES: Ad-bridgette. FOLLOWUP: The patient will follow up in 1 to 2 days at the [facility]. Tobi Garcia M.D. DR: TIFFANY JOB#: [id number] CC:
--- NOTE | 2019-10-19 22:45 | Progress Note ---
DATE: 10/19/2019 CARDIOLOGY PROGRESS NOTE SUBJECTIVE: No congestion. No shortness of breath. Remains afebrile. OBJECTIVE: VITAL SIGNS: Blood pressure 130/63, pulse 85, respirations 22, and oxygen saturation 95% on room air. LUNGS: Bilateral breath sounds. Dystonic movements of extremities and mouth. HEART: Regular rhythm and rate. Normal S1, S2. ABDOMEN: Soft. G-tube intact. EXTREMITIES: No edema. LABORATORY DATA: White count 8.8, hemoglobin 11.9. Sodium 135, potassium 4.9, BUN 19, creatinine 0.9. Albumin 1.6. Pro-natriuretic peptide 2100. Magnesium 1.7. IMPRESSION: 1. Urinary tract infection. 2. Sepsis. 3. Tardive dyskinesias. 4. Dysphagia with G-tube. 5. Hypomagnesemia. 6. Acute on chronic diastolic congestive heart failure. 7. Hypertensive heart disease. PLAN: 1. IV magnesium. 2. Complete antibiotics per Infectious Disease car sales consultant. 3. Discontinue IV fluids. 4. Discharge planning. 5. Observe response to Cogentin at halfway facility with regard to tardive dyskinesias. Antony Connolly M.D. DR: KATHY JOB#: [id number] CC:
[2019-10-20] VITALS: BP 136/71
[2019-10-20] MEDS: Piperacillin/Tazobactam 3.375 GM in NS 110 ML IVPB SCH ×2 (00:16→09:49)
--- NOTE | 2019-10-20 03:05 | NUR ---
HAND-OFF: Report given to Benito BRENNER.
[2019-10-20] MEDS: Vancomycin 750 MG in NS 275 ML IVPB SCH (03:44)
[2019-10-20 03:54] VITALS: BP 130/67
--- NOTE | 2019-10-20 07:03 | NUR ---
HAND-OFF: Report given to JORDIN Pelayo.
--- NOTE | 2019-10-20 07:37 | General Progress Note ---
Assessment/Plan Problem List: (1) Schizoaffective disorder ICD Codes: F25.9 - Schizoaffective disorder, unspecified SNOMED: 71811318 Qualifiers: Qualified Codes: F25.9 - Schizoaffective disorder, unspecified (2) Flu-like symptoms ICD Codes: R68.89 - Other general symptoms and signs SNOMED: 982119628 (3) Aspiration pneumonia ICD Codes: J69.0 - Pneumonitis due to inhalation of food and vomit SNOMED: 964526741 (4) General weakness ICD Codes: R53.1 - Weakness SNOMED: 96550524 (5) Hypertensive heart and chronic kidney disease ICD Codes: I13.10 - Hypertensive heart and chronic kidney disease without heart failure, with stage 1 through stage 4 chronic kidney disease, or unspecified chronic kidney disease SNOMED: 1702551660496 (6) Failure to thrive in adult ICD Codes: R62.7 - Adult failure to thrive SNOMED: 513621265 (7) Diastolic CHF, chronic ICD Codes: I50.32 - Chronic diastolic (congestive) heart failure SNOMED: 36140674, 370093995 (8) Congestion of upper respiratory tract ICD Codes: J98.8 - Other specified respiratory disorders SNOMED: 154363030 (9) Lactic acidosis ICD Codes: E87.2 - Acidosis SNOMED: 30348195 (10) Leukocytosis ICD Codes: D72.829 - Elevated white blood cell count, unspecified SNOMED: 667762857, 570921895 Status: stable, progressing Assessment/Plan: tube feeds cont iv abx. resp rx/o2 monitor for aspiration sz rx skin care turn q2 psych rx monitor for eps/td monitor labs dc planning Subjective ROS Limited/Unobtainable: No Constitutional: Reports: malaise, weakness HEENT: Reports: no symptoms Cardiovascular: Reports: no symptoms Respiratory: Reports: cough Gastrointestinal/Abdominal: Reports: difficulty swallowing, poor appetite, poor fluid intake Genitourinary: Reports: no symptoms Neurologic/Psychiatric: Reports: pre-existing deficit, seizure Endocrine: Reports: no symptoms Hematologic/Lymphatic: Reports: anemia Allergies: Coded Allergies: No Known Allergies (Unverified , 03/25/18) All Systems: reviewed and negative except above Subjective no events. intermittently agitated and confused. +cough and congestion but less.on tube feeds. no vomiting. Objective Last 24 Hour Vital Signs Date Time Temp Pulse Resp B/P (MAP) Pulse Ox O2 Delivery O2 Flow Rate FiO2 10/20/19 03:54 98.1 69 20 130/67 (88) 94 10/20/19 00:00 98.4 71 22 136/71 (92) 93 10/19/19 21:00 Room Air 10/19/19 20:21 78 120/62 10/19/19 20:00 98.1 78 18 120/62 (81) 95 10/19/19 16:00 98.4 85 22 130/63 (85) 98 10/19/19 12:00 98.4 80 24 115/68 (84) 98 10/19/19 09:26 93 123/63 10/19/19 09:00 Room Air 10/19/19 08:00 98.6 93 22 123/63 (83) 95 Intake and Output 10/19/19 10/20/19 19:00 07:00 Intake Total 1601.666 ml 842.500 ml Output Total 500 ml Balance 1601.666 ml 342.500 ml Intake Free Water 45 ml 150 ml IV Total 1076.666 ml 452.500 ml Tube Feeding 480 ml 240 ml Output Urine Total 500 ml # Voids 3 # Bowel Movements 5 Height (Feet): 5 Height (Inches): 6.00 Weight (Pounds): 162 General Appearance: WD/WN, alert, confused, cachetic, thin Neck: supple, normal inspection Cardiovascular: normal peripheral pulses, normal rate, regular rhythm Respiratory/Chest: chest wall non-tender, lungs clear, normal breath sounds, no respiratory distress, no accessory muscle use Abdomen: normal bowel sounds, non tender, soft, no organomegaly Extremities: normal range of motion Edema: no edema noted Arm (L), no edema noted Arm (R), no edema noted Leg (L), no edema noted Leg (R), no edema noted Pedal (L), no edema noted Pedal (R), no edema noted Generalized Neurologic: alert, disoriented, unresponsive, aphasia Skin: normal pigmentation Tobi Garcia MD Oct 20, 2019 07:37
--- NOTE | 2019-10-20 07:44 | NUR ---
NURSE NOTES: received report from JORDIN Oliver. patient in bed. disoriented. limited verbal communication d/t impaired cognition. no respiratory distress noted on room air. no facial grimacing. GTF running at 40/hr. hob at all times. p200 mattress for wound management. dressing intact. IV on LFA 24g. saline lock intact. discharge order back to SNF. bed in the lowest position and locked. call light within reach.will continue to provide plan of care.
[2019-10-20 08:00] VITALS: BP 121/64
[2019-10-20] MEDS: Milk of Magnesia 30ml Ud GT SCH (09:00)
--- NOTE | 2019-10-20 09:17 | NUR ---
DISCHARGE PLANNING NOTE DC ORDER RECEIVED CALL MADE TO [facility]. Maranda/Juevntino PULLIAM IN RE TO REFERRAL FAXED 10/19/2019. REQUESTING CURRENT MED LIST OF TODAY. MED LIST AND MD PROGRESS NOTES FAXED. STATES SHE WILL CALL BACK UPON ARRIVAL OF FLEET OPERATIONS MANAGER TO PROVIDE ROOM NUMBER. [facility] P: [phone] F: [phone] Addendum: 10/20/19 at 1226 by CHRISTOPHER MANTILLA LVN LVN Alvin PULLIAM AT [facility]. STATES PATIENT IS ACCEPTED TO RETURN TODAY TO ROOM ASSIGNMENT FOLLOWS [address] [facility] WILL ARRANGE TRANSPORTATION.
[2019-10-20] MEDS: Heparin 5000 units/ml inj SUBQ SCH (09:46)
[2019-10-20] MEDS: Multivitamins W/Minerals 15 ML UDC GT SCH (09:46)
[2019-10-20] MEDS: Tums 500mg GT SCH ×2 (09:47→12:40)
[2019-10-20] MEDS: Depakote 125mg Sprinkles GT SCH (09:47)
[2019-10-20] MEDS: Docusate 100mg/10ml Liq GT SCH (09:47)
[2019-10-20] MEDS: Ascorbic Acid 500mg tab GT SCH (09:47)
[2019-10-20] MEDS: Benztropine 1mg tab ORAL SCH ×2 (09:47→12:40)
--- NOTE | 2019-10-20 11:26 | NUR ---
*-* INSURANCE *-* ALL CLINICALS HAVE BEEN FAXED TO: [facility]# YET #[phone] FAX# [phone] REVIEWS/CLINICALS
--- NOTE | 2019-10-20 11:49 | Surgery Progress Note ---
Surgery Progress Note Subjective Additional Comments no acute events tolerating tf micro ngtd Objective Last 24 Hour Vital Signs Date Time Temp Pulse Resp B/P (MAP) Pulse Ox O2 Delivery O2 Flow Rate FiO2 10/20/19 09:47 70 121/64 10/20/19 09:00 Room Air 10/20/19 08:00 97.4 70 17 121/64 (83) 94 10/20/19 03:54 98.1 69 20 130/67 (88) 94 10/20/19 00:00 98.4 71 22 136/71 (92) 93 10/19/19 21:00 Room Air 10/19/19 20:21 78 120/62 10/19/19 20:00 98.1 78 18 120/62 (81) 95 10/19/19 16:00 98.4 85 22 130/63 (85) 98 10/19/19 12:00 98.4 80 24 115/68 (84) 98 I&O Intake and Output 10/19/19 10/20/19 19:00 07:00 Intake Total 1601.666 ml 842.500 ml Output Total 500 ml Balance 1601.666 ml 342.500 ml Intake Free Water 45 ml 150 ml IV Total 1076.666 ml 452.500 ml Tube Feeding 480 ml 240 ml Output Urine Total 500 ml # Voids 3 # Bowel Movements 5 Dressing: dry Wound: clean Cardiovascular: RSR Respiratory: clear Abdomen: soft, non-tender, present bowel sounds Extremities: no cyanosis Plan Problems: (1) Leukocytosis Assessment & Plan: On IV antibiotics resolved improving (2) Lactic acidosis Assessment & Plan: Resolving with hydration likely from dehydration improving (3) Decubitus skin ulcer Assessment & Plan: Patient presented on admission with multiple decubitus ulcers and skin concerns. Patient identified to have a full-thickness stage III sacral decubitus ulcer that seems to have been recently forming with multiple areas of dermal breakdown and some granulation tissue noted. Skin edges macerated. Erythema around a larger portion of the sacrum surrounding the area of full-thickness injury. Resolving decubitus to the left buttock. Bilateral heels blanchable with potential deep tissue injury being identified as they are soft and somewhat tender. Patient needs nutritional optimization, aggressive local care and decubitus prevention implementation. Turn every 2 hours wash sacrum daily apply Thera honey impregnated gauze followed by OPTi foam dressing. Air soft mattress. Heel protectors. Offload pressure from heels with pillows. Thank you will follow with recommendations (4) Failure to thrive in adult Assessment & Plan: DAILY ESTIMATED NEEDS: Needs based on Wound, pulmonary, bedbound/ 67kg 25-30 kcals/kg total kcals 1.25-1.5 g protein/kg 84-101 g total protein 25-30 mL/kg total fluid mLs NUTRITION DIAGNOSIS: * Swallowing difficulty R/T dysphagia as evidenced by pt is PEG dep. CURRENT TF: Glucerna 1.5 @ 20ml/hr x 24hrs ENTERAL NUTRITION RECOMMENDATIONS: Glucerna 1.5 @50ml/hr x 24 hrs to provide 1200ml, 1800kcal, 99g prot, 911ml free water * As able, increase TF by 10ml/hr q4-6 hrs to goal of 50ml/hr * HOB over 30 degrees/ water flush per MD ----- ADDITIONAL RECOMMENDATIONS: * WC eval * WEEKLY WEIGHTS on calibrated bed scale * Monitor lytes daily, replete as needed K elev on adm/ will monitor trend and need for renal formula * Wound healing: add Justen 1pkt BID, Vit C 250mg qd * Rec A1C for eval of glycemic control, pt on carb control formula . Additional Comments d/c planning thank you Yogi Vela Oct 20, 2019 11:49
[2019-10-20 12:00] VITALS: BP 127/64
--- NOTE | 2019-10-20 12:33 | NUR ---
*-*DISCHARGE PLANNED*-* PATIENT IS BEING DISCHARGED TO: [facility] P: [phone] F: [phone] RM# 216.B [facility] [id number] ETA 2PM/ 1400PM
--- NOTE | 2019-10-20 13:13 | NUR ---
NURSE NOTES: given report to CVN. spoke to JORDIN Rodriguez pest control supervisor.
--- NOTE | 2019-10-20 14:01 | NUR ---
NURSE NOTES: patient discharged to [facility] with fair condition via ambulance [facility]. alert to person. no respiratory distress noted on room air. no facial grimacing during care. g-tube site intact. changed dressing on sacral st3, both heels. pictures were taken. provided dc packet to the ambulance personnel. removed iv and ID band.
--- NOTE | 2019-10-20 23:00 | Progress Note ---
DATE: 10/20/2019 CARDIOLOGY PROGRESS NOTE SUBJECTIVE: The patient has no respiratory distress. She is comfortable. She is an unreliable historian. She is tolerating tube feedings. OBJECTIVE: VITAL SIGNS: Blood pressure 130/67, pulse 69, respirations 20, and afebrile. LUNGS: Bilateral breath sounds. CARDIAC: Regular rhythm and rate. Normal S1 and S2. There is a fourth heart sound. ABDOMEN: Soft. EXTREMITIES: No edema. LABORATORY DATA: Reviewed. IMPRESSION: 1. Urinary tract infection with sepsis, recovered. 2. Acute on chronic kidney injury, resolved. 3. Metabolic and toxic encephalopathy, recovered. 4. Lactic acidosis and hyperkalemia, resolved. 5. Chronic diastolic congestive heart failure. 6. Hypertensive heart disease. 7. Severe protein-calorie malnutrition. 8. Tardive dyskinesias. 9. Hypomagnesemia, status post correction. PLAN: 1. Complete [facility] at [facility]. 2. Observes response to benztropine and titrate. 3. Monitor volume status and cardiorenal parameters. Antony Connolly M.D. DR: JAGDEEP JOB#: [id number] CC:
--- NOTE | 2019-10-22 16:18 | Discharge Summary ---
Discharge Summary Discharge Summary _ Correction: DATE OF DISCHARGE: 10/20/2019 Марина Medrano NP Oct 22, 2019 16:18
--- NOTE | 2019-10-23 13:18 | NUR ---
*-* INSURANCE *-* NO DISCHARGE SUMMARY IN THE SYSTEM UNABLE TO SEND TO INS
== END 2019-10-20 14:10 | DRG 137 ==
LOC: EDBD 16:58 → EDBEDREQ 17:46 → EMR 18:21 → OBSVTOIN 18:38 → 2E 18:38 → EDBEDREQ 19:24 → 2E 10-17 00:59 → 4E 10-18 08:15
DX: J69.0 Pneumonitis due to inhalation of food and vomit (principal); E43 Unspecified severe protein-calorie malnutrition; G92 Toxic encephalopathy; F25.8 Other schizoaffective disorders; I11.0 Hypertensive heart disease with heart failure; I50.32 Chronic diastolic (congestive) heart failure; I47.1 Supraventricular tachycardia; L89.892 Pressure ulcer of other site, stage 2; E87.2 Acidosis; E11.65 Type 2 diabetes mellitus with hyperglycemia; G24.01 Drug induced subacute dyskinesia; F03.90 Unspecified dementia, unspecified severity, without behavioral disturbance, psychotic disturbance, mood disturbance, and anxiety; G20 Parkinson's disease; F02.80 Dementia in other diseases classified elsewhere, unspecified severity, without behavioral disturbance, psychotic disturbance, mood disturbance, and anxiety; F25.9 Schizoaffective disorder, unspecified; G40.909 Epilepsy, unspecified, not intractable, without status epilepticus; E86.0 Dehydration; E87.5 Hyperkalemia; R06.89 Other abnormalities of breathing; R13.10 Dysphagia, unspecified; R62.7 Adult failure to thrive; Z43.1 Encounter for attention to gastrostomy; N18.9 Chronic kidney disease, unspecified; E11.22 Type 2 diabetes mellitus with diabetic chronic kidney disease; I13.0 Hypertensive heart and chronic kidney disease with heart failure and stage 1 through stage 4 chronic kidney disease, or unspecified chronic kidney disease; I50.33 Acute on chronic diastolic (congestive) heart failure; L89.152 Pressure ulcer of sacral region, stage 2
CPT/HCPCS: 36415; 71045; 80053; 80164; 80202; 81003; 83605; 83735; 83880; 84443; 84484; 85025; 86710; 87040; 87081; 93005; 96361; 96365; 99285; J7030